=== PATIENT | female | born 1940 ===

== ENCOUNTER 2024-04-25 17:32 | Inpatient (IN) | payer OTHER, SELFPAY ==
[2024-04-25] VITALS (8 sets, daily range): BP systolic 110–149; BP diastolic 51–85; PULSE 101–128; RESP 16–20; TEMP 38.2–40.3; O2SAT 92–96; BMI 31.9
--- NOTE | 2024-04-25 | ECG_ITS ---
Test Reason : TACHYCARDIA Blood Pressure : / mmHG Vent. Rate : 118 BPM Atrial Rate : 122 BPM P-R Int : 000 ms QRS Dur : 110 ms QT Int : 338 ms P-R-T Axes : 000 -51 087 degrees QTc Int : 473 ms Undetermined rhythm Left anterior fascicular block Left ventricular hypertrophy with repolarization abnormality ( R in aVL , Naveed product ) Cannot rule out Septal infarct , age undetermined Abnormal ECG No previous ECGs available Referred By: Thuan Matthews Electronically Signed By:TADOE SALDAÑA
--- NOTE | ~2024-04-25 | US_ITS ---
EXAMINATION: US RETROPERITONEAL LIMITED (RENAL ONLY) CLINICAL INFORMATION: Acute kidney injury. COMPARISON: KUB of 04/26/2024, CT abdomen and pelvis of 04/25/2024 TECHNIQUE: Ultrasound images of the kidneys. Limited visualization due to bowel gas. FINDINGS: RIGHT KIDNEY: 11.8 x 5.8 x 4.0 cm (SAG x AP x TRV). No hydronephrosis. No renal calculi. Renal cortical thickness is normal. Limited visualization. 1.6 cm mid pole cyst with benign features. There is no indication for followup imaging. 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 LEFT KIDNEY: 11.9 x 4.6 x 4.0 cm (SAG x AP x TRV). No hydronephrosis. No renal calculi. Renal cortical thickness is normal. Limited visualization. 0.8 cm mid to upper pole cyst with benign features. There is no indication for followup imaging. 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 No hydronephrosis. No renal calculi. Limited visualization. This study was presented today, May 05, 2024, for interpretation. Stat results provided at this time as requested by referring provider. Electronically signed by: Stefanie Johnson MD 05/05/2024 11:43 AM EST
--- NOTE | ~2024-04-25 | XR_ITS ---
EXAMINATION: XR CHEST CLINICAL INFORMATION: rapid a-fib, SOB COMPARISON: None available. TECHNIQUE: AP portable view of the chest was obtained. FINDINGS: Study is apical lordotic. Lungs demonstrate/pulmonary edema pattern with perihilar haziness, haziness of the interstitium, and engorgement of the vascular markings. No definite effusions on this portable radiograph. A superimposed pneumonia in the right lower lung distribution cannot be excluded although is felt less likely given history. No pneumothorax. There is prominence of the cardiac silhouette. Coronary stent noted. Aorta is calcified. Karolina obscured by perihilar hazy opacities. No discrete osseous or soft tissue abnormalities. XR/XR chest 1V IMPRESSION: Flash pulmonary edema pattern. See above. Electronically signed by: Wilfrid Montanez MD 04/28/2024 10:41 AM [facility]
--- NOTE | ~2024-04-25 | CT_ITS ---
EXAMINATION: CT HEAD WITHOUT CONTRAST CLINICAL INFORMATION: Persistent fever. COMPARISON: None available. TECHNIQUE: Contiguous axial imaging was performed from the skull base to vertex without intravenous administration of contrast. This CT examination was performed using dose optimization techniques as appropriate, variously including the following: *Automated exposure control. *Adjustment of mA and/or kV according to patient size (this includes techniques or standardized protocols for targeted exams where dose is matched to indication/reason for exam; i.e. extremities or head). *Use of iterative reconstruction technique. DLP: 709 mGy-cm FINDINGS: Small region of chronic encephalomalacia within the anterior left frontal lobe with associated volume loss. No additional loss of saldivar-white matter differentiation. No evidence of acute intracranial hemorrhage. 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 Confluent hypoattenuation in the periventricular and deep white matter. Proportional prominence of the ventricles and sulcal spaces without evidence of obstructive hydrocephalus. No abnormal mass effect or midline shift. No extra-axial fluid collections. Calcific atherosclerotic disease of the intracranial internal carotid and vertebral arteries. No hyperdense vessel sign. No acute soft tissue or osseous abnormalities. Mild mucosal thickening of the paranasal sinuses. The mastoid air cells and middle ear cavities are clear. Mild degenerative arthropathy of the temporomandibular joints. CT/CT head/brain wo IV con IMPRESSION: 1. No evidence of acute intracranial hemorrhage or edematous territorial infarction. 2. Small region of chronic encephalomalacia within the anterior left frontal lobe. 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 Electronically signed by: Eugene Valenzuela DO 04/27/2024 06:06 PM EST
--- NOTE | ~2024-04-25 | XR_ITS ---
EXAMINATION: XR ABDOMEN KUB CLINICAL INDICATION: f/u rectal foreign body COMPARISON: CT from 04/25/2024 TECHNIQUE: AP view of the abdomen. FINDINGS: The bowel gas pattern is normal with no evidence of ileus or obstruction. Previously seen rectal catheter is no longer visualized. Residual IV contrast seen in the urinary bladder No unusual soft tissue calcifications are noted. The bones are unremarkable. XR/XR KUB IMPRESSION: Previously seen rectal catheter is no longer visualized. No radiopaque foreign body identified Electronically signed by: Johnathan Alston MD 04/26/2024 07:55 PM EST
--- NOTE | ~2024-04-25 | XR_ITS ---
EXAMINATION: XR CHEST CLINICAL INFORMATION: Fever. COMPARISON: None available. TECHNIQUE: Frontal view of the chest was obtained. FINDINGS: Chronic appearing interstitial prominence without focal airspace consolidation. No pleural effusion or pneumothorax. Unremarkable cardiomediastinal silhouette. XR/XR chest 1V IMPRESSION: Chronic appearing interstitial prominence without focal airspace consolidation. Electronically signed by: Kaden Real MD 04/25/2024 06:42 PM [facility] [place]
--- NOTE | ~2024-04-25 | CT_ITS ---
EXAMINATION: CT ABDOMEN PELVIS WITH IV CONTRAST CLINICAL INFORMATION: Upper abdominal pain with fever COMPARISON: No prior CT available for comparison. TECHNIQUE: Multidetector volumetric imaging was performed from the superior aspect of the liver through the pubic symphysis 85 mL of Omnipaque 350 injected Sagittal and coronal reformatted images were obtained on the technologist's workstation. This CT examination was performed using dose optimization techniques as appropriate, variously including the following: *Automated exposure control *Adjustment of mA and/or kV according to patient size (this includes techniques or standardized protocols for targeted exams where dose is matched to indication/reason for exam; i.e. extremities or head) *Use of iterative reconstruction technique DLP: 569 mGy-cm FINDINGS: LOWER THORAX: Included lung bases are clear. HEPATOBILIARY: No focal hepatic lesions. No biliary ductal dilatation. GALLBLADDER: Gallbladder unremarkable. SPLEEN: Spleen top normal in size 12.4 x 8.2 cm PANCREAS: No focal mass or ductal dilatation. STOMACH AND GASTROINTESTINAL TRACT: Stomach is grossly unremarkable. There is no bowel distention or thickening. Appendix normal in diameter 6 mm. No periappendiceal fat stranding or other signs to suggest appendicitis. ADRENALS: No adrenal nodules. KIDNEYS/URETERS: No hydronephrosis, stones or solid mass lesions. Simple cyst right kidney Bosniak class I measures 1.8 cm, these are commonly benign, no follow-up imaging is indicated. URINARY BLADDER: Not well evaluated lack of contrast. PELVIC VISCERA: There is diverticulosis of the area sigmoid colon, minimal fat stranding around the sigmoid colon in the pelvis, cannot rule out mild diverticulitis. There is radiodense catheter in the rectum uncertain purpose. There is a round radiodense object present near the anterior anal junction seen at the margin of the study. Roughly 1.5 x 1.4 cm refer image 60 series 8 PERITONEUM: No free air or fluid. LYMPH NODES: A large lymph node in the left side of the pelvis adjacent to the iliac vessels measures 1.3 x 1.1 cm, few other enlarged retroperitoneal para-aortic lymph nodes including the one on image 46 series of 3 measures 1 cm short axis. VASCULAR:Abdominal aorta normal in size, no aneurysm found. Heavy aortic vascular calcifications. BONES, ABDOMINAL WALL AND SOFT TISSUES: Age-appropriate changes of the spine and skeletal system, no destructive osteolytic or osteosclerotic bone lesion found CT/CT abdomen pelvis w IV con IMPRESSION: 1. There is diverticulosis of the sigmoid colon, there is minimal fat stranding around the sigmoid colon in the pelvis, suggesting mild DIVERTICULITIS. 2. There is a radiodense catheter in the rectum uncertain purpose. 3. There is a round radiodense object present near the anterior anal junction seen at the margin of the study 1.5 x 1.4 cm. 4. There are enlarged retroperitoneal lymph nodes in the left side of the pelvis adjacent to the iliac vessels, largest measures up to 1.3 cm short axis. Etiology indeterminate, could be reactive. Please correlate with patient's clinical history. Electronically signed by: Elena Mensah MD 04/25/2024 08:03 PM [facility]
--- NOTE | ~2024-04-25 | NM_ITS ---
EXAMINATION: Nuclear medicine perfusion lung exam. CLINICAL INFORMATION: Shortness of breath. COMPARISON: Chest x-ray April 28, 2024 TECHNIQUE: 4.0 mCi technetium 99m MAA given intravenously. Multiple images obtained of the chest. Imaging was performed with the patient's arms at his side. FINDINGS: Homogeneous perfusion of the left and right lung. No perfusion defect. No evidence of pulmonary embolism. NM/NM pul perfusion IMPRESSION: No evidence of pulmonary embolism. Normal perfusion lung scan. Electronically signed by: Ry Silva MD 04/29/2024 05:00 PM [facility]
--- NOTE | 2024-04-25 18:00 | ED.GENADULT ---
HPI - General Adult General Chief complaint: General Medical Stated complaint: ?seizure, dizzy, vomiting Time Seen by Provider: 04/25/24 18:00 Source: patient Mode of arrival: ambulatory Limitations: no limitations History of Present Illness ED Provider: jesusita FAITH narrative: Patient's history of diabetes asthma brought by EMS for lethargy weakness and shivering prior to arrival patient was also slightly confused patient usually lives alone her son came to visit her and noticed this earlier yesterday patient was feeling better symptoms started yesterday evening got worse prior to arrival today no nausea no vomiting no upper respiratory symptoms RN noticed foul-smelling urine had multiple episodes of nausea vomiting no diarrhea Related Data Allergies Allergy/AdvReac Type Severity Reaction Status Date / Time No Known Allergies Allergy Verified 04/25/24 17:39 Review of Systems Review of Systems: Yes all other systems are reviewed and are negative [facility] Past Medical History Medical History (Updated 04/25/24 @ 21:04 by Thuan Matthews MD) Mild intermittent asthma Type 2 diabetes mellitus without complications Social History Social History Household Members: Other Household Members Other:: senior living Housing: Other Housing Other:: senior living Do you presently have visiting nurse or other home services: No Patient Tobacco Use Status: Never used Tobacco Physical Exam ED Vital Signs: Vital Signs - 24 hr 04/25/24 17:36 04/25/24 17:55 04/25/24 17:56 Temperature 102.8 F H 104.5 F H Pulse Rate 128 H Respiratory Rate 18 Blood Pressure 149/85 H Pulse Oximetry 96 Oxygen Delivery Method Room Air Room Air Oxygen Flow Rate 04/25/24 18:21 04/25/24 18:50 04/25/24 19:43 Temperature 104.2 F H 103.5 F H 102.0 F H Pulse Rate 118 H 116 H 113 H Respiratory Rate 16 20 17 Blood Pressure 133/61 118/79 110/60 Pulse Oximetry 92 94 94 Oxygen Delivery Method Room Air Room Air Room Air Oxygen Flow Rate 95 04/25/24 20:50 Temperature 100.8 F H Pulse Rate 101 H Respiratory Rate 18 Blood Pressure 111/54 L Pulse Oximetry 94 Oxygen Delivery Method Room Air Oxygen Flow Rate BMI result Body Mass Index 31.9 Appearance: Alert. Oriented X3. No acute distress. Eyes: PERRLA, No Nystagmus ENT: Pharynx normal. Oral Mucosa dry Neck: Normal inspection. Neck supple. CVS: Normal heart rate and rhythm. Pulses normal. Respiratory: No respiratory distress. Equal air entry bilateral, no wheezing/rales/rhonchi Abdomen: Soft and nontender. Bowel sounds are present, no mass palpable, no CVA tenderness Skin: Skin warm and dry. Normal skin color. Normal skin turgor. Extremities: No lower extremity edema. No calf tenderness Neuro: Oriented X 3. No motor deficit. Medications Administered Generic Name Dose Route Start Last Admin Trade Name Freq PRN Reason Stop Dose Admin Acetaminophen 650 mg 04/25/24 20:59 04/26/24 00:44 Acetaminophen 325 Mg Tablet PO 650 mg Q6H PRN Administration Pain, Mild (Pain Scale 1-3), fever or headache Enoxaparin Sodium 40 mg 04/25/24 22:00 04/25/24 21:47 Enoxaparin Sodium 40 Mg/0.4 Ml Syringe SUBCUT 40 mg Q24H NADINE Administration Lactated Ringer's 1,000 mls @ 100 mls/hr 04/25/24 21:00 04/25/24 21:48 Lr IVCONT 100 mls/hr .Q10H NADINE Administration Metronidazole 500 mg in 100 mls @ 100 mls/hr 04/25/24 22:00 04/25/24 22:48 Flagyl IV Infused Q8H NADINE Infusion Ondansetron HCl 4 mg 04/25/24 20:59 04/26/24 00:27 Ondansetron Hcl 4 Mg/2 Ml Vial IVPUSH 4 mg Q8H PRN Administration Nausea and Vomiting Sodium Chloride 3 ml 04/26/24 00:00 04/26/24 00:27 0.9 % Sodium Chloride Flush 3 Ml Syringe IVFLUSH 3 ml QSHIFT NADINE Administration Discontinued Medications Generic Name Dose Route Start Last Admin Trade Name Freq PRN Reason Stop Dose Admin Acetaminophen 650 mg 04/25/24 18:07 04/25/24 18:24 Acetaminophen 325 Mg Tablet PO 04/25/24 18:08 650 mg ONCE ONE Administration Ceftriaxone Sodium 1 gm 04/25/24 18:03 04/25/24 18:18 Ceftriaxone Sodium 1 Gm Vial IVPUSH 04/25/24 18:04 1 gm ONCE ONE Administration Sodium Chloride 1,000 mls @ 999 mls/hr 04/25/24 18:03 04/25/24 19:15 Ns IV 04/25/24 19:03 Infused .Q1H1M ONE Infusion Magnesium Sulfate 2 gm in 50 mls @ 150 mls/hr 04/25/24 19:00 04/25/24 19:27 Magnesium Sulfate/H2o IV 04/25/24 19:19 Infused ONCE ONE Infusion Iohexol 85 ml 04/25/24 19:27 04/25/24 19:27 Iohexol 350 Mg/Ml 100 Ml Infus..Btl IV 04/25/24 19:28 85 ml ONCE ONE Administration Medical Decision Making Medical Decision Making MDM Narrative: Patient has acute febrile illness with normal WBC count CT scan of the abdomen showed diverticulitis uncomplicated likely the cause for the fever patient's symptoms and presentation will admit patient for IV antibiotics pending blood culture lactic acid level was normal Patient's son's Ren phone number [phone] Differential Diagnosis Differential Diagnoses: The differential diagnosis associated with the presentation includes Diverticulitis/UTI/bacteremia/viral syndrome Admission/Observation Consideration of admission/observation: Escalation of care including admission/observation considered Consult Healthcare Provider Management of the patient was discussed with: Hospitalist Lab Data [facility] Lab Attestation statement: I reviewed the patient's lab results. 04/25/24 18:14 04/25/24 18:14 Labs: Lab Results 04/25/24 Range/Units 18:14 WBC 8.5 (4.8-10.8) X10*3/uL RBC 4.83 (4.20-5.50) X10*6/uL Hgb 13.9 (12.0-16.0) g/dl Hct 41.2 (37.0-47.0) % MCV 85.3 (80.0-98.0) fL MCH 28.8 (27.0-33.0) pg MCHC 33.7 (31.0-35.0) g/dl RDW 12.7 (11.0-16.0) % Plt Count 181 (160-400) X10*3/uL MPV 9.3 L (9.4-12.3) fL Immature Gran % (Auto) 0.6 H (0.0-0.4) % Neut % (Auto) 85.3 H (45-73) % Lymph % (Auto) 8.3 L (20-40) % [place] % (Auto) 5.4 (2-11) % Eos % (Auto) 0.0 (0-4) % Baso % (Auto) 0.4 (0-2) % Lymph # (Auto) 0.7 L (1.2-4.9) X10*3/uL [place] # (Auto) 0.5 (0.1-1.2) X10*3/uL Eos # (Auto) 0.0 (0.0-0.4) X10*3/uL Baso # (Auto) 0.0 (0.0-0.2) X10*3/uL Abs Immat Gran (auto) 0.05 H (0.00-0.03) X10*3/uL Absolute Neuts (auto) 7.3 (2.0-8.3) x10*3/uL Absolute Nucleated RBC 0.000 (0.0-0.012) X10*3/uL Nucleated RBC % (auto) 0.0 (0.0-0.2) /100WBC Sodium 132 L (135-145) mmol/L Potassium 3.6 (3.3-5.1) mmol/L Chloride 96 (96-108) mmol/L Carbon Dioxide 26 (22-29) mmol/L Anion Gap 14 (12-20) BUN 10 (9-16) mg/dL Creatinine 0.95 (0.5-1.4) mg/dL Estim Creat Clear Calc 45.2 Estimated GFR 56 Random Glucose 186 H (60-115) mg/dL Lactic Acid 1.7 (0.5-2.0) mmol/L Calcium 9.2 (8.4-10.2) mg/dL Magnesium 1.3 L* (1.6-2.6) mg/dL Total Bilirubin 0.6 (0.0-1.0) mg/dL AST 21 (5-31) U/L ALT 11 (0-31) U/L Alkaline Phosphatase 51 (39-117) U/L Total Protein 7.1 (6.5-8.0) g/dL Albumin 3.7 (3.5-5.0) g/dL Lipase 27 (8-78) U/L Urine Color Dark Yellow Urine Appearance Clear Urine pH 6.0 (5.0-9.0) Ur Specific [place] 1.025 (1.005-1.025) Urine Protein 300 (3+) H (Neg-Trace) mg/dL Urine Glucose (UA) Negative (Negative) mg/dL Urine Ketones 15 (Negative) mg/dL Urine Blood Large (3+) H (Negative) Urine Nitrite Negative (Negative) Ur Leukocyte Esterase Negative (Negative) Urine RBC 11-20 H (0-2) /HPF Urine WBC 0-5 (0-5) /HPF Ur Squamous Epith Cells 3-5 (0-2) /HPF Urine Bacteria None Seen (None Seen) Hyaline Casts 6-10 (0-2) /LPF Granular Casts Present Influenza Type A (PCR) NEGATIVE (Negative) Influenza Type B (PCR) NEGATIVE (Negative) RSV RNA Qual (PCR) NEGATIVE (Negative) SARS-CoV-2 RNA (RT-PCR) NEGATIVE (Negative) Independent Interpretation I performed an independent interpretation of an: CT Scan Radiology Impression Discussion of test interpretation with radiology: I have reviewed the radiologist's reading. Radiologist Impression: [place] [id number] CT Scan Report Signed Patient: Merle Funk MR#: [id number] : 1940 Acct:[id number] Age/Sex: 83 / F ADM Date: 04/25/24 Loc: .ED Attending Dr: Ordering Physician: Thuan Matthews MD Date of Service: 04/25/24 Procedure(s): CT abdomen pelvis w IV con Accession Number(s): [id number] cc: Clemente Castaneda MD; Thuan Matthews MD~ EXAMINATION: CT ABDOMEN PELVIS WITH IV CONTRAST CLINICAL INFORMATION: Upper abdominal pain with fever COMPARISON: No prior CT available for comparison. TECHNIQUE: Multidetector volumetric imaging was performed from the superior aspect of the liver through the pubic symphysis 85 mL of Omnipaque 350 injected Sagittal and coronal reformatted images were obtained on the technologist's workstation. This CT examination was performed using dose optimization techniques as appropriate, variously including the following: *Automated exposure control *Adjustment of mA and/or kV according to patient size (this includes techniques or standardized protocols for targeted exams where dose is matched to indication/reason for exam; i.e. extremities or head) *Use of iterative reconstruction technique DLP: 569 mGy-cm FINDINGS: LOWER THORAX: Included lung bases are clear. HEPATOBILIARY: No focal hepatic lesions. No biliary ductal dilatation. GALLBLADDER: Gallbladder unremarkable. SPLEEN: Spleen top normal in size 12.4 x 8.2 cm PANCREAS: No focal mass or ductal dilatation. STOMACH AND GASTROINTESTINAL TRACT: Stomach is grossly unremarkable. There is no bowel distention or thickening. Appendix normal in diameter 6 mm. No periappendiceal fat stranding or other signs to suggest appendicitis. ADRENALS: No adrenal nodules. KIDNEYS/URETERS: No hydronephrosis, stones or solid mass lesions. Simple cyst right kidney Bosniak class I measures 1.8 cm, these are commonly benign, no follow-up imaging is indicated. URINARY BLADDER: Not well evaluated lack of contrast. PELVIC VISCERA: There is diverticulosis of the area sigmoid colon, minimal fat stranding around the sigmoid colon in the pelvis, cannot rule out mild diverticulitis. There is radiodense catheter in the rectum uncertain purpose. There is a round radiodense object present near the anterior anal junction seen at the margin of the study. Roughly 1.5 x 1.4 cm refer image 60 series 8 PERITONEUM: No free air or fluid. LYMPH NODES: A large lymph node in the left side of the pelvis adjacent to the iliac vessels measures 1.3 x 1.1 cm, few other enlarged retroperitoneal para-aortic lymph nodes including the one on image 46 series of 3 measures 1 cm short axis. VASCULAR:Abdominal aorta normal in size, no aneurysm found. Heavy aortic vascular calcifications. BONES, ABDOMINAL WALL AND SOFT TISSUES: Age-appropriate changes of the spine and skeletal system, no destructive osteolytic or osteosclerotic bone lesion found CT/CT abdomen pelvis w IV con IMPRESSION: 1. There is diverticulosis of the sigmoid colon, there is minimal fat stranding around the sigmoid colon in the pelvis, suggesting mild DIVERTICULITIS. 2. There is a radiodense catheter in the rectum uncertain purpose. 3. There is a round radiodense object present near the anterior anal junction seen at the margin of the study 1.5 x 1.4 cm. 4. There are enlarged retroperitoneal lymph nodes in the left side of the pelvis adjacent to the iliac vessels, largest measures up to 1.3 cm short axis. Etiology indeterminate, could be reactive. Please correlate with patient's clinical history. Electronically signed by: Elena Mensah MD 04/25/2024 08:03 PM [facility] Discharge Plan Discharge Clinical Impression: Sigmoid diverticulitis Patient Disposition: Admitted As Inpatient Interventions: Admission Worksheet (ED) Last Done: 04/26/24 00:40 Discharge Date/Time: 04/26/24 00:41
[2024-04-25] MEDS: 0.9 % Sodium Chloride 1,000 ML 999 ML IV (18:14)
[2024-04-25] MEDS: cefTRIAXone sodium 1 GM VIAL IVPUSH (18:18)
--- NOTE | 2024-04-25 18:20 | PC.NURSE ---
roxann from [facility] d/t seizure like activity. pt's son reports DAVID was displaying w/ tremors. alert/awake throughout. no hx of seizures. no trauma. foul smelling urine upon ED arrival. multiple episodes of n/v. denies any abd pain/diarrhea/fever/chills. upon ED arrival - pt answering questions/following commands appropriately but seemingly disoriented. pt presents w/ extremely foul smelling urine as well as being incontinent w/ large amount of urine. clothes wet. pt changed into hospital attire. vitals obtained. pt noted to have 102.8 temperature via oral route. rectal temp then obtained displaying 104.2. rectal probe placed. pt tachycardic - HR between 115-125 bpm. pt denies chest pain/palpitations. otherwise vss and up to date. unable obtain SPO2 d/t lack or circulation/cold extremities throughout. SPO2 obtained via forehead probe w/ good read. urine obtained/sent to lab. ekg performed by tech. 18gIV placed in the right AC as well as a 20gIV in the left AC - labs obtained/sent to lab. IVF/abx/tylenol for fever administered per provider order. effectiveness pending. xray completed at this time. purewick in place. pt on RA w/o difficulty. no sob/wob noted. respirations even/unlabored. provider notified/aware of all findings. plan of care ongoing. call issa placed within reach.
[2024-04-25 18:22] LABS: MANUAL DIFF FLAG NO
[2024-04-25] MEDS: Acetaminophen 325 MG TABLET 650 MG PO (18:24)
[2024-04-25 18:25] LABS: Appearance Urine Clear; Color Urine Dark Yellow; Glucose Urine UA Negative (Negative); Leukocyte Esterase Urine Negative (Negative); Nitrite Urine Negative (Negative); Specific Gravity - Urine 1.025 (1.005-1.025); UMIC TRIGGER UACC YES; Urine Blood Large (3+) (Negative); Urine Ketones 15 mg/dL (Negative); Urine Protein 300 (3+) mg/dL (Neg-Trace)
[2024-04-25 18:28] LABS: Basophils Percent Auto 0.4 % (0-2); Hematocrit 41.2 % (37.0-47.0); Hemoglobin 13.9 g/dl (12.0-16.0); Imm Gran Abs Auto 0.05 X10*3/uL (0.00-0.03); Imm Gran Pct Auto 0.6 % (0.0-0.4); Lymphocytes Absolute Auto 0.7 X10*3/uL (1.2-4.9); Lymphocytes Percent Auto 8.3 % (20-40); Mean Corpuscular HGB Conc 33.7 g/dl (31.0-35.0); Mean Corpuscular Hemoglobin 28.8 pg (27.0-33.0); Mean Corpuscular Volume 85.3 fL (80.0-98.0); Mean Platelet Volume 9.3 fL (9.4-12.3); Monocytes Absolute Auto 0.5 X10*3/uL (0.1-1.2); Monocytes Percent Auto 5.4 % (2-11); Neutrophils Absolute Auto 7.3 x10*3/uL (2.0-8.3); Neutrophils Percent Auto 85.3 % (45-73); Platelet Count 181 X10*3/uL (160-400); Red Blood Count 4.83 X10*6/uL (4.20-5.50); Red Cell Distribution Width 12.7 % (11.0-16.0); White Blood Count 8.5 X10*3/uL (4.8-10.8)
[2024-04-25 18:32] LABS: Bacteria Urine None Seen (None Seen); Granular Casts Urine Present; WBC Urine 0-5 /HPF (0-5)
[2024-04-25 18:35] LABS: Lactic Acid 1.7 mmol/L (0.5-2.0)
[2024-04-25 18:40] LABS: Alanine Aminotransferase 11 U/L (0-31); Albumin Level 3.7 g/dL (3.5-5.0); Alkaline Phosphatase 51 U/L (39-117); Anion Gap 14 (12-20); Aspartate Amino Transferase 21 U/L (5-31); Bilirubin Total 0.6 mg/dL (0.0-1.0); Blood Urea Nitrogen 10 mg/dL (9-16); Calcium 9.2 mg/dL (8.4-10.2); Carbon Dioxide 26 mmol/L (22-29); Chloride 96 mmol/L (96-108); Creatinine Clr Calc Pharmacy 45.2; Estimated Glomerular Filt Rate 56; Glucose Random 186 mg/dL (60-115); Potassium 3.6 mmol/L (3.3-5.1); Sodium 132 mmol/L (135-145); Total Protein 7.1 g/dL (6.5-8.0)
--- NOTE | 2024-04-25 18:55 | PC.NURSE ---
critical lab value received at this time - magnesium of 1.3 - dr. mc notified/aware.
[2024-04-25 18:56] LABS: Lipase 27 U/L (8-78); Magnesium 1.3 mg/dL (1.6-2.6)
[2024-04-25 18:58] LABS: Influenza A PCR NEGATIVE (Negative); Influenza B PCR NEGATIVE (Negative); Resp Syncy Virus RNA Qual PCR NEGATIVE (Negative); SARS COV2 PCR INHOUSE NEGATIVE (Negative)
[2024-04-25] MEDS: Magnesium Sulfate/H2O 2 GM/50 ML PIGGYBACK IV (19:07)
--- NOTE | 2024-04-25 19:13 | PC.NURSE ---
Pt medicated per [facility] Plan of care ongoing.
[2024-04-25] MEDS: iohexoL 350 MG/ML 100 ML INFUS..BTL 85 ML IV (19:27)
--- NOTE | 2024-04-25 20:41 | P.HPHOSP_ITS ---
History of Present Illness Date of Service: 04/25/24 <Bobbi Yañez PA-C Last Filed: 04/25/24 21:04> Attending physician on admission: Eduarda Riley <JESSICA Saenz Last Filed: 04/25/24 21:04> Chief Complaint: seizure like activity, nausea, vomiting, weakness <JESSICA Saenz Last Filed: 04/25/24 21:04> Pt is an 83-year-old female with a past medical history significant for type 2 diabetes (PO meds), and mild intermittent asthma who presented to the ED with left lower extremity seizure-like activity, dizziness, nausea and vomiting. She reports vomiting for the past 3 days with intermittent diarrhea. She has not been able to tolerate any food that has been hydrating. She also reports fell smelling urine. She denies any chest pain, shortness of breath, fever, chills, headache, change in vision or cough. She does report weakness and runny nose for the past few days. <JESSICA Saenz Last Filed: 04/25/24 21:04> Review of Systems 2 Constitutional: Constitutional: Denies body ache(s), Denies chills, Reports fever(s) and Denies headache(s) <JESSICA Saenz Last Filed: 04/25/24 21:04> Eyes: Eyes: Denies change in vision <JESSICA Saenz Last Filed: 04/25/24 21:04> ENT: Denies headache(s), Denies nasal congestion, Reports nasal discharge and Denies sore throat <JESSICA Saenz Last Filed: 04/25/24 21:04> Cardiovascular: Cardiovascular: Denies chest pain, Denies rapid heart rate, Denies leg edema and Denies dyspnea <JESSICA Saenz Last Filed: 04/25/24 21:04> Respiratory: Respiratory: Denies chest congestion, Denies cough, Denies dyspnea and Denies wheezing <JESSICA Saenz Last Filed: 04/25/24 21:04> Gastrointestinal: Gastrointestinal: Denies coffee ground emesis, Denies constipation, Reports diarrhea, Reports nausea, Reports vomiting and Denies hematemesis <DOMINIQUE Saenz Last Filed: 04/25/24 21:04> Genitourinary: Genitourinary: Denies dysuria and Denies urinary urgency < DOMINIQUE Saenz Last Filed: 04/25/24 21:04> Musculoskeletal: Musculoskeletal: Reports muscle weakness and Denies tingling <BobbiKVNG CaliAriel Last Filed: 04/25/24 21:04> Integumentary/Breasts: Skin/Breast: Denies rash <BobbiKVNG VelasquezAriel Filed: 04/25/24 21:04> Neurologic: Denies confusion, Denies headache(s), Reports seizure-like activity, Denies tingling and Denies paresthesias <BobbiKVNG [place] Last Filed: 04/25/24 21:04> Psychiatric: Psychiatric: Denies confusion <KVNG SaenzAriel Filed: 04/25/24 21:04> Allergic/Immunologic: Allergic/Immunologic: Denies wheezing <KVNG SaenzAriel Filed: 04/25/24 21:04> [facility] Medical History: Medical History (Updated 04/25/24 @ 21:04 by Thuan Matthews MD) Mild intermittent asthma Type 2 diabetes mellitus without complications <DOMINIQUE SaenzOly Last Filed: 04/25/24 21:04> Functional capacity: independent ambulation <KVNG SaenzAriel Last Filed: 04/25/24 21:04> Social History: Social History Smoked in Last 30 Days: No Use of substances other than those prescribed or required for medical reasons: No Advance Directives: No Advance Directives Information Provided: No Do you have a plan to hurt others: No Plan <DOMINIQUE SaenzOly Last Filed: 04/25/24 21:04> Meds Allergies/Adverse reactions: Allergies Allergy/AdvReac Type Severity Reaction Status Date / Time No Known Allergies Allergy Verified 04/25/24 17:39 <Bobbi Yañez PA-C - Last Filed: 04/25/24 21:04> Physical Exam 2 Vital Signs and Narrative: Vital Signs: Last Vital Signs Temp 102.0 F H 04/25/24 19:43 Pulse 113 H 04/25/24 19:43 Resp 17 04/25/24 19:43 BP 110/60 04/25/24 19:43 Pulse Ox 94 04/25/24 19:43 O2 Del Method Room Air 04/25/24 19:43 O2 Flow Rate 95 04/25/24 19:43 BMI result Body Mass Index 31.9 <Bobbi Yañez PA-C - Last Filed: 04/25/24 21:04> General: AOx3, no acute distress Resp: CTA bilaterally CVS: RRR, +murmur GI: +BS, tender LLQ with deep paplation, no guarding Skin: Warm, dry Neuro: Cranial nerves II-XII grossly intact bilaterally. Motor grossly intact bilaterally. motor and sensation intact 5/5 bilateral upper and lower extermities Extremities: No edema Psych: Appropriate affect <Bobbi Yañez PA-C - Last Filed: 04/25/24 21:04> Const: General: No confusion <Bobbi Yañez PA-C - Last Filed: 04/25/24 21:04> Orientation/consciousness: No confusion <Bobbi Yañez PA-C - Last Filed: 04/25/24 21:04> Neuro: General: No confusion <Bobbi Yañez PA-C - Last Filed: 04/25/24 21:04> Results Labs CBC and Chem 7: 04/25/24 18:14 04/25/24 18:14 <Bobbi Yañez PA-C - Last Filed: 04/25/24 21:04> Labs: Laboratory Results - last 24 hr 04/25/24 18:14 MCV 85.3 MCH 28.8 MCHC 33.7 RDW 12.7 Plt Count 181 MPV 9.3 L Immature Gran % (Auto) 0.6 H Neut % (Auto) 85.3 H Lymph % (Auto) 8.3 L [place] % (Auto) 5.4 Eos % (Auto) 0.0 Baso % (Auto) 0.4 Lymph # (Auto) 0.7 L [place] # (Auto) 0.5 Eos # (Auto) 0.0 Baso # (Auto) 0.0 Abs Immat Gran (auto) 0.05 H Absolute Neuts (auto) 7.3 Absolute Nucleated RBC 0.000 Nucleated RBC % (auto) 0.0 Anion Gap 14 Estim Creat Clear Calc 45.2 Estimated GFR 56 Random Glucose 186 H Lactic Acid 1.7 Calcium 9.2 Magnesium 1.3 L* Total Bilirubin 0.6 AST 21 ALT 11 Alkaline Phosphatase 51 Total Protein 7.1 Albumin 3.7 Lipase 27 Urine Color Dark Yellow Urine Appearance Clear Urine pH 6.0 Ur Specific [place] 1.025 Urine Protein 300 (3+) H Urine Glucose (UA) Negative Urine Ketones 15 Urine Blood Large (3+) H Urine Nitrite Negative Ur Leukocyte Esterase Negative Urine RBC 11-20 H Urine WBC 0-5 Ur Squamous Epith Cells 3-5 Urine Bacteria None Seen Hyaline Casts 6-10 Granular Casts Present Influenza Type A (PCR) NEGATIVE Influenza Type B (PCR) NEGATIVE RSV RNA Qual (PCR) NEGATIVE SARS-CoV-2 RNA (RT-PCR) NEGATIVE <Bobbi Yañez PA-C - Last Filed: 04/25/24 21:04> Imaging Radiologist's Impressions: Impressions Chest X-Ray 04/25/24 18:05 IMPRESSION: Chronic appearing interstitial prominence without focal airspace consolidation. Electronically signed by: Kaden Real MD 04/25/2024 06:42 PM [facility] Abdomen/Pelvis CT 04/25/24 19:36 IMPRESSION: 1. There is diverticulosis of the sigmoid colon, there is minimal fat stranding around the sigmoid colon in the pelvis, suggesting mild DIVERTICULITIS. 2. There is a radiodense catheter in the rectum uncertain purpose. 3. There is a round radiodense object present near the anterior anal junction seen at the margin of the study 1.5 x 1.4 cm. 4. There are enlarged retroperitoneal lymph nodes in the left side of the pelvis adjacent to the iliac vessels, largest measures up to 1.3 cm short axis. Etiology indeterminate, could be reactive. Please correlate with patient's clinical history. Electronically signed by: Elena Mensah MD 04/25/2024 08:03 PM [facility] <Bobbi Yañez KVNGArielOly - Last Filed: 04/25/24 21:04> Assessment and Plan (1) Sepsis: Status: Acute <Bobbi Yañez DOMINIQUEOly - Last Filed: 04/25/24 21:04> (2) Sigmoid diverticulitis: Status: Acute <Bobbi YañezJESSICA - Last Filed: 04/25/24 21:04> (3) Seizure-like activity: Status: Acute <Bobbi Yañez DOMINIQUEOly Last Filed: 04/25/24 21:04> (4) Obesity (BMI 30.0-34.9): Status: Acute <Bobbi YañezJESSICA Last Filed: 04/25/24 21:04> Pt is an 83-year-old female with a past medical history significant for type 2 diabetes (PO meds), and mild intermittent asthma who presented to the ED with left lower extremity seizure-like activity, dizziness, nausea and vomiting. Sepsis secondary to mild sigmoid diverticulitis - no leukocytosis, lactic acid normal, blood cultures x2 pending - UA negative - A/P CT with mild sigmoid diverticulitis, enlarged retroperitoneal lymph nodes in the left side of the pelvis adjacent to the iliac vessels, could be reactive - consider stool studies if diarrhea returns - NPO for now as pt is not tolerating - LR 100 ml/hr - started on ceftriaxone in ED, will add Flagyl - monitor CBC and BMP Seizure-like activity, ?seizure - no current seizure-like activity, singular episode - if another episode occurs consider EEG and neuro consult T2DM - SSI - diabetic diet when tolerated mild intermittent asthma - no acute exacerbation - abuterol PRN full code VTE prophy: heparin Patient with sepsis secondary to mild sigmoid diverticulitis and seizure-like activity, requiring admission for IV antibiotics, fluids and monitoring for at least 2 midnights stay. <Bobbi OtilioJESSICA agosto Last Filed: 04/25/24 21:04> Pt is an 83-year-old female with a past medical history significant for type 2 diabetes (PO meds), and mild intermittent asthma who presented to the ED with left lower extremity seizure-like activity, dizziness, nausea and vomiting. Sepsis secondary to mild sigmoid diverticulitis - no leukocytosis, lactic acid normal, blood cultures x2 pending - UA negative - A/P CT with mild sigmoid diverticulitis, enlarged retroperitoneal lymph nodes in the left side of the pelvis adjacent to the iliac vessels, could be reactive - consider stool studies if diarrhea returns - NPO for now as pt is not tolerating - LR 100 ml/hr - started on ceftriaxone in ED, will add Flagyl - monitor CBC and BMP Seizure-like activity, ?seizure - no current seizure-like activity, singular episode - if another episode occurs consider EEG and neuro consult T2DM with hyperglycemia - SSI - diabetic diet when tolerated Hypomagnesemia -repleted mild intermittent asthma - no acute exacerbation - albuterol PRN full code VTE prophy: lovenox Patient with sepsis secondary to mild sigmoid diverticulitis and seizure-like activity, requiring admission for IV antibiotics, fluids and monitoring for at least 2 midnights stay. <Eduarda Riley MD - Last Filed: 04/25/24 21:33> Quality Stroke Does the patient have a stroke diagnosis?: No <Bobbi Yañez PA-C - Last Filed: 04/25/24 21:04> VTE Prior VTE?: No <Bobbi Yañez PA-C - Last Filed: 04/25/24 21:04> VTE Risk Level:: Medical - moderate - high <Bobbi Yañez PA-C - Last Filed: 04/25/24 21:04> VTE Device Contraindication: Treatment Not Indicated <JESSICA Saenz Last Filed: 04/25/24 21:04> VTE Drug Contraindication: N/A - Med Ordered <Bobbi Yañez PA-C - Last Filed: 04/25/24 21:04>
--- NOTE | 2024-04-25 21:46 | PC.NURSE ---
Patient medicated per MAR.
[2024-04-25] MEDS: metroNIDAZOLE/NS 500 MG/100 ML PIGGYBACK 100 MG IV (21:47)
[2024-04-25] MEDS: Enoxaparin Sodium 40 MG/0.4 ML SYRINGE SUBCUT (21:47)
[2024-04-25] MEDS: Lactated Ringers 1,000 ML 100 ML IVCONT (21:48)
[2024-04-25 22:39] LABS: Glucose, Whole Blood 176 mg/dL (60-115)
[2024-04-26] VITALS (13 sets, daily range): BP systolic 108–153; BP diastolic 57–79; PULSE 85–124; RESP 16–20; TEMP 37–40.4; O2SAT 92–96; BMI 32.5
[2024-04-26] MEDS: 0.9 % Sodium Chloride Flush 3 ML SYRINGE IVFLUSH (00:27)
[2024-04-26] MEDS: ondansetron HCL 4 MG/2 ML VIAL IVPUSH ×2 (00:27→16:52)
[2024-04-26] MEDS: Acetaminophen 325 MG TABLET 650 MG PO ×3 (00:44→15:55)
[2024-04-26 01:28] LABS: Glucose, Whole Blood 188 mg/dL (60-115)
--- NOTE | 2024-04-26 03:56 | PC.NURSE ---
0040; Patient with rectal temp of 102.7, hr 121. Medicated with prn tylenol per mar and applied ice packs. Dr. Riley made aware of elevated temp and heart rate. 0144; Temp 101.2 0320; Temp 99.6
[2024-04-26] MEDS: metroNIDAZOLE/NS 500 MG/100 ML PIGGYBACK 100 MG IV (05:35)
[2024-04-26 05:54] LABS: Glucose, Whole Blood 139 mg/dL (60-115)
[2024-04-26] MEDS: Ketorolac Tromethamine 15 MG/ML VIAL IVPUSH (09:06)
[2024-04-26 09:49] LABS: MANUAL DIFF FLAG NO
[2024-04-26 09:58] LABS: Basophils Percent Auto 0.3 % (0-2); Hematocrit 34.8 % (37.0-47.0); Hemoglobin 11.8 g/dl (12.0-16.0); Imm Gran Abs Auto 0.05 X10*3/uL (0.00-0.03); Imm Gran Pct Auto 0.8 % (0.0-0.4); Lymphocytes Absolute Auto 0.4 X10*3/uL (1.2-4.9); Lymphocytes Percent Auto 5.6 % (20-40); Mean Corpuscular HGB Conc 33.9 g/dl (31.0-35.0); Mean Corpuscular Hemoglobin 28.9 pg (27.0-33.0); Mean Corpuscular Volume 85.1 fL (80.0-98.0); Mean Platelet Volume 9.8 fL (9.4-12.3); Monocytes Absolute Auto 0.2 X10*3/uL (0.1-1.2); Monocytes Percent Auto 3.5 % (2-11); Neutrophils Absolute Auto 5.9 x10*3/uL (2.0-8.3); Neutrophils Percent Auto 89.8 % (45-73); Platelet Count 150 X10*3/uL (160-400); Red Blood Count 4.09 X10*6/uL (4.20-5.50); Red Cell Distribution Width 12.8 % (11.0-16.0); White Blood Count 6.6 X10*3/uL (4.8-10.8)
--- NOTE | 2024-04-26 10:13 | MHC.CM.PN ---
COLLECTION SYSTEMS TECHNICIAN AND CM MET WITH PT AT BEDSIDE. PT STATES SHE LIVES ALONE IN AN APARTMENT, NOT A [facility] PT'S PCP IS ALVARO VALENZUELA PT DOES NOT RECIEVE SERVICES BUT IS INTERESTED IN [facility] PT'S PRIMARY CONTACT IS LIANNA MURDOCK, SON, BLANK HCP FORM WILL BE DELIVERED. PT'S INSURANCE IS [facility] MEDIC[facility] IMM DELIVERED PT'S SON WILL TRANSPORT HOME. DCP HOME WITH [facility] VIA PRIVATE TRANSPORT
--- NOTE | 2024-04-26 10:26 | PHA.MEDREC ---
Addendum entered by Clayton Galaviz 04/26/24 10:36: reviewed Original Note: Pharmacy Consult ? Medication Reconciliation Pharmacy has completed the medication reconciliation. Went to speak with patient and at first patient was not sure what she was taking and stated her son should be able to help confirm them. I tried to call patients son around [phone] and his phone is off. I called [facility] in [place] where the patient last filled and they confirmed she has not gotten anything since the Gabapentin 300mg tab was filled 01/08 for 30 days, they stated she had a bunch of medications that were ready to roll picker on 02/08 but that was returned to stock since she never picked that up. I went back and spoke with the patient and she confirmed she hasn't filled any of her medications since November-December and states shes been in the process of transferring [facility] to get her medications filled closer but she never got around to doing it and confirmed that she has an overabundance of Metformin 850mg tabs and confirmed she takes them twice a day and she took them last yesterday, she states she has not taken any other medications in about 1-2 months.
[2024-04-26 10:28] LABS: Anion Gap 11 (12-20); Blood Urea Nitrogen 11 mg/dL (9-16); Calcium 8.2 mg/dL (8.4-10.2); Carbon Dioxide 24 mmol/L (22-29); Chloride 100 mmol/L (96-108); Creatinine Clr Calc Pharmacy 52.9; Estimated Glomerular Filt Rate > 60; Glucose Random 184 mg/dL (60-115); Magnesium 1.7 mg/dL (1.6-2.6); Potassium 3.1 mmol/L (3.3-5.1); Sodium 132 mmol/L (135-145)
[2024-04-26] MEDS: Piperacillin Sodium/Tazobactam 3.375 GM in 0.9 % Sodium Chloride 50 ML IV ×3 (10:55→21:22)
--- NOTE | 2024-04-26 11:02 | P.CONGS_ITS ---
History of Present Illness Consult details Consult date: 04/26/24 <Vicky Fofana PA-C - Last Filed: 04/26/24 12:10> Narrative: Ms. Funk is a 83-year-old female with PMH significant for type 2 diabetes and mild intermittent asthma who presented to the ED with multiple complaints including question of seizure-like activity, dizziness, forgetfulness. She is a poor historian and HPI was obtained from patient, son and EMR. She said she lived with her son however per EMR she lives mostly alone. She was visited by her son on the day of presentation and was brought to the ED for dizziness. She reports vomiting for a few days with occasional diarrhea and poor PO intake. She denies dysuria but reports fell smelling urine. She was febrile in the ED. Work up in the ED included CBC, BMP, LFTs. She had no leukocytosis. CT scan abd/pelvis showed sigmoid diverticulosis of the sigmoid colon with mild surrounding inflammatory changes, enlarged retroperitoneal lymph nodes and also question of a radiodense catheter in the rectum of with a round radiodense object at the anal junction. General surgery was therefore consulted. She reports mild abd pain in the left side. She denies rectal pain, rectal bleeding. She denies inserting anything into her rectum, ingesting anything. She has a distant hx of a hysterectomy. She reports she has had BMs since admission. <JESSICA Hess Last Filed: 04/26/24 12:10> Review of Systems 2 Review of Systems: Yes all other systems are reviewed and are negative < JESSICA Hess Last Filed: 04/26/24 12:10> [facility] Past Medical History Medical History: Medical History (Updated 04/25/24 @ 21:04 by Thuan Matthews MD) Mild intermittent asthma Type 2 diabetes mellitus without complications <JESSICA Hess Last Filed: 04/26/24 12:10> Social History Social History: Social History Household Members: Other Household Members Other:: fdc Housing: Other Housing Other:: fdc Do you presently have visiting nurse or other home services: No Patient Tobacco Use Status: Never used Tobacco service: No <JESSICA Hess Last Filed: 04/26/24 12:10> Meds Allergies/Adverse reactions: Allergies Allergy/AdvReac Type Severity Reaction Status Date / Time No Known Allergies Allergy Verified 04/25/24 17:39 <Vicky Fofana PA-C - Last Filed: 04/26/24 12:10> Active Medications: Current Medications Acetaminophen (Acetaminophen 325 Mg Tablet) 650 mg PO Q6H PRN PRN Reason: Pain, Mild (Pain Scale 1-3), fever or headache Last Admin: 04/26/24 07:51 Dose: 650 mg Calcium Carbonate (Calcium Carbonate 750 Mg Tab.Chew) 750 mg PO Q4H PRN PRN Reason: Heartburn Enoxaparin Sodium (Enoxaparin Sodium 40 Mg/0.4 Ml Syringe) 40 mg SUBCUT Q24H NADINE Last Admin: 04/25/24 21:47 Dose: 40 mg Glucose (Glucose Gel 15 Gm Gel..Gram.) 15 gm PO Q15M PRN; Protocol PRN Reason: per Hypoglycemia Standing Ord. Lactated Ringer's (Lr) 1,000 mls @ 100 mls/hr IVCONT .Q10H [facility] Last Infusion: 04/26/24 09:58 Dose: Infused Dextrose (D10) 250 mls @ 750 mls/hr IV Q15M PRN; Protocol PRN Reason: per Hypoglycemia Standing Ord. Piperacillin Sod/Tazobactam (Sod 3.375 gm/ Sodium Chloride) 50 mls @ 100 mls/hr IV Q6H [facility] Last Admin: 04/26/24 10:55 Dose: 100 mls/hr Vancomycin HCl (Vancomycin/Ns) 2,000 mg in 500 mls @ 250 mls/hr IV ONCE ONE Stop: 04/26/24 12:29 Insulin Human Lispro (Insulin Lispro 100 Unit/Ml 3 Ml Vial) 0 unit SUBCUT Q6H NADINE; Protocol Last Admin: 04/26/24 05:51 Dose: Not Given Magnesium Hydroxide (Milk Of Magnesia 30 Ml Oral.Susp) 30 ml PO DAILY PRN PRN Reason: Constipation Melatonin (Melatonin 3 Mg Tablet) 6 mg PO BEDTIME PRN PRN Reason: Insomnia Morphine Sulfate (Morphine Sulfate 4 Mg/Ml Cartridge) 2 mg IVPUSH Q4H PRN; Protocol PRN Reason: Pain, Severe (Pain Scale 7-10) Ondansetron HCl (Ondansetron Hcl 4 Mg/2 Ml Vial) 4 mg IVPUSH Q8H PRN PRN Reason: Nausea and Vomiting Last Admin: 04/26/24 00:27 Dose: 4 mg Oxycodone HCl (Oxycodone Hcl Immed Release 5 Mg Tablet) 5 mg PO Q6H PRN PRN Reason: Pain, Moderate(Pain Scale 4-6) Pharmacy Consult (Consult Rx Vancomycin Dosing) 1 each MISCELLANE DAILY PRN PRN Reason: Consult order Sodium Chloride (0.9 % Sodium Chloride Flush 3 Ml Syringe) 3 ml IVFLUSH QSHIFT [facility] Last Admin: 04/26/24 07:34 Dose: Not Given <JESSICA Hess Last Filed: 04/26/24 12:10> Home medications: Home Medications ?Medication ?Instructions ?Recorded ?Confirmed ?Last Taken ?Type metformin 850 mg tablet 850 mg PO BID 04/26/24 04/26/24 04/25/24 History <JESSICA Hess Last Filed: 04/26/24 12:10> Physical Exam 2 Vital Signs: Vital Signs: Last Vital Signs Temp 103.1 F H 04/26/24 09:38 Pulse 120 H 04/26/24 07:45 Resp 20 04/26/24 07:45 BP 153/69 H 04/26/24 07:45 Pulse Ox 92 04/26/24 07:45 O2 Del Method Room Air 04/26/24 07:45 O2 Flow Rate 95 04/25/24 19:43 BMI result Body Mass Index 32.5 <JESSICA Hess Last Filed: 04/26/24 12:10> Const: General: comfortable, no acute distress and alert <JESSICA Hess Last Filed: 04/26/24 12:10> Resp: Effort & Inspection: normal respiratory effort <JESSICA Hess Last Filed: 04/26/24 12:10> GI: Other: Rectal examination performed. Normal external skin without evidence of erythema or tenderness. Anal canal is normal with normal sphincter tone. No palpable foreign body is appreciated. Normal stool noted within the rectal vault. No blood identified and no tenderness with examination. <Chuck Alston MD - Last Filed: 04/26/24 13:24> Inspection: No distended and Yes scar <Vicky Fofana PA-C - Last Filed: 04/26/24 12:10> Palpation (GI): Soft to palpation, Tenderness to palpation present (GI) (mild lower abd tenderness, mostly left sided) and no guarding <Vicky Fofana PA-C - Last Filed: 04/26/24 12:10> Rectal Exam - Female: visual inspection normal, normal sphincter tone, No mass, No tenderness and other (no foreign body, no blood per rectum) <Vicky Fofana PA-C - Last Filed: 04/26/24 12:10> Abdomen image: 1. hysterectomy scar <Vicky Fofana PA-C - Last Filed: 04/26/24 12:10> Skin: General skin exam: no rashes or lesions noted <Vicky Fofana PA-C - Last Filed: 04/26/24 12:10> Neuro: General: moves all extremities <Vicky Fofana PA-C - Last Filed: 04/26/24 12:10> Results Labs Result diagrams: 04/26/24 09:06 04/26/24 09:06 <Vicky Fofana PA-C - Last Filed: 04/26/24 12:10> Labs: Abnormal lab results 04/25/24 04/25/24 04/26/24 Range/Units 18:14 21:16 01:24 RBC (4.20-5.50) X10*6/uL Hgb (12.0-16.0) g/dl Hct (37.0-47.0) % Plt Count (160-400) X10*3/uL MPV 9.3 L (9.4-12.3) fL Immature Gran % (Auto) 0.6 H (0.0-0.4) % Neut % (Auto) 85.3 H (45-73) % Lymph % (Auto) 8.3 L (20-40) % Lymph # (Auto) 0.7 L (1.2-4.9) X10*3/uL Abs Immat Gran (auto) 0.05 H (0.00-0.03) X10*3/uL Sodium 132 L (135-145) mmol/L Potassium (3.3-5.1) mmol/L Anion Gap (12-20) POC Glucose 176 H 188 H (60-115) mg/dL Random Glucose 186 H (60-115) mg/dL Calcium (8.4-10.2) mg/dL Magnesium 1.3 L* (1.6-2.6) mg/dL Urine Protein 300 (3+) H (Neg-Trace) mg/dL Urine Blood Large (3+) H (Negative) Urine RBC 11-20 H (0-2) /HPF 04/26/24 04/26/24 Range/Units 05:50 09:06 RBC 4.09 L (4.20-5.50) X10*6/uL Hgb 11.8 L (12.0-16.0) g/dl Hct 34.8 L (37.0-47.0) % Plt Count 150 L (160-400) X10*3/uL MPV (9.4-12.3) fL Immature Gran % (Auto) 0.8 H (0.0-0.4) % Neut % (Auto) 89.8 H (45-73) % Lymph % (Auto) 5.6 L (20-40) % Lymph # (Auto) 0.4 L (1.2-4.9) X10*3/uL Abs Immat Gran (auto) 0.05 H (0.00-0.03) X10*3/uL Sodium 132 L (135-145) mmol/L Potassium 3.1 L (3.3-5.1) mmol/L Anion Gap 11 L (12-20) POC Glucose 139 H (60-115) mg/dL Random Glucose 184 H (60-115) mg/dL Calcium 8.2 L D (8.4-10.2) mg/dL Magnesium (1.6-2.6) mg/dL Urine Protein (Neg-Trace) mg/dL Urine Blood (Negative) Urine RBC (0-2) /HPF Short CBC 04/25/24 04/26/24 Range/Units 18:14 09:06 WBC 8.5 6.6 (4.8-10.8) X10*3/uL Hgb 13.9 11.8 L (12.0-16.0) g/dl Hct 41.2 34.8 L (37.0-47.0) % Plt Count 181 150 L (160-400) X10*3/uL BMP 04/25/24 04/26/24 18:14 09:06 Sodium 132 L 132 L Potassium 3.6 3.1 L Chloride 96 100 Carbon Dioxide 26 24 BUN 10 11 Creatinine 0.95 0.82 Calcium 9.2 8.2 L D Liver Function 04/25/24 Range/Units 18:14 Total Bilirubin 0.6 (0.0-1.0) mg/dL AST 21 (5-31) U/L ALT 11 (0-31) U/L Alkaline Phosphatase 51 (39-117) U/L Albumin 3.7 (3.5-5.0) g/dL Urine 04/25/24 Range/Units 18:14 Urine Color Dark Yellow Urine Appearance Clear Urine pH 6.0 (5.0-9.0) Ur Specific [place] 1.025 (1.005-1.025) Urine Protein 300 (3+) H (Neg-Trace) mg/dL Urine Glucose (UA) Negative (Negative) mg/dL All other labs normal. <Vicky Fofana PA-C - Last Filed: 04/26/24 12:10> Imaging Abdomen CT scan report/results: report reviewed and image reviewed <Vicky Fofana PA-C - Last Filed: 04/26/24 12:10> Assessment and Plan (1) Sigmoid diverticulitis: Status: Acute <Vicky Fofana PA-C - Last Filed: 04/26/24 12:10> (2) Sepsis: Status: Acute <JESSICA Hess Last Filed: 04/26/24 12:10> Ms. Funk is a 83-year-old female with PMH significant for type 2 diabetes and mild intermittent asthma who presented to the ED with multiple complaints admitted to the hospitalist service for diverticulitis, sepsis. She was incidentally found to have a foreign body on CT scan suggestive of wire or catheter of some sort. She denies inserting anything per rectum. Her rectal exam is negative for any foreign bodies or concerning signs. Ordered f/u KUB which also does not demonstrate FB today suggesting passage of FB or removal. No further intervention needed. Her abdominal exam is very benign as well without significant inflammatory changes seen on CT to warrant such a fever. Recommend further workup for alternative source of infection. <Vicky Fofana PA-C - Last Filed: 04/26/24 12:10> Ms. Funk is a 83-year-old female with PMH significant for type 2 diabetes and mild intermittent asthma who presented to the ED with multiple complaints admitted to the hospitalist service for diverticulitis, sepsis. She was incidentally found to have a foreign body on CT scan suggestive of wire or catheter of some sort. She denies inserting anything per rectum. Her rectal exam is negative for any foreign bodies or concerning signs. Ordered f/u KUB which also does not demonstrate FB today suggesting passage of FB or removal. No further intervention needed. Her abdominal exam is very benign as well without significant inflammatory changes seen on CT to warrant such a fever. Recommend further workup for alternative source of infection. Agree with the above assessment and plan. Follow-up KUB reveals no residual foreign body. Please re-consult for any new concerns. <Chuck Alston MD - Last Filed: 04/26/24 13:24> Procedures Date of Service Date of Service: 04/26/24 <Vicky Fofana PA-C - Last Filed: 04/26/24 12:10> 04/26/24 <Chuck Alston MD - Last Filed: 04/26/24 13:24>
[2024-04-26] MEDS: vancomycin/NS 2,000 MG/500 ML PLAST..BAG 250 MG IV (11:41)
[2024-04-26] MEDS: Lactated Ringers 1,000 ML 100 ML IVCONT ×2 (11:45→21:55)
--- NOTE | 2024-04-26 11:46 | P.PNIM_ITS ---
Subjective Subjective Date of Service: 04/26/24 Interval History: seen and examined this morning follow up for fever, diverticulitis persistent fever up to 104 despite fever reports feeling ok, no abdominal pain, nausea or vomiting some cough, no sob Review of Systems Review of Systems: Yes all other systems are reviewed and are negative Constitutional Constitutional: Denies chills and Reports fever(s) Cardiovascular Cardiovascular: Denies chest pain, Denies palpitations and Denies dyspnea Respiratory Respiratory: Reports cough and Denies dyspnea Gastrointestinal Gastrointestinal: Denies abdominal pain, Reports diarrhea, Denies nausea and Denies vomiting Endocrine Endocrine: Denies palpitations Physical Exam 2 Vital Signs: Vital Signs: Last Vital Signs Temp 100.9 F H 04/26/24 11:31 Pulse 101 H 04/26/24 11:31 Resp 18 04/26/24 11:31 BP 108/57 L 04/26/24 11:31 Pulse Ox 95 04/26/24 11:31 O2 Del Method Room Air 04/26/24 11:31 O2 Flow Rate 95 04/25/24 19:43 BMI result Body Mass Index 32.5 Const: General: cooperative, alert and awake Nutritional Appearance: o verweight Orientation/consciousness: patient oriented x3 Resp: Effort & Inspection: normal respiratory effort, able to speak in complete sentences, no respiratory distress and no use of accessory muscles A uscultation: clear to auscultation bilaterally Cardio: Rate: tachycardic GI: Other: mild tenderness LLQ Inspection: No distended Palpation (GI): Soft to palpation Neuro: General: patient oriented x3, moves all extremities and CN's II-XI intact bilaterally Extrem: General: Yes no pedal edema Objective Data Active Medications Acetaminophen (Acetaminophen 325 Mg Tablet) 650 mg PO Q6H PRN PRN Reason: Pain, Mild (Pain Scale 1-3), fever or headache Last Admin: 04/26/24 07:51 Dose: 650 mg Documented By: J CARLOS Calcium Carbonate (Calcium Carbonate 750 Mg Tab.Chew) 750 mg PO Q4H PRN PRN Reason: Heartburn Enoxaparin Sodium (Enoxaparin Sodium 40 Mg/0.4 Ml Syringe) 40 mg SUBCUT Q24H [facility] Last Admin: 04/25/24 21:47 Dose: 40 mg Documented By: LUCILA Glucose (Glucose Gel 15 Gm Gel..Gram.) 15 gm PO Q15M PRN; Protocol PRN Reason: per Hypoglycemia Standing Ord. Lactated Ringer's (Lr) 1,000 mls @ 100 mls/hr IVCONT .Q10H [facility] Last Infusion: 04/26/24 09:58 Dose: Infused Documented By: J CARLOS Dextrose (D10) 250 mls @ 750 mls/hr IV Q15M PRN; Protocol PRN Reason: per Hypoglycemia Standing Ord. Piperacillin Sod/Tazobactam (Sod 3.375 gm/ Sodium Chloride) 50 mls @ 100 mls/hr IV Q6H [facility] Last Infusion: 04/26/24 11:40 Dose: Infused Documented By: J CARLOS Vancomycin HCl (Vancomycin/Ns) 2,000 mg in 500 mls @ 250 mls/hr IV ONCE ONE Stop: 04/26/24 12:29 Insulin Human Lispro (Insulin Lispro 100 Unit/Ml 3 Ml Vial) 0 unit SUBCUT Q6H [facility]; Protocol Last Admin: 04/26/24 05:51 Dose: Not Given Documented By: CARINA Non-Admin Reason: No Insulin Coverage Magnesium Hydroxide (Milk Of Magnesia 30 Ml Oral.Susp) 30 ml PO DAILY PRN PRN Reason: Constipation Melatonin (Melatonin 3 Mg Tablet) 6 mg PO BEDTIME PRN PRN Reason: Insomnia Morphine Sulfate (Morphine Sulfate 4 Mg/Ml Cartridge) 2 mg IVPUSH Q4H PRN; Protocol PRN Reason: Pain, Severe (Pain Scale 7-10) Ondansetron HCl (Ondansetron Hcl 4 Mg/2 Ml Vial) 4 mg IVPUSH Q8H PRN PRN Reason: Nausea and Vomiting Last Admin: 04/26/24 00:27 Dose: 4 mg Documented By: CARINA Oxycodone HCl (Oxycodone Hcl Immed Release 5 Mg Tablet) 5 mg PO Q6H PRN PRN Reason: Pain, Moderate(Pain Scale 4-6) Pharmacy Consult (Consult Rx Vancomycin Dosing) 1 each MISCELLANE DAILY PRN PRN Reason: Consult order Sodium Chloride (0.9 % Sodium Chloride Flush 3 Ml Syringe) 3 ml IVFLUSH QSHIFT [facility] Last Admin: 04/26/24 07:34 Dose: Not Given Documented By: J CARLOS Non-Admin Reason: IV Running Labs 04/26/24 09:06 04/26/24 09:06 Labs: Laboratory Results - last 24 hr 04/25/24 04/25/24 04/26/24 18:14 21:16 01:24 MCV 85.3 MCH 28.8 MCHC 33.7 RDW 12.7 Plt Count 181 MPV 9.3 L Immature Gran % (Auto) 0.6 H Neut % (Auto) 85.3 H Lymph % (Auto) 8.3 L [place] % (Auto) 5.4 Eos % (Auto) 0.0 Baso % (Auto) 0.4 Lymph # (Auto) 0.7 L [place] # (Auto) 0.5 Eos # (Auto) 0.0 Baso # (Auto) 0.0 Abs Immat Gran (auto) 0.05 H Absolute Neuts (auto) 7.3 Absolute Nucleated RBC 0.000 Nucleated RBC % (auto) 0.0 Anion Gap 14 Estim Creat Clear Calc 45.2 Estimated GFR 56 POC Glucose 176 H 188 H Random Glucose 186 H Lactic Acid 1.7 Calcium 9.2 Magnesium 1.3 L* Total Bilirubin 0.6 AST 21 ALT 11 Alkaline Phosphatase 51 Total Protein 7.1 Albumin 3.7 Lipase 27 Urine Color Dark Yellow Urine Appearance Clear Urine pH 6.0 Ur Specific [place] 1.025 Urine Protein 300 (3+) H Urine Glucose (UA) Negative Urine Ketones 15 Urine Blood Large (3+) H Urine Nitrite Negative Ur Leukocyte Esterase Negative Urine RBC 11-20 H Urine WBC 0-5 Ur Squamous Epith Cells 3-5 Urine Bacteria None Seen Hyaline Casts 6-10 Granular Casts Present Influenza Type A (PCR) NEGATIVE Influenza Type B (PCR) NEGATIVE RSV RNA Qual (PCR) NEGATIVE SARS-CoV-2 RNA (RT-PCR) NEGATIVE 04/26/24 04/26/24 05:50 09:06 MCV 85.1 MCH 28.9 MCHC 33.9 RDW 12.8 Plt Count 150 L MPV 9.8 Immature Gran % (Auto) 0.8 H Neut % (Auto) 89.8 H Lymph % (Auto) 5.6 L [place] % (Auto) 3.5 Eos % (Auto) 0.0 Baso % (Auto) 0.3 Lymph # (Auto) 0.4 L [place] # (Auto) 0.2 Eos # (Auto) 0.0 Baso # (Auto) 0.0 Abs Immat Gran (auto) 0.05 H Absolute Neuts (auto) 5.9 Absolute Nucleated RBC 0.000 Nucleated RBC % (auto) 0.0 Anion Gap 11 L Estim Creat Clear Calc 52.9 Estimated GFR > 60 POC Glucose 139 H Random Glucose 184 H Lactic Acid Calcium 8.2 L D Magnesium 1.7 Total Bilirubin AST ALT Alkaline Phosphatase Total Protein Albumin Lipase Urine Color Urine Appearance Urine pH Ur Specific [place] Urine Protein Urine Glucose (UA) Urine Ketones Urine Blood Urine Nitrite Ur Leukocyte Esterase Urine RBC Urine WBC Ur Squamous Epith Cells Urine Bacteria Hyaline Casts Granular Casts Influenza Type A (PCR) Influenza Type B (PCR) RSV RNA Qual (PCR) SARS-CoV-2 RNA (RT-PCR) Assessment and Plan (1) Sigmoid diverticulitis: Status: Acute Plan Pt is an 83-year-old female with a past medical history significant for type 2 diabetes (PO meds), and mild intermittent asthma who presented to the ED with left lower extremity seizure-like activity, dizziness, nausea and vomiting. Sepsis no leukocytosis, lactic acid normal. met criteria with fever, tachycardia UA, CXR neagive A/P CT with mild sigmoid diverticulitis - unclear if this is etiology for high fever stool studies pending if diarrhea returns will broaden antibiotics to zosyn, vanco for now check RPP blood cultures pending consider ID consult if no improvement in fever sigmoid diverticultis initially started on ceftriaxone, flagyl - given persistent high fever will broaden for now as above advance diet to clears, advance as tolerated continue IVF ?foreign object in rectum on CT AP CT with: radiodense catheter in the rectum uncertain purpose: There is a round radiodense object present near the anterior anal junction seen at the margin of the study 1.5 x 1.4 cm. pt denies any h/o surgery etc seen by genreral surgery, nothing felt on rectal exam kub pending acute hypokalemia likely due to GI losses replace and follow enlarged retroperitoneal lymph nodes ? reactive outpatient follow up Seizure-like activity unclear if this was rigors? if another episode occurs consider EEG and neuro consult T2DM with hyperglycemia hold metformin SSI, POCs Hypomagnesemia improved with replacement mild intermittent asthma - no acute exacerbation - albuterol PRN full code VTE prophy: lovenox Patient with sepsis secondary to mild sigmoid diverticulitis and seizure-like activity, requiring admission for IV antibiotics, fluids and monitoring for at least 2 midnights stay. Quality Stroke Does the patient have a stroke diagnosis?: No VTE Prior VTE?: No VTE Risk Level:: Medical - moderate - high VTE Device Contraindication: Treatment Not Indicated VTE Drug Contraindication: N/A - Med Ordered
--- NOTE | 2024-04-26 11:57 | PHA.PROG ---
Admission Date/Time: April 25, 2024 20:59 Indication: other (sepsis?) Weight in k.6 kg Serum Creatinine - Last 168 Hours 04/25/24 04/26/24 18:14 09:06 Creatinine 0.95 0.82 Estimated CrCl and GFR - Last 168 Hours 04/25/24 04/26/24 18:14 09:06 Estim Creat Clear Calc 45.2 52.9 Estimated GFR 56 > 60 Vancomycin Loading Dose: 2,000mg Current Vancomycin Dosing Regimen: 1,500mg q 24h Vancomycin Monitoring using AUC goal of 400 - 600 range with trough as surrogate marker: 520, predicted trough 15 Date and Time for next Vancomycin Level to be drawn: 04/29 @ 1000 Pharmacist Comments on Vancomycin Plan: Vancomycin dosing will take advantage of [employer] as a clinical decision support tool that uses Bayesian modeling to calculate individual patient's pharmacokinetic parameters and forecast the patient's drug concentration time course with the target goal AUC 24 range of 400 - 600 mg/L/hr.
[2024-04-26 12:13] LABS: Glucose, Whole Blood 174 mg/dL (60-115)
[2024-04-26] MEDS: Potassium Chloride Packet 20 MEQ PACKET 40 MEQ PO ×2 (12:16→21:09)
[2024-04-26 13:13] LABS: Adenovirus PCR Not Detected (Not Detect.); Bordetella parapertussis PCR Not Detected (Not Detect.); Bordetella pertussis PCR Not Detected (Not Detect.); Chlamydia pneumoniae PCR Not Detected (Not Detect.); Coronavirus 229E PCR Not Detected (Not Detect.); Coronavirus HKU1 PCR Not Detected (Not Detect.); Coronavirus NL63 PCR Not Detected (Not Detect.); Coronavirus OC43 PCR Not Detected (Not Detect.); Human metapneumovirus PCR Not Detected (Not Detect.); Influenza A PCR Not Detected (Not Detect.); Influenza B PCR Not Detected (Not Detect.); Mycoplasma pneumoniae PCR Not Detected (Not Detect.); Parainfluenza 1 PCR Not Detected (Not Detect.); Parainfluenza 2 PCR Not Detected (Not Detect.); Parainfluenza 3 PCR Not Detected (Not Detect.); Parainfluenza 4 PCR Not Detected (Not Detect.); RSV PCR Not Detected (Not Detect.); Rhino/Enterovirus PCR Not Detected (Not Detect.)
[2024-04-26 13:26] LABS: SARS-CoV-2 PCR Not Detected (Not Detect.)
[2024-04-26 16:36] LABS: Glucose, Whole Blood 176 mg/dL (60-115)
[2024-04-26] MEDS: Ibuprofen 600 MG TABLET PO (18:18)
[2024-04-26 20:16] LABS: Glucose, Whole Blood 187 mg/dL (60-115)
[2024-04-26] MEDS: Enoxaparin Sodium 40 MG/0.4 ML SYRINGE SUBCUT (21:10)
[2024-04-27] VITALS (13 sets, daily range): BP systolic 114–158; BP diastolic 56–77; PULSE 78–122; RESP 18–20; TEMP 37.6–39.3; O2SAT 88–95
[2024-04-27 02:36] LABS: CDiff Gene PCR NEGATIVE (Negative)
[2024-04-27] MEDS: ondansetron HCL 4 MG/2 ML VIAL IVPUSH (03:20)
[2024-04-27] MEDS: Piperacillin Sodium/Tazobactam 3.375 GM in 0.9 % Sodium Chloride 50 ML IV ×4 (04:58→21:26)
[2024-04-27 06:55] LABS: MANUAL DIFF FLAG NO
[2024-04-27 07:03] LABS: Basophils Percent Auto 0.7 % (0-2); Eosinophils Absolute Auto 0.2 X10*3/uL (0.0-0.4); Eosinophils Percent Auto 2.9 % (0-4); Hematocrit 35.7 % (37.0-47.0); Hemoglobin 12.1 g/dl (12.0-16.0); Imm Gran Abs Auto 0.05 X10*3/uL (0.00-0.03); Imm Gran Pct Auto 0.9 % (0.0-0.4); Lymphocytes Absolute Auto 0.3 X10*3/uL (1.2-4.9); Lymphocytes Percent Auto 5.4 % (20-40); Mean Corpuscular HGB Conc 33.9 g/dl (31.0-35.0); Mean Corpuscular Volume 85.6 fL (80.0-98.0); Mean Platelet Volume 10.2 fL (9.4-12.3); Monocytes Absolute Auto 0.2 X10*3/uL (0.1-1.2); Monocytes Percent Auto 4.2 % (2-11); Neutrophils Percent Auto 85.9 % (45-73); Platelet Count 151 X10*3/uL (160-400); Red Blood Count 4.17 X10*6/uL (4.20-5.50); White Blood Count 5.8 X10*3/uL (4.8-10.8)
[2024-04-27 07:17] LABS: Anion Gap 13 (12-20); Blood Urea Nitrogen 20 mg/dL (9-16); Calcium 8.2 mg/dL (8.4-10.2); Carbon Dioxide 21 mmol/L (22-29); Chloride 103 mmol/L (96-108); Creatinine Clr Calc Pharmacy 35.3; Estimated Glomerular Filt Rate 42; Glucose Random 128 mg/dL (60-115); Magnesium 1.7 mg/dL (1.6-2.6); Potassium 3.8 mmol/L (3.3-5.1); Sodium 133 mmol/L (135-145)
[2024-04-27 07:26] LABS: Glucose, Whole Blood 137 mg/dL (60-115)
[2024-04-27] MEDS: Acetaminophen 325 MG TABLET 650 MG PO ×2 (08:09→15:31)
[2024-04-27] MEDS: Lactated Ringers 1,000 ML 100 ML IVCONT (10:23)
[2024-04-27 11:33] LABS: Glucose, Whole Blood 160 mg/dL (60-115)
[2024-04-27] MEDS: vancomycin HCL 1,500 MG in 0.9 % Sodium Chloride 500 ML 333.33 MG IV (11:41)
[2024-04-27] MEDS: Doxycycline Hyclate 100 MG in 0.9 % Sodium Chloride 250 ML 166.67 MG IV (13:37)
[2024-04-27] MEDS: Simethicone 80 MG TAB.CHEW PO (13:44)
--- NOTE | 2024-04-27 14:24 | HO.PM.IMPN ---
Subjective Subjective Date of Service: 04/27/24 Interval History: seen and examined this morning follow up for fever having diarrhea no abdominal pain, no vomiting Review of Systems Review of Systems: Yes all other systems are reviewed and are negative Constitutional Constitutional: Denies chills and Reports fever(s) Cardiovascular Cardiovascular: Denies chest pain, Denies palpitations and Denies dyspnea Respiratory Respiratory: Denies cough and Denies dyspnea Gastrointestinal Gastrointestinal: Denies abdominal pain, Reports diarrhea and Denies nausea Endocrine Endocrine: Denies palpitations Physical Exam Vital Signs: Vital Signs: Last Vital Signs Temp 99.8 F 04/27/24 11:34 Pulse 102 H 04/27/24 11:34 Resp 18 04/27/24 11:34 BP 114/56 L 04/27/24 11:34 Pulse Ox 94 04/27/24 11:34 O2 Del Method Room Air 04/27/24 11:34 O2 Flow Rate 95 04/25/24 19:43 BMI result Body Mass Index 32.5 Const: General: cooperative, alert and awake Nutritional Appearance: overweight Orientation/consciousness: patient oriented x3 Resp: Effort & Inspection: normal respiratory effort, able to speak in complete sentences, no respiratory distress and no use of accessory muscles Auscultation: clear to auscultation bilaterally Cardio: Rate: tachycardic GI: Other: mild tenderness LLQ Inspection: No distended Palpation (GI): Soft to palpation and nontender Neuro: General: patient oriented x3, moves all extremities and CN's II-XI intact bilaterally Extrem: General: Yes no pedal edema Objective Data Active Medications Acetaminophen (Acetaminophen 325 Mg Tablet) 650 mg PO Q6H PRN PRN Reason: Pain, Mild (Pain Scale 1-3), fever or headache Last Admin: 04/27/24 08:09 Dose: 650 mg Documented By: J CARLOS Calcium Carbonate (Calcium Carbonate 750 Mg Tab.Chew) 750 mg PO Q4H PRN PRN Reason: Heartburn Enoxaparin Sodium (Enoxaparin Sodium 40 Mg/0.4 Ml Syringe) 40 mg SUBCUT Q24H [facility] Last Admin: 04/26/24 21:10 Dose: 40 mg Documented By: MARCELA Glucose (Glucose Gel 15 Gm Gel..Gram.) 15 gm PO Q15M PRN; Protocol PRN Reason: per Hypoglycemia Standing Ord. Lactated Ringer's (Lr) 1,000 mls @ 100 mls/hr IVCONT .Q10H [facility] Last Admin: 04/27/24 10:23 Dose: 100 mls/hr Documented By: J CARLOS Dextrose (D10) 250 mls @ 750 mls/hr IV Q15M PRN; Protocol PRN Reason: per Hypoglycemia Standing Ord. Piperacillin Sod/Tazobactam (Sod 3.375 gm/ Sodium Chloride) 50 mls @ 100 mls/hr IV Q6H [facility] Last Infusion: 04/27/24 10:28 Dose: Infused Documented By: J CARLOS Doxycycline Hyclate 100 mg/ (Sodium Chloride) 250 mls @ 166.67 mls/hr IV Q12H [facility] Last Admin: 04/27/24 13:37 Dose: 166.67 mls/hr Documented By: J CARLOS Ibuprofen (Ibuprofen 600 Mg Tablet) 600 mg PO Q8H PRN PRN Reason: Fever >101 Insulin Human Lispro (Insulin Lispro 100 Unit/Ml 3 Ml Vial) 0 unit SUBCUT QIDACHS [facility]; Protocol Last Admin: 04/27/24 11:36 Dose: Not Given Documented By: J CARLOS Non-Admin Reason: not eating well Magnesium Hydroxide (Milk Of Magnesia 30 Ml Oral.Susp) 30 ml PO DAILY PRN PRN Reason: Constipation Melatonin (Melatonin 3 Mg Tablet) 6 mg PO BEDTIME PRN PRN Reason: Insomnia Morphine Sulfate (Morphine Sulfate 4 Mg/Ml Cartridge) 2 mg IVPUSH Q4H PRN; Protocol PRN Reason: Pain, Severe (Pain Scale 7-10) Ondansetron HCl (Ondansetron Hcl 4 Mg/2 Ml Vial) 4 mg IVPUSH Q8H PRN PRN Reason: Nausea and Vomiting Last Admin: 04/27/24 03:20 Dose: 4 mg Documented By: MARCELA Oxycodone HCl (Oxycodone Hcl Immed Release 5 Mg Tablet) 5 mg PO Q6H PRN PRN Reason: Pain, Moderate(Pain Scale 4-6) Simethicone (Simethicone 80 Mg Tab.Chew) 80 mg PO QIDWMHS PRN PRN Reason: Gas Last Admin: 04/27/24 13:44 Dose: 80 mg Documented By: J CARLOS Sodium Chloride (0.9 % Sodium Chloride Flush 3 Ml Syringe) 3 ml IVFLUSH QSHIFT [facility] Last Admin: 04/27/24 07:29 Dose: Not Given Documented By: J CARLOS Non-Admin Reason: IV Running Labs 04/27/24 06:15 04/27/24 06:15 Labs: Laboratory Results - last 24 hr 04/26/24 04/26/24 04/27/24 16:29 20:04 01:31 MCV MCH MCHC RDW Plt Count MPV Immature Gran % (Auto) Neut % (Auto) Lymph % (Auto) [place] % (Auto) Eos % (Auto) Baso % (Auto) Lymph # (Auto) [place] # (Auto) Eos # (Auto) Baso # (Auto) Abs Immat Gran (auto) Absolute Neuts (auto) Absolute Nucleated RBC Nucleated RBC % (auto) Anion Gap Estim Creat Clear Calc Estimated GFR POC Glucose 176 H 187 H Random Glucose Calcium Magnesium C. difficile Tox B Gene NEGATIVE 04/27/24 04/27/24 04/27/24 06:15 07:19 11:28 MCV 85.6 MCH 29.0 MCHC 33.9 RDW 13.0 Plt Count 151 L MPV 10.2 Immature Gran % (Auto) 0.9 H Neut % (Auto) 85.9 H Lymph % (Auto) 5.4 L [place] % (Auto) 4.2 Eos % (Auto) 2.9 Baso % (Auto) 0.7 Lymph # (Auto) 0.3 L [place] # (Auto) 0.2 Eos # (Auto) 0.2 Baso # (Auto) 0.0 Abs Immat Gran (auto) 0.05 H Absolute Neuts (auto) 5.0 Absolute Nucleated RBC 0.000 Nucleated RBC % (auto) 0.0 Anion Gap 13 Estim Creat Clear Calc 35.3 Estimated GFR 42 POC Glucose 137 H 160 H Random Glucose 128 H Calcium 8.2 L Magnesium 1.7 C. difficile Tox B Gene Microbiology Microbiology Results: Microbiology 04/25/24 18:14 Blood Culture - Preliminary Blood - Venous No growth after 24 hours. 04/25/24 18:14 Blood Culture - Preliminary Blood - Venous No growth after 24 hours. Assessment and Plan (1) Sigmoid diverticulitis: Status: Acute (2) Sepsis: Status: Acute Plan Pt is an 83-year-old female with a past medical history significant for type 2 diabetes (PO meds), and mild intermittent asthma who presented to the ED with left lower extremity seizure-like activity, dizziness, nausea and vomiting. Sepsis admitted for sigmoid diverticulitis but given mild changes on CT and minimal abdominal pain unclear if this is etiology for high fever no leukocytosis, lactic acid normal. met criteria with fever, tachycardia UA, CXR, cdif, RPP negative gi panel pending blood cultures negative to date continue zosyn, stop vanco per ID rec start doxy to cover possible tick borne brain CT pending although no encephalopathy or neuro deficits sigmoid diverticultis initially started on ceftriaxone, flagyl - given persistent high fever will broaden as above advance to full liquids ?foreign object in rectum on CT AP CT with: radiodense catheter in the rectum uncertain purpose: There is a round radiodense object present near the anterior anal junction seen at the margin of the study 1.5 x 1.4 cm. pt denies any h/o surgery etc seen by genreral surgery, nothing felt on rectal exam kub does not show any foreign body acute hypokalemia likely due to GI losses resolved with replacement enlarged retroperitoneal lymph nodes ? reactive outpatient follow up Seizure-like activity unclear if this was rigors? although documentation indicates only one extremity involved. no further episodes if another episode occurs consider EEG and neuro consult T2DM with hyperglycemia hold metformin SSI, POCs Hypomagnesemia improved with replacement mild intermittent asthma - no acute exacerbation albuterol PRN full code VTE prophy: lovenox Patient with sepsis secondary to mild sigmoid diverticulitis, persistent fever requiring admission for IV antibiotics, fluids close monitoring and specialist evaluation Quality Stroke Does the patient have a stroke diagnosis?: No VTE Prior VTE?: No VTE Risk Level:: Medical - moderate - high VTE Device Contraindication: Treatment Not Indicated VTE Drug Contraindication: N/A - Med Ordered
[2024-04-27 14:40] LABS: Adenovirus F 40/41 Not Detected (Not Detect.); Astrovirus Not Detected (Not Detect.); Campylobacter Not Detected (Not Detect.); Cryptosporidium Not Detected (Not Detect.); Cyclospora cayetanensis Not Detected (Not Detect.); E. coli EAEC Not Detected (Not Detect.); E. coli EPEC Not Detected (Not Detect.); E. coli ETEC Not Detected (Not Detect.); E. coli STEC Not Detected (Not Detect.); Entamoeba histolytica Not Detected (Not Detect.); Giardia lamblia Not Detected (Not Detect.); Norovirus GI/GII Not Detected (Not Detect.); Plesiomonas shigelloides Not Detected (Not Detect.); Rotavirus A Not Detected (Not Detect.); Salmonella Not Detected (Not Detect.); Sapovirus Not Detected (Not Detect.); Shigella sp./EIEC Not Detected (Not Detect.); Vibrio Not Detected (Not Detect.); Vibrio Cholerae Not Detected (Not Detect.); Yersinia enterocolitica Not Detected (Not Detect.)
[2024-04-27] MEDS: Albuterol Sulfate 90 MCG 8 GM INHALER 1 PUFF INHALE (15:34)
[2024-04-27] MEDS: 0.9 % Sodium Chloride Flush 3 ML SYRINGE IVFLUSH (15:54)
[2024-04-27 16:15] LABS: Glucose, Whole Blood 146 mg/dL (60-115)
--- NOTE | 2024-04-27 16:15 | PC.NURSE ---
Patient returned from CT scan Complaining of shortness of breath and anxiety. O2 sat was 88% and respirations elevated. MD notified and ordered a prn albuteral with fair effect.
--- NOTE | 2024-04-27 19:35 | PC.NURSE ---
temperature taken rectally at 102.7, Dr. Hoff made aware, new orders placed, Tylenol given per JUL. Sinus tachy with a of HR: 120, BP: 134/59, O2: 95 NC at 2
[2024-04-27] MEDS: Acetaminophen 325 MG TABLET 975 MG PO (20:04)
[2024-04-27 20:44] LABS: Glucose, Whole Blood 163 mg/dL (60-115)
[2024-04-27] MEDS: Enoxaparin Sodium 40 MG/0.4 ML SYRINGE SUBCUT (21:22)
[2024-04-27] MEDS: Insulin Lispro 100 UNIT/ML 3 ML VIAL SUBCUT (21:24)
--- NOTE | 2024-04-27 23:47 | PC.NURSE ---
temperature 100.7 rectally, HR: 120, RR: 20, BP: 158/65, O2: 93 NC 2L.
[2024-04-28] VITALS (12 sets, daily range): BP systolic 131–178; BP diastolic 67–105; PULSE 85–160; RESP 17–22; TEMP 36–39; O2SAT 88–99
--- NOTE | 2024-04-28 | ECG_ITS ---
Test Reason : Tachycardia Blood Pressure : / mmHG Vent. Rate : 131 BPM Atrial Rate : 000 BPM P-R Int : 000 ms QRS Dur : 106 ms QT Int : 314 ms P-R-T Axes : 000 -44 093 degrees QTc Int : 463 ms Atrial fibrillation with rapid ventricular response with premature ventricular or aberrantly conducted complexes Left axis deviation Incomplete left bundle branch block Abnormal ECG When compared with ECG of 25-APR-2024 18:05, No significant changes seen Referred By: Elmo Calle Electronically Signed By:TADEO SALDAÑA
[2024-04-28] MEDS: Doxycycline Hyclate 100 MG in 0.9 % Sodium Chloride 250 ML 166.67 MG IV ×2 (01:44→13:11)
[2024-04-28] MEDS: Piperacillin Sodium/Tazobactam 3.375 GM in 0.9 % Sodium Chloride 50 ML IV ×3 (03:15→19:44)
[2024-04-28] MEDS: Acetaminophen 325 MG TABLET 975 MG PO (03:25)
[2024-04-28] MEDS: Ketorolac Tromethamine 15 MG/ML VIAL IVPUSH (04:04)
[2024-04-28] MEDS: 0.9 % Sodium Chloride 500 ML IV (04:05)
[2024-04-28] MEDS: Metoprolol Tartrate 5 MG/5 ML VIAL IVPUSH ×2 (04:50→16:45)
[2024-04-28] MEDS: 0.9 % Sodium Chloride 1,000 ML 999 ML IV (04:50)
[2024-04-28 05:01] LABS: MANUAL DIFF FLAG NO
[2024-04-28 05:04] LABS: Basophils Percent Auto 0.3 % (0-2); Hematocrit 34.3 % (37.0-47.0); Hemoglobin 11.8 g/dl (12.0-16.0); Imm Gran Abs Auto 0.09 X10*3/uL (0.00-0.03); Imm Gran Pct Auto 1.4 % (0.0-0.4); Lymphocytes Absolute Auto 0.6 X10*3/uL (1.2-4.9); Lymphocytes Percent Auto 8.7 % (20-40); Mean Corpuscular HGB Conc 34.4 g/dl (31.0-35.0); Mean Corpuscular Hemoglobin 28.5 pg (27.0-33.0); Mean Corpuscular Volume 82.9 fL (80.0-98.0); Mean Platelet Volume 10.7 fL (9.4-12.3); Monocytes Absolute Auto 0.3 X10*3/uL (0.1-1.2); Monocytes Percent Auto 4.7 % (2-11); Neutrophils Absolute Auto 5.7 x10*3/uL (2.0-8.3); Neutrophils Percent Auto 84.9 % (45-73); Platelet Count 135 X10*3/uL (160-400); Red Blood Count 4.14 X10*6/uL (4.20-5.50); Red Cell Distribution Width 13.1 % (11.0-16.0); White Blood Count 6.7 X10*3/uL (4.8-10.8)
--- NOTE | 2024-04-28 05:05 | P.EN_ITS ---
Event Note Date of Service: 04/28/24 Event Note: 3:46 AM - HR 150s. Temp 102, BP 172/72. Tylenol and Toradol IV given. No chest pain, c/o SOB O2 sats 88 % on 4L/min. ECG stat showed rapid AFib, patient stated no history of breath. Evaluated and examined patient. Alert and oriented X3. Very pleasant. She is t achypneic but no significant respiratory distress. Denies chest pain, dizziness or palpitations. Cardiopulmonary sign remarkable for tachycardia, no wheezing, rhonchi or crackles. Complaining of left lower quadrant pain and ongoing diarrhea (not watery or bloody). Stools are greenish. Patient denies history of atrial fibrillation or any cardiac disease. She mentioned that she takes atenolol? for blood pressure. She actually uses other medications but are not showing on her medications reconciliation except for metformin. Metoprolol 5 mg IV x1 given were successfully decreased patient's heart rate to the low 100 teens. We will start treatment with metoprolol 50 mg PO bid and provide a total of 2 L bolus of NS. Suspecting AFib has been triggered due to acute illness (fever) and dehydration due to diarrhea. Patient is requesting Imodium for diarrhea. GI panel and C diff are negative. Imodium has been ordered. Stat blood workup including lactic acid, CBC, CMP, tick-borne disease, troponin D-dimer and BNP ordered. We will also obtain a stat CXR and echo ordered (to assess for endocarditis). Chart reviewed: Patient receiving Zosyn and doxycycline. Recent head CT scan - neg. KUB - no foreing body. Abd pelvic CT scan - ?mild diverticulitis. Time Spent With Patient Time: Total time managing care of this patient today ____ minutes.
[2024-04-28 05:13] LABS: Glucose, Whole Blood 154 mg/dL (60-115)
[2024-04-28 05:21] LABS: Lactic Acid 1.2 mmol/L (0.5-2.0)
[2024-04-28 05:23] LABS: B Type Natriuretic Peptide 217 pg/mL (<100); Troponin-I High Sensitivity 15.3 ng/L (<3.5-17.0)
[2024-04-28 05:27] LABS: Alanine Aminotransferase 15 U/L (0-31); Albumin Level 2.6 g/dL (3.5-5.0); Alkaline Phosphatase 48 U/L (39-117); Anion Gap 11 (12-20); Bilirubin Direct 0.3 mg/dL (0.0-0.5); Bilirubin Total 0.4 mg/dL (0.0-1.0); Blood Urea Nitrogen 23 mg/dL (9-16); Calcium 7.7 mg/dL (8.4-10.2); Carbon Dioxide 18 mmol/L (22-29); Chloride 107 mmol/L (96-108); Creatinine Clr Calc Pharmacy 30.5; Estimated Glomerular Filt Rate 36; Glucose Random 166 mg/dL (60-115); Potassium 3.3 mmol/L (3.3-5.1); Sodium 133 mmol/L (135-145); Total Protein 5.2 g/dL (6.5-8.0)
[2024-04-28 05:28] LABS: D Dimer High Sensitivity 5548 NG/ML
[2024-04-28] MEDS: Metoprolol Tartrate 50 MG TABLET PO ×2 (05:33→20:07)
--- NOTE | 2024-04-28 05:34 | PC.NURSE ---
Late Entry: after ambulation to bathroom, pt desatted to 88% and had increasingly hard time catching breath, O2 increased to 4L NC, 96%, rectal temp at 102, Ice packs applied. BP: 170/72, with HR bouncing between 140-170. Pt denies chest pain, just SOB d/t exertion. Charge/Crew Director at bedside. STAT labs ordered and drawn. Dr. Hoff at bedside, telemetry placed, pt in RVR with A-fib, EKG ordered, Meds given per JUL. Pt transfered up to med tele, report given to Torie
[2024-04-28 05:40] LABS: Aspartate Amino Transferase 37 U/L (5-31)
--- NOTE | 2024-04-28 07:00 | CA_ITS ---
Transthoracic Echocardiogram Patient (Last, First, Middle): Merle Funk, Gender: Female Date of : 1940 Age: 83 Procedure Date: 04/28/2024 Procedure Type: Transthoracic Echocardiogram Location: [facility] [place] Height: 157.48 cm Weight: 80.29 kg BSA: 1.81 m2 Heart Rate: bpm BP: 132 / 69 mmHg Blocklayer: Referring MD: Elmo Calle MD Symptoms: Ongoing fever, tachycardia, assess for endocarditi Study Quality: Fair/Contrast ECG Rhythm: Sinus Conclusions: - The left ventricular systolic function is low normal. The visually estimated ejection fraction is between 50-55%. - There is moderate calcification of the aortic valve. There is mild aortic valve stenosis. - No obvious vegetations identified based on available image quality. Findings Procedure Information Contrast agent, definity, is being given per protocol without apparent complications. Left Ventricle Normal left ventricular cavity size. There is mildly increased left ventricular wall thickness. The left ventricular systolic function is low normal. The visually estimated ejection fraction is between 50-55%. There is no evidence of regional wall motion abnormalities. Diastolic function is indeterminate on the basis of available data. Right Ventricle Normal right ventricular cavity size. There is mildly decreased right ventricular systolic function. Atria The left atrium is moderately dilated. The right atrium is normal in size. Aortic Valve There is moderate calcification of the aortic valve. There is mild aortic valve stenosis. There is no aortic valve regurgitation. Mitral Valve There is mild mitral annular calcification. There is mild mitral valve regurgitation. There is no mitral valve stenosis. Pulmonic Valve The pulmonic valve is likely normal. Tricuspid Valve There is mild tricuspid valve regurgitation. There is no evidence of pulmonary hypertension. Great Vessels The asc aorta is normal in size. Moderate plaque is seen in the sino tubular ridge. Venous The inferior vena cava is normal in size and collapses greater than 50% with inspiration. Pericardium/Pleural There is no evidence of pericardial effusion. Prior Study Comparison No prior study available for comparison. Measurements 2D Linear Measurements IVSd: 1.28 0.6-0.9/0.6-1.0 cm LVIDd: 3.87 3.9-5.3/4.2-5.9 cm LVIDd Index: 2.14 2.4-3.2/2.2-3.1 cm/m2 LVIDs: 2.64 2.0-3.6 cm LVPWd: 1.23 0.7-1.1 cm Ao Root: 3.00 2.1-3.5 cm LA Diam: 4.10 2.7-3.8/3.0-4.0 cm LAIDs Index: 2.27 1.5-2.3 cm/m2 LV Mass: 209.80 67-162/88-224 g LV Mass Index: 115.91 43-95/49-115 g/m2 LVOT Diam: 2.10 3.0+(-)1.3 cm 2D Systolic Function EF 4C: 57.50 >55% EF 2C: 46.30 >55% EF BiP: 50.40 >55% Mitral Valve MV Pk E: 1.04 MV Decel Time: 125.00 E'Lateral: 10.70 E'Medial: 6.85 E/E' Med: 15.20 E/E' Lat: 9.70 PHT: 37.00 MVA PHT: 5.95 Decel [place]: 8.32 Aortic Valve AoV Pk [place]: 1.97 AoV Mn [place]: 1.35 AoV VTI: 0.40 AoV Pk Grad: 16.00 Aov Mn Grad: 9.00 [place] Cont.VTI: 1.29 LVOT LVOT Pk [place]: 0.67 LVOT Mn [place]: 0.44 LVOT VTI: 0.15 LVOT Pk Grad: 2.00 LVOT Mn Grad: 1.00 LVOT Diam: 2.10 LVOT Area: 3.46 Diastolic Function MV Pk E: 1.04 E'Medial: 6.85 E/E' Med: 15.20 E' Laterial: 10.70 E/E' Lat: 9.70 Right Ventricle TAPSE (mm): 21.20 TVS' [place]: 9.68 Tricuspid Valve TR Pk [place]: 2.70 TR Pk Grad: 29.00 RA Press: 3.00 RVSP: 32.00 Great Vessels Aorta Ao Root-2D: 3.00 2.0-3.7 cm Ao Asc: 3.60 2.1-3.4 cm Pulmonary Valve PV Pk [place]: 0.83 Peak PV Grad: 3.00 Updated in Other Vendor System with Status of Final Сергей Blakely MD electronically signed on 04/28/2024 11:02:03 AM with status of Final
[2024-04-28 07:06] LABS: Glucose, Whole Blood 133 mg/dL (60-115)
--- NOTE | 2024-04-28 10:39 | MHC.CM.PN ---
Per ROUNDS discussion, Patient is not yet medically cleared for dc (IV Doxycycline & IV Zosyn); home is the goal and CM will continue to follow.
[2024-04-28 11:03] LABS: Glucose, Whole Blood 179 mg/dL (60-115)
[2024-04-28] MEDS: Insulin Lispro 100 UNIT/ML 3 ML VIAL SUBCUT ×2 (13:11→20:38)
--- NOTE | 2024-04-28 15:36 | P.PNIM_ITS ---
Subjective Subjective Date of Service: 04/28/24 Interval History: Events of overnight noted. Episode of atrial fibrillation with RVR; treated with IV beta-blockers now AFib rate control and 80s. Does complain of mild shortness of breath Review of Systems Denies chest pain Admits shortness of breath at rest Denies nausea vomiting diarrhea Denies fever chills Physical Exam 2 Vital Signs: Vital Signs: Last Vital Signs Temp 98.9 F 04/28/24 11:19 Pulse 85 04/28/24 11:19 Resp 20 04/28/24 11:19 BP 133/78 04/28/24 11:19 Pulse Ox 95 04/28/24 11:19 O2 Del Method Nasal Cannula 04/28/24 11:19 O2 Flow Rate 2 04/28/24 11:19 BMI result Body Mass Index 32.5 Const: Other: No acute issues at present. Monitor AFib rate control Resp: Other: Diminished throughout with scattered expiratory wheezes at bases Cardio: Other: Irregularly irregular. No S4; positive S1-S2; no S3 murmurs rubs or gallops GI: Other: Soft nontender nondistended normoactive bowel sounds Extrem: Other: No edema bilaterally Objective Data Active Medications Acetaminophen (Acetaminophen 325 Mg Tablet) 975 mg PO Q6H PRN PRN Reason: Pain, Mild (Pain Scale 1-3), fever or headache Last Admin: 04/28/24 03:25 Dose: 975 mg Documented By: RILEY Albuterol Sulfate (Albuterol Sulfate 90 Mcg 8 Gm Inhaler) 1 puff INHALE RQ6H PRN PRN Reason: Shortness of Breath/Wheezing Last Admin: 04/27/24 15:34 Dose: 1 puff Documented By: BALJINDER Calcium Carbonate (Calcium Carbonate 750 Mg Tab.Chew) 750 mg PO Q4H PRN PRN Reason: Heartburn Enoxaparin Sodium (Enoxaparin Sodium 40 Mg/0.4 Ml Syringe) 40 mg SUBCUT Q24H NADINE Last Admin: 04/27/24 21:22 Dose: 40 mg Documented By: RILEY Glucose (Glucose Gel 15 Gm Gel..Gram.) 15 gm PO Q15M PRN; Protocol PRN Reason: per Hypoglycemia Standing Ord. Guaifenesin/Dextromethorphan (Guaifenesin Dm 200/20/10 Ml 10 Ml Syrup) 10 ml PO Q4H PRN PRN Reason: Cough Dextrose (D10) 250 mls @ 750 mls/hr IV Q15M PRN; Protocol PRN Reason: per Hypoglycemia Standing Ord. Piperacillin Sod/Tazobactam (Sod 3.375 gm/ Sodium Chloride) 50 mls @ 100 mls/hr IV Q6H [facility] Last Infusion: 04/28/24 12:11 Dose: Infused Documented By: YASMIN Doxycycline Hyclate 100 mg/ (Sodium Chloride) 250 mls @ 166.67 mls/hr IV Q12H [facility] Last Infusion: 04/28/24 14:56 Dose: Infused Documented By: YASMIN Insulin Human Lispro (Insulin Lispro 100 Unit/Ml 3 Ml Vial) 0 unit SUBCUT QIDACHS [facility]; Protocol Last Admin: 04/28/24 13:11 Dose: 2 unit Documented By: MICHAELLE Loperamide HCl (Loperamide Hcl 2 Mg Capsule) 2 mg PO Q4H PRN PRN Reason: Diarrhea Magnesium Hydroxide (Milk Of Magnesia 30 Ml Oral.Susp) 30 ml PO DAILY PRN PRN Reason: Constipation Melatonin (Melatonin 3 Mg Tablet) 6 mg PO BEDTIME PRN PRN Reason: Insomnia Metoprolol Tartrate (Metoprolol Tartrate 50 Mg Tablet) 50 mg PO BID [facility]; Protocol Last Admin: 04/28/24 05:33 Dose: 50 mg Documented By: ELVIA Morphine Sulfate (Morphine Sulfate 4 Mg/Ml Cartridge) 2 mg IVPUSH Q4H PRN; Protocol PRN Reason: Pain, Severe (Pain Scale 7-10) Ondansetron HCl (Ondansetron Hcl 4 Mg/2 Ml Vial) 4 mg IVPUSH Q8H PRN PRN Reason: Nausea and Vomiting Last Admin: 04/27/24 03:20 Dose: 4 mg Documented By: MARCELA Oxycodone HCl (Oxycodone Hcl Immed Release 5 Mg Tablet) 5 mg PO Q6H PRN PRN Reason: Pain, Moderate(Pain Scale 4-6) Simethicone (Simethicone 80 Mg Tab.Chew) 80 mg PO QIDWMHS PRN PRN Reason: Gas Last Admin: 04/27/24 13:44 Dose: 80 mg Documented By: J CARLOS Sodium Chloride (0.9 % Sodium Chloride Flush 3 Ml Syringe) 3 ml IVFLUSH QSHIFT [facility] Last Admin: 04/28/24 08:52 Dose: Not Given Documented By: MICHAELLE Non-Admin Reason: IV Running Labs 04/28/24 04:52 04/28/24 04:52 Labs: Laboratory Results - last 24 hr 04/27/24 04/27/24 04/28/24 16:05 20:25 04:52 MCV 82.9 MCH 28.5 MCHC 34.4 RDW 13.1 Plt Count 135 L MPV 10.7 Immature Gran % (Auto) 1.4 H Neut % (Auto) 84.9 H Lymph % (Auto) 8.7 L [place] % (Auto) 4.7 Eos % (Auto) 0.0 Baso % (Auto) 0.3 Lymph # (Auto) 0.6 L [place] # (Auto) 0.3 Eos # (Auto) 0.0 Baso # (Auto) 0.0 Abs Immat Gran (auto) 0.09 H Absolute Neuts (auto) 5.7 Absolute Nucleated RBC 0.000 Nucleated RBC % (auto) 0.0 D-Dimer High Sensitivty 5548 Anion Gap 11 L Estim Creat Clear Calc 30.5 Estimated GFR 36 POC Glucose 146 H 163 H Random Glucose 166 H Lactic Acid 1.2 Calcium 7.7 L D Total Bilirubin 0.4 Direct Bilirubin 0.3 AST 37 H ALT 15 Alkaline Phosphatase 48 Troponin I High Sens 15.3 B-Natriuretic Peptide 217 H Total Protein 5.2 L Albumin 2.6 L 04/28/24 04/28/24 04/28/24 05:08 06:59 10:57 MCV MCH MCHC RDW Plt Count MPV Immature Gran % (Auto) Neut % (Auto) Lymph % (Auto) [place] % (Auto) Eos % (Auto) Baso % (Auto) Lymph # (Auto) [place] # (Auto) Eos # (Auto) Baso # (Auto) Abs Immat Gran (auto) Absolute Neuts (auto) Absolute Nucleated RBC Nucleated RBC % (auto) D-Dimer High Sensitivty Anion Gap Estim Creat Clear Calc Estimated GFR POC Glucose 154 H 133 H 179 H Random Glucose Lactic Acid Calcium Total Bilirubin Direct Bilirubin AST ALT Alkaline Phosphatase Troponin I High Sens B-Natriuretic Peptide Total Protein Albumin Microbiology Microbiology Results: Microbiology 04/25/24 18:14 Blood Culture - Preliminary Blood - Venous No growth after 48 hours. 04/25/24 18:14 Blood Culture - Preliminary Blood - Venous No growth after 48 hours. Assessment and Plan (1) Sepsis: Status: Acute (2) Sigmoid diverticulitis: Status: Acute Plan Pt is an 83-year-old female with a past medical history significant for type 2 diabetes (PO meds), and mild intermittent asthma who presented to the ED with left lower extremity seizure-like activity, dizziness, nausea and vomiting. 1.Sepsis secondary to sigmoid diverticulitis -Zosyn (3) doxycycline (2) -full liquids today; advance as tolerated 2.Acute hypokalemia -repleted -follow renals divalent -replete as indicated 3.Seizure-like activity -no further activity 4.DM II with hyperglycemia -acceptable control on current therapies -lispro correctional scale -adjust as indicated. Add back metformin when clinically appropriate 5.Mild intermittent asthma -DuoNebs q.4 hours while awake Full code Lovenox Requires ongoing hospitalization for treatment of sigmoid diverticulitis with IV antibiotics. Still only tolerating full liquids today. Quality Stroke Does the patient have a stroke diagnosis?: No VTE Prior VTE?: No VTE Risk Level:: Medical - moderate - high VTE Device Contraindication: Treatment Not Indicated VTE Drug Contraindication: N/A - Med Ordered
[2024-04-28] MEDS: Albuterol/Iprat 2.5/0.5MG 3 ML AMPUL.NEB INHALE (16:13)
[2024-04-28 17:09] LABS: Glucose, Whole Blood 94 mg/dL (60-115)
[2024-04-28 19:29] LABS: Glucose, Whole Blood 161 mg/dL (60-115)
[2024-04-28] MEDS: 0.9 % Sodium Chloride Flush 3 ML SYRINGE IVFLUSH ×2 (19:44→20:13)
[2024-04-28 20:32] LABS: Glucose, Whole Blood 159 mg/dL (60-115)
[2024-04-29] VITALS (7 sets, daily range): BP systolic 135–184; BP diastolic 70–78; PULSE 83–111; RESP 17–20; TEMP 36–36.9; O2SAT 88–98
--- NOTE | 2024-04-29 00:05 | W.PM.IDCN ---
History of Present Illness Data of Consult Service Date: 04/27/24 Requesting physician: Marge Hernandez Primary Care Provider: Clemente Castaenda MD [facility] Reason for consult: fever or unknown origin She presents with persistent fever over last week. She denies tick exposure. She has temperature of 104.7. CT scan shows mild diverticulitis. She has diarrhea today. Review of Systems Review of Systems: Yes all other systems are reviewed and are negative Gastrointestinal: Gastrointestinal: Reports diarrhea PMFSH Past Medical History Medical History (Updated 04/29/24 @ 00:10 by Rafaela Sandoval MD) Fever of unknown origin Mild intermittent asthma Type 2 diabetes mellitus without complications Social History Social History Household Members: Other Household Members Other:: care home Housing: Other Housing Other:: care home Do you presently have visiting nurse or other home services: No Comment: 1:1 sitter Patient Tobacco Use Status: Never used Tobacco service: No Meds Allergies Allergy/AdvReac Type Severity Reaction Status Date / Time No Known Allergies Allergy Verified 04/25/24 17:39 Active Medications: Current Medications Acetaminophen (Acetaminophen 325 Mg Tablet) 975 mg PO Q6H PRN PRN Reason: Pain, Mild (Pain Scale 1-3), fever or headache Last Admin: 04/28/24 03:25 Dose: 975 mg Albuterol Sulfate (Albuterol Sulfate 90 Mcg 8 Gm Inhaler) 1 puff INHALE RQ6H PRN PRN Reason: Shortness of Breath/Wheezing Last Admin: 04/27/24 15:34 Dose: 1 puff Albuterol/Ipratropium (Albuterol/Iprat 2.5/0.5mg 3 Ml Ampul.Neb) 3 ml INHALE RQ4H WHILE AWAKE [facility] Last Admin: 04/28/24 20:15 Dose: Not Given Calcium Carbonate (Calcium Carbonate 750 Mg Tab.Chew) 750 mg PO Q4H PRN PRN Reason: Heartburn Enoxaparin Sodium (Enoxaparin Sodium 40 Mg/0.4 Ml Syringe) 40 mg SUBCUT Q24H NADINE Last Admin: 04/28/24 20:39 Dose: Not Given Glucose (Glucose Gel 15 Gm Gel..Gram.) 15 gm PO Q15M PRN; Protocol PRN Reason: per Hypoglycemia Standing Ord. Guaifenesin/Dextromethorphan (Guaifenesin Dm 200/20/10 Ml 10 Ml Syrup) 10 ml PO Q4H PRN PRN Reason: Cough Dextrose (D10) 250 mls @ 750 mls/hr IV Q15M PRN; Protocol PRN Reason: per Hypoglycemia Standing Ord. Doxycycline Hyclate 100 mg/ (Sodium Chloride) 250 mls @ 166.67 mls/hr IV Q12H [facility] Last Infusion: 04/28/24 14:56 Dose: Infused Piperacillin Sod/Tazobactam (Sod 3.375 gm/ Sodium Chloride) 50 mls @ 100 mls/hr IV Q6H [facility] Insulin Human Lispro (Insulin Lispro 100 Unit/Ml 3 Ml Vial) 0 unit SUBCUT QIDACHS [facility]; Protocol Last Admin: 04/28/24 20:38 Dose: 2 unit Loperamide HCl (Loperamide Hcl 2 Mg Capsule) 2 mg PO Q4H PRN PRN Reason: Diarrhea Magnesium Hydroxide (Milk Of Magnesia 30 Ml Oral.Susp) 30 ml PO DAILY PRN PRN Reason: Constipation Melatonin (Melatonin 3 Mg Tablet) 6 mg PO BEDTIME PRN PRN Reason: Insomnia Metoprolol Tartrate (Metoprolol Tartrate 50 Mg Tablet) 50 mg PO BID [facility]; Protocol Last Admin: 04/28/24 20:07 Dose: 50 mg Morphine Sulfate (Morphine Sulfate 4 Mg/Ml Cartridge) 2 mg IVPUSH Q4H PRN; Protocol PRN Reason: Pain, Severe (Pain Scale 7-10) Ondansetron HCl (Ondansetron Hcl 4 Mg/2 Ml Vial) 4 mg IVPUSH Q8H PRN PRN Reason: Nausea and Vomiting Last Admin: 04/27/24 03:20 Dose: 4 mg Oxycodone HCl (Oxycodone Hcl Immed Release 5 Mg Tablet) 5 mg PO Q6H PRN PRN Reason: Pain, Moderate(Pain Scale 4-6) Simethicone (Simethicone 80 Mg Tab.Chew) 80 mg PO QIDWMHS PRN PRN Reason: Gas Last Admin: 04/27/24 13:44 Dose: 80 mg Sodium Chloride (0.9 % Sodium Chloride Flush 3 Ml Syringe) [facility] Last Admin: 04/28/24 20:13 Dose: 3 ml Home Medications ?Medication ?Instructions ?Recorded ?Confirmed ?Last Taken ?Type metformin 850 mg tablet 850 mg PO BID 04/26/24 04/26/24 04/25/24 History Physical Exam Vital Signs: Vital Signs: Last Vital Signs Temp 96.8 F 04/28/24 23:40 Pulse 117 H 04/28/24 23:40 Resp 17 04/28/24 23:40 BP 155/90 H 04/28/24 23:40 Pulse Ox 94 04/28/24 23:40 O2 Del Method Nasal Cannula 04/28/24 23:40 O2 Flow Rate 2 04/28/24 23:40 BMI result Body Mass Index 32.5 Const: General: cooperative HEENT: Head: Yes normal to inspection Face and sinus: Yes normal facial exam Mouth: Normal oral and palatal mucosa present Teeth and gingiva: dentition normal Eyes: General: appearance normal, both eyes and all related structures Pupils: Equal, round and reactive pupils present Resp: Effort & Inspection: normal respiratory effort Cardio: Rate: regular rate Rhythm: regular rhythm GI: Palpation (GI): Soft to palpation and nontender : General: Yes no CVA tenderness Back/Spine/Pelvis: Back: no CVA tenderness Skin: General skin exam: no rashes or lesions noted Neuro: General: moves all extremities Cranial nerves: Yes Equal, round and reactive pupils present Extrem: General: Yes normal to inspection Psych: Appearance: grossly normal Results Labs 04/28/24 04:52 04/28/24 04:52 Labs: Short CBC 04/28/24 Range/Units 04:52 WBC 6.7 (4.8-10.8) X10*3/uL Hgb 11.8 L (12.0-16.0) g/dl Hct 34.3 L (37.0-47.0) % Plt Count 135 L (160-400) X10*3/uL BMP 04/28/24 04:52 Sodium 133 L Potassium 3.3 Chloride 107 Carbon Dioxide 18 L BUN 23 H Creatinine 1.42 H Calcium 7.7 L D Liver Function 04/28/24 Range/Units 04:52 Total Bilirubin 0.4 (0.0-1.0) mg/dL Direct Bilirubin 0.3 (0.0-0.5) mg/dL AST 37 H (5-31) U/L ALT 15 (0-31) U/L Alkaline Phosphatase 48 (39-117) U/L Albumin 2.6 L (3.5-5.0) g/dL Microbiology Microbiology Results: Microbiology 04/25/24 18:14 Blood - Venous Blood Culture - Preliminary No growth after 48 hours. 04/25/24 18:14 Blood - Venous Blood Culture - Preliminary No growth after 48 hours. Assessment and Plan (1) Fever of unknown origin: Status: Acute Plan She has possible Cdiff as cause. She has possible diverticulitis as cause. There is no other sources seen at this time Would check Cdiff if diarrhea continues. Check CT head due to concern over seizures/?abnormality. Await GI panel. Antibiotics depends on results.
--- NOTE | 2024-04-29 00:14 | PM.EVENT ---
Event Note Date of Service: 04/29/24 Event Note: continue Doxycycline and Zosyn three days probable Time Spent With Patient Time: Total time managing care of this patient today ____ minutes.
--- NOTE | 2024-04-29 00:15 | PM.EVENT ---
Event Note Date of Service: 04/29/24 Event Note: possible seizures or lacunar infarcts cause of high grade temperature Neurology eval may be helpful but would check LP if giving IV Acyclovir Time Spent With Patient Time: Total time managing care of this patient today ____ minutes.
[2024-04-29] MEDS: Piperacillin Sodium/Tazobactam 3.375 GM in 0.9 % Sodium Chloride 50 ML IV (01:20)
[2024-04-29] MEDS: Doxycycline Hyclate 100 MG in 0.9 % Sodium Chloride 250 ML 166.67 MG IV ×2 (03:52→15:28)
--- NOTE | 2024-04-29 04:31 | PC.NURSE ---
Pt anxious, confused, forgetful, impulsive. At the beginning of this RN's shift, pt removed her IV, after 3 attempts and USGIV was placed and antibiotics resumed. Pt was anxious, continuously wanting to sit at the edge of the bed. Pt was instructed many times to not get out of bed without help d/t medical equipment. Pt always stated she understood and would call. Once staff member(s) would leave the room, pt would almost immediately get OOB. This RN asked for a bedside safety manager 1:1 after pt continued to get OOB without calling. She can be incontinent but can walk to the bathroom w/walker and stby assist. She is afraid of needles and becomes clammy and anxious when IVs are being placed. 1:1 sitter bedside, camera in room, bed alarm on, call issa within reach.
[2024-04-29 05:51] LABS: MANUAL DIFF FLAG NO
[2024-04-29 05:59] LABS: Basophils Absolute Auto 0.1 X10*3/uL (0.0-0.2); Basophils Percent Auto 0.4 % (0-2); Hematocrit 36.9 % (37.0-47.0); Hemoglobin 12.5 g/dl (12.0-16.0); Imm Gran Abs Auto 0.06 X10*3/uL (0.00-0.03); Imm Gran Pct Auto 0.5 % (0.0-0.4); Lymphocytes Absolute Auto 1.5 X10*3/uL (1.2-4.9); Lymphocytes Percent Auto 12.3 % (20-40); Mean Corpuscular HGB Conc 33.9 g/dl (31.0-35.0); Mean Corpuscular Hemoglobin 28.5 pg (27.0-33.0); Mean Corpuscular Volume 84.2 fL (80.0-98.0); Mean Platelet Volume 10.8 fL (9.4-12.3); Monocytes Absolute Auto 0.7 X10*3/uL (0.1-1.2); Monocytes Percent Auto 5.8 % (2-11); Neutrophils Absolute Auto 9.7 x10*3/uL (2.0-8.3); Platelet Count 184 X10*3/uL (160-400); Red Blood Count 4.38 X10*6/uL (4.20-5.50); Red Cell Distribution Width 13.3 % (11.0-16.0)
[2024-04-29 06:19] LABS: Alanine Aminotransferase 16 U/L (0-31); Albumin Level 2.8 g/dL (3.5-5.0); Alkaline Phosphatase 55 U/L (39-117); Anion Gap 15 (12-20); Aspartate Amino Transferase 35 U/L (5-31); Bilirubin Total 0.4 mg/dL (0.0-1.0); Blood Urea Nitrogen 35 mg/dL (9-16); Carbon Dioxide 19 mmol/L (22-29); Chloride 105 mmol/L (96-108); Creatinine Clr Calc Pharmacy 18.3; Estimated Glomerular Filt Rate 20; Glucose Fasting 159 mg/dL (60-99); Potassium 3.9 mmol/L (3.3-5.1); Sodium 135 mmol/L (135-145); Total Protein 5.8 g/dL (6.5-8.0)
[2024-04-29 07:20] LABS: Glucose, Whole Blood 131 mg/dL (60-115)
[2024-04-29] MEDS: Albuterol/Iprat 2.5/0.5MG 3 ML AMPUL.NEB INHALE (07:58)
[2024-04-29] MEDS: Metoprolol Tartrate 50 MG TABLET PO ×2 (08:29→08:35)
[2024-04-29] MEDS: Piperacillin Sodium/Tazobactam 2.25 GM in 0.9 % Sodium Chloride 50 ML IV ×3 (08:29→19:45)
[2024-04-29] MEDS: Enoxaparin Sodium 80 MG/0.8 ML SYRINGE SUBCUT (08:29)
[2024-04-29] MEDS: 0.9 % Sodium Chloride Flush 3 ML SYRINGE IVFLUSH ×2 (08:30→19:46)
[2024-04-29 08:45] LABS: Hematocrit 39.4 % (37.0-47.0); Hemoglobin 13.1 g/dl (12.0-16.0); Mean Corpuscular HGB Conc 33.2 g/dl (31.0-35.0); Mean Corpuscular Hemoglobin 28.2 pg (27.0-33.0); Mean Corpuscular Volume 84.7 fL (80.0-98.0); Mean Platelet Volume 10.5 fL (9.4-12.3); Platelet Count 187 X10*3/uL (160-400); Red Blood Count 4.65 X10*6/uL (4.20-5.50); Red Cell Distribution Width 13.5 % (11.0-16.0); White Blood Count 15.6 X10*3/uL (4.8-10.8)
[2024-04-29 08:50] LABS: INTERNATIONAL NORM RATIO 1.4 (0.9-1.1); Prothrombin Time 16.5 SEC (10.9-12.4)
[2024-04-29 08:53] LABS: Partial Thromboplastin Time 32.1 SEC (26.0-36.8)
[2024-04-29 12:13] LABS: Glucose, Whole Blood 160 mg/dL (60-115)
--- NOTE | 2024-04-29 14:11 | HO.PM.IMPN ---
Subjective Subjective Date of Service: 04/29/24 Interval History: Worsening shortness of breath overnight. No other acute issues Review of Systems Denies chest pain Admits shortness of breath at rest Denies nausea vomiting diarrhea Denies fever chills Physical Exam Vital Signs: Vital Signs: Last Vital Signs Temp 97.3 F 04/29/24 12:00 Pulse 87 04/29/24 12:00 Resp 19 04/29/24 12:00 BP 137/75 04/29/24 12:00 Pulse Ox 98 04/29/24 12:00 O2 Del Method Nasal Cannula 04/29/24 12:00 O2 Flow Rate 2 04/29/24 12:00 BMI result Body Mass Index 32.5 Const: Other: No acute issues at present. Monitor AFib rate control Resp: Other: Diminished throughout with scattered expiratory wheezes at bases Cardio: Other: Irregularly irregular. No S4; positive S1-S2; no S3 murmurs rubs or gallops GI: Other: Soft nontender nondistended normoactive bowel sounds Extrem: Other: No edema bilaterally Objective Data Active Medications Acetaminophen (Acetaminophen 325 Mg Tablet) 975 mg PO Q6H PRN PRN Reason: Pain, Mild (Pain Scale 1-3), fever or headache Last Admin: 04/28/24 03:25 Dose: 975 mg Documented By: RILEY Calcium Carbonate (Calcium Carbonate 750 Mg Tab.Chew) 750 mg PO Q4H PRN PRN Reason: Heartburn Glucose (Glucose Gel 15 Gm Gel..Gram.) 15 gm PO Q15M PRN; Protocol PRN Reason: per Hypoglycemia Standing Ord. Guaifenesin/Dextromethorphan (Guaifenesin Dm 200/20/10 Ml 10 Ml Syrup) 10 ml PO Q4H PRN PRN Reason: Cough Dextrose (D10) 250 mls @ 750 mls/hr IV Q15M PRN; Protocol PRN Reason: per Hypoglycemia Standing Ord. Doxycycline Hyclate 100 mg/ (Sodium Chloride) 250 mls @ 166.67 mls/hr IV Q12H [facility] Last Infusion: 04/29/24 05:25 Dose: Infused Documented By: ANGELES Piperacillin Sod/Tazobactam (Sod 2.25 gm/ Sodium Chloride) 50 mls @ 100 mls/hr IV Q6H [facility] Last Infusion: 04/29/24 10:41 Dose: Infused Documented By: YASMIN Insulin Human Lispro (Insulin Lispro 100 Unit/Ml 3 Ml Vial) 0 unit SUBCUT QIDACHS [facility]; Protocol Last Admin: 04/29/24 08:35 Dose: Not Given Documented By: YASMIN Non-Admin Reason: No Insulin Coverage Levalbuterol HCl (Levalbuterol Hcl 1.25 Mg/3 Ml Vial.Neb) 1.25 mg INHALE Q4H PRN PRN Reason: Wheezing Loperamide HCl (Loperamide Hcl 2 Mg Capsule) 2 mg PO Q4H PRN PRN Reason: Diarrhea Magnesium Hydroxide (Milk Of Magnesia 30 Ml Oral.Susp) 30 ml PO DAILY PRN PRN Reason: Constipation Melatonin (Melatonin 3 Mg Tablet) 6 mg PO BEDTIME PRN PRN Reason: Insomnia Metoprolol Tartrate (Metoprolol Tartrate 50 Mg Tablet) 50 mg PO BID [facility]; Protocol Last Admin: 04/29/24 08:35 Dose: 50 mg Documented By: YASMIN Morphine Sulfate (Morphine Sulfate 4 Mg/Ml Cartridge) 2 mg IVPUSH Q4H PRN; Protocol PRN Reason: Pain, Severe (Pain Scale 7-10) Ondansetron HCl (Ondansetron Hcl 4 Mg/2 Ml Vial) 4 mg IVPUSH Q8H PRN PRN Reason: Nausea and Vomiting Last Admin: 04/27/24 03:20 Dose: 4 mg Documented By: MARCELA Oxycodone HCl (Oxycodone Hcl Immed Release 5 Mg Tablet) 5 mg PO Q6H PRN PRN Reason: Pain, Moderate(Pain Scale 4-6) Simethicone (Simethicone 80 Mg Tab.Chew) 80 mg PO QIDWMHS PRN PRN Reason: Gas Last Admin: 04/27/24 13:44 Dose: 80 mg Documented By: LUCIAME Sodium Chloride (0.9 % Sodium Chloride Flush 3 Ml Syringe) 3 ml IVFLUSH [facility] Last Admin: 04/29/24 08:30 Dose: 3 ml Documented By: YASMIN Labs 04/29/24 08:14 04/29/24 05:37 Labs: Laboratory Results - last 24 hr 04/28/24 04/28/24 04/28/24 10:27 16:59 19:26 MCV MCH MCHC RDW Plt Count MPV Immature Gran % (Auto) Neut % (Auto) Lymph % (Auto) [place] % (Auto) Eos % (Auto) Baso % (Auto) Lymph # (Auto) [place] # (Auto) Eos # (Auto) Baso # (Auto) Abs Immat Gran (auto) Absolute Neuts (auto) Absolute Nucleated RBC Nucleated RBC % (auto) PT INR APTT Anion Gap Cancelled Estim Creat Clear Calc Cancelled Estimated GFR Cancelled POC Glucose 94 161 H Random Glucose Cancelled Fasting Glucose Calcium Cancelled Total Bilirubin AST ALT Alkaline Phosphatase Total Protein Albumin 04/28/24 04/29/24 04/29/24 20:27 05:37 07:16 MCV 84.2 MCH 28.5 MCHC 33.9 RDW 13.3 Plt Count 184 D MPV 10.8 Immature Gran % (Auto) 0.5 H Neut % (Auto) 81.0 H Lymph % (Auto) 12.3 L [place] % (Auto) 5.8 Eos % (Auto) 0.0 Baso % (Auto) 0.4 Lymph # (Auto) 1.5 [place] # (Auto) 0.7 Eos # (Auto) 0.0 Baso # (Auto) 0.1 Abs Immat Gran (auto) 0.06 H Absolute Neuts (auto) 9.7 H Absolute Nucleated RBC 0.000 Nucleated RBC % (auto) 0.0 PT INR APTT Anion Gap 15 Estim Creat Clear Calc 18.3 Estimated GFR 20 POC Glucose 159 H 131 H Random Glucose Fasting Glucose 159 H Calcium 8.0 L Total Bilirubin 0.4 AST 35 H ALT 16 Alkaline Phosphatase 55 Total Protein 5.8 L Albumin 2.8 L 04/29/24 04/29/24 08:14 12:05 MCV 84.7 MCH 28.2 MCHC 33.2 RDW 13.5 Plt Count 187 MPV 10.5 Immature Gran % (Auto) Neut % (Auto) Lymph % (Auto) [place] % (Auto) Eos % (Auto) Baso % (Auto) Lymph # (Auto) [place] # (Auto) Eos # (Auto) Baso # (Auto) Abs Immat Gran (auto) Absolute Neuts (auto) Absolute Nucleated RBC 0.000 Nucleated RBC % (auto) 0.0 PT 16.5 H INR 1.4 H APTT 32.1 Anion Gap Estim Creat Clear Calc Estimated GFR POC Glucose 160 H Random Glucose Fasting Glucose Calcium Total Bilirubin AST ALT Alkaline Phosphatase Total Protein Albumin Assessment and Plan (1) Sigmoid diverticulitis: Status: Acute (2) Right lower lobe pulmonary infiltrate: Status: Acute Plan Pt is an 83-year-old female with a past medical history significant for type 2 diabetes (PO meds), and mild intermittent asthma who presented to the ED with left lower extremity seizure-like activity, dizziness, nausea and vomiting. 1.Sepsis secondary to sigmoid diverticulitis -Zosyn (4) doxycycline (3) -full liquids today; advance as tolerated 2. Questionable right lower lobe infiltrate -continue Zosyn/doxycycline as above -check V/Q scan to rule out PE given CKD 3.Acute hypokalemia -repleted -follow renals divalent -replete as indicated 4.DM II with hyperglycemia -acceptable control on current therapies -lispro correctional scale -adjust as indicated. Add back metformin when clinically appropriate 5.Mild intermittent asthma -given worsening will add Solu-Medrol 60 q.6 hours -DuoNebs q.4 hours while awake Full code Lovenox Requires ongoing hospitalization for treatment of sigmoid diverticulitis with IV antibiotics. Still only tolerating full liquids today. Quality Stroke Does the patient have a stroke diagnosis?: No VTE Prior VTE?: No VTE Risk Level:: Medical - moderate - high VTE Device Contraindication: Treatment Not Indicated VTE Drug Contraindication: N/A - Med Ordered
[2024-04-29] MEDS: methylPREDNISolone Sod Succ 125 MG/2 ML VIAL 60 MG IVPUSH ×2 (15:18→19:45)
[2024-04-29 16:12] LABS: Glucose, Whole Blood 197 mg/dL (60-115)
[2024-04-29] MEDS: Insulin Lispro 100 UNIT/ML 3 ML VIAL SUBCUT ×2 (16:26→22:44)
[2024-04-29 17:24] LABS: A. Phagocytphilium DNA,RT-PCR NOT DETECTED (NOT DETECTED); Babesia Microti DNA, RT-PCR NOT DETECTED (NOT DETECTED); Borrelia Miyamotoi,DNA RT-PCR NOT DETECTED (NOT DETECTED); E.Chaffeensis DNA RT-PCR NOT DETECTED (NOT DETECTED); Lyme(Borrelia ssp)DNA RT-PCR NOT DETECTED (NOT DETECTED)
[2024-04-29 21:49] LABS: Glucose, Whole Blood 262 mg/dL (60-115)
[2024-04-30] VITALS (7 sets, daily range): BP systolic 139–184; BP diastolic 64–89; PULSE 76–100; RESP 12–20; TEMP 36.3–36.9; O2SAT 97–99
[2024-04-30] MEDS: Doxycycline Hyclate 100 MG in 0.9 % Sodium Chloride 250 ML 166.67 MG IV ×2 (02:07→16:04)
[2024-04-30] MEDS: methylPREDNISolone Sod Succ 125 MG/2 ML VIAL 60 MG IVPUSH ×4 (02:07→20:56)
[2024-04-30] MEDS: Piperacillin Sodium/Tazobactam 2.25 GM in 0.9 % Sodium Chloride 50 ML IV ×4 (04:09→20:57)
[2024-04-30 07:39] LABS: Glucose, Whole Blood 208 mg/dL (60-115)
[2024-04-30 07:54] LABS: MANUAL DIFF FLAG NO
[2024-04-30] MEDS: Insulin Lispro 100 UNIT/ML 3 ML VIAL SUBCUT ×4 (08:00→20:56)
[2024-04-30 08:02] LABS: Basophils Percent Auto 0.2 % (0-2); Hematocrit 35.9 % (37.0-47.0); Hemoglobin 12.3 g/dl (12.0-16.0); Imm Gran Abs Auto 0.17 X10*3/uL (0.00-0.03); Imm Gran Pct Auto 1.1 % (0.0-0.4); Lymphocytes Absolute Auto 1.7 X10*3/uL (1.2-4.9); Lymphocytes Percent Auto 11.3 % (20-40); Mean Corpuscular HGB Conc 34.3 g/dl (31.0-35.0); Mean Corpuscular Hemoglobin 28.8 pg (27.0-33.0); Mean Corpuscular Volume 84.1 fL (80.0-98.0); Mean Platelet Volume 10.7 fL (9.4-12.3); Monocytes Absolute Auto 0.3 X10*3/uL (0.1-1.2); Monocytes Percent Auto 2.2 % (2-11); Neutrophils Percent Auto 85.2 % (45-73); Platelet Count 224 X10*3/uL (160-400); Red Blood Count 4.27 X10*6/uL (4.20-5.50); Red Cell Distribution Width 13.8 % (11.0-16.0); White Blood Count 15.2 X10*3/uL (4.8-10.8)
[2024-04-30 08:41] LABS: Alanine Aminotransferase 19 U/L (0-31); Alkaline Phosphatase 66 U/L (39-117); Anion Gap 17 (12-20); Aspartate Amino Transferase 39 U/L (5-31); Bilirubin Total 0.4 mg/dL (0.0-1.0); Blood Urea Nitrogen 37 mg/dL (9-16); Calcium 8.7 mg/dL (8.4-10.2); Carbon Dioxide 13 mmol/L (22-29); Chloride 107 mmol/L (96-108); Creatinine Clr Calc Pharmacy 17.6; Estimated Glomerular Filt Rate 19; Glucose Fasting 229 mg/dL (60-99); Potassium 3.8 mmol/L (3.3-5.1); Sodium 135 mmol/L (135-145); Total Protein 6.3 g/dL (6.5-8.0)
[2024-04-30] MEDS: 0.9 % Sodium Chloride Flush 3 ML SYRINGE IVFLUSH ×2 (09:37→16:05)
[2024-04-30] MEDS: Metoprolol Tartrate 50 MG TABLET PO ×2 (09:37→20:57)
[2024-04-30 11:44] LABS: Glucose, Whole Blood 300 mg/dL (60-115)
--- NOTE | 2024-04-30 13:20 | P.PNIM_ITS ---
Subjective Subjective Date of Service: 04/30/24 Interval History: Respiratory status improving with steroids. Creatinine remains elevated. Now requiring sitter Review of Systems Denies chest pain Admits shortness of breath at rest Denies nausea vomiting diarrhea Denies fever chills Physical Exam 2 Vital Signs: Vital Signs: Last Vital Signs Temp 97.8 F 04/30/24 11:22 Pulse 87 04/30/24 11:22 Resp 18 04/30/24 11:22 BP 158/82 H 04/30/24 11:22 Pulse Ox 98 04/30/24 11:22 O2 Del Method Nasal Cannula 04/30/24 11:22 O2 Flow Rate 2 04/30/24 11:22 BMI result Body Mass Index 32.5 Const: Other: More alert and appropriate this a.m. Resp: Other: Diminished throughout with scattered expiratory wheezes at bases Cardio: Other: Irregularly irregular. No S4; positive S1-S2; no S3 murmurs rubs or gallops GI: Other: Soft nontender nondistended normoactive bowel sounds Extrem: Other: No edema bilaterally Objective Data Active Medications Acetaminophen (Acetaminophen 325 Mg Tablet) 975 mg PO Q6H PRN PRN Reason: Pain, Mild (Pain Scale 1-3), fever or headache Last Admin: 04/28/24 03:25 Dose: 975 mg Documented By: RILEY Calcium Carbonate (Calcium Carbonate 750 Mg Tab.Chew) 750 mg PO Q4H PRN PRN Reason: Heartburn Glucose (Glucose Gel 15 Gm Gel..Gram.) 15 gm PO Q15M PRN; Protocol PRN Reason: per Hypoglycemia Standing Ord. Guaifenesin/Dextromethorphan (Guaifenesin Dm 200/20/10 Ml 10 Ml Syrup) 10 ml PO Q4H PRN PRN Reason: Cough Dextrose (D10) 250 mls @ 750 mls/hr IV Q15M PRN; Protocol PRN Reason: per Hypoglycemia Standing Ord. Doxycycline Hyclate 100 mg/ (Sodium Chloride) 250 mls @ 166.67 mls/hr IV Q12H [facility] Last Infusion: 04/30/24 03:40 Dose: Infused Documented By: BULL Piperacillin Sod/Tazobactam (Sod 2.25 gm/ Sodium Chloride) 50 mls @ 100 mls/hr IV Q6H [facility] Last Infusion: 04/30/24 10:19 Dose: Infused Documented By: CRHISTI Insulin Human Lispro (Insulin Lispro 100 Unit/Ml 3 Ml Vial) 0 unit SUBCUT QIDACHS [facility]; Protocol Last Admin: 04/30/24 11:51 Dose: 8 unit Documented By: CHRISTI Levalbuterol HCl (Levalbuterol Hcl 1.25 Mg/3 Ml Vial.Neb) 1.25 mg INHALE Q4H PRN PRN Reason: Wheezing Loperamide HCl (Loperamide Hcl 2 Mg Capsule) 2 mg PO Q4H PRN PRN Reason: Diarrhea Magnesium Hydroxide (Milk Of Magnesia 30 Ml Oral.Susp) 30 ml PO DAILY PRN PRN Reason: Constipation Melatonin (Melatonin 3 Mg Tablet) 6 mg PO BEDTIME PRN PRN Reason: Insomnia Methylprednisolone Sodium Succinate (Methylprednisolone Sod Succ 125 Mg/2 Ml Vial) 60 mg IVPUSH Q6H [facility] Last Admin: 04/30/24 09:36 Dose: 60 mg Documented By: CHRISTI Metoprolol Tartrate (Metoprolol Tartrate 50 Mg Tablet) 50 mg PO BID [facility]; Protocol Last Admin: 04/30/24 09:37 Dose: 50 mg Documented By: CHRISTI Morphine Sulfate (Morphine Sulfate 4 Mg/Ml Cartridge) 2 mg IVPUSH Q4H PRN; Protocol PRN Reason: Pain, Severe (Pain Scale 7-10) Ondansetron HCl (Ondansetron Hcl 4 Mg/2 Ml Vial) 4 mg IVPUSH Q8H PRN PRN Reason: Nausea and Vomiting Last Admin: 04/27/24 03:20 Dose: 4 mg Documented By: MARCELA Oxycodone HCl (Oxycodone Hcl Immed Release 5 Mg Tablet) 5 mg PO Q6H PRN PRN Reason: Pain, Moderate(Pain Scale 4-6) Simethicone (Simethicone 80 Mg Tab.Chew) 80 mg PO QIDWMHS PRN PRN Reason: Gas Last Admin: 04/27/24 13:44 Dose: 80 mg Documented By: LUCIAME Sodium Chloride (0.9 % Sodium Chloride Flush 3 Ml Syringe) 3 ml IVFLUSH [facility] Last Admin: 04/30/24 09:37 Dose: 3 ml Documented By: CHRISIT Labs 04/30/24 07:30 04/30/24 07:30 Labs: Laboratory Results - last 24 hr 04/28/24 04/29/24 04/29/24 04:52 16:04 21:03 MCV MCH MCHC RDW Plt Count MPV Immature Gran % (Auto) Neut % (Auto) Lymph % (Auto) Marshall % (Auto) Eos % (Auto) Baso % (Auto) Lymph # (Auto) [place] # (Auto) Eos # (Auto) Baso # (Auto) Abs Immat Gran (auto) Absolute Neuts (auto) Absolute Nucleated RBC Nucleated RBC % (auto) Anion Gap Estim Creat Clear Calc Estimated GFR POC Glucose 197 H 262 H Fasting Glucose Calcium Total Bilirubin AST ALT Alkaline Phosphatase Total Protein Albumin A.phagocytophil DNA PCR NOT DETECTED Babesia microti DNA PCR NOT DETECTED Borrelia sp DNA (PCR) NOT DETECTED Borrelia miyamotoi (PCR) NOT DETECTED E.chaffeensis DNA (PCR) NOT DETECTED Tick-borne Disease PCR SEE NOTE 04/30/24 04/30/24 04/30/24 07:30 07:31 11:24 MCV 84.1 MCH 28.8 MCHC 34.3 RDW 13.8 Plt Count 224 MPV 10.7 Immature Gran % (Auto) 1.1 H Neut % (Auto) 85.2 H Lymph % (Auto) 11.3 L [place] % (Auto) 2.2 Eos % (Auto) 0.0 Baso % (Auto) 0.2 Lymph # (Auto) 1.7 Marshall # (Auto) 0.3 Eos # (Auto) 0.0 Baso # (Auto) 0.0 Abs Immat Gran (auto) 0.17 H Absolute Neuts (auto) 13.0 H Absolute Nucleated RBC 0.000 Nucleated RBC % (auto) 0.0 Anion Gap 17 Estim Creat Clear Calc 17.6 Estimated GFR 19 POC Glucose 208 H 300 H Fasting Glucose 229 H Calcium 8.7 D Total Bilirubin 0.4 AST 39 H ALT 19 Alkaline Phosphatase 66 Total Protein 6.3 L Albumin 3.0 L A.phagocytophil DNA PCR Babesia microti DNA PCR Borrelia sp DNA (PCR) Borrelia miyamotoi (PCR) E.chaffeensis DNA (PCR) Tick-borne Disease PCR Assessment and Plan (1) Sigmoid diverticulitis: Status: Acute (2) Right lower lobe pulmonary infiltrate: Status: Acute Plan Pt is an 83-year-old female with a past medical history significant for type 2 diabetes (PO meds), and mild intermittent asthma who presented to the ED with left lower extremity seizure-like activity, dizziness, nausea and vomiting. 1.Sepsis secondary to sigmoid diverticulitis -Zosyn (5) doxycycline (4) -diabetic diet 2.LITA -no improvement. -volume challenge -follow renals divalent in a.m. 3. Questionable right lower lobe infiltrate -continue Zosyn/doxycycline as above -V/Q scan negative 4.DM II with hyperglycemia -acceptable control on current therapies -lispro correctional scale -adjust as indicated. Add back metformin when clinically appropriate 5.Mild intermittent asthma -given worsening will add Solu-Medrol 60 q.6 hours -DuoNebs q.4 hours while awake Full code Lovenox Requires ongoing hospitalization for treatment of sigmoid diverticulitis with IV antibiotics. Still only tolerating full liquids today. Quality Stroke Does the patient have a stroke diagnosis?: No VTE Prior VTE?: No VTE Risk Level:: Medical - moderate - high VTE Device Contraindication: Treatment Not Indicated VTE Drug Contraindication: N/A - Med Ordered
[2024-04-30 15:49] LABS: Glucose, Whole Blood 218 mg/dL (60-115)
[2024-04-30] MEDS: Lactated Ringers 1,000 ML 100 ML IVCONT (16:06)
[2024-04-30 20:40] LABS: Glucose, Whole Blood 212 mg/dL (60-115)
[2024-04-30] MEDS: Melatonin 3 MG TABLET 6 MG PO (21:05)
[2024-05-01] VITALS (7 sets, daily range): BP systolic 138–170; BP diastolic 58–73; PULSE 57–86; RESP 14–20; TEMP 36.1–36.8; O2SAT 94–100
[2024-05-01] MEDS: Doxycycline Hyclate 100 MG in 0.9 % Sodium Chloride 250 ML 166.67 MG IV ×2 (02:32→13:09)
[2024-05-01] MEDS: Piperacillin Sodium/Tazobactam 2.25 GM in 0.9 % Sodium Chloride 50 ML IV ×4 (02:33→20:43)
[2024-05-01] MEDS: methylPREDNISolone Sod Succ 125 MG/2 ML VIAL 60 MG IVPUSH ×4 (02:33→20:45)
[2024-05-01] MEDS: Lactated Ringers 1,000 ML 100 ML IVCONT (02:34)
[2024-05-01 07:09] LABS: Basophils Absolute Auto 0.1 X10*3/uL (0.0-0.2); Basophils Percent Auto 0.2 % (0-2); Hematocrit 35.3 % (37.0-47.0); Hemoglobin 11.9 g/dl (12.0-16.0); Imm Gran Abs Auto 0.38 X10*3/uL (0.00-0.03); Imm Gran Pct Auto 1.9 % (0.0-0.4); Lymphocytes Absolute Auto 2.4 X10*3/uL (1.2-4.9); Lymphocytes Percent Auto 11.7 % (20-40); MANUAL DIFF FLAG SCAN; Mean Corpuscular HGB Conc 33.7 g/dl (31.0-35.0); Mean Corpuscular Hemoglobin 28.8 pg (27.0-33.0); Mean Corpuscular Volume 85.5 fL (80.0-98.0); Mean Platelet Volume 10.5 fL (9.4-12.3); Monocytes Percent Auto 4.9 % (2-11); Neutrophils Absolute Auto 16.7 x10*3/uL (2.0-8.3); Neutrophils Percent Auto 81.3 % (45-73); PLT CLUMP 1; Red Blood Count 4.13 X10*6/uL (4.20-5.50); SCAN SMEAR FLAG 1
[2024-05-01 07:11] LABS: Alanine Aminotransferase 29 U/L (0-31); Alkaline Phosphatase 79 U/L (39-117); Anion Gap 17 (12-20); Aspartate Amino Transferase 38 U/L (5-31); Bilirubin Total 0.4 mg/dL (0.0-1.0); Blood Urea Nitrogen 51 mg/dL (9-16); Carbon Dioxide 16 mmol/L (22-29); Chloride 109 mmol/L (96-108); Creatinine Clr Calc Pharmacy 17.9; Estimated Glomerular Filt Rate 19; Glucose Fasting 218 mg/dL (60-99); Potassium 3.5 mmol/L (3.3-5.1); Sodium 138 mmol/L (135-145); Total Protein 5.8 g/dL (6.5-8.0)
[2024-05-01 07:16] LABS: White Blood Count 20.8 X10*3/uL (4.8-10.8)
[2024-05-01 07:39] LABS: Platelet Count 293 X10*3/uL (160-400); SLIDE REVIEW VERIFIED
--- NOTE | 2024-05-01 07:48 | PM.CNNEP ---
History of Present Illness Reason for Consult Consult date: 05/01/24 Chief Complaint Chief complaint: ?seizure, dizzy, vomiting History of Present Illness Narrative: 83-year-old female with a past medical history significant for type 2 diabetes), and mild intermittent asthma who presented to the ED with left lower extremity seizure-like activity, dizziness, nausea and vomiting. She reported vomiting for 3 days with intermittent diarrhea. She has not been able to tolerate any food prior to admit found to have diverticulitis - now on abx , still has ongoing diarrhea per nurse, sundowning h/o fell smelling urine. no h/o chest pain, shortness of breath, no fever, chills, PMFSH Past Medical History Medical History (Updated 05/01/24 @ 07:53 by Nawaf Arroyo MD) Fever of unknown origin Mild intermittent asthma Type 2 diabetes mellitus without complications Social History Social History Household Members: Other Household Members Other:: intermediate Housing: Other Housing Other:: intermediate Do you presently have visiting nurse or other home services: No Comment: sitter Patient Tobacco Use Status: Never used Tobacco service: No Meds Allergies Allergy/AdvReac Type Severity Reaction Status Date / Time No Known Allergies Allergy Verified 04/25/24 17:39 Active Medications: Current Medications Acetaminophen (Acetaminophen 325 Mg Tablet) 975 mg PO Q6H PRN PRN Reason: Pain, Mild (Pain Scale 1-3), fever or headache Last Admin: 04/28/24 03:25 Dose: 975 mg Calcium Carbonate (Calcium Carbonate 750 Mg Tab.Chew) 750 mg PO Q4H PRN PRN Reason: Heartburn Glucose (Glucose Gel 15 Gm Gel..Gram.) 15 gm PO Q15M PRN; Protocol PRN Reason: per Hypoglycemia Standing Ord. Guaifenesin/Dextromethorphan (Guaifenesin Dm 200/20/10 Ml 10 Ml Syrup) 10 ml PO Q4H PRN PRN Reason: Cough Dextrose (D10) 250 mls @ 750 mls/hr IV Q15M PRN; Protocol PRN Reason: per Hypoglycemia Standing Ord. Doxycycline Hyclate 100 mg/ (Sodium Chloride) 250 mls @ 166.67 mls/hr IV Q12H [facility] Last Infusion: 05/01/24 04:01 Dose: Infused Piperacillin Sod/Tazobactam (Sod 2.25 gm/ Sodium Chloride) 50 mls @ 100 mls/hr IV Q6H [facility] Last Infusion: 05/01/24 03:05 Dose: Infused Lactated Ringer's (Lr) 1,000 mls @ 100 mls/hr IVCONT .Q10H [facility] Last Admin: 05/01/24 02:34 Dose: 100 mls/hr Insulin Human Lispro (Insulin Lispro 100 Unit/Ml 3 Ml Vial) 0 unit SUBCUT QIDACHS [facility]; Protocol Last Admin: 04/30/24 20:56 Dose: 4 unit Levalbuterol HCl (Levalbuterol Hcl 1.25 Mg/3 Ml Vial.Neb) 1.25 mg INHALE Q4H PRN PRN Reason: Wheezing Loperamide HCl (Loperamide Hcl 2 Mg Capsule) 2 mg PO Q4H PRN PRN Reason: Diarrhea Magnesium Hydroxide (Milk Of Magnesia 30 Ml Oral.Susp) 30 ml PO DAILY PRN PRN Reason: Constipation Melatonin (Melatonin 3 Mg Tablet) 6 mg PO BEDTIME PRN PRN Reason: Insomnia Last Admin: 04/30/24 21:05 Dose: 6 mg Methylprednisolone Sodium Succinate (Methylprednisolone Sod Succ 125 Mg/2 Ml Vial) 60 mg IVPUSH Q6H [facility] Last Admin: 05/01/24 02:33 Dose: 60 mg Metoprolol Tartrate (Metoprolol Tartrate 50 Mg Tablet) 50 mg PO BID [facility]; Protocol Last Admin: 04/30/24 20:57 Dose: 50 mg Ondansetron HCl (Ondansetron Hcl 4 Mg/2 Ml Vial) 4 mg IVPUSH Q8H PRN PRN Reason: Nausea and Vomiting Last Admin: 04/27/24 03:20 Dose: 4 mg Simethicone (Simethicone 80 Mg Tab.Chew) 80 mg PO QIDWMHS PRN PRN Reason: Gas Last Admin: 04/27/24 13:44 Dose: 80 mg Sodium Chloride (0.9 % Sodium Chloride Flush 3 Ml Syringe) 3 ml IVFLUSH QSHIFT [facility] Last Admin: 04/30/24 23:16 Dose: Not Given Home Medications ?Medication ?Instructions ?Recorded ?Confirmed ?Last Taken ?Type metformin 850 mg tablet 850 mg PO BID 04/26/24 04/26/24 04/25/24 History Physical Exam Vital Signs: Last Vital Signs Temp 96.9 F 05/01/24 03:11 Pulse 86 05/01/24 03:11 Resp 14 05/01/24 03:11 BP 150/70 H 05/01/24 03:11 Pulse Ox 96 05/01/24 03:11 O2 Del Method Nasal Cannula 05/01/24 03:11 O2 Flow Rate 2 05/01/24 03:11 BMI result Body Mass Index 32.5 cvs: s1s2, jvp + RS; cta Abd; doft Results Lab Results 05/01/24 06:05 05/01/24 06:05 Lab results: Chemistry 04/28/24 04/29/24 04/30/24 10:27 05:37 07:30 Sodium Cancelled 135 135 Potassium Cancelled 3.9 3.8 Carbon Dioxide Cancelled 19 L 13 L BUN Cancelled 35 H 37 H Creatinine Cancelled 2.37 H 2.46 H Calcium Cancelled 8.0 L 8.7 D 05/01/24 06:05 Sodium 138 Potassium 3.5 Carbon Dioxide 16 L BUN 51 H Creatinine 2.42 H Calcium 9.0 Hematology 04/29/24 04/29/24 04/30/24 05:37 08:14 07:30 WBC 12.0 H 15.6 H 15.2 H Hgb 12.5 13.1 12.3 Plt Count 184 D 187 224 05/01/24 06:05 WBC 20.8 H Hgb 11.9 L Plt Count 293 D Assessment and Plan (1) LITA (acute kidney injury): Status: Acute Plan LITA metabolic acidosis LITA likely related to infection isotonic bicarb gtt @ 75ml / hr for 1liter and stop she is close to euvolemic ivf prn for ongoing loose stools and poor po intake, - doesnot need continuous fluids cont abx expect slow resolution of lita avoid nephrotoxins Procedures Date of Service Date of Service: 05/01/24
[2024-05-01 08:07] LABS: Glucose, Whole Blood 209 mg/dL (60-115)
[2024-05-01] MEDS: Insulin Lispro 100 UNIT/ML 3 ML VIAL SUBCUT ×4 (08:46→20:43)
[2024-05-01] MEDS: 0.9 % Sodium Chloride Flush 3 ML SYRINGE IVFLUSH ×2 (08:47→16:05)
[2024-05-01] MEDS: Metoprolol Tartrate 50 MG TABLET PO ×2 (08:47→20:43)
[2024-05-01] MEDS: Sodium Bicarbonate 8.4% 150 MEQ in Dextrose 5 % 850 ML 75 MEQ IV (09:04)
[2024-05-01 11:03] LABS: Glucose, Whole Blood 260 mg/dL (60-115)
--- NOTE | 2024-05-01 14:42 | HO.PM.IMPN ---
Subjective Subjective Date of Service: 05/01/24 Interval History: No acute issues overnight. No response to volume challenge Review of Systems Denies chest pain Admits shortness of breath at rest Denies nausea vomiting diarrhea Denies fever chills Physical Exam Vital Signs: Vital Signs: Last Vital Signs Temp 98.0 F 05/01/24 10:45 Pulse 79 05/01/24 10:45 Resp 18 05/01/24 10:45 BP 140/65 H 05/01/24 10:45 Pulse Ox 98 05/01/24 10:45 O2 Del Method Nasal Cannula 05/01/24 10:45 O2 Flow Rate 2 05/01/24 10:45 BMI result Body Mass Index 32.5 Const: Other: More alert and appropriate this a.m. Resp: Other: Diminished throughout with scattered expiratory wheezes at bases Cardio: Other: Irregularly irregular. No S4; positive S1-S2; no S3 murmurs rubs or gallops GI: Other: Soft nontender nondistended normoactive bowel sounds Extrem: Other: No edema bilaterally Objective Data Active Medications Acetaminophen (Acetaminophen 325 Mg Tablet) 975 mg PO Q6H PRN PRN Reason: Pain, Mild (Pain Scale 1-3), fever or headache Last Admin: 04/28/24 03:25 Dose: 975 mg Documented By: RILEY Calcium Carbonate (Calcium Carbonate 750 Mg Tab.Chew) 750 mg PO Q4H PRN PRN Reason: Heartburn Glucose (Glucose Gel 15 Gm Gel..Gram.) 15 gm PO Q15M PRN; Protocol PRN Reason: per Hypoglycemia Standing Ord. Guaifenesin/Dextromethorphan (Guaifenesin Dm 200/20/10 Ml 10 Ml Syrup) 10 ml PO Q4H PRN PRN Reason: Cough Dextrose (D10) 250 mls @ 750 mls/hr IV Q15M PRN; Protocol PRN Reason: per Hypoglycemia Standing Ord. Doxycycline Hyclate 100 mg/ (Sodium Chloride) 250 mls @ 166.67 mls/hr IV Q12H [facility] Last Admin: 05/01/24 13:09 Dose: 166.67 mls/hr Documented By: MICHAELLE Piperacillin Sod/Tazobactam (Sod 2.25 gm/ Sodium Chloride) 50 mls @ 100 mls/hr IV Q6H [facility] Last Infusion: 05/01/24 09:22 Dose: Infused Documented By: MICHAELLE Sodium Bicarbonate 150 meq/ (Dextrose) 1,000 mls @ 75 mls/hr IV .[id number] [facility] Last Admin: 05/01/24 09:04 Dose: 75 mls/hr Documented By: MICHAELLE Insulin Human Lispro (Insulin Lispro 100 Unit/Ml 3 Ml Vial) 0 unit SUBCUT QIDACHS [facility]; Protocol Last Admin: 05/01/24 13:09 Dose: 6 unit Documented By: MICHAELLE Levalbuterol HCl (Levalbuterol Hcl 1.25 Mg/3 Ml Vial.Neb) 1.25 mg INHALE Q4H PRN PRN Reason: Wheezing Loperamide HCl (Loperamide Hcl 2 Mg Capsule) 2 mg PO Q4H PRN PRN Reason: Diarrhea Magnesium Hydroxide (Milk Of Magnesia 30 Ml Oral.Susp) 30 ml PO DAILY PRN PRN Reason: Constipation Melatonin (Melatonin 3 Mg Tablet) 6 mg PO BEDTIME PRN PRN Reason: Insomnia Last Admin: 04/30/24 21:05 Dose: 6 mg Documented By: FAUSTINO Methylprednisolone Sodium Succinate (Methylprednisolone Sod Succ 125 Mg/2 Ml Vial) 60 mg IVPUSH Q6H [facility] Last Admin: 05/01/24 13:08 Dose: 60 mg Documented By: MICHAELLE Metoprolol Tartrate (Metoprolol Tartrate 50 Mg Tablet) 50 mg PO BID [facility]; Protocol Last Admin: 05/01/24 08:47 Dose: 50 mg Documented By: MICHAELLE Ondansetron HCl (Ondansetron Hcl 4 Mg/2 Ml Vial) 4 mg IVPUSH Q8H PRN PRN Reason: Nausea and Vomiting Last Admin: 04/27/24 03:20 Dose: 4 mg Documented By: MARCELA Simethicone (Simethicone 80 Mg Tab.Chew) 80 mg PO QIDWMHS PRN PRN Reason: Gas Last Admin: 04/27/24 13:44 Dose: 80 mg Documented By: LUCKATHYME Sodium Chloride (0.9 % Sodium Chloride Flush 3 Ml Syringe) [facility] Last Admin: 05/01/24 08:47 Dose: 3 ml Documented By: MICHAELLE Labs 05/01/24 06:05 05/01/24 06:05 Labs: Laboratory Results - last 24 hr 04/30/24 04/30/24 05/01/24 15:43 20:35 06:05 MCV 85.5 MCH 28.8 MCHC 33.7 RDW 14.0 Plt Count 293 D MPV 10.5 Immature Gran % (Auto) 1.9 H Neut % (Auto) 81.3 H Lymph % (Auto) 11.7 L [place] % (Auto) 4.9 Eos % (Auto) 0.0 Baso % (Auto) 0.2 Lymph # (Auto) 2.4 [place] # (Auto) 1.0 Eos # (Auto) 0.0 Baso # (Auto) 0.1 Abs Immat Gran (auto) 0.38 H Absolute Neuts (auto) 16.7 H Absolute Nucleated RBC 0.000 Nucleated RBC % (auto) 0.0 Smear Tech's Comments VERIFIED Anion Gap 17 Estim Creat Clear Calc 17.9 Estimated GFR 19 POC Glucose 218 H 212 H Fasting Glucose 218 H Calcium 9.0 Total Bilirubin 0.4 AST 38 H ALT 29 Alkaline Phosphatase 79 Total Protein 5.8 L Albumin 3.0 L 05/01/24 05/01/24 07:56 10:47 MCV MCH MCHC RDW Plt Count MPV Immature Gran % (Auto) Neut % (Auto) Lymph % (Auto) [place] % (Auto) Eos % (Auto) Baso % (Auto) Lymph # (Auto) [place] # (Auto) Eos # (Auto) Baso # (Auto) Abs Immat Gran (auto) Absolute Neuts (auto) Absolute Nucleated RBC Nucleated RBC % (auto) Smear Tech's Comments Anion Gap Estim Creat Clear Calc Estimated GFR POC Glucose 209 H 260 H Fasting Glucose Calcium Total Bilirubin AST ALT Alkaline Phosphatase Total Protein Albumin Microbiology Microbiology Results: Microbiology 04/25/24 18:14 Blood Culture - Final Blood - Venous No growth after 5 days. 04/25/24 18:14 Blood Culture - Final Blood - Venous No growth after 5 days. Assessment and Plan (1) Right lower lobe pulmonary infiltrate: Status: Acute (2) Sigmoid diverticulitis: Status: Acute (3) LITA (acute kidney injury): Status: Acute Plan Pt is an 83-year-old female with a past medical history significant for type 2 diabetes (PO meds), and mild intermittent asthma who presented to the ED with left lower extremity seizure-like activity, dizziness, nausea and vomiting. 1.Sepsis secondary to sigmoid diverticulitis -Zosyn (6) doxycycline (5) -diabetic diet -switch to p.o. Augmentin in a.m. 2.LITA -appreciate renal input -bicarb drip as ordered -follow renals/divalents 3.Right lower lobe infiltrate -continue Zosyn/doxycycline as above -V/Q scan negative 4.DM II with hyperglycemia -acceptable control on current therapies -lispro correctional scale -adjust as indicated. Add back metformin when clinically appropriate 5.Mild intermittent asthma -Solu-Medrol 60 q.6 hours -DuoNebs q.4 hours while awake Full code Lovenox Requires ongoing hospitalization for treatment of sigmoid diverticulitis with IV antibiotics. Still only tolerating full liquids today. Quality Stroke Does the patient have a stroke diagnosis?: No VTE Prior VTE?: No VTE Risk Level:: Medical - moderate - high VTE Device Contraindication: Treatment Not Indicated VTE Drug Contraindication: N/A - Med Ordered
[2024-05-01 16:21] LABS: Glucose, Whole Blood 315 mg/dL (60-115)
[2024-05-01 20:36] LABS: Glucose, Whole Blood 251 mg/dL (60-115)
[2024-05-02] VITALS (7 sets, daily range): BP systolic 118–184; BP diastolic 64–94; PULSE 68–86; RESP 18–19; TEMP 36.2–37.1; O2SAT 94–100
[2024-05-02] MEDS: Doxycycline Hyclate 100 MG in 0.9 % Sodium Chloride 250 ML 166.67 MG IV ×2 (02:26→12:44)
[2024-05-02] MEDS: Piperacillin Sodium/Tazobactam 2.25 GM in 0.9 % Sodium Chloride 50 ML IV ×2 (02:26→08:18)
[2024-05-02] MEDS: methylPREDNISolone Sod Succ 125 MG/2 ML VIAL 60 MG IVPUSH ×4 (02:26→21:17)
[2024-05-02] MEDS: Metoprolol Tartrate 50 MG TABLET PO ×2 (08:18→21:20)
[2024-05-02 08:19] LABS: Alanine Aminotransferase 24 U/L (0-31); Albumin Level 2.8 g/dL (3.5-5.0); Alkaline Phosphatase 66 U/L (39-117); Anion Gap 15 (12-20); Aspartate Amino Transferase 30 U/L (5-31); Bilirubin Total 0.4 mg/dL (0.0-1.0); Blood Urea Nitrogen 57 mg/dL (9-16); Calcium 8.8 mg/dL (8.4-10.2); Carbon Dioxide 16 mmol/L (22-29); Chloride 108 mmol/L (96-108); Creatinine Clr Calc Pharmacy 17.9; Estimated Glomerular Filt Rate 19; Glucose Fasting 264 mg/dL (60-99); Potassium 4.1 mmol/L (3.3-5.1); Sodium 135 mmol/L (135-145); Total Protein 5.7 g/dL (6.5-8.0)
[2024-05-02] MEDS: Insulin Lispro 100 UNIT/ML 3 ML VIAL SUBCUT ×4 (08:19→21:16)
[2024-05-02 08:31] LABS: Glucose, Whole Blood 281 mg/dL (60-115)
[2024-05-02 12:44] LABS: Glucose, Whole Blood 342 mg/dL (60-115)
--- NOTE | 2024-05-02 13:04 | P.CDIM_ITS ---
PROVIDER RESPONSE TEXT: To clarify, the appropriate diagnosis supported by the clinical indicators: LITA QUERY TEXT: PHYSICIAN'S DOCUMENTATION REQUEST Date of Query: 04/30/2024 09:07 AM EST Patient Name: Merle Funk Admit Date: 04/26/2024 Dear Misha Killian DO, A review of the medical record indicates additional documentation may be needed. Please review below and update the documentation accordingly. Clinical Indicators: The following diagnoses or signs and symptoms were noted in the patient record: On 04/25/24: BUN 10/Creatinine .95 On 04/29/24: BUN 37/Creatinine 2.37 Based on the above, could you clarify the appropriate diagnosis, if significant, that supports the ab ove abnormalities and additional evaluation, monitoring, and/or treatment rendered: LITA LITA with tubular necrosis CKD, please specify if stage 1,2,3,or 4 Labs indicate a diagnosis of (please specify) Other (explain) Clinically unable to determine (explain) Thank you, Ileana Christianson RN Use of terms such as suspected, likely, concern for, or probable (associated with a specific diagnosi s that is being evaluated, monitored, or treated as if it exists) are acceptable and can be coded in the inpatient se tting, when documented at the time of discharge. Please use your independent medical judgment in providing your response. THIS QUERY IS PART OF THE PERMANENT MEDICAL RECORD
--- NOTE | 2024-05-02 13:21 | P.PNIM_ITS ---
Subjective Subjective Date of Service: 05/02/24 Interval History: Continues to improve clinically. No acute events overnight Review of Systems Denies chest pain Admits shortness of breath at rest Denies nausea vomiting diarrhea Denies fever chills Physical Exam 2 Vital Signs: Vital Signs: Last Vital Signs Temp 97.2 F 05/02/24 08:00 Pulse 86 05/02/24 08:18 Resp 18 05/02/24 08:00 BP 173/84 H 05/02/24 08:18 Pulse Ox 97 05/02/24 08:00 O2 Del Method Nasal Cannula 05/02/24 08:00 O2 Flow Rate 2 05/02/24 08:00 BMI result Body Mass Index 32.5 Const: Other: More alert and appropriate this a.m. Resp: Other: Diminished throughout with scattered expiratory wheezes at bases Cardio: Other: Irregularly irregular. No S4; positive S1-S2; no S3 murmurs rubs or gallops GI: Other: Soft nontender nondistended normoactive bowel sounds Extrem: Other: No edema bilaterally Objective Data Active Medications Acetaminophen (Acetaminophen 325 Mg Tablet) 975 mg PO Q6H PRN PRN Reason: Pain, Mild (Pain Scale 1-3), fever or headache Last Admin: 04/28/24 03:25 Dose: 975 mg Documented By: RILEY Calcium Carbonate (Calcium Carbonate 750 Mg Tab.Chew) 750 mg PO Q4H PRN PRN Reason: Heartburn Glucose (Glucose Gel 15 Gm Gel..Gram.) 15 gm PO Q15M PRN; Protocol PRN Reason: per Hypoglycemia Standing Ord. Guaifenesin/Dextromethorphan (Guaifenesin Dm 200/20/10 Ml 10 Ml Syrup) 10 ml PO Q4H PRN PRN Reason: Cough Dextrose (D10) 250 mls @ 750 mls/hr IV Q15M PRN; Protocol PRN Reason: per Hypoglycemia Standing Ord. Doxycycline Hyclate 100 mg/ (Sodium Chloride) 250 mls @ 166.67 mls/hr IV Q12H [facility] Last Admin: 05/02/24 12:44 Dose: 166.67 mls/hr Documented By: MICHAELLE Piperacillin Sod/Tazobactam (Sod 2.25 gm/ Sodium Chloride) 50 mls @ 100 mls/hr IV Q6H [facility] Last Infusion: 05/02/24 09:04 Dose: Infused Documented By: MICHAELLE Sodium Bicarbonate 150 meq/ (Dextrose) 1,000 mls @ 75 mls/hr IV .[id number] [facility] Last Admin: 05/02/24 01:14 Dose: Not Given Documented By: FAUSTINO Non-Admin Reason: prior bag still running due to pause Insulin Human Lispro (Insulin Lispro 100 Unit/Ml 3 Ml Vial) 0 unit SUBCUT QIDACHS [facility]; Protocol Last Admin: 05/02/24 12:43 Dose: 8 unit Documented By: MICHAELLE Levalbuterol HCl (Levalbuterol Hcl 1.25 Mg/3 Ml Vial.Neb) 1.25 mg INHALE Q4H PRN PRN Reason: Wheezing Loperamide HCl (Loperamide Hcl 2 Mg Capsule) 2 mg PO Q4H PRN PRN Reason: Diarrhea Magnesium Hydroxide (Milk Of Magnesia 30 Ml Oral.Susp) 30 ml PO DAILY PRN PRN Reason: Constipation Melatonin (Melatonin 3 Mg Tablet) 6 mg PO BEDTIME PRN PRN Reason: Insomnia Last Admin: 04/30/24 21:05 Dose: 6 mg Documented By: FAUSTINO Methylprednisolone Sodium Succinate (Methylprednisolone Sod Succ 125 Mg/2 Ml Vial) 60 mg IVPUSH Q6H [facility] Last Admin: 05/02/24 12:43 Dose: 60 mg Documented By: MICHAELLE Metoprolol Tartrate (Metoprolol Tartrate 50 Mg Tablet) 50 mg PO BID [facility]; Protocol Last Admin: 05/02/24 08:18 Dose: 50 mg Documented By: MICHAELLE Ondansetron HCl (Ondansetron Hcl 4 Mg/2 Ml Vial) 4 mg IVPUSH Q8H PRN PRN Reason: Nausea and Vomiting Last Admin: 04/27/24 03:20 Dose: 4 mg Documented By: MARCELA Simethicone (Simethicone 80 Mg Tab.Chew) 80 mg PO QIDWMHS PRN PRN Reason: Gas Last Admin: 04/27/24 13:44 Dose: 80 mg Documented By: LUCIAME Sodium Chloride (0.9 % Sodium Chloride Flush 3 Ml Syringe) 3 ml IVFLUSH QSHIFT [facility] Last Admin: 12/01/24 08:19 Dose: Not Given Documented By: MICHAELLE Non-Admin Reason: IV Running Labs 05/01/24 06:05 05/02/24 07:06 Labs: Laboratory Results - last 24 hr 05/01/24 05/01/24 05/02/24 16:13 20:32 07:06 Anion Gap 15 Estim Creat Clear Calc 17.9 Estimated GFR 19 POC Glucose 315 H 251 H Fasting Glucose 264 H Calcium 8.8 Total Bilirubin 0.4 AST 30 ALT 24 Alkaline Phosphatase 66 Total Protein 5.7 L Albumin 2.8 L 05/02/24 05/02/24 08:15 12:19 Anion Gap Estim Creat Clear Calc Estimated GFR POC Glucose 281 H 342 H Fasting Glucose Calcium Total Bilirubin AST ALT Alkaline Phosphatase Total Protein Albumin Assessment and Plan (1) Sigmoid diverticulitis: Status: Acute Plan Pt is an 83-year-old female with a past medical history significant for type 2 diabetes (PO meds), and mild intermittent asthma who presented to the ED with left lower extremity seizure-like activity, dizziness, nausea and vomiting. 1.Sepsis secondary to sigmoid diverticulitis -doxycycline (6)... Switch to Augmentin to complete a 10 day course -diabetic diet 2.LITA -appreciate renal input -bicarb drip as ordered -follow renals/divalents 3.Right lower lobe infiltrate -continue Zosyn/doxycycline as above -V/Q scan negative 4.DM II with hyperglycemia -acceptable control on current therapies -lispro correctional scale -adjust as indicated. Add back metformin when clinically appropriate 5.Mild intermittent asthma -Solu-Medrol 60 q.6 hours -DuoNebs q.4 hours while awake Full code Lovenox Requires ongoing hospitalization for treatment of sigmoid diverticulitis with IV antibiotics. Still only tolerating full liquids today. Quality Stroke Does the patient have a stroke diagnosis?: No VTE Prior VTE?: No VTE Risk Level:: Medical - moderate - high VTE Device Contraindication: Treatment Not Indicated VTE Drug Contraindication: N/A - Med Ordered
[2024-05-02] MEDS: Sodium Bicarbonate 8.4% 150 MEQ in Dextrose 5 % 850 ML 75 MEQ IV (14:08)
[2024-05-02] MEDS: Amoxicillin/Potassium Clav 500 MG TABLET PO (14:29)
[2024-05-02 15:57] LABS: Glucose, Whole Blood 301 mg/dL (60-115)
--- NOTE | 2024-05-02 16:15 | P.PNNP_ITS ---
Subjective Subjective Date of Service: 05/03/24 Interval history: Continues to improve clinically. No acute events overnight Physical Exam 2 Vital Signs: Vital Signs: Last Vital Signs Temp 98.2 F 05/02/24 16:00 Pulse 69 05/02/24 16:00 Resp 19 05/02/24 16:00 BP 118/64 05/02/24 16:00 Pulse Ox 100 05/02/24 16:00 O2 Del Method Room Air 05/02/24 16:00 O2 Flow Rate 2 05/02/24 08:00 BMI result Body Mass Index 32.5 cvs: s1s2 Rs; cta Abd: soft Objective Data Labs 05/01/24 06:05 05/02/24 07:06 Labs: Laboratory Results - last 24 hr 05/01/24 05/01/24 05/02/24 16:13 20:32 07:06 Sodium 135 Potassium 4.1 Chloride 108 Carbon Dioxide 16 L Anion Gap 15 BUN 57 H Creatinine 2.41 H Estim Creat Clear Calc 17.9 Estimated GFR 19 POC Glucose 315 H 251 H Fasting Glucose 264 H Calcium 8.8 Total Bilirubin 0.4 AST 30 ALT 24 Alkaline Phosphatase 66 Total Protein 5.7 L Albumin 2.8 L 05/02/24 05/02/24 05/02/24 08:15 12:19 15:50 Sodium Potassium Chloride Carbon Dioxide Anion Gap BUN Creatinine Estim Creat Clear Calc Estimated GFR POC Glucose 281 H 342 H 301 H Fasting Glucose Calcium Total Bilirubin AST ALT Alkaline Phosphatase Total Protein Albumin Microbiology Microbiology Results: Microbiology 04/25/24 18:14 Blood - Venous Blood Culture - Final No growth after 5 days. 04/25/24 18:14 Blood - Venous Blood Culture - Final No growth after 5 days. Procedures Date of Service Date of Service: 05/03/24 Assessment & Plan Assessment and plan (1) LITA (acute kidney injury): Status: Acute Plan LITA metabolic acidosis LITA likely related to infection she is close to euvolemic ivf prn for ongoing loose stools and poor po intake, - doesnot need continuous fluids cont abx expect slow resolution of lita once discharged will fu in office in 2-3 weeks with rpt bmp to ensure resolution of lita avoid nephrotoxins Time Spent With Patient Time: Total time managing care of this patient today ____ minutes. Progress Note: Quality Stroke Does the patient have a stroke diagnosis?: No
[2024-05-02] MEDS: 0.9 % Sodium Chloride Flush 3 ML SYRINGE IVFLUSH (16:58)
[2024-05-02 21:10] LABS: Glucose, Whole Blood 261 mg/dL (60-115)
[2024-05-03] VITALS: BP 160/78; PULSE 75; RESP 20; TEMP 36.9
[2024-05-03] MEDS: methylPREDNISolone Sod Succ 125 MG/2 ML VIAL 60 MG IVPUSH ×2 (02:09→08:07)
[2024-05-03] MEDS: Amoxicillin/Potassium Clav 500 MG TABLET PO ×2 (02:09→12:16)
[2024-05-03] MEDS: Sodium Bicarbonate 8.4% 150 MEQ in Dextrose 5 % 850 ML 75 MEQ IV (03:22)
[2024-05-03 04:00] VITALS: BP 164/80; PULSE 71; RESP 20; TEMP 36.4; O2SAT 96
[2024-05-03 06:51] LABS: Alanine Aminotransferase 26 U/L (0-31); Albumin Level 2.6 g/dL (3.5-5.0); Alkaline Phosphatase 51 U/L (39-117); Anion Gap 11 (12-20); Aspartate Amino Transferase 22 U/L (5-31); Bilirubin Total 0.4 mg/dL (0.0-1.0); Blood Urea Nitrogen 61 mg/dL (9-16); Calcium 8.1 mg/dL (8.4-10.2); Carbon Dioxide 25 mmol/L (22-29); Chloride 104 mmol/L (96-108); Creatinine Clr Calc Pharmacy 19.8; Estimated Glomerular Filt Rate 22; Glucose Fasting 294 mg/dL (60-99); Potassium 3.4 mmol/L (3.3-5.1); Sodium 137 mmol/L (135-145); Total Protein 4.9 g/dL (6.5-8.0)
[2024-05-03 07:43] LABS: Glucose, Whole Blood 284 mg/dL (60-115)
[2024-05-03 07:45] VITALS: BP 145/65; PULSE 74; RESP 20; TEMP 36.7; O2SAT 95
[2024-05-03] MEDS: Metoprolol Tartrate 50 MG TABLET PO (08:05)
[2024-05-03] MEDS: Insulin Lispro 100 UNIT/ML 3 ML VIAL SUBCUT ×4 (08:06→20:24)
[2024-05-03] MEDS: 0.9 % Sodium Chloride Flush 3 ML SYRINGE IVFLUSH ×2 (11:56→17:07)
[2024-05-03 12:00] VITALS: BP 146/67; PULSE 79; RESP 22; TEMP 36.6
[2024-05-03 12:00] LABS: Glucose, Whole Blood 294 mg/dL (60-115)
--- NOTE | 2024-05-03 14:47 | HO.PM.IMPN ---
Subjective Subjective Date of Service: 05/03/24 Interval History: being followed for sepsis secondary to sigmoid diverticulitis and right lower lobe infiltrate. feeling better denies cough, shortness of breath has improved, not on home oxygen, lives alone, son helps, denies nausea vomiting, no diarrhea, no fevers, no chills, no acute events overnight. Review of Systems all other symptoms reviewed and are negative. Physical Exam Vital Signs: Vital Signs: Last Vital Signs Temp 97.8 F 05/03/24 12:00 Pulse 79 05/03/24 12:00 Resp 22 H 05/03/24 12:00 BP 146/67 H 05/03/24 12:00 Pulse Ox 95 05/03/24 07:45 O2 Del Method Room Air 05/03/24 07:45 O2 Flow Rate 2 05/03/24 04:00 BMI result Body Mass Index 32.5 Const: Other: General resting comfortably in no acute distress. Neck no JVD. CVS irregular rate rhythm, Respiratory lungs clear to auscultation, no respiratory distress, no wheeze, no rhonchi. Gastrointestinal abdomen soft, non tender, bowel sounds audible, no guarding , no rigidity. Extremities no edema. Neuro non focal Skin no rash appropriate affect Objective Data Active Medications Acetaminophen (Acetaminophen 325 Mg Tablet) 975 mg PO Q6H PRN PRN Reason: Pain, Mild (Pain Scale 1-3), fever or headache Last Admin: 04/28/24 03:25 Dose: 975 mg Documented By: RILEY Amoxicillin/Clavulanate Potassium (Amoxicillin/Potassium Clav 500 Mg Tablet) 500 mg PO Q12H [facility] Last Admin: 05/03/24 12:16 Dose: 500 mg Documented By: JANET Calcium Carbonate (Calcium Carbonate 750 Mg Tab.Chew) 750 mg PO Q4H PRN PRN Reason: Heartburn Glucose (Glucose Gel 15 Gm Gel..Gram.) 15 gm PO Q15M PRN; Protocol PRN Reason: per Hypoglycemia Standing Ord. Guaifenesin/Dextromethorphan (Guaifenesin Dm 200/20/10 Ml 10 Ml Syrup) 10 ml PO Q4H PRN PRN Reason: Cough Dextrose (D10) 250 mls @ 750 mls/hr IV Q15M PRN; Protocol PRN Reason: per Hypoglycemia Standing Ord. Insulin Human Lispro (Insulin Lispro 100 Unit/Ml 3 Ml Vial) 0 unit SUBCUT QIDACHS [facility]; Protocol Last Admin: 05/03/24 12:16 Dose: 6 unit Documented By: JANET Levalbuterol HCl (Levalbuterol Hcl 1.25 Mg/3 Ml Vial.Neb) 1.25 mg INHALE Q4H PRN PRN Reason: Wheezing Loperamide HCl (Loperamide Hcl 2 Mg Capsule) 2 mg PO Q4H PRN PRN Reason: Diarrhea Magnesium Hydroxide (Milk Of Magnesia 30 Ml Oral.Susp) 30 ml PO DAILY PRN PRN Reason: Constipation Melatonin (Melatonin 3 Mg Tablet) 6 mg PO BEDTIME PRN PRN Reason: Insomnia Last Admin: 04/30/24 21:05 Dose: 6 mg Documented By: FAUSTINO Metoprolol Tartrate (Metoprolol Tartrate 50 Mg Tablet) 50 mg PO BID [facility]; Protocol Last Admin: 05/03/24 08:05 Dose: 50 mg Documented By: JANET Ondansetron HCl (Ondansetron Hcl 4 Mg/2 Ml Vial) 4 mg IVPUSH Q8H PRN PRN Reason: Nausea and Vomiting Last Admin: 04/27/24 03:20 Dose: 4 mg Documented By: MARCELA Simethicone (Simethicone 80 Mg Tab.Chew) 80 mg PO QIDWMHS PRN PRN Reason: Gas Last Admin: 04/27/24 13:44 Dose: 80 mg Documented By: J CARLOS Sodium Chloride (0.9 % Sodium Chloride Flush 3 [facility]l Syringe) [facility] Last Admin: 05/03/24 11:56 Dose: 3 ml Documented By: JANET Labs 05/01/24 06:05 05/03/24 06:14 Labs: Laboratory Results - last 24 hr 05/02/24 05/02/24 05/03/24 15:50 21:05 06:14 Anion Gap 11 L Estim Creat Clear Calc 19.8 Estimated GFR 22 POC Glucose 301 H 261 H Fasting Glucose 294 H Calcium 8.1 L D Total Bilirubin 0.4 AST 22 ALT 26 Alkaline Phosphatase 51 Total Protein 4.9 L Albumin 2.6 L 05/03/24 05/03/24 07:38 11:55 Anion Gap Estim Creat Clear Calc Estimated GFR POC Glucose 284 H 294 H Fasting Glucose Calcium Total Bilirubin AST ALT Alkaline Phosphatase Total Protein Albumin Assessment and Plan (1) LITA (acute kidney injury): Status: Acute (2) Right lower lobe pulmonary infiltrate: Status: Acute Plan 83-year-old female with a past medical history significant for type 2 diabetes (PO meds), and mild intermittent asthma who presented to the ED with left lower extremity seizure-like activity, dizziness, nausea and vomiting. 1.Sepsis secondary to sigmoid diverticulitis - no recurrent nausea vomiting or diarrhea, no fevers, status post IV doxy x6 days now on Augmentin to complete a 10 day course - continue diabetic diet 2.LITA with acute metabolic acidosis - bicarb improved will DC IV bicarb drip, creatinine trending down appreciate renal input, likely prerenal /due to infection, outpatient Nephro follow-up 3.Right lower lobe infiltrate -s/p iv Zosyn/doxycycline now on Augmentin -V/Q scan negative, wean oxygen not on home O2 4.DM II with hyperglycemia - elevated blood sugars likely due to steroids, continue lispro correctional scale -adjust as indicated. Add back metformin when creatinine stabilize. 5.Mild intermittent asthma with acute exacerbation - resolved, will DC IV Solu-Medrol 60 q.6 hours - xopenex q.4 hours prn 6. hypertension not on hypertensive at home will place on Norvasc 5 mg daily follow BP 7. grade 2 obesity will recommend low-calorie diet. Full code Lovenox Requires ongoing hospitalization for treatment of sigmoid diverticulitis with IV antibiotics. wean O2. Quality Stroke Does the patient have a stroke diagnosis?: No VTE Prior VTE?: No VTE Risk Level:: Medical - moderate - high VTE Device Contraindication: Treatment Not Indicated VTE Drug Contraindication: N/A - Med Ordered
[2024-05-03 15:33] VITALS: BP 150/74; PULSE 65; RESP 16; TEMP 36.6; O2SAT 100
--- NOTE | 2024-05-03 15:34 | MHC.CM.PN ---
EMR reviewed and per MD rounds, pt is not medically cleared for discharge due to management of sigmoid diverticulitis.
[2024-05-03 15:45] LABS: Glucose, Whole Blood 310 mg/dL (60-115)
[2024-05-03 19:03] LABS: CDiff Gene PCR NEGATIVE (Negative)
[2024-05-03 20:00] VITALS: BP 164/70; PULSE 74; RESP 20; TEMP 36.8; O2SAT 95
--- NOTE | 2024-05-03 20:19 | P.PNNP_ITS ---
Subjective Subjective Date of Service: 05/03/24 Interval history: Seen ad examned, evnts noted feeling better Physical Exam 2 Vital Signs: Vital Signs: Last Vital Signs Temp 97.8 F 05/03/24 15:33 Pulse 65 05/03/24 15:33 Resp 16 05/03/24 15:33 BP 150/74 H 05/03/24 15:33 Pulse Ox 100 05/03/24 15:33 O2 Del Method Nasal Cannula 05/03/24 15:33 O2 Flow Rate 2 05/03/24 15:33 BMI result Body Mass Index 32.5 Const: Other: General resting comfortably in no acute distress. Neck no JVD. CVS irregular rate rhythm, Respiratory lungs clear to auscultation, no respiratory distress, no wheeze, no rhonchi. Gastrointestinal abdomen soft, non tender, bowel sounds audible, no guarding , no rigidity. Extremities no edema. Neuro non focal Skin no rash appropriate affect General: cooperative, comfortable, no acute distress, alert and awake; No confusion Nutritional Appearance: overweight Orientation/consciousness: p atient oriented x3 and No confusion HEENT: Head: Yes normal to inspection Face and sinus: Yes normal facial exam Mouth: Normal oral and palatal mucosa present Teeth and gingiva: d entition normal Eyes: General: appearance normal, both eyes and all related structures P upils: Equal, round and reactive pupils present Resp: Other: Diminished throughout with scattered expiratory wheezes at bases Effort & Inspection: normal respiratory effort, able to speak in complete sentences, no respiratory distress and no use of accessory muscles A uscultation: clear to auscultation bilaterally Cardio: Other: Irregularly irregular. No S4; positive S1-S2; no S3 murmurs rubs or gallops Rate: regular rate and tachycardic Rhythm: regular rhythm GI: Other: Soft nontender nondistended normoactive bowel sounds Inspection: No distended and Yes scar Palpation (GI): Soft to palpation, nontender and no guarding Rectal Exam - Female: visual inspection normal, normal sphincter tone, No mass, No tenderness and other (no foreign body, no blood per rectum) : General: Yes no CVA tenderness Back/Spine/Pelvis: Back: no CVA tenderness Skin: General skin exam: no rashes or lesions noted Neuro: General: patient oriented x3, moves all extremities, CN's II-XI intact bilaterally and No confusion Cranial nerves: Yes Equal, round and reactive pupils present Extrem: Other: No edema bilaterally General: Yes normal to inspection and Yes no pedal edema Psych: Appearance: grossly normal Objective Data Labs 05/01/24 06:05 05/03/24 06:14 Labs: Laboratory Results - last 24 hr 05/02/24 05/03/24 05/03/24 21:05 06:14 07:38 Sodium 137 Potassium 3.4 Chloride 104 Carbon Dioxide 25 Anion Gap 11 L BUN 61 H Creatinine 2.19 H Estim Creat Clear Calc 19.8 Estimated GFR 22 POC Glucose 261 H 284 H Fasting Glucose 294 H Calcium 8.1 L D Total Bilirubin 0.4 AST 22 ALT 26 Alkaline Phosphatase 51 Total Protein 4.9 L Albumin 2.6 L C. difficile Tox B Gene 05/03/24 05/03/24 05/03/24 11:55 15:34 17:45 Sodium Potassium Chloride Carbon Dioxide Anion Gap BUN Creatinine Estim Creat Clear Calc Estimated GFR POC Glucose 294 H 310 H Fasting Glucose Calcium Total Bilirubin AST ALT Alkaline Phosphatase Total Protein Albumin C. difficile Tox B Gene NEGATIVE Microbiology Microbiology Results: Microbiology 04/25/24 18:14 Blood - Venous Blood Culture - Final No growth after 5 days. 04/25/24 18:14 Blood - Venous Blood Culture - Final No growth after 5 days. Procedures Date of Service Date of Service: 05/03/24 Assessment & Plan Assessment and plan (1) LITA (acute kidney injury): Status: Acute Plan 1. Non-Oliguric LITA: w/u thus far c/w multifact ATN but need to r/o other causes given abnl UA -infecvtious assoc GN -Obs: r/o by CT but still best to get a renal U/S -AIN: less likely cut still in the DDx Note UA signif Uprot and hematuia--warrant additional sero/urens tudies as ordered below REC: sero/urine studeis; avoid NSAIDs; renal u/s; avoid NTOxins Time Spent With Patient Time: Total time managing care of this patient today ____ minutes. Progress Note: Quality Stroke Does the patient have a stroke diagnosis?: No
[2024-05-03] MEDS: Melatonin 3 MG TABLET 6 MG PO (20:24)
[2024-05-03 20:25] LABS: Glucose, Whole Blood 306 mg/dL (60-115)
[2024-05-04] VITALS (7 sets, daily range): BP systolic 125–160; BP diastolic 56–78; PULSE 71–93; RESP 16–20; TEMP 36.4–37.2; O2SAT 95–99
[2024-05-04] MEDS: Amoxicillin/Potassium Clav 500 MG TABLET PO ×2 (01:29→14:35)
[2024-05-04] MEDS: 0.9 % Sodium Chloride Flush 3 ML SYRINGE IVFLUSH ×4 (01:30→22:20)
[2024-05-04 02:14] LABS: Total Protein Urine Random 19 mg/dL (<12)
[2024-05-04 07:01] LABS: Hematocrit 24.2 % (37.0-47.0); Hemoglobin 8.2 g/dl (12.0-16.0); Mean Corpuscular HGB Conc 33.9 g/dl (31.0-35.0); Mean Corpuscular Hemoglobin 28.7 pg (27.0-33.0); Mean Corpuscular Volume 84.6 fL (80.0-98.0); Mean Platelet Volume 9.9 fL (9.4-12.3); Platelet Count 418 X10*3/uL (160-400); Red Blood Count 2.86 X10*6/uL (4.20-5.50); Red Cell Distribution Width 13.2 % (11.0-16.0); White Blood Count 21.2 X10*3/uL (4.8-10.8)
[2024-05-04 07:22] LABS: Alanine Aminotransferase 24 U/L (0-31); Albumin Level 2.5 g/dL (3.5-5.0); Alkaline Phosphatase 45 U/L (39-117); Anion Gap 10 (12-20); Aspartate Amino Transferase 21 U/L (5-31); Bilirubin Total 0.4 mg/dL (0.0-1.0); Blood Urea Nitrogen 64 mg/dL (9-16); Calcium 8.1 mg/dL (8.4-10.2); Carbon Dioxide 26 mmol/L (22-29); Chloride 106 mmol/L (96-108); Estimated Glomerular Filt Rate 26; Glucose Fasting 169 mg/dL (60-99); Sodium 139 mmol/L (135-145); Total Protein 4.6 g/dL (6.5-8.0)
[2024-05-04 07:30] LABS: Glucose, Whole Blood 153 mg/dL (60-115)
[2024-05-04] MEDS: Insulin Lispro 100 UNIT/ML 3 ML VIAL SUBCUT ×4 (07:59→22:18)
[2024-05-04] MEDS: amLODIPine Besylate 5 MG TABLET PO (08:02)
[2024-05-04 09:28] LABS: Complement C3 87 mg/dL
[2024-05-04 11:15] LABS: Glucose, Whole Blood 200 mg/dL (60-115)
--- NOTE | 2024-05-04 13:41 | HO.PM.IMPN ---
Subjective Subjective Date of Service: 05/04/24 Interval History: Being followed for sigmoid diverticulitis and right lower lobe infiltrate Feeling better this morning, tolerating diet ,no nausea, no vomiting had multiple loose large bowel movements , black colored since yesterday. Review of Systems All other system reviewed and are negative Physical Exam Vital Signs: Vital Signs: Last Vital Signs Temp 97.6 F 05/04/24 11:57 Pulse 87 05/04/24 11:57 Resp 20 05/04/24 11:57 BP 125/62 05/04/24 11:57 Pulse Ox 97 05/04/24 11:57 O2 Del Method Room Air 05/04/24 11:57 O2 Flow Rate 2 05/03/24 15:33 BMI result Body Mass Index 32.5 Const: Other: General resting comfortably in no acute distress. Neck no JVD. CVS irregular rate rhythm, Respiratory lungs clear to auscultation, no respiratory distress, no wheeze, no rhonchi. Gastrointestinal abdomen soft, non tender, bowel sounds audible, no guarding , no rigidity. Extremities no edema. Neuro non focal Skin no rash appropriate affect Objective Data Active Medications Acetaminophen (Acetaminophen 325 Mg Tablet) 975 mg PO Q6H PRN PRN Reason: Pain, Mild (Pain Scale 1-3), fever or headache Last Admin: 04/28/24 03:25 Dose: 975 mg Documented By: RILEY Amlodipine Besylate (Amlodipine Besylate 5 Mg Tablet) 5 mg PO DAILY [facility]; Protocol Last Admin: 05/04/24 08:02 Dose: 5 mg Documented By: JANET Amoxicillin/Clavulanate Potassium (Amoxicillin/Potassium Clav 500 Mg Tablet) 500 mg PO Q12H [facility] Last Admin: 05/04/24 01:29 Dose: 500 mg Documented By: BECKA-LINODRDaisy Calcium Carbonate (Calcium Carbonate 750 Mg Tab.Chew) 750 mg PO Q4H PRN PRN Reason: Heartburn Glucose (Glucose Gel 15 Gm Gel..Gram.) 15 gm PO Q15M PRN; Protocol PRN Reason: per Hypoglycemia Standing Ord. Guaifenesin/Dextromethorphan (Guaifenesin Dm 200/20/10 Ml 10 Ml Syrup) 10 ml PO Q4H PRN PRN Reason: Cough Dextrose (D10) 250 mls @ 750 mls/hr IV Q15M PRN; Protocol PRN Reason: per Hypoglycemia Standing Ord. Insulin Human Lispro (Insulin Lispro 100 Unit/Ml 3 Ml Vial) [facility]; Protocol Last Admin: 05/04/24 12:08 Dose: 2 unit Documented By: JANET Levalbuterol HCl (Levalbuterol Hcl 1.25 Mg/3 Ml Vial.Neb) 1.25 mg INHALE Q4H PRN PRN Reason: Wheezing Loperamide HCl (Loperamide Hcl 2 Mg Capsule) 2 mg PO Q4H PRN PRN Reason: Diarrhea Magnesium Hydroxide (Milk Of Magnesia 30 Ml Oral.Susp) 30 ml PO DAILY PRN PRN Reason: Constipation Melatonin (Melatonin 3 Mg Tablet) 6 mg PO BEDTIME PRN PRN Reason: Insomnia Last Admin: 05/03/24 20:24 Dose: 6 mg Documented By: DAVE Ondansetron HCl (Ondansetron Hcl 4 Mg/2 Ml Vial) 4 mg IVPUSH Q8H PRN PRN Reason: Nausea and Vomiting Last Admin: 04/27/24 03:20 Dose: 4 mg Documented By: MARCELA Simethicone (Simethicone 80 Mg Tab.Chew) 80 mg PO QIDWMHS PRN PRN Reason: Gas Last Admin: 04/27/24 13:44 Dose: 80 mg Documented By: LUCHIRAL Sodium Chloride (0.9 % Sodium Chloride Flush 3 Ml Syringe) 3 ml [facility] Last Admin: 05/04/24 08:03 Dose: 3 ml Documented By: JANET Labs 05/04/24 06:32 05/04/24 06:32 Labs: Laboratory Results - last 24 hr 05/03/24 05/03/24 05/03/24 06:13 15:34 17:45 MCV MCH MCHC RDW Plt Count MPV Absolute Nucleated RBC Nucleated RBC % (auto) Anion Gap Estim Creat Clear Calc Estimated GFR POC Glucose 310 H Fasting Glucose Calcium Total Bilirubin AST ALT Alkaline Phosphatase Total Protein Albumin U Random Total Protein Urine Creatinine Complement C3 87 Complement C4 24 C. difficile Tox B Gene NEGATIVE 05/03/24 05/04/24 05/04/24 20:20 01:51 06:32 MCV 84.6 MCH 28.7 MCHC 33.9 RDW 13.2 Plt Count 418 H D MPV 9.9 Absolute Nucleated RBC 0.000 Nucleated RBC % (auto) 0.0 Anion Gap 10 L Estim Creat Clear Calc 23.0 Estimated GFR 26 POC Glucose 306 H Fasting Glucose 169 H Calcium 8.1 L Total Bilirubin 0.4 AST 21 ALT 24 Alkaline Phosphatase 45 Total Protein 4.6 L Albumin 2.5 L U Random Total Protein 19 H Urine Creatinine 51.30 Complement C3 Complement C4 C. difficile Tox B Gene 05/04/24 05/04/24 07:25 11:11 MCV MCH MCHC RDW Plt Count MPV Absolute Nucleated RBC Nucleated RBC % (auto) Anion Gap Estim Creat Clear Calc Estimated GFR POC Glucose 153 H 200 H Fasting Glucose Calcium Total Bilirubin AST ALT Alkaline Phosphatase Total Protein Albumin U Random Total Protein Urine Creatinine Complement C3 Complement C4 C. difficile Tox B Gene Assessment and Plan (1) LITA (acute kidney injury): Status: Acute (2) Right lower lobe pulmonary infiltrate: Status: Acute (3) Obesity (BMI 30.0-34.9): Status: Acute Plan 83-year-old female with a past medical history significant for type 2 diabetes (PO meds), and mild intermittent asthma who presented to the ED with left lower extremity seizure-like activity, dizziness, nausea and vomiting. 1.Sepsis secondary to sigmoid diverticulitis - no recurrent nausea vomiting , no fevers, status post IV doxy x6 days now on Augmentin will DC after today's dose - continue diabetic diet 2.LITA with acute metabolic acidosis - bicarb improved s/p IV bicarb drip, creatinine trending down appreciate renal input, likely prerenal /due to infection Being followed by Nephrology, they recommend renal ultrasound to rule out obstruction, serosanguineous urine study sent 3.Right lower lobe infiltrate -s/p iv Zosyn/doxycycline finished course of antibiotic -V/Q scan negative, wean oxygen not on home O2 4.DM II with hyperglycemia - elevated blood sugars likely due to steroids, continue lispro correctional scale -adjust as indicated. Add back metformin when creatinine stabilize. 5.Mild intermittent asthma with acute exacerbation - resolved, s/p IV Solu-Medrol 60 q.6 hours - continue xopenex q.4 hours prn 6. hypertension not on hypertensive at home will place on Norvasc 5 mg daily follow BP 7. grade 2 obesity will recommend low-calorie diet. 8. Acute on chronic normocytic anemia, noted to have multiple black stool likely exacerbated by antibiotics, hematocrit dropped from 35.3-24.2 will check stool guaiac, iron studies, avoid NSAIDs and blood thinners, follow CBC, IV Protonix ? ugi bleed was due to NSAIDs/blood thinners, C diff negative . 9. Acute hypokalemia will replete and follow labs likely due to GI loss Full code Compression boots Requires ongoing hospitalization for treatment of sigmoid diverticulitis drop in hematocrit . Quality Stroke Does the patient have a stroke diagnosis?: No VTE Prior VTE?: No VTE Risk Level:: Medical - moderate - high VTE Device Contraindication: Treatment Not Indicated VTE Drug Contraindication: N/A - Med Ordered
[2024-05-04] MEDS: Pantoprazole Sodium 40 MG/10 ML VIAL IVPUSH (14:35)
[2024-05-04 16:41] LABS: Glucose, Whole Blood 221 mg/dL (60-115)
[2024-05-04] MEDS: Potassium Chloride ER 20 MEQ TAB.ER.PRT 40 MEQ PO (17:05)
[2024-05-04 21:46] LABS: Glucose, Whole Blood 260 mg/dL (60-115)
--- NOTE | 2024-05-04 21:47 | P.PNNP_ITS ---
Subjective Subjective Date of Service: 05/04/24 Interval history: seen and examined, events noted Physical Exam 2 Vital Signs: Vital Signs: Last Vital Signs Temp 98.7 F 05/04/24 19:15 Pulse 93 05/04/24 19:15 Resp 16 05/04/24 19:15 BP 147/70 H 05/04/24 19:15 Pulse Ox 96 05/04/24 19:15 O2 Del Method Room Air 05/04/24 16:00 O2 Flow Rate 2 05/03/24 15:33 BMI result Body Mass Index 32.5 Const: Other: General resting comfortably in no acute distress. Neck no JVD. CVS irregular rate rhythm, Respiratory lungs clear to auscultation, no respiratory distress, no wheeze, no rhonchi. Gastrointestinal abdomen soft, non tender, bowel sounds audible, no guarding , no rigidity. Extremities no edema. Neuro non focal Skin no rash appropriate affect General: cooperative, comfortable, no acute distress, alert and awake; No confusion Nutritional Appearance: overweight Orientation/consciousness: p atient oriented x3 and No confusion HEENT: Head: Yes normal to inspection Face and sinus: Yes normal facial exam Mouth: Normal oral and palatal mucosa present Teeth and gingiva: d entition normal Eyes: General: appearance normal, both eyes and all related structures P upils: Equal, round and reactive pupils present Resp: Other: Diminished throughout with scattered expiratory wheezes at bases Effort & Inspection: normal respiratory effort, able to speak in complete sentences, no respiratory distress and no use of accessory muscles A uscultation: clear to auscultation bilaterally Cardio: Other: Irregularly irregular. No S4; positive S1-S2; no S3 murmurs rubs or gallops Rate: regular rate and tachycardic Rhythm: regular rhythm GI: Other: Soft nontender nondistended normoactive bowel sounds Inspection: No distended and Yes scar Palpation (GI): Soft to palpation, nontender and no guarding Rectal Exam - Female: visual inspection normal, normal sphincter tone, No mass, No tenderness and other (no foreign body, no blood per rectum) : General: Yes no CVA tenderness Back/Spine/Pelvis: Back: no CVA tenderness Skin: General skin exam: no rashes or lesions noted Neuro: General: patient oriented x3, moves all extremities, CN's II-XI intact bilaterally and No confusion Cranial nerves: Yes Equal, round and reactive pupils present Extrem: Other: No edema bilaterally General: Yes normal to inspection and Yes no pedal edema Psych: Appearance: grossly normal Objective Data Labs 05/04/24 06:32 05/04/24 06:32 Labs: Laboratory Results - last 24 hr 05/03/24 05/04/24 05/04/24 06:13 01:51 06:32 WBC 21.2 H RBC 2.86 L D Hgb 8.2 L D Hct 24.2 L D MCV 84.6 MCH 28.7 MCHC 33.9 RDW 13.2 Plt Count 418 H D MPV 9.9 Absolute Nucleated RBC 0.000 Nucleated RBC % (auto) 0.0 Sodium 139 Potassium 3.0 L Chloride 106 Carbon Dioxide 26 Anion Gap 10 L BUN 64 H Creatinine 1.88 H Estim Creat Clear Calc 23.0 Estimated GFR 26 POC Glucose Fasting Glucose 169 H Calcium 8.1 L Total Bilirubin 0.4 AST 21 ALT 24 Alkaline Phosphatase 45 Total Protein 4.6 L Albumin 2.5 L U Random Total Protein 19 H Urine Creatinine 51.30 Complement C3 87 Complement C4 24 05/04/24 05/04/24 05/04/24 07:25 11:11 16:26 WBC RBC Hgb Hct MCV MCH MCHC RDW Plt Count MPV Absolute Nucleated RBC Nucleated RBC % (auto) Sodium Potassium Chloride Carbon Dioxide Anion Gap BUN Creatinine Estim Creat Clear Calc Estimated GFR POC Glucose 153 H 200 H 221 H Fasting Glucose Calcium Total Bilirubin AST ALT Alkaline Phosphatase Total Protein Albumin U Random Total Protein Urine Creatinine Complement C3 Complement C4 05/04/24 21:38 WBC RBC Hgb Hct MCV MCH MCHC RDW Plt Count MPV Absolute Nucleated RBC Nucleated RBC % (auto) Sodium Potassium Chloride Carbon Dioxide Anion Gap BUN Creatinine Estim Creat Clear Calc Estimated GFR POC Glucose 260 H Fasting Glucose Calcium Total Bilirubin AST ALT Alkaline Phosphatase Total Protein Albumin U Random Total Protein Urine Creatinine Complement C3 Complement C4 Microbiology Microbiology Results: Microbiology 04/25/24 18:14 Blood - Venous Blood Culture - Final No growth after 5 days. 04/25/24 18:14 Blood - Venous Blood Culture - Final No growth after 5 days. Procedures Date of Service Date of Service: 05/04/24 Assessment & Plan Assessment and plan (1) LITA (acute kidney injury): Status: Acute Plan 1. Non-Oliguric LITA: w/u thus far c/w multifact ATN but need to r/o other causes given abnl UA -infecvtious assoc GN -Obs: r/o by CT but still best to get a renal U/S -AIN: less likely cut still in the DDx Note UA signif Uprot and hematuia--warrant additional sero/urens tudies as ordered below 2. HypoK: rep;darren 3. Hb: singif drop; w/u inprogress REC: sero/urine studeis as ordered; avoid NSAIDs; renal u/s; avoid NTOxins Ok to Time Spent With Patient Time: Total time managing care of this patient today ____ minutes. Progress Note: Quality Stroke Does the patient have a stroke diagnosis?: No
[2024-05-05] VITALS: BP 164/72; PULSE 66; RESP 19; TEMP 36.7; O2SAT 99
[2024-05-05 03:01] LABS: OBS1 POSITIVE (NEGATIVE)
[2024-05-05 03:02] LABS: OBS Int Ctl Valid YES
[2024-05-05 03:26] VITALS: BP 152/63; PULSE 77; RESP 19; TEMP 36.2; O2SAT 97
[2024-05-05] MEDS: Pantoprazole Sodium 40 MG/10 ML VIAL IVPUSH (05:34)
[2024-05-05 06:46] LABS: Hematocrit 24.6 % (37.0-47.0); Hemoglobin 8.4 g/dl (12.0-16.0); Mean Corpuscular HGB Conc 34.1 g/dl (31.0-35.0); Mean Corpuscular Hemoglobin 28.6 pg (27.0-33.0); Mean Corpuscular Volume 83.7 fL (80.0-98.0); Mean Platelet Volume 9.7 fL (9.4-12.3); Platelet Count 405 X10*3/uL (160-400); Red Blood Count 2.94 X10*6/uL (4.20-5.50); Red Cell Distribution Width 13.5 % (11.0-16.0); White Blood Count 19.2 X10*3/uL (4.8-10.8)
[2024-05-05 07:00] LABS: Anion Gap 12 (12-20); Blood Urea Nitrogen 56 mg/dL (9-16); Calcium 8.6 mg/dL (8.4-10.2); Carbon Dioxide 25 mmol/L (22-29); Chloride 106 mmol/L (96-108); Creatinine Clr Calc Pharmacy 25.1; Estimated Glomerular Filt Rate 28; Glucose Random 173 mg/dL (60-115); Iron 35 mcg/dL (30-160); Percent Iron Saturation 20 % (15-50); Potassium 3.2 mmol/L (3.3-5.1); Sodium 140 mmol/L (135-145); Total Iron Binding Capacity 174 mcg/dL (228-428); Unsaturated Iron Binding 139 ug/dL
[2024-05-05 07:57] VITALS: BP 144/69; PULSE 103; RESP 18; TEMP 36.6; O2SAT 98
[2024-05-05 08:09] LABS: Glucose, Whole Blood 157 mg/dL (60-115)
--- NOTE | 2024-05-05 09:37 | PM.DS ---
DS: Providers Provider Date of Service: 05/05/24 Date of admission: 04/25/24 20:59 Date of discharge: 05/05/24 Primary care physician: Clemente Castaneda MD Consults: 04/26/24 09:03 Consult to General Surgery Routine Consulting Provider: [facility] Reason for consultation: fever; ?foreign object rectum Has provider been notified: No 04/27/24 10:13 Consult to Infectious Diseases Routine Consulting Provider: [facility] [place] Reason for consultation: persistent fever Has provider been notified: No 05/01/24 07:41 Consult to Nephrology Routine Consulting Provider: [facility] Reason for consultation: LITA Has provider been notified: No DS: Diagnosis Discharge Diagnosis (1) LITA (acute kidney injury): Status: Acute DS: Summary Hospital Course Hospital Course: Date of Service: 04/25/24 Attending physician on admission: Eduarda Riley Chief Complaint: seizure like activity, nausea, vomiting, weakness <Bobbi Yañez PA-C - Last Filed: 04/25/24 21:04> Pt is an 83-year-old female with a past medical history significant for type 2 diabetes (PO meds), and mild intermittent asthma who presented to the ED with left lower extremity seizure-like activity, dizziness, nausea and vomiting. She reports vomiting for the past 3 days with intermittent diarrhea. She has not been able to tolerate any food that has been hydrating. She also reports fell smelling urine. She denies any chest pain, shortness of breath, fever, chills, headache, change in vision or cough. She does report weakness and runny nose for the past few days. Hospital course: 83-year-old female with a past medical history significant for type 2 diabetes on metformin and mild intermittent asthma who presented to the ED with left lower extremity seizure-like activity, dizziness, nausea and vomiting, And diagnosed to have 1.Sepsis secondary to mild sigmoid diverticulitis and possible right lower lobe pneumonia, patient underwent extensive testing since etiology of high fever was unclear with minimal abdominal pain, patient had no leukocytosis lactic acid was normal, UA unremarkable respiratory viral panel was negative blood culture showed no growth patient seen by infectious disease she agreed with treatment with IV Zosyn and doxycycline to cover for possible tick-borne illnesses CT brain was unremarkable, CT abdomen and pelvis raised concern for question foreign object in rectum however KUB showed no foreign body, patient denied history of abdominal surgery, seen by General surgery nothing was felt on rectal examination, fib patient finished course of antibiotics her nausea vomiting resolved currently tolerating regular diet during course of hospitalization patient developed dark black stools H&H dropped repeat hct remained stable, diarrhea likely related to antibiotics, C diff negative, stool guaiac positive, anemia multifactorial likely due to gastritis with use of steroids /nsaids, infection and due to LITA, H&H remained stable therefore will hold inpatient GI consult, iron studies not consistent with iron deficiency, patient placed on Prilosec recommend repeat CBC in 1 week, if H&H trends down recommend GI follow-up outpatient. 2.LITA with acute metabolic acidosis noted during course of hospitalization likely multifactorial with infection seen by nephrology treated with IV bicarb drip, bicarb improved renal function gradually improving recommend outpatient follow-up with Nephrology 3.DM II with hyperglycemia noted to have hyperglycemia likely due to steroids, now blood sugars improving recommend to discontinue metformin due to LITA and placed on low-dose glipizide 2.5 mg daily. 4.Mild intermittent asthma with acute exacerbation treated with IV steroids and updraft, all symptoms resolved 5. hypertension not on hypertensive at home placed on Norvasc 5 mg daily follow BP. 6. Acute hypokalemia likely due to GI loss repleted, recommend BMP in 1 week . Time Attestation Discharge Coordination Time (in mins): 40 Quality: Safe Use of Opioids Does Pt have an Active Cancer Diagnosis on the Problem List?: No Quality: Stroke Does the patient have a stroke diagnosis?: No Physical Exam Vital Signs: Vital Signs: Last Vital Signs Temp 97.8 F 05/05/24 07:57 Pulse 103 H 05/05/24 07:57 Resp 18 05/05/24 07:57 BP 144/69 H 05/05/24 07:57 Pulse Ox 98 05/05/24 07:57 O2 Del Method Room Air 05/05/24 07:57 O2 Flow Rate 2 05/03/24 15:33 BMI result Body Mass Index 32.5 Const: Other: General resting comfortably in no acute distress. Neck no JVD. CVS irregular rate rhythm, Respiratory lungs clear to auscultation, no respiratory distress, no wheeze, no rhonchi. Gastrointestinal abdomen soft, non tender, bowel sounds audible, no guarding , no rigidity. Extremities no edema. Neuro non focal Skin no rash appropriate affect DS: Data Data Completed and Pending Labs on day of discharge: Laboratory Results - last 24 hr 05/04/24 05/04/24 05/04/24 11:11 16:26 21:38 WBC RBC Hgb Hct MCV MCH MCHC RDW Plt Count MPV Absolute Nucleated RBC Nucleated RBC % (auto) Sodium Potassium Chloride Carbon Dioxide Anion Gap BUN Creatinine Estim Creat Clear Calc Estimated GFR POC Glucose 200 H 221 H 260 H Random Glucose Calcium Iron TIBC % Saturation Unsat Iron Binding Stool Occult Blood 05/05/24 05/05/24 05/05/24 01:30 06:11 07:49 WBC 19.2 H RBC 2.94 L Hgb 8.4 L Hct 24.6 L MCV 83.7 MCH 28.6 MCHC 34.1 RDW 13.5 Plt Count 405 H MPV 9.7 Absolute Nucleated RBC 0.000 Nucleated RBC % (auto) 0.0 Sodium 140 Potassium 3.2 L Chloride 106 Carbon Dioxide 25 Anion Gap 12 BUN 56 H Creatinine 1.73 H Estim Creat Clear Calc 25.1 Estimated GFR 28 POC Glucose 157 H Random Glucose 173 H Calcium 8.6 D Iron 35 TIBC 174 L % Saturation 20 Unsat Iron Binding 139 Stool Occult Blood POSITIVE Discharge Plan Discharge Anticipated Discharge Date/Time: 05/05/24 09:24 Patient Disposition: Home Health Service Discharge Diagnosis: LITA acute diverticulitis anemia Referrals: [facility] [Outside] - 1 Week Clemente Castaneda MD [Primary Care Provider] - 1 Week Discharge Medications: New omeprazole 20 mg capsule,delayed release(DR/EC) 20 mg PO DAILY Qty: 30 0RF glipizide [Glucotrol XL] 2.5 mg tablet extended release 24hr 2.5 mg PO DAILY Qty: 30 0RF Discontinued metformin 850 mg tablet 850 mg PO BID Discharge Orders: Discharge Order (Routine); Ordered 05/05/24 Ordered By: Miki Humphreys Diet: Diabetic diet Activity on Discharge: As tolerated Stand Alone Forms: Patient Portal Discharge page Print Language: British Other Ambulatory Orders: Basic Metabolic Panel (Routine) Timeframe: 1 Week Facility: [facility] - Location: Laboratory Ordered By: Miki Humphreys Complete Blood Count no Diff (Routine) Timeframe: 1 Week Facility: [facility] - Location: Laboratory Ordered By: Miki Humphreys Care Plan Goals: Continue diabetic diet hold metformin due to renal injury Take Prilosec 20 mg daily for stomach inflammation Health Concerns: DM Plan of Treatment: Outpatient follow-up with primary care physician Outpatient follow-up with Dr. Glen Arteaga /Casey Arroyo call for appointment in 1 week Assessment: As above
[2024-05-05] MEDS: Insulin Lispro 100 UNIT/ML 3 ML VIAL SUBCUT ×2 (09:47→12:22)
[2024-05-05] MEDS: 0.9 % Sodium Chloride Flush 3 ML SYRINGE IVFLUSH (09:48)
[2024-05-05] MEDS: amLODIPine Besylate 5 MG TABLET PO (09:48)
[2024-05-05] MEDS: Potassium Chloride ER 20 MEQ TAB.ER.PRT 40 MEQ PO (09:48)
--- NOTE | 2024-05-05 09:49 | MHC.CM.PN ---
Patient has been medically cleared for dc to home today with [facility]. A referral was made to [facility], who has been made aware of today's dc. CM met with Patient at bedside and addressed IMM with her; original was given to Patient and a copy has been placed on the chart. Patient's Son will transport to home.
--- NOTE | 2024-05-05 09:50 | W.MHC.F2F ---
Service Date Service Date: 05/05/24 Encounter Date of encounter: 05/05/24 Reasons for Services Signs and symptoms assessed: abd pain/diarrhea/diabetes Reason for custodial: diabetic teaching, medication management and GI/ assessment Homebound: Leaving the home is medically contraindicated at this time without the asist of a device and/or another person due th the listed conditions above and below. Reason homebound: weakness related to hospital stay Certification: Based on the above findings, I certify that this patient is confined to the home and needs intermittent custodial care, physical therapy and/or speech therapy, or continues to need occupational therapy. The patient is under my care, and I have initiated the establishment of the plan of care. The patient will be followed by a physician who will periodically review the plan of care. Time Spent With Patient Time: Total time managing care of this patient today ____ minutes.
[2024-05-05 10:52] LABS: Potassium 3.2 mmol/L (3.3-5.1)
[2024-05-05] MEDS: glipiZIDE XL 2.5 MG TAB.ER.24 PO (11:04)
[2024-05-05 11:10] VITALS: BP 166/83; PULSE 92; RESP 18; TEMP 36.7; O2SAT 98
[2024-05-05 12:19] LABS: Glucose, Whole Blood 257 mg/dL (60-115)
--- NOTE | 2024-05-05 15:11 | MHC.CM.PN ---
Per [facility], PCP's office dc'd Patient from their practice d/t non-compliancy; Patient will not qualify for [facility]. has been made aware.
[2024-05-05 22:33] LABS: Myeloperoxidase Antibody <1.0 AI; Proteinase 3 PR3 Antibodies <1.0 AI
[2024-05-06 09:39] LABS: Anti Nuclear Antibody Screen NEGATIVE (NEGATIVE)
[2024-05-06 15:00] LABS: Kappa Light Chain, Free Serum 27.4 mg/L (3.3-19.4); Lambda Light Chain, Free Serum 27.5 mg/L (5.7-26.3)
== END 2024-05-05 13:31 | disposition home health service (06) | DRG 391 ==
LOC: HO.ED 19:18 → HO.EDOVER 21:08 → HO.S3 21:34 → HO.IMC 04-28 04:51
PROVIDERS: Hospitalist; Internal Medicine; Internal Medicine Nephrology; Physician Assistant Medical; Student in an Organized Health Care Education/Training Program; Admitting Provider Physician Assistant; Emergency Provider Internal Medicine; PCP Internal Medicine; Visit Provider Hospitalist
DX: K57.32 Diverticulitis of large intestine without perforation or abscess without bleeding (principal); J18.9 Pneumonia, unspecified organism; N17.0 Acute kidney failure with tubular necrosis; I48.19 Other persistent atrial fibrillation; E87.21 Acute metabolic acidosis; K52.1 Toxic gastroenteritis and colitis; T36.95XA Adverse effect of unspecified systemic antibiotic, initial encounter; J45.20 Mild intermittent asthma, uncomplicated; I10 Essential (primary) hypertension; Z20.822 Contact with and (suspected) exposure to COVID-19; E66.89 Other obesity not elsewhere classified; Z68.32 Body mass index [BMI] 32.0-32.9, adult; D64.9 Anemia, unspecified; Z71.3 Dietary counseling and surveillance; E87.6 Hypokalemia; E83.42 Hypomagnesemia; E11.65 Type 2 diabetes mellitus with hyperglycemia; Z79.84 Long term (current) use of oral hypoglycemic drugs; Z79.899 Other long term (current) drug therapy
CPT/HCPCS: 0241U; 36415; 70450; 71045; 74018; 74177; 76775; 78580; 80048; 80053; 80076; 81001; 82272; 82570; 82947; 83521; 83540; 83605; 83690; 83735; 83880; 84132; 84156; 84484; 85025; 85027; 85379; 85610; 85730; 86021; 86038; 86160; 87040; 87468; 87469; 87478; 87484; 87493; 87507; 87633; 87798; 93005; 93306; 94640; 94664; 99285; A9540; J0696; J1650; J1836; J1885; J2405; J2470; J2543; J2919; J3370; J3371; J3475; J7120; Q9957; Q9967

== ENCOUNTER → 2024-04-25 18:05 | Outpatient (BNV) | payer MEDICARE, SELFPAY | PROVIDERS: Admitting Provider Physician Assistant; Emergency Provider Internal Medicine; PCP Internal Medicine; Visit Provider Internal Medicine | DX: R00.0 Tachycardia, unspecified (principal); I44.4 Left anterior fascicular block; R94.31 Abnormal electrocardiogram [ECG] [EKG] | CPT/HCPCS: 93010 ==

== ENCOUNTER 2024-04-25 20:59 | Outpatient (BNV) | payer OTHER, SELFPAY | END 2024-04-28 06:10 | PROVIDERS: Admitting Provider Physician Assistant; Emergency Provider Internal Medicine; PCP Internal Medicine; Visit Provider Radiology Diagnostic Radiology | DX: R06.02 Shortness of breath (principal) | CPT/HCPCS: 71045 ==

== ENCOUNTER 2024-04-25 20:59 | Outpatient (BNV) | payer OTHER, SELFPAY | END 2024-04-28 07:00 | PROVIDERS: Admitting Provider Physician Assistant; Emergency Provider Internal Medicine; PCP Internal Medicine; Visit Provider Internal Medicine | DX: I35.0 Nonrheumatic aortic (valve) stenosis (principal); I34.0 Nonrheumatic mitral (valve) insufficiency; I36.1 Nonrheumatic tricuspid (valve) insufficiency | CPT/HCPCS: 93010; 93306 ==

== ENCOUNTER → 2024-04-25 20:59 | Outpatient (BNV) | payer MEDICARE, SELFPAY | PROVIDERS: Admitting Provider Physician Assistant; Emergency Provider Internal Medicine; PCP Internal Medicine; Visit Provider Physician Assistant | DX: N17.9 Acute kidney failure, unspecified (principal); A41.9 Sepsis, unspecified organism; E11.65 Type 2 diabetes mellitus with hyperglycemia | CPT/HCPCS: 99223; 99232; 99239; 99499; G0180 ==

== ENCOUNTER → 2024-04-25 20:59 | Outpatient (BNV) | payer OTHER, SELFPAY | PROVIDERS: Admitting Provider Physician Assistant; Emergency Provider Internal Medicine; PCP Internal Medicine; Visit Provider Surgery | DX: K57.32 Diverticulitis of large intestine without perforation or abscess without bleeding (principal); A41.9 Sepsis, unspecified organism | CPT/HCPCS: 99222 ==

== ENCOUNTER → 2024-04-25 20:59 | Outpatient (BNV) | payer OTHER, SELFPAY | PROVIDERS: Admitting Provider Physician Assistant; Emergency Provider Internal Medicine; PCP Internal Medicine; Visit Provider Internal Medicine | DX: R50.9 Fever, unspecified (principal) | CPT/HCPCS: 99222; 99499 ==

== ENCOUNTER 2024-05-10 17:38 | Inpatient (IN) | payer OTHER, SELFPAY ==
--- NOTE | ~2024-05-10 | XR_ITS ---
EXAMINATION: XR CHEST CLINICAL INFORMATION: SOB COMPARISON: 04/28/2024 TECHNIQUE: Semiupright portable 6:20 PM view of the chest was obtained. FINDINGS: Improving but persistent interstitial pulmonary edema. Small layering pleural effusions at both bases. Heart size remains prominent. No new findings otherwise. XR/XR chest 1V IMPRESSION: Improving but persistent interstitial pulmonary edema. Electronically signed by: Oneil Will MD 05/10/2024 08:22 PM [facility]
[2024-05-10 17:40] VITALS: BP 121/76; PULSE 100; RESP 24; TEMP 36.4; O2SAT 95; BMI 30.2
--- NOTE | 2024-05-10 17:43 | ECG_ITS ---
Test Reason : SOB Blood Pressure : / mmHG Vent. Rate : 101 BPM Atrial Rate : 000 BPM P-R Int : 000 ms QRS Dur : 102 ms QT Int : 388 ms P-R-T Axes : 000 -35 032 degrees QTc Int : 503 ms Atrial fibrillation with rapid ventricular response Left axis deviation Low voltage QRS Incomplete right bundle branch block Cannot rule out Anteroseptal infarct , age undetermined Abnormal ECG When compared with ECG of 28-APR-2024 04:28, Incomplete right bundle branch block has replaced Incomplete left bundle branch block Referred By: Catarino Steen Electronically Signed By:LUISITO BARRON MD
--- NOTE | 2024-05-10 17:44 | ED.GENADULT ---
HPI - General Adult General Chief complaint: Dyspnea Stated complaint: sob Time Seen by Provider: 05/10/24 19:32 Source: patient History of Present Illness ED Provider: Dr. Flaco Omer HPI narrative: 83-year-old female with a history of diabetes mellitus, asthma, recently admitted from 04/25/2024 until 05/05/2024 for sepsis secondary to sigmoid diverticulitis and possible right lower lobe pneumonia, acute kidney injury and completed a course of IV antibiotics while she was in the hospital, who presents emergency department for evaluation of shortness of breath x2 days. The patient states she was feeling significantly better when she left the hospital but over the last 2 days she was become short of breath in his had dyspnea on exertion. She states that these symptoms have gotten progressively worse. She also has noted swelling in her lower extremities. The patient states that she was having abdominal discomfort in his lost her appetite. She denied fever but did have chills at home which she describes as feeling cold all the time. She was an occasional cough. She denied chest pain. She had nausea but no vomiting. She did not notice any change in the color of her stool, she states she does have hemorrhoids and occasionally she was blood in her stool. Related Data Home Medications ?Medication ?Instructions ?Recorded ?Confirmed ascorbic acid (vitamin C) 500 mg 500 mg PO DAILY 05/10/24 05/10/24 tablet (Vitamin C) calcium carbonate 500 mg PO DAILY 05/10/24 05/10/24 jeazxhxd-flyh-zafv 8 mg-folic 400 1 tab PO DAILY 05/10/24 05/10/24 mcg-K 50 mcg-lutein 300 mcg tablet (Centrum Silver Women) Previous Rx's ?Medication ?Instructions ?Recorded glipizide 2.5 mg tablet, extended 2.5 mg PO DAILY #30 tabs 05/05/24 release 24 hr (Glucotrol XL) Allergies Allergy/AdvReac Type Severity Reaction Status Date / Time No Known Allergies Allergy Verified 05/10/24 17:43 Review of Systems Review of Systems: Yes all other systems are reviewed and are negative [facility] Past Medical History Medical History (Updated 05/10/24 @ 21:21 by Bobbi Yañez PA-C) Anemia Sigmoid diverticulitis Congestive heart failure Atrial fibrillation Fever of unknown origin Mild intermittent asthma Type 2 diabetes mellitus without complications Social History Social History Household Members: Other Household Members Other:: nursing home Housing: Other Housing Other:: nursing home Do you presently have visiting nurse or other home services: No Comment: 1:1 sitter Patient Tobacco Use Status: Never used Tobacco Smoked in Last 30 Days: No Use of substances other than those prescribed or required for medical reasons: No Advance Directives: No Advance Directives Information Provided: Yes Do you have a plan to hurt others: No Plan Nutrition Risks: No Nutritional Risk service: No Physical Exam ED Vital Signs: Vital Signs - 24 hr 05/10/24 17:40 05/10/24 20:07 Temperature 97.6 F 98.6 F Pulse Rate 100 95 Respiratory Rate 24 H 19 Blood Pressure 121/76 149/69 H Pulse Oximetry 95 98 Oxygen Delivery Method Room Air Room Air BMI result Body Mass Index 30.2 Vital signs revealed an elevated heart rate of 100 and elevated respiratory rate of 24 Exam: General: Awake, alert in no distress Head: Normocephalic, atraumatic EENT: PERRL, Lids normal, sclera normal, conjunctiva normal, nose normal , ears normal, throat without erythema or exudates Neck: Supple, no adenopathy Lung: breath sounds symmetric, no wheezing,, no rhonchi, rales at the base Chest: symmetric movement, nontender Heart: regular rate and rhythm, normal S1, S2 no murmurs or rubs Abdomen: soft, non-tender, nondistended, normal bowel sounds Rectal: Brown stool which was Hemoccult negative Back: no vertebral tenderness, no CVAT Extremities: no deformities, moves all extremities symmetrically, trace to 1+ pitting edema symmetric Neuro: Awake, alert, oriented, normal speech, cranial nerves intact, moves all extremities symmetrically Psych: Pleasant, cooperative Course Course Course Narrative: RME: 83-year-old female presents to ED for shortness of breath. Patient was recently discharged for LITA and diverticulitis. Positive for bilateral swelling pitting edema. O2 sat 96%. Lungs are clear. EKG x-ray labs ordered. Medications Administered Generic Name Dose Route Start Last Admin Trade Name Freq PRN Reason Stop Dose Admin Piperacillin Sod/Tazobactam 50 mls @ 100 mls/hr 05/10/24 21:15 05/11/24 05:00 Sod 3.375 gm/ Sodium Chloride IV Infused Q6H NADINE Infusion Insulin Human Lispro 0 unit 05/11/24 07:30 05/11/24 07:32 Insulin Lispro 100 Unit/Ml 3 Ml Vial SUBCUT 2 unit QIDACHS NADINE Administration Protocol Pantoprazole Sodium 40 mg 05/10/24 21:15 05/11/24 07:31 Pantoprazole Sodium 40 Mg/10 Ml Vial IVPUSH 40 mg BID@0630,1630 NADINE Administration Sodium Chloride 3 ml 05/11/24 00:00 05/11/24 07:32 0.9 % Sodium Chloride Flush 3 Ml Syringe IVFLUSH 3 ml QSHIFT NADINE Administration Discontinued Medications Generic Name Dose Route Start Last Admin Trade Name Freq PRN Reason Stop Dose Admin Furosemide 40 mg 05/10/24 19:57 05/10/24 21:18 Furosemide 40 Mg/4 Ml Vial IVPUSH 05/10/24 19:58 40 mg STAT STA Administration Protocol Vancomycin HCl 1,500 mg/ 500 mls @ 333.333 mls/hr 05/10/24 21:14 05/11/24 00:46 Sodium Chloride IV 05/10/24 22:43 Infused ONCE ONE Infusion Magnesium Sulfate/Dextrose 1 gm in 100 mls @ 100 mls/hr 05/10/24 21:29 05/10/24 22:53 Magnesium Sulfate/D5w IV 05/10/24 22:28 Infused ONCE ONE Infusion Potassium Chloride 40 meq 05/10/24 20:23 05/10/24 21:18 Potassium Chloride Packet 20 Meq Packet PO 05/10/24 20:24 40 meq ONCE STA Administration Potassium Chloride 40 meq 05/11/24 04:32 05/11/24 05:10 Potassium Chloride Packet 20 Meq Packet PO 05/11/24 04:33 40 meq ONCE ONE Administration Medical Decision Making Medical Decision Making MDM Narrative: 83-year-old female with a history of diabetes mellitus, asthma, recently admitted from 04/25/2024 until 05/05/2024 for sepsis secondary to sigmoid diverticulitis and possible right lower lobe pneumonia, acute kidney injury , completed a course of IV antibiotics while she was in the hospital, who presents emergency department for evaluation of shortness of breath, dyspnea on exertion getting progressively worse x2 days. She was also noticed swelling of her lower extremities which is new. She states she was had abdominal discomfort with loss of appetite. She denied fever but did have chills. She was an occasional cough. She denied chest pain. Vital signs revealed an elevated respiratory rate and elevated heart rate. Lung exam revealed rales at the bases and extremity exam revealed trace to 1+ pitting edema. Abdomen was nontender, rectal exam revealed brown stool which was Hemoccult negative. Differential diagnosis: ?Includes but is not limited to congestive heart failure, pneumonia, myocardial infarction, myocardial ischemia, fluid overload, anemia, electrolyte abnormalities Patient was initially treated with the following: Furosemide 40 mg IV Course: 20:07 The patient's laboratory evaluation revealed low H&H of 7.8 and 23.7 but this is declined progressively since her initial H&H from her recent admission on 04/25/2020 09/19/2012 when the H&H was 0.9 and 41.2. Patient also has a high BNP of 557. Troponin was elevated 62.5. Patient's Hemoccult stool exam was negative. Chest x-ray, my interpretation showed bilateral interstitial infiltrates with bilateral small pleural effusions consistent with pulmonary edema. Twelve EKG revealed atrial fibrillation, this was present on her previous admission. First troponin was elevated at 62.5, repeat troponin is pending. At this time I suspect the patient's CHF, anemia and peripheral edema is due to fluid overload secondary being treated for sepsis with large volumes of fluid. Patient was given furosemide 40 mg IV. Patient will need to be admitted for diuresis. I did discuss admission with the covering hospitalist, Dr. Hoff. 21:30 The patient has magnesium was low at 1.3. Potassium was also low at 3.1. Patient was ordered to get magnesium 1 g IV. She will also be given potassium 40 mEq orally. The patient's repeat troponin was lower than the initial troponin at 59.0 this is reassuring and suggests the patient did not have myocardial injury/infarction. Admission/Observation Consideration of admission/observation: Escalation of care including admission/observation considered (Yes) Lab Data MDM Lab Attestation statement: I reviewed the patient's lab results. My interpretation patient's laboratory evaluation is as follows: Normocytic anemia with an H&H of 7.8 and 23.7. This has gone down progressively since her admission date on 04/25/2024 and was 13.9 and 41.2. BNP was elevated 557 05/11/24 04:48 05/11/24 04:48 Labs: Lab Results 05/10/24 05/10/24 Range/Units 18:00 20:03 WBC 11.9 H (4.8-10.8) X10*3/uL RBC 2.64 L (4.20-5.50) X10*6/uL Hgb 7.8 L (12.0-16.0) g/dl Hct 23.7 L (37.0-47.0) % MCV 89.8 D (80.0-98.0) fL MCH 29.5 (27.0-33.0) pg MCHC 32.9 (31.0-35.0) g/dl RDW 15.0 (11.0-16.0) % Plt Count 381 (160-400) X10*3/uL MPV 9.7 (9.4-12.3) fL Immature Gran % (Auto) 0.6 H (0.0-0.4) % Neut % (Auto) 72.2 (45-73) % Lymph % (Auto) 16.9 L (20-40) % [place] % (Auto) 9.9 (2-11) % Eos % (Auto) 0.3 (0-4) % Baso % (Auto) 0.1 (0-2) % Lymph # (Auto) 2.0 (1.2-4.9) X10*3/uL [place] # (Auto) 1.2 (0.1-1.2) X10*3/uL Eos # (Auto) 0.0 (0.0-0.4) X10*3/uL Baso # (Auto) 0.0 (0.0-0.2) X10*3/uL Abs Immat Gran (auto) 0.07 H (0.00-0.03) X10*3/uL Absolute Neuts (auto) 8.6 H (2.0-8.3) x10*3/uL Absolute Nucleated RBC 0.000 (0.0-0.012) X10*3/uL Nucleated RBC % (auto) 0.0 (0.0-0.2) /100WBC PT 13.1 H D (10.9-12.4) SEC INR 1.1 (0.9-1.1) APTT 27.5 (26.0-36.8) SEC Sodium 143 (135-145) mmol/L Potassium 3.1 L (3.3-5.1) mmol/L Chloride 106 (96-108) mmol/L Carbon Dioxide 24 (22-29) mmol/L Anion Gap 16 (12-20) BUN 16 (9-16) mg/dL Creatinine 1.86 H (0.5-1.4) mg/dL Estim Creat Clear Calc 22.4 Estimated GFR 26 Random Glucose 184 H (60-115) mg/dL Calcium 8.7 (8.4-10.2) mg/dL Magnesium 1.3 L* (1.6-2.6) mg/dL Total Bilirubin 0.3 (0.0-1.0) mg/dL AST 37 H (5-31) U/L ALT 31 (0-31) U/L Alkaline Phosphatase 56 (39-117) U/L Troponin I High Sens 62.5 H* D 59.0 H* (<3.5-17.0) ng/L B-Natriuretic Peptide 557 H (<100) pg/mL Total Protein 6.0 L (6.5-8.0) g/dL Albumin 3.2 L (3.5-5.0) g/dL Procalcitonin 0.06 ng/mL Blood Type O Positive Antibody Screen NEGATIVE Independent Interpretation I performed an independent interpretation of an: EKG Interpretation: My independent interpretation patient's 12 EKG done at 17:52 hours is as follows: Atrial fibrillation with a ventricular rate of 101, QRS duration elevated 102 milliseconds, QTC elevated 500 and 3 milliseconds, no ST segment elevation, no ST segment depression, Q-waves in V1 and V2. Compared to EKG done 04/28/2024 at 04:28 hours, patient was in atrial fibrillation with a rate of 131, Q-waves in V1 and V2 were present on the previous EKG. No significant change on today's EKG Discharge Plan Discharge Clinical Impression: Anemia, Edema, peripheral Congestive heart failure Qualifiers: Heart failure chronicity: acute Atrial fibrillation Qualifiers: Atrial fibrillation type: unspecified Qualified Code(s): I48.91 - Unspecified atrial fibrillation Patient Disposition: Admitted As Inpatient Interventions: Admission Worksheet (ED) Last Done: 05/11/24 03:39
[2024-05-10 18:13] LABS: MANUAL DIFF FLAG NO
[2024-05-10 18:22] LABS: INTERNATIONAL NORM RATIO 1.1 (0.9-1.1); Prothrombin Time 13.1 SEC (10.9-12.4)
[2024-05-10 18:25] LABS: Partial Thromboplastin Time 27.5 SEC (26.0-36.8)
[2024-05-10 18:32] LABS: Albumin Level 3.2 g/dL (3.5-5.0); Anion Gap 16 (12-20); Aspartate Amino Transferase 37 U/L (5-31); Bilirubin Total 0.3 mg/dL (0.0-1.0); Blood Urea Nitrogen 16 mg/dL (9-16); Calcium 8.7 mg/dL (8.4-10.2); Carbon Dioxide 24 mmol/L (22-29); Chloride 106 mmol/L (96-108); Creatinine Clr Calc Pharmacy 22.4; Estimated Glomerular Filt Rate 26; Glucose Random 184 mg/dL (60-115); Potassium 3.1 mmol/L (3.3-5.1); Sodium 143 mmol/L (135-145)
[2024-05-10 18:35] LABS: B Type Natriuretic Peptide 557 pg/mL (<100)
[2024-05-10 18:43] LABS: Alanine Aminotransferase 31 U/L (0-31); Alkaline Phosphatase 56 U/L (39-117); Troponin-I High Sensitivity 62.5 ng/L (<3.5-17.0)
[2024-05-10 18:44] LABS: Basophils Percent Auto 0.1 % (0-2); Eosinophils Percent Auto 0.3 % (0-4); Hematocrit 23.7 % (37.0-47.0); Hemoglobin 7.8 g/dl (12.0-16.0); Imm Gran Abs Auto 0.07 X10*3/uL (0.00-0.03); Imm Gran Pct Auto 0.6 % (0.0-0.4); Lymphocytes Percent Auto 16.9 % (20-40); Mean Corpuscular HGB Conc 32.9 g/dl (31.0-35.0); Mean Corpuscular Hemoglobin 29.5 pg (27.0-33.0); Mean Corpuscular Volume 89.8 fL (80.0-98.0); Mean Platelet Volume 9.7 fL (9.4-12.3); Monocytes Absolute Auto 1.2 X10*3/uL (0.1-1.2); Monocytes Percent Auto 9.9 % (2-11); Neutrophils Absolute Auto 8.6 x10*3/uL (2.0-8.3); Neutrophils Percent Auto 72.2 % (45-73); Platelet Count 381 X10*3/uL (160-400); Red Blood Count 2.64 X10*6/uL (4.20-5.50); White Blood Count 11.9 X10*3/uL (4.8-10.8)
[2024-05-10 20:07] VITALS: BP 149/69; PULSE 95; RESP 19; TEMP 37; O2SAT 98
--- NOTE | 2024-05-10 21:12 | P.HPHOSP_ITS ---
History of Present Illness Date of Service: 05/10/24 Attending physician on admission: Elmo Calle Chief Complaint: SOB Patient is an 83-year-old female with a past medical history significant for persistent AFib, CHF, type 2 diabetes (no meds, previously p.o.), and mild intermittent asthma who presented to the ED today with shortness of breath for the past 2 days. She reports lower extremity edema and some chest tightness. She was recently admitted from 04/25/2024 through 05/05/2024 for sepsis with fever of unknown origin, mild diverticulitis, possible right lower lobe pneumonia, LITA and anemia. H and H remained stable during her admission, iron studies were not consistent with iron-deficiency anemia, she was placed on Prilosec and recommended to follow up with GI outpatient. She is now reporting again melena. She has not yet and reports that care medication. She denies any urinary symptoms including dysuria, frequency, or incontinence. She has mild intermittent diarrhea again with melena. She is also having some wheezing and shortness of breath at rest and with exertion but denies any cough or sputum production. She also denies fever, chills, nausea or vomiting. The patient is a poor historian. Review of Systems 2 Constitutional: Constitutional: Denies chills, Denies fatigue, Denies fever(s) and Denies headache(s) Eyes: Eyes: Denies change in vision ENT: Denies headache(s), Denies nasal congestion, Denies nasal discharge and Denies sore throat Cardiovascular: Cardiovascular: Denies chest pain, Denies rapid heart rate, Denies lightheadedness, Reports dyspnea and Reports dyspnea on exertion Respiratory: Respiratory: Denies chest congestion, Denies cough, Reports dyspnea, Reports dyspnea on exertion and Reports wheezing Gastrointestinal: Gastrointestinal: Reports melena, Denies constipation, Reports diarrhea, Denies nausea and Denies vomiting Genitourinary: Genitourinary: Denies dysuria, Denies urinary incontinence and Denies urinary urgency Musculoskeletal: Musculoskeletal: Denies muscle cramps Integumentary/Breasts: Skin/Breast: Denies rash Neurologic: Denies confusion and Denies headache(s) Psychiatric: Psychiatric: Denies confusion Endocrine: Endocrine: Denies fatigue Hematologic/Lymphatic: Hematologic/Lymphatic: Denies easy bleeding Allergic/Immunologic: Allergic/Immunologic: Reports wheezing [facility] Medical History (Updated 05/10/24 @ 21:21 by Bobbi Yañez PA-C) Anemia Sigmoid diverticulitis Congestive heart failure Atrial fibrillation Fever of unknown origin Mild intermittent asthma Type 2 diabetes mellitus without complications Functional capacity: independent ambulation Social History Household Members: Other Household Members Other:: longterm Housing: Other Housing Other:: longterm Do you presently have visiting nurse or other home services: No Comment: 1:1 sitter Patient Tobacco Use Status: Never used Tobacco Smoked in Last 30 Days: No Use of substances other than those prescribed or required for medical reasons: No Advance Directives: No Advance Directives Information Provided: Yes Do you have a plan to hurt others: No Plan Nutrition Risks: No Nutritional Risk service: No Narrative: no smoking, rare etoh, no drug use. Meds Allergies Allergy/AdvReac Type Severity Reaction Status Date / Time No Known Allergies Allergy Verified 05/10/24 17:43 Active Medications: Current Medications Acetaminophen (Acetaminophen 325 Mg Tablet) 975 mg PO Q6H PRN PRN Reason: Pain, Mild (Pain Scale 1-3), fever or headache Albuterol Sulfate (Albuterol Sulfate 90 Mcg 8 Gm Inhaler) 2 puff INHALE RQ4H PRN PRN Reason: Wheezing Calcium Carbonate (Calcium Carbonate 750 Mg Tab.Chew) 750 mg PO Q4H PRN PRN Reason: Heartburn Glucose (Glucose Gel 15 Gm Gel..Gram.) 15 gm PO Q15M PRN; Protocol PRN Reason: per Hypoglycemia Standing Ord. Dextrose (D10) 250 mls @ 750 mls/hr IV Q15M PRN; Protocol PRN Reason: per Hypoglycemia Standing Ord. Piperacillin Sod/Tazobactam (Sod 3.375 gm/ Sodium Chloride) 50 mls @ 100 mls/hr IV Q6H NADINE Insulin Human Lispro (Insulin Lispro 100 Unit/Ml 3 Ml Vial) 0 unit SUBCUT QIDACHS NADINE; Protocol Magnesium Hydroxide (Milk Of Magnesia 30 Ml Oral.Susp) 30 ml PO DAILY PRN PRN Reason: Constipation Melatonin (Melatonin 3 Mg Tablet) 6 mg PO BEDTIME PRN PRN Reason: Insomnia Morphine Sulfate (Morphine Sulfate 4 Mg/Ml Cartridge) 2 mg IVPUSH Q4H PRN; Protocol PRN Reason: Pain, Severe (Pain Scale 7-10) Ondansetron HCl (Ondansetron Hcl 4 Mg/2 Ml Vial) 4 mg IVPUSH Q8H PRN PRN Reason: Nausea and Vomiting Oxycodone HCl (Oxycodone Hcl Immed Release 5 Mg Tablet) 5 mg PO Q6H PRN PRN Reason: Pain, Moderate(Pain Scale 4-6) Pantoprazole Sodium (Pantoprazole Sodium 40 Mg/10 Ml Vial) 40 mg IVPUSH BID@0630,1630 [facility] Pharmacy Consult (Consult Rx Vancomycin Dosing) 1 each MISCELLANE DAILY PRN PRN Reason: Consult order Sodium Chloride (0.9 % Sodium Chloride Flush 3 Ml Syringe) 3 ml IVFLUSH QSHIFT [facility] Home Medications ?Medication ?Instructions ?Recorded ?Confirmed ?Last Taken ?Type ascorbic acid (vitamin C) 500 mg 500 mg PO DAILY 05/10/24 05/10/24 05/09/24 History tablet (Vitamin C) calcium carbonate 500 mg PO DAILY 05/10/24 05/10/24 05/10/24 History xihvqijd-exqm-moui 8 mg-folic 400 1 tab PO DAILY 05/10/24 05/10/24 05/09/24 History mcg-K 50 mcg-lutein 300 mcg tablet (Centrum Silver Women) Physical Exam 2 Vital Signs and Narrative: Vital Signs: Last Vital Signs Temp 98.6 F 05/10/24 20:07 Pulse 95 05/10/24 20:07 Resp 19 05/10/24 20:07 BP 149/69 H 05/10/24 20:07 Pulse Ox 98 05/10/24 20:07 O2 Del Method Room Air 05/10/24 20:07 BMI result Body Mass Index 30.2 General: AOx3, no acute distress Resp: CTA bilaterally, no wheezing or crackles CVS: borderline tachycardia, irregularly irregular, +murmur GI: +BS, NT, no distention Skin: Warm, dry Neuro: Cranial nerves II-XII grossly intact bilaterally. Motor grossly intact bilaterally Extremities: 1+ pitting edema Psych: Appropriate affect Const: General: No confusion Orientation/consciousness: No confusion Neuro: General: No confusion Results Labs 05/10/24 18:00 05/10/24 18:00 Labs: Laboratory Results - last 24 hr 05/10/24 05/10/24 18:00 20:03 MCV 89.8 D MCH 29.5 MCHC 32.9 RDW 15.0 Plt Count 381 MPV 9.7 Immature Gran % (Auto) 0.6 H Neut % (Auto) 72.2 Lymph % (Auto) 16.9 L [place] % (Auto) 9.9 Eos % (Auto) 0.3 Baso % (Auto) 0.1 Lymph # (Auto) 2.0 [place] # (Auto) 1.2 Eos # (Auto) 0.0 Baso # (Auto) 0.0 Abs Immat Gran (auto) 0.07 H Absolute Neuts (auto) 8.6 H Absolute Nucleated RBC 0.000 Nucleated RBC % (auto) 0.0 PT 13.1 H D INR 1.1 APTT 27.5 Anion Gap 16 Estim Creat Clear Calc 22.4 Estimated GFR 26 Random Glucose 184 H Calcium 8.7 Total Bilirubin 0.3 AST 37 H ALT 31 Alkaline Phosphatase 56 Troponin I High Sens 62.5 H* D 59.0 H* B-Natriuretic Peptide 557 H Total Protein 6.0 L Albumin 3.2 L Blood Type O Positive Antibody Screen NEGATIVE Imaging Radiologist's Impressions: Impressions Chest X-Ray 05/10/24 17:43 IMPRESSION: Improving but persistent interstitial pulmonary edema. Electronically signed by: Oneil Will MD 05/10/2024 08:22 PM [facility] Assessment and Plan (1) Acute congestive heart failure: Status: Acute (2) Hospital acquired PNA: Status: Acute (3) LITA (acute kidney injury): Status: Acute (4) Atrial fibrillation: Qualifiers: Atrial fibrillation type: unspecified Qualified Code(s): I48.91 - Unspecified atrial fibrillation Status: Acute (5) Anemia: Status: Acute (6) Obesity (BMI 30.0-34.9): Status: Acute Plan Patient is an 83-year-old female with a past medical history significant for persistent AFib, CHF, type 2 diabetes (no meds, previously p.o.), and mild intermittent asthma who presented to the ED today with shortness of breath for the past 2 days. Patient was recent complicated admission for sepsis related to fever of unknown origin, presumed diverticulitis versus pneumonia, LITA, type 2 diabetes with hyperglycemia, mild intermittent asthma with acute exacerbation, hypertension and acute hypokalemia. Acute congestive heart failure exacerbation and possible hospital acquired pneumonia - 1+ pitting edema on exam, BNP elevated at 557 - chest x-ray with improving but persistent interstitial pulmonary edema - mildly elevated WBC at 11.9, ordered lactic acid and blood cultures x2, no sepsis, tachycardia secondary to untreated a fib and tachypnea due to pulmonary edema - troponin elevated but decreased on repeat, likely due to a fib, no ST elevations on EKG - given Lasix 40 mg in ED, will hold off on further diuretics for now given LITA - start vanco and zosyn for possible hospital acquired pneumonia with leukocytosis and recent hospital stay - monitor Is and Os - monior CBC, BMP, BNP hypokalemia/hypomagnesemia - given K 40meq and mag 1g in ED - recheck @0100 anemia/melena/microscopic hematuria - H+H down from recent admission, now 7.8/23.7, was 8.4/24.6 on discharge 05/05 - reported melena, positive occult blood during recent admission, GI consult placed - microscopic hematuria on UA, 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, urology consult placed - monitor CBC LITA - cr elevated at 1.86 - given Lasix 40 mg in ED for CHF exacerbation, hold further diuretics at this time - encourage PO fluids - monitor BMP a fib - rate controlled - unable to add anticoagulant due to melena - monitor with tele T2DM - diabetic diet/cardiac diet - sliding scale insulin mild intermittent asthma without acute exacerbation - no wheezing on exam - albuterol PRN obesity - weight loss encouraged - BMI 30.2 full code VTE prophy: pneumoboots, anticoagulant contraindicated with anemia and melena Patient with acute congestive heart failure exacerbation and possible hospital acquired pneumonia after recent admission for sepsis secondary to fever of unknown origin, likely diverticulitis versus pneumonia, requiring admission for at least 2 midnights stay for IV diuresis, IV antibiotics and monitoring. Quality Stroke Does the patient have a stroke diagnosis?: No VTE Prior VTE?: No VTE Risk Level:: Medical - moderate - high VTE Device Contraindication: N/A - Device Ordered VTE Drug Contraindication: Treatment Not Indicated
[2024-05-10 21:18] VITALS: BP 157/73
[2024-05-10] MEDS: Furosemide 40 MG/4 ML VIAL IVPUSH (21:18)
[2024-05-10] MEDS: Potassium Chloride Packet 20 MEQ PACKET 40 MEQ PO (21:18)
[2024-05-10 21:28] LABS: Magnesium 1.3 mg/dL (1.6-2.6)
[2024-05-10 21:30] LABS: OBS Int Ctl Valid YES; OBS1 NEGATIVE (NEGATIVE)
--- NOTE | 2024-05-10 21:44 | PHA.MEDREC ---
Addendum entered by Clemente Allan RPh 05/10/24 21:59: [facility] rec reviewed Original Note: Pharmacy Consult ? Medication Reconciliation Pharmacy has completed the medication reconciliation. Spoke with patient and she confirmed her medications. She confirmed she started the Glipizide Er 2.5mg tab and confirmed it is once daily. She also confirm she is taking a Calcium 500 mg tab once daily, Centrum Silver Women tablet 1 daily and Vitamin C 500mg tab once daily. She confirmed she took the medications this morning.
[2024-05-10] MEDS: Pantoprazole Sodium 40 MG/10 ML VIAL IVPUSH (21:45)
[2024-05-10] MEDS: Magnesium Sulfate/D5W 1 GM/100 ML PIGGYBACK IV (21:46)
[2024-05-10 21:58] LABS: Lactic Acid 1.2 mmol/L (0.5-2.0)
[2024-05-10] MEDS: Piperacillin Sodium/Tazobactam 3.375 GM in 0.9 % Sodium Chloride 50 ML IV (22:09)
[2024-05-10 22:59] LABS: Procalcitonin 0.06 ng/mL
[2024-05-10] MEDS: vancomycin HCL 1,500 MG in 0.9 % Sodium Chloride 500 ML 333.33 MG IV (23:14)
[2024-05-10 23:35] VITALS: BP 150/51; PULSE 98; RESP 16; TEMP 36.8; O2SAT 96
--- NOTE | 2024-05-10 23:38 | PC.NURSE ---
Patient is alert and oriented x4, she denies any pain at present. Patient medicated per MAR. Purewick placed for comfort/frequent urination d/t administration of Lasix IV. Skin is intact. Patient ambulates with a cane short distances, uses a walker for longer distances. Patient required supervision with ambulation at ED d/t weakness. Currently patient offers no complaints, call issa in patient's reach. Plan of care ongoing.
[2024-05-11] VITALS (9 sets, daily range): BP systolic 100–180; BP diastolic 52–87; PULSE 69–99; RESP 12–30; TEMP 36.6–37.2; O2SAT 90–100
[2024-05-11 01:44] LABS: Anion Gap 16 (12-20); Blood Urea Nitrogen 15 mg/dL (9-16); Calcium 8.4 mg/dL (8.4-10.2); Carbon Dioxide 24 mmol/L (22-29); Chloride 106 mmol/L (96-108); Creatinine Clr Calc Pharmacy 22.8; Estimated Glomerular Filt Rate 26; Glucose Random 215 mg/dL (60-115); Potassium 3.1 mmol/L (3.3-5.1); Sodium 143 mmol/L (135-145)
[2024-05-11] MEDS: Piperacillin Sodium/Tazobactam 3.375 GM in 0.9 % Sodium Chloride 50 ML IV ×4 (04:30→21:46)
[2024-05-11 04:48] LABS: Magnesium 1.5 mg/dL (1.6-2.6)
[2024-05-11] MEDS: Potassium Chloride Packet 20 MEQ PACKET 40 MEQ PO (05:10)
[2024-05-11 05:22] LABS: Basophils Percent Auto 0.2 % (0-2); Eosinophils Absolute Auto 0.1 X10*3/uL (0.0-0.4); Eosinophils Percent Auto 0.5 % (0-4); Hematocrit 23.3 % (37.0-47.0); Hemoglobin 7.5 g/dl (12.0-16.0); Imm Gran Abs Auto 0.07 X10*3/uL (0.00-0.03); Imm Gran Pct Auto 0.5 % (0.0-0.4); Lymphocytes Absolute Auto 1.8 X10*3/uL (1.2-4.9); Lymphocytes Percent Auto 11.9 % (20-40); Mean Corpuscular HGB Conc 32.2 g/dl (31.0-35.0); Mean Corpuscular Hemoglobin 28.5 pg (27.0-33.0); Mean Corpuscular Volume 88.6 fL (80.0-98.0); Mean Platelet Volume 10.3 fL (9.4-12.3); Monocytes Absolute Auto 1.5 X10*3/uL (0.1-1.2); Monocytes Percent Auto 9.9 % (2-11); Neutrophils Absolute Auto 11.6 x10*3/uL (2.0-8.3); PLT CLUMP 1; Red Blood Count 2.63 X10*6/uL (4.20-5.50); Red Cell Distribution Width 15.1 % (11.0-16.0); SCAN SMEAR FLAG 1
[2024-05-11 05:24] LABS: MANUAL DIFF FLAG NO
[2024-05-11 05:35] LABS: Anion Gap 15 (12-20); Blood Urea Nitrogen 14 mg/dL (9-16); Calcium 8.4 mg/dL (8.4-10.2); Carbon Dioxide 26 mmol/L (22-29); Chloride 104 mmol/L (96-108); Creatinine Clr Calc Pharmacy 22.8; Estimated Glomerular Filt Rate 26; Glucose Random 176 mg/dL (60-115); Magnesium 1.5 mg/dL (1.6-2.6); Sodium 142 mmol/L (135-145)
[2024-05-11 05:40] LABS: Platelet Count 359 X10*3/uL (160-400)
[2024-05-11 05:41] LABS: B Type Natriuretic Peptide 576 pg/mL (<100)
--- NOTE | 2024-05-11 06:05 | PHA.PROG ---
Admission Date/Time: May 10, 2024 20:54 Indication:Respiratory Weight in k.843 kg Adjusted body weight in Kg: [place] body weight in Kg: Obesity Dosing Indication % IBW: Serum Creatinine - Last 168 Hours 05/10/24 05/11/24 05/11/24 18:00 01:28 04:48 Creatinine 1.86 H 1.83 H 1.83 H Estimated CrCl and GFR - Last 168 Hours 05/10/24 05/11/24 05/11/24 18:00 01:28 04:48 Estim Creat Clear Calc 22.4 22.8 22.8 Estimated GFR 26 26 26 Vancomycin Loading Dose: 1500mg Current Vancomycin Dosing Regimen: 750mg q24h Vancomycin Monitoring using AUC goal of 400 - 600 range with trough as surrogate marker: 514 mg/L Date and Time for next Vancomycin Level to be drawn: 05/12/2024 @2100 Pharmacist Comments on Vancomycin Plan: Starting a q24h regimen. Kidney function similar to last night. Trough projected to be ~17.6mg/L. Vancomycin dosing will take advantage of [employer] as a clinical decision support tool that uses Bayesian modeling to calculate individual patient's pharmacokinetic parameters and forecast the patient's drug concentration time course with the target goal AUC 24 range of 400 - 600 mg/L/hr.
[2024-05-11 07:19] LABS: Glucose, Whole Blood 173 mg/dL (60-115)
[2024-05-11] MEDS: Pantoprazole Sodium 40 MG/10 ML VIAL IVPUSH ×2 (07:31→17:47)
[2024-05-11] MEDS: 0.9 % Sodium Chloride Flush 3 ML SYRINGE IVFLUSH ×2 (07:32→21:47)
[2024-05-11] MEDS: Insulin Lispro 100 UNIT/ML 3 ML VIAL SUBCUT ×2 (07:32→21:44)
--- NOTE | 2024-05-11 07:40 | PC.NURSE ---
Pt sitting at side of bed eating. Unlabored resp. Pitting edema up to knees. Non pitting edema in BUEs. Is oriented to person and place only. No physical complaints at this time. reoriented to plan of care. Awaits bed assignment. #22 flushes w/o diff or pain but no blood return.
--- NOTE | 2024-05-11 08:35 | MHC.EDTECH ---
Pt helped with morning routine, changed gown, wanted to discontinue TOYIN [place] notified.
[2024-05-11] MEDS: Multivitamin TABLET 1 TAB PO (09:16)
[2024-05-11] MEDS: Ascorbic Acid 500 MG TABLET PO (09:16)
[2024-05-11] MEDS: Calcium Oyster Shell Elemental 500 MG TABLET PO (09:16)
--- NOTE | 2024-05-11 09:21 | PC.NURSE ---
Pt is very thankful for Hospital bed. Is aware that further testing and consults have been ordered.
--- NOTE | 2024-05-11 10:50 | PC.NURSE ---
Pt back from [place]. was able to ambulate independently and return to bed but reported mild SOB. a fib o monitor.
--- NOTE | 2024-05-11 11:10 | MHC.EDTECH ---
NEW PCP: DR MEDRANO, CHART UPDATED BY THIS GLIDING PILOT INSTRUCTOR, CALL RECEIVED FROM [facility], THIS CALL SENT TO CASE MANAGEMENT WELL BY THIS GLIDING PILOT INSTRUCTOR
--- NOTE | 2024-05-11 11:12 | P.CONCA_ITS ---
History of Present Illness History of Present Illness Date of Service: 05/11/24 Requesting physician: Carla Yang Consult reason: atrial fibrillation and congestive heart failure Chief complaint: CHF Exacerbation ? Hospital Acquired Pneumonia Narrative: I was consulted to see Merle in cardiology consultation today for respiratory failure with congestive heart failure and atrial fibrillation. She is 83-year-old female who was recently discharged from the hospital after admission with sepsis, acute kidney injury, chronic atrial fibrillation history, diabetes, obesity, hyperkalemia which improved. Patient subsequently went home and said over the last week has been having increasing leg edema denies any significant increasing shortness of breath but appears short of breath talking to her. Came in yesterday with persistent increasing shortness of breath and reported melena. Patient recently on admission was noted to have anemia and suspected GI bleed. Was supposed to see GI physician as an outpatient has not been able to do that. She was recently moved to [facility] from where in his not been able to get her routine primary care established and has had some break in her chronic care. Patient has history of atrial fibrillation for few years, does not recall ever having been told that she should pursue rhythm control. Has been on Eliquis for couple years. Has history of hypertension, diabetes question history of congestive heart failure. No history of myocardial infarction or CAD or stenting. She is not very good historian. She said her leg edema has improved since she has been here but still not back to normal. She appears clinically short of breath although denies significant shortness of breath although she says she has to lay in his semi reclining position to be able to breathe at nighttime. Her BNP is noted to be elevated in the mid 500 range. Troponin is borderline elevated. Noted to be significantly anemic with creatinine of 1.8. She did receive 1 dose of Lasix 40 mg yesterday and Lasix was withheld today because of elevated creatinine. Review of Systems 2 Constitutional: Constitutional: Reports fatigue and Reports weakness Eyes: Eyes: Reports no additional eye complaints Cardiovascular: Cardiovascular: Denies chest pain, Reports leg edema, Denies lightheadedness, Denies Loss of Consciousness, Denies palpitations, Reports dyspnea and Reports orthopnea Respiratory: Respiratory: Reports dyspnea Gastrointestinal: Gastrointestinal: Reports abdominal pain Genitourinary: Genitourinary: Reports no additional female genitourinary complaints Musculoskeletal: Musculoskeletal: Reports no additional musculoskeletal complaints Integumentary/Breasts: Skin/Breast: Reports system reviewed and no additional complaints, except as docu Neurologic: Reports system reviewed and no additional complaints, except as documented and Reports weakness Psychiatric: Psychiatric: Reports no additional psychiatric complaints Endocrine: Endocrine: Reports fatigue and Denies palpitations PMFSH Past Medical History Medical History Anemia Sigmoid diverticulitis Congestive heart failure Atrial fibrillation Fever of unknown origin Mild intermittent asthma Type 2 diabetes mellitus without complications Social History Social History Household Members: None Household Members Other:: residential Housing: Apartment Housing Other:: residential Do you presently have visiting nurse or other home services: Yes Comment: 1:1 sitter Patient Tobacco Use Status: Never used Tobacco Smoked in Last 30 Days: No Use of substances other than those prescribed or required for medical reasons: No Have you been hit, kicked, punched, or otherwise hurt by someone within the past year? If so, by whom?: No Do you feel safe in your current relationship?: Yes Is there a partner from a previous relationship who is making you feel unsafe now?: No Are you made to feel afraid or neglected: No [facility] Healthcare Practices: temple Advance Directives: No Advance Directives Information Provided: Yes Do you have a plan to hurt others: No Plan Recently lost weight without trying: Unsure Nutrition Risks: No Nutritional Risk Patient : No : No service: No Meds Allergies Allergy/AdvReac Type Severity Reaction Status Date / Time No Known Allergies Allergy Verified 05/10/24 17:43 Active Medications: Current Medications Acetaminophen (Acetaminophen 325 Mg Tablet) 975 mg PO Q6H PRN PRN Reason: Pain, Mild (Pain Scale 1-3), fever or headache Albuterol Sulfate (Albuterol Sulfate 90 Mcg 8 Gm Inhaler) 2 puff INHALE RQ4H PRN PRN Reason: Wheezing Ascorbic Acid (Ascorbic Acid 500 Mg Tablet) 500 mg PO DAILY [facility] Last Admin: 05/11/24 09:16 Dose: 500 mg Calcium Carbonate (Calcium Carbonate 750 Mg Tab.Chew) 750 mg PO Q4H PRN PRN Reason: Heartburn Calcium Carbonate (Calcium Oyster Shell Elemental 500 Mg Tablet) 500 mg PO DAILY [facility] Last Admin: 05/11/24 09:16 Dose: 500 mg Furosemide (Furosemide 40 Mg/4 Ml Vial) 40 mg IVPUSH Q12H [facility]; Protocol Glucose (Glucose Gel 15 Gm Gel..Gram.) 15 gm PO Q15M PRN; Protocol PRN Reason: per Hypoglycemia Standing Ord. Dextrose (D10) 250 mls @ 750 mls/hr IV Q15M PRN; Protocol PRN Reason: per Hypoglycemia Standing Ord. Piperacillin Sod/Tazobactam (Sod 3.375 gm/ Sodium Chloride) 50 mls @ 100 mls/hr IV Q6H [facility] Last Admin: 05/11/24 09:16 Dose: 100 mls/hr Vancomycin HCl 750 mg/ Sodium (Chloride) 265 mls @ 265 mls/hr IV Q24H [facility] Insulin Human Lispro (Insulin Lispro 100 Unit/Ml 3 Ml Vial) 0 unit SUBCUT QIDACHS [facility]; Protocol Last Admin: 05/11/24 07:32 Dose: 2 unit Magnesium Hydroxide (Milk Of Magnesia 30 Ml Oral.Susp) 30 ml PO DAILY PRN PRN Reason: Constipation Melatonin (Melatonin 3 Mg Tablet) 6 mg PO BEDTIME PRN PRN Reason: Insomnia Metoprolol Tartrate (Metoprolol Tartrate 12.5 Mg Halftab) 12.5 mg PO QID [facility]; Protocol Morphine Sulfate (Morphine Sulfate 4 Mg/Ml Cartridge) 2 mg IVPUSH Q4H PRN; Protocol PRN Reason: Pain, Severe (Pain Scale 7-10) Multivitamins/Vitamin C (Multivitamin Tablet) 1 tab PO DAILY [facility] Last Admin: 05/11/24 09:16 Dose: 1 tab Ondansetron HCl (Ondansetron Hcl 4 Mg/2 Ml Vial) 4 mg IVPUSH Q8H PRN PRN Reason: Nausea and Vomiting Oxycodone HCl (Oxycodone Hcl Immed Release 5 Mg Tablet) 5 mg PO Q6H PRN PRN Reason: Pain, Moderate(Pain Scale 4-6) Pantoprazole Sodium (Pantoprazole Sodium 40 Mg/10 Ml Vial) 40 mg IVPUSH BID@0630,1630 [facility] Last Admin: 05/11/24 07:31 Dose: 40 mg Pharmacy Consult (Consult Rx Vancomycin Dosing) 1 each MISCELLANE DAILY PRN PRN Reason: Consult order Sodium Chloride (0.9 % Sodium Chloride Flush 3 Ml Syringe) 3 ml IVFLUSH QSHIFT [facility] Last Admin: 05/11/24 07:32 Dose: 3 ml Home Medications ?Medication ?Instructions ?Recorded ?Confirmed ?Last Taken ?Type ascorbic acid (vitamin C) 500 mg 500 mg PO DAILY 05/10/24 05/10/24 05/09/24 History tablet (Vitamin C) calcium carbonate 500 mg PO DAILY 05/10/24 05/10/24 05/10/24 History [id number] 8 mg-folic 400 1 tab PO DAILY 05/10/24 05/10/24 05/09/24 History mcg-K 50 mcg-lutein 300 mcg tablet (Centrum Silver Women) Physical Exam 2 Vital Signs: Vital Signs: Last Vital Signs Temp 98.3 F 05/11/24 08:02 Pulse 96 05/11/24 08:02 Resp 14 05/11/24 08:02 BP 122/52 L 05/11/24 08:02 Pulse Ox 100 05/11/24 08:02 O2 Del Method Room Air 05/11/24 08:02 BMI result Body Mass Index 30.2 Const: General: cooperative and in distress mild and respiratory N utritional Appearance: obese Orientation/consciousness: patient oriented x3 Limitations: no limitations HEENT: Head: Yes normocephalic and Yes atraumatic Neck: Neck: Yes trachea midline, Yes supple and Yes JVD Resp: Effort & Inspection: normal respiratory effort Auscultation: clear to auscultation bilaterally Cardio: Jugular venous distension: JVD Rate: tachycardic Rhythm: a bnormal rhythm irregularly irregular Heart sounds: S1 normal heart sound present, S2 normal heart sound present, no click, no gallops, no murmurs and no rubs GI: Inspection: Yes obesity Auscultation: normal bowel sounds Skin: General skin exam: no rashes or lesions noted Neuro: General: patient oriented x3 and no focal motor deficits Extrem: General: No clubbing, No cyanosis and Yes edema Psych: Appearance: grossly normal Objective Labs and Meds 05/11/24 04:48 05/11/24 04:48 Lab results: Laboratory Results - last 24 hr 05/10/24 05/10/24 05/10/24 18:00 20:03 21:15 WBC 11.9 H RBC 2.64 L Hgb 7.8 L Hct 23.7 L MCV 89.8 D MCH 29.5 MCHC 32.9 RDW 15.0 Plt Count 381 MPV 9.7 Immature Gran % (Auto) 0.6 H Neut % (Auto) 72.2 Lymph % (Auto) 16.9 L [place] % (Auto) 9.9 Eos % (Auto) 0.3 Baso % (Auto) 0.1 Lymph # (Auto) 2.0 [place] # (Auto) 1.2 Eos # (Auto) 0.0 Baso # (Auto) 0.0 Abs Immat Gran (auto) 0.07 H Absolute Neuts (auto) 8.6 H Absolute Nucleated RBC 0.000 Nucleated RBC % (auto) 0.0 PT 13.1 H D INR 1.1 APTT 27.5 Sodium 143 Potassium 3.1 L Chloride 106 Carbon Dioxide 24 Anion Gap 16 BUN 16 Creatinine 1.86 H Estim Creat Clear Calc 22.4 Estimated GFR 26 POC Glucose Random Glucose 184 H Lactic Acid Calcium 8.7 Magnesium 1.3 L* Total Bilirubin 0.3 AST 37 H ALT 31 Alkaline Phosphatase 56 Troponin I High Sens 62.5 H* D 59.0 H* B-Natriuretic Peptide 557 H Total Protein 6.0 L Albumin 3.2 L Procalcitonin 0.06 Stool Occult Blood NEGATIVE Blood Type O Positive Antibody Screen NEGATIVE Crossmatch See Detail 05/10/24 05/11/24 05/11/24 21:37 01:28 04:48 WBC 15.0 H RBC 2.63 L Hgb 7.5 L Hct 23.3 L MCV 88.6 MCH 28.5 MCHC 32.2 RDW 15.1 Plt Count 359 MPV 10.3 Immature Gran % (Auto) 0.5 H Neut % (Auto) 77.0 H Lymph % (Auto) 11.9 L [place] % (Auto) 9.9 Eos % (Auto) 0.5 Baso % (Auto) 0.2 Lymph # (Auto) 1.8 [place] # (Auto) 1.5 H Eos # (Auto) 0.1 Baso # (Auto) 0.0 Abs Immat Gran (auto) 0.07 H Absolute Neuts (auto) 11.6 H Absolute Nucleated RBC 0.000 Nucleated RBC % (auto) 0.0 PT INR APTT Sodium 143 142 Potassium 3.1 L 3.0 L Chloride 106 104 Carbon Dioxide 24 26 Anion Gap 16 15 BUN 15 14 Creatinine 1.83 H 1.83 H Estim Creat Clear Calc 22.8 22.8 Estimated GFR 26 26 POC Glucose Random Glucose 215 H 176 H Lactic Acid 1.2 Calcium 8.4 8.4 Magnesium 1.5 L 1.5 L Total Bilirubin AST ALT Alkaline Phosphatase Troponin I High Sens B-Natriuretic Peptide 576 H Total Protein Albumin Procalcitonin Stool Occult Blood Blood Type Antibody Screen Crossmatch 05/11/24 07:16 WBC RBC Hgb Hct MCV MCH MCHC RDW Plt Count MPV Immature Gran % (Auto) Neut % (Auto) Lymph % (Auto) [place] % (Auto) Eos % (Auto) Baso % (Auto) Lymph # (Auto) [place] # (Auto) Eos # (Auto) Baso # (Auto) Abs Immat Gran (auto) Absolute Neuts (auto) Absolute Nucleated RBC Nucleated RBC % (auto) PT INR APTT Sodium Potassium Chloride Carbon Dioxide Anion Gap BUN Creatinine Estim Creat Clear Calc Estimated GFR POC Glucose 173 H Random Glucose Lactic Acid Calcium Magnesium Total Bilirubin AST ALT Alkaline Phosphatase Troponin I High Sens B-Natriuretic Peptide Total Protein Albumin Procalcitonin Stool Occult Blood Blood Type Antibody Screen Crossmatch Imaging Radiologist's impression: Impressions Chest X-Ray 05/10/24 17:43 IMPRESSION: Improving but persistent interstitial pulmonary edema. Electronically signed by: Oneil Will MD 05/10/2024 08:22 PM [facility] [place] and Plan (1) Acute congestive heart failure: Status: Acute Acute congestive heart failure in this elderly woman clinically still appears to be fluid overloaded with elevated creatinine most likely due to renal venous congestion causing cardiorenal syndrome. At this point time I think she requires till persistent IV diuresis. Strict intake and output chart needs to be pursued. Add Jardiance 10 mg to her regimen. Better rate control and add metoprolol 12.5 mg q.6 hours to her regimen. She also significantly anemic which could potentially explain worsening heart failure syndrome and would transfuse to hematocrit over 30. Follow-up with IV diuresis after each packed RBC transfusion. Troponin elevation related to acute congestive heart failure and anemia. Ischemic cardiac disease will need to be ruled out once patient was more stabilized. Heart failure syndrome most likely due to untreated longstanding atrial fibrillation. She has significant left atrial enlargement and longstanding atrial fibrillation likelihood of maintaining rhythm would be low, see below. Continue supportive care. (2) Atrial fibrillation: Qualifiers: Atrial fibrillation type: unspecified Qualified Code(s): I48.91 - Unspecified atrial fibrillation Status: Acute Atrial fibrillation, chronic persistent longstanding has never had rhythm management as per her. Has never seen a apprentice painter hand. She has at least moderate left atrial enlargement by echocardiogram done recently. Unlikely to be able to pursue rhythm control approach at this point time and this will not be possible for now given that she can not take oral anticoagulation given her anemia. Inpatient GI consult needs to be pursued for further workup as this will impact her future treatment from cardiovascular perspective in regards to her anticoagulation. Consider workup from GI perspective. If GI clears her would need oral anticoagulation therapy establish as soon as possible. For now rate control with metoprolol 12.5 mg q.6 hours. Closely follow with full disclosure cardiac monitoring. Will follow with you Procedures Date of Service Date of Service: 05/11/24
--- NOTE | 2024-05-11 11:41 | PC.NURSE ---
Palak held per MD Yang d/t increased creatinine
--- NOTE | 2024-05-11 11:55 | MHC.CM.ED ---
Received telephone call from Pay[facility] Remote Ruby On Rails Developer. She can be reached via telephone at [phone]. [place] [facility] [place] could not be arranged because patient did not have established care with a PCP. New patient appointment arranged with Dr Kelley on 05/31 at 1015am. Payton also arranged transportation for this appointment. Payton was not able to notify patient because she does not have a phone. Continue to monitor for d/c needs.
--- NOTE | 2024-05-11 12:24 | MHC.CM.PN ---
CM met with Patient at bedside, in the ED, and addressed IMM with her (original was given to Patient and a copy has been placed on the chart). 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 Patient has her initial appointment with her new PCP(Dr. Mauricio) on 05/31/24 at 10:15 AM.Patient's Son will transport to home and she declined filling out a HCP.
[2024-05-11 12:27] LABS: Glucose, Whole Blood 123 mg/dL (60-115)
--- NOTE | 2024-05-11 12:32 | PC.NURSE ---
Pt evaluated by MD Mora at bedside- pt to have PRBC's, current 22g access in L-AC insufficient for infusion- MD Aleman to bedside to attempt US guided IV access.
--- NOTE | 2024-05-11 12:42 | PM.EVENT ---
Event Note Date of Service: 05/11/24 Event Note: GI consult dictated EGD planned for 05/12 for further evaluation of recent episode of black stools and drop in HCT. Continue ppi, agree with transfusion. Time Spent With Patient Time: Total time managing care of this patient today ____ minutes.
--- NOTE | 2024-05-11 12:44 | MHC.SHP ---
Pre-Procedural Eval Section A - 24 Hr Update-Section A only Date of Service: 05/11/24 The patient is an INPATIENT: Yes Changes since office visit: No Cold of Flu in the past 2 weeks, No New Medical Problems, No Changes in Medication and No Patient answered all questions The patient has been examined within 24 hours of the surgical procedure. The History & Physical has been completed within 30 days and I have reviewed it.: Yes Section B - Complete if H&P > 30 days Chief Complaint: CHF Exacerbation ? Hospital Acquired Pneumonia Allergies: Allergies Allergy/AdvReac Type Severity Reaction Status Date / Time No Known Allergies Allergy Verified 05/10/24 17:43 Plan I have reviewed the history and physical and performed a pertinent physical examination on my patient. No changes have occurred unless specified. Time Spent With Patient Time: Total time managing care of this patient today ____ minutes.
--- NOTE | 2024-05-11 13:08 | CONS_ITS ---
DATE OF SERVICE: 05/11/2024 REFERRING PHYSICIAN: KVNG Saenz REASON FOR CONSULTATION: Anemia with history of black stools. HISTORY OF PRESENT ILLNESS: The patient is a pleasant 83-year-old woman, who was admitted to the hospital after presenting to the emergency department yesterday with complaints of shortness of breath for 2 days prior to admission with lower extremity edema and chest tightness. She was recently hospitalized in May, and during that hospitalization had a drop in her hematocrit from 35 to 24 with reportedly black stools. Her hematocrit on admission yesterday was 23.7, and she was noted to have Hemoccult negative stools on digital rectal examination. She is scheduled to receive blood transfusion. She has been started on a proton pump inhibitor. She denies a prior history of peptic ulcer disease. She does get occasional reflux, for which she takes p.r.n. antacids. She has no dysphagia, hematemesis, or melena by report, although she is a vague historian. PAST MEDICAL HISTORY: 1. Atrial fibrillation. 2. Congestive heart failure. 3. Diabetes mellitus type 2. 4. Asthma. 5. Recent episode of sigmoid diverticulitis. 6. Congestive heart failure. CURRENT MEDICATIONS: Her current medication list is reviewed in the chart. ALLERGIES: THERE ARE NONE REPORTED. FAMILY HISTORY: This is reviewed with the patient and is noncontributory. SOCIAL HISTORY: She denies tobacco and alcohol abuse. REVIEW OF SYSTEMS: SKIN: No pruritus. HEENT: Negative. CARDIOPULMONARY: No current shortness of breath or chest pain. GASTROINTESTINAL: As above. GENITOURINARY: Negative. NEUROPSYCHIATRIC: Negative. PHYSICAL EXAMINATION: GENERAL: Shows a pleasant female, sitting comfortably in bed. VITAL SIGNS: Reviewed in the electronic medical record and are stable. SKIN: Anicteric. HEENT: Shows no scleral icterus. NECK: Without lymphadenopathy or thyromegaly. LUNGS: Clear. HEART: Shows a regular rate and rhythm. S1, S2. No murmur. ABDOMEN: Soft without focal masses or tenderness. Bowel sounds are present. No organomegaly is noted. EXTREMITIES: Show edema. LABORATORY DATA: Remarkable for a white blood cell count of 11.9 on admission, hemoglobin 7.8, hematocrit 23.7. INR was 1.1. IMPRESSION: Significant anemia with decrease in hematocrit during her last hospitalization. She is being considered for anticoagulation and I would recommend she undergo upper endoscopy prior to starting anticoagulation because of her recent history of black stool. I agree with treating her with a proton pump inhibitor and following her clinically. Thanks for asking me to see her. I will follow her in the hospital with you. MD MANISHA Nickerson/DINA / [id number]
[2024-05-11] MEDS: Metoprolol Tartrate 12.5 MG HALFTAB PO ×3 (13:26→21:45)
--- NOTE | 2024-05-11 13:39 | HO.PM.IMPN ---
Subjective Subjective Date of Service: 05/11/24 Interval History: anemia, chf ,pneumonia Review of Systems sob somewhat improving denies chest pain or abd pain denies significant hematuria ,has says noticed blood few days back with stool( no new bleeding as per patient) Physical Exam Vital Signs: Vital Signs: Last Vital Signs Temp 97.9 F 05/11/24 12:14 Pulse 99 05/11/24 12:14 Resp 30 H 05/11/24 12:14 BP 100/58 L 05/11/24 12:14 Pulse Ox 97 05/11/24 12:14 O2 Del Method Room Air 05/11/24 12:14 BMI result Body Mass Index 30.2 Appearance: Alert.? Oriented X3.? cvs: rrr, [id number] . res: air entry diminshed at bases ,few cracles at bases abd: no rebound or guarding ,nt, bs present. ext pulses present , no cyanosis. neuro: axo3 , nonfocal. Objective Data Active Medications Acetaminophen (Acetaminophen 325 Mg Tablet) 975 mg PO Q6H PRN PRN Reason: Pain, Mild (Pain Scale 1-3), fever or headache Albuterol Sulfate (Albuterol Sulfate 90 Mcg 8 Gm Inhaler) 2 puff INHALE RQ4H PRN PRN Reason: Wheezing Ascorbic Acid (Ascorbic Acid 500 Mg Tablet) 500 mg PO DAILY [facility] Last Admin: 05/11/24 09:16 Dose: 500 mg Documented By: DON Calcium Carbonate (Calcium Carbonate 750 Mg Tab.Chew) 750 mg PO Q4H PRN PRN Reason: Heartburn Calcium Carbonate (Calcium Oyster Shell Elemental 500 Mg Tablet) 500 mg PO DAILY [facility] Last Admin: 05/11/24 09:16 Dose: 500 mg Documented By: DON Furosemide (Furosemide 40 Mg/4 Ml Vial) 40 mg IVPUSH Q12H NADINE; Protocol Last Admin: 05/11/24 11:38 Dose: Not Given Documented By: LEONIE Non-Admin Reason: Physician Held Med Glucose (Glucose Gel 15 Gm Gel..Gram.) 15 gm PO Q15M PRN; Protocol PRN Reason: per Hypoglycemia Standing Ord. Dextrose (D10) 250 mls @ 750 mls/hr IV Q15M PRN; Protocol PRN Reason: per Hypoglycemia Standing Ord. Piperacillin Sod/Tazobactam (Sod 3.375 gm/ Sodium Chloride) 50 mls @ 100 mls/hr IV Q6H [facility] Last Infusion: 05/11/24 11:00 Dose: Infused Documented By: LEONIE Vancomycin HCl 750 mg/ Sodium (Chloride) 265 mls @ 265 mls/hr IV Q24H [facility] Insulin Human Lispro (Insulin Lispro 100 Unit/Ml 3 Ml Vial) 0 unit SUBCUT QIDACHS [facility]; Protocol Last Admin: 05/11/24 12:37 Dose: Not Given Documented By: LEONIE Non-Admin Reason: No Insulin Coverage Comments: POC 123 Magnesium Hydroxide (Milk Of Magnesia 30 Ml Oral.Susp) 30 ml PO DAILY PRN PRN Reason: Constipation Melatonin (Melatonin 3 Mg Tablet) 6 mg PO BEDTIME PRN PRN Reason: Insomnia Metoprolol Tartrate (Metoprolol Tartrate 12.5 Mg Halftab) 12.5 mg PO QID [facility]; Protocol Last Admin: 05/11/24 13:26 Dose: 12.5 mg Documented By: LEONIE Comments: b/p 143/69 Morphine Sulfate (Morphine Sulfate 4 Mg/Ml Cartridge) 2 mg IVPUSH Q4H PRN; Protocol PRN Reason: Pain, Severe (Pain Scale 7-10) Multivitamins/Vitamin C (Multivitamin Tablet) 1 tab PO DAILY [facility] Last Admin: 05/11/24 09:16 Dose: 1 tab Documented By: DON Ondansetron HCl (Ondansetron Hcl 4 Mg/2 Ml Vial) 4 mg IVPUSH Q8H PRN PRN Reason: Nausea and Vomiting Oxycodone HCl (Oxycodone Hcl Immed Release 5 Mg Tablet) 5 mg PO Q6H PRN PRN Reason: Pain, Moderate(Pain Scale 4-6) Pantoprazole Sodium (Pantoprazole Sodium 40 Mg/10 Ml Vial) 40 mg IVPUSH BID@0630,1630 [facility] Last Admin: 05/11/24 07:31 Dose: 40 mg Documented By: DON Pharmacy Consult (Consult Rx Vancomycin Dosing) 1 each MISCELLANE DAILY PRN PRN Reason: Consult order Sodium Chloride (0.9 % Sodium Chloride Flush 3 Ml Syringe) 3 ml IVFLUSH QSHIFT [facility] Last Admin: 05/11/24 07:32 Dose: 3 ml Documented By: DON Labs 05/11/24 04:48 05/11/24 04:48 Labs: Laboratory Results - last 24 hr 05/10/24 05/10/24 05/10/24 18:00 20:03 21:15 MCV 89.8 D MCH 29.5 MCHC 32.9 RDW 15.0 Plt Count 381 MPV 9.7 Immature Gran % (Auto) 0.6 H Neut % (Auto) 72.2 Lymph % (Auto) 16.9 L [place] % (Auto) 9.9 Eos % (Auto) 0.3 Baso % (Auto) 0.1 Lymph # (Auto) 2.0 [place] # (Auto) 1.2 Eos # (Auto) 0.0 Baso # (Auto) 0.0 Abs Immat Gran (auto) 0.07 H Absolute Neuts (auto) 8.6 H Absolute Nucleated RBC 0.000 Nucleated RBC % (auto) 0.0 PT 13.1 H D INR 1.1 APTT 27.5 Anion Gap 16 Estim Creat Clear Calc 22.4 Estimated GFR 26 POC Glucose Random Glucose 184 H Lactic Acid Calcium 8.7 Magnesium 1.3 L* Total Bilirubin 0.3 AST 37 H ALT 31 Alkaline Phosphatase 56 Troponin I High Sens 62.5 H* D 59.0 H* B-Natriuretic Peptide 557 H Total Protein 6.0 L Albumin 3.2 L Procalcitonin 0.06 Stool Occult Blood NEGATIVE Blood Type O Positive Antibody Screen NEGATIVE Crossmatch See Detail 05/10/24 05/11/24 05/11/24 21:37 01:28 04:48 MCV 88.6 MCH 28.5 MCHC 32.2 RDW 15.1 Plt Count 359 MPV 10.3 Immature Gran % (Auto) 0.5 H Neut % (Auto) 77.0 H Lymph % (Auto) 11.9 L [place] % (Auto) 9.9 Eos % (Auto) 0.5 Baso % (Auto) 0.2 Lymph # (Auto) 1.8 [place] # (Auto) 1.5 H Eos # (Auto) 0.1 Baso # (Auto) 0.0 Abs Immat Gran (auto) 0.07 H Absolute Neuts (auto) 11.6 H Absolute Nucleated RBC 0.000 Nucleated RBC % (auto) 0.0 PT INR APTT Anion Gap 16 15 Estim Creat Clear Calc 22.8 22.8 Estimated GFR 26 26 POC Glucose Random Glucose 215 H 176 H Lactic Acid 1.2 Calcium 8.4 8.4 Magnesium 1.5 L 1.5 L Total Bilirubin AST ALT Alkaline Phosphatase Troponin I High Sens B-Natriuretic Peptide 576 H Total Protein Albumin Procalcitonin Stool Occult Blood Blood Type Antibody Screen Crossmatch 05/11/24 05/11/24 07:16 12:20 MCV MCH MCHC RDW Plt Count MPV Immature Gran % (Auto) Neut % (Auto) Lymph % (Auto) [place] % (Auto) Eos % (Auto) Baso % (Auto) Lymph # (Auto) [place] # (Auto) Eos # (Auto) Baso # (Auto) Abs Immat Gran (auto) Absolute Neuts (auto) Absolute Nucleated RBC Nucleated RBC % (auto) PT INR APTT Anion Gap Estim Creat Clear Calc Estimated GFR POC Glucose 173 H 123 H Random Glucose Lactic Acid Calcium Magnesium Total Bilirubin AST ALT Alkaline Phosphatase Troponin I High Sens B-Natriuretic Peptide Total Protein Albumin Procalcitonin Stool Occult Blood Blood Type Antibody Screen Crossmatch Assessment and Plan (1) Acute congestive heart failure: Status: Acute Assessment and Plan: 83-year-old female with a past medical history significant for persistent AFib, CHF, type 2 diabetes (no meds, previously p.o.), and mild intermittent asthma who presented to the ED today with shortness of breath for the past 2 days. Patient was recent complicated admission for sepsis related to fever of unknown origin, presumed diverticulitis versus pneumonia, LITA, type 2 diabetes with hyperglycemia, mild intermittent asthma with acute exacerbation, hypertension and acute hypokalemia. Acute congestive heart failure exacerbation(unclear etiology ,echo pending) and possible hospital acquired pneumonia sob seems similar 1+ pitting edema on exam, BNP elevated at 557, chest x-ray with possible pulm edema elevated WBC at 11.9, ordered lactic acid normal and blood cultures x2 pending no sepsis at present. tachycardia secondary to untreated a fib and tachypnea due to pulmonary edema mild elevated trop sec in setting of chf. procalcitonin levels0.06 plan: moniter i/o and daily weights on vanco and zosyn for possible hospital acquired pneumonia with leukocytosis and recent hospital stay monior CBC, BMP, BNP hypokalemia/hypomagnesemia given iv and po replacements continue to moniter electrolytes closely. anemia of acute blood loss -melena/microscopic hematuria - H+H down from recent admission, now 7.8/23.7, was 8.4/24.6 on discharge 05/05 - reported melena, positive occult blood during recent admission Gi -continue ppi,moniter h/h,1 prbc added,egd in am LITA: insetting of chf moniter renal function and electrolytes closely a fib - rate controlled - unable to add anticoagulant due to melena - monitor with tele T2DM - diabetic diet/cardiac diet - sliding scale insulin mild intermittent asthma without acute exacerbation - no wheezing on exam - albuterol PRN obesity - weight loss encouraged - BMI 30.2 VTE prophy: pneumoboots, anticoagulant contraindicated with anemia and melena acute congestive heart failure exacerbation and possible hospital acquired pneumonia,chf ,anemia :need iv diuretics ,moniter renal function and electrolytes as well as 1/o monitering, lita,ppi , h/h , need egd. Quality Stroke Does the patient have a stroke diagnosis?: No VTE Prior VTE?: No VTE Risk Level:: Medical - moderate - high VTE Device Contraindication: N/A - Device Ordered VTE Drug Contraindication: Treatment Not Indicated
--- NOTE | 2024-05-11 13:51 | PC.NURSE ---
Administration of blood delayed- due to needs for US guided line. 20g IV placed in r inner bicep. at this time, there is not consent for blood for pt. MD Yang notified via [employer]. to obtain consent
[2024-05-11] MEDS: Magnesium Sulfate/D5W 1 GM/100 ML PIGGYBACK IV (14:24)
[2024-05-11] MEDS: Albumin Human 25 % 100 ML IV ×2 (14:24→15:30)
--- NOTE | 2024-05-11 14:54 | PC.NURSE ---
Hospitalist notified of need for blood consent at 1351, at this time, consent has not been obtained. Charge aware
--- NOTE | 2024-05-11 15:09 | PC.NURSE ---
MD del cid at bedside, blood consent obtained.
[2024-05-11] MEDS: Acetaminophen 325 MG TABLET 650 MG PO (15:31)
[2024-05-11] MEDS: diphenhydrAMINE HCL 25 MG CAPSULE PO (15:31)
[2024-05-11 16:00] LABS: Potassium 3.9 mmol/L (3.3-5.1)
[2024-05-11 18:19] LABS: Glucose, Whole Blood 158 mg/dL (60-115)
[2024-05-11 20:47] LABS: Glucose, Whole Blood 164 mg/dL (60-115)
[2024-05-11] MEDS: Melatonin 3 MG TABLET 6 MG PO (21:54)
[2024-05-11] MEDS: Furosemide 40 MG/4 ML VIAL IVPUSH (22:51)
[2024-05-11] MEDS: vancomycin HCL 750 MG in 0.9 % Sodium Chloride 250 ML 265 MG IV (22:51)
[2024-05-12] VITALS (10 sets, daily range): BP systolic 122–178; BP diastolic 60–84; PULSE 75–90; RESP 12–22; TEMP 36.4–37.2; O2SAT 94–98; BMI 36.5
--- NOTE | 2024-05-12 00:27 | PM.CNNEP ---
History of Present Illness Reason for Consult Consult date: 05/12/24 Reason for consult: LITA/CKD HypoK Chief Complaint Chief complaint: CHF Exacerbation ? Hospital Acquired Pneumonia History of Present Illness Narrative: RTANE consulted for LITA/CKD and HypoK 1. LITA: SCr stuck at ques new BSL, UA abnl but sero from last adm neg 2. CKD 3: SCr npw 1.5-2.0 appears to be BSL 3.. Anemia: w/u in progress; need to r/o Fe def and may be candidate for epo 4. SOB: dCHF and ques HAP 5. Abnl UA: signif Uprot on last adm --will repeat and w/u PMFSH Past Medical History Medical History Anemia Sigmoid diverticulitis Congestive heart failure Atrial fibrillation Fever of unknown origin Mild intermittent asthma Type 2 diabetes mellitus without complications Social History Social History Household Members: None Household Members Other:: halfway Housing: Apartment Housing Other:: halfway Do you presently have visiting nurse or other home services: Yes Comment: 1:1 sitter Patient Tobacco Use Status: Never used Tobacco service: No Meds Allergies Allergy/AdvReac Type Severity Reaction Status Date / Time No Known Allergies Allergy Verified 05/10/24 17:43 Active Medications: Current Medications Acetaminophen (Acetaminophen 325 Mg Tablet) 975 mg PO Q6H PRN PRN Reason: Pain, Mild (Pain Scale 1-3), fever or headache Albuterol Sulfate (Albuterol Sulfate 90 Mcg 8 Gm Inhaler) 2 puff INHALE RQ4H PRN PRN Reason: Wheezing Ascorbic Acid (Ascorbic Acid 500 Mg Tablet) 500 mg PO DAILY [facility] Last Admin: 05/11/24 09:16 Dose: 500 mg Calcium Carbonate (Calcium Carbonate 750 Mg Tab.Chew) 750 mg PO Q4H PRN PRN Reason: Heartburn Calcium Carbonate (Calcium Oyster Shell Elemental 500 Mg Tablet) 500 mg PO DAILY [facility] Last Admin: 05/11/24 09:16 Dose: 500 mg Empagliflozin (Empagliflozin 10 Mg Tablet) 10 mg PO DAILY [facility] Furosemide (Furosemide 40 Mg/4 Ml Vial) 40 mg IVPUSH Q12H [facility]; Protocol Last Admin: 05/11/24 22:51 Dose: 40 mg Glucose (Glucose Gel 15 Gm Gel..Gram.) 15 gm PO Q15M PRN; Protocol PRN Reason: per Hypoglycemia Standing Ord. Dextrose (D10) 250 mls @ 750 mls/hr IV Q15M PRN; Protocol PRN Reason: per Hypoglycemia Standing Ord. Piperacillin Sod/Tazobactam (Sod 3.375 gm/ Sodium Chloride) 50 mls @ 100 mls/hr IV Q6H [facility] Last Infusion: 05/11/24 22:22 Dose: Infused Vancomycin HCl 750 mg/ Sodium (Chloride) 265 mls @ 265 mls/hr IV Q24H [facility] Last Infusion: 05/12/24 00:19 Dose: Infused Insulin Human Lispro (Insulin Lispro 100 Unit/Ml 3 Ml Vial) 0 unit SUBCUT QIDACHS [facility]; Protocol Last Admin: 05/11/24 21:44 Dose: 2 unit Magnesium Hydroxide (Milk Of Magnesia 30 Ml Oral.Susp) 30 ml PO DAILY PRN PRN Reason: Constipation Melatonin (Melatonin 3 Mg Tablet) 6 mg PO BEDTIME PRN PRN Reason: Insomnia Last Admin: 05/11/24 21:54 Dose: 6 mg Metoprolol Tartrate (Metoprolol Tartrate 12.5 Mg Halftab) 12.5 mg PO QID [facility]; Protocol Last Admin: 05/11/24 21:45 Dose: 12.5 mg Morphine Sulfate (Morphine Sulfate 4 Mg/Ml Cartridge) 2 mg IVPUSH Q4H PRN; Protocol PRN Reason: Pain, Severe (Pain Scale 7-10) Multivitamins/Vitamin C (Multivitamin Tablet) 1 tab PO DAILY [facility] Last Admin: 05/11/24 09:16 Dose: 1 tab Ondansetron HCl (Ondansetron Hcl 4 Mg/2 Ml Vial) 4 mg IVPUSH Q8H PRN PRN Reason: Nausea and Vomiting Oxycodone HCl (Oxycodone Hcl Immed Release 5 Mg Tablet) 5 mg PO Q6H PRN PRN Reason: Pain, Moderate(Pain Scale 4-6) Pantoprazole Sodium (Pantoprazole Sodium 40 Mg/10 Ml Vial) 40 mg IVPUSH BID@0630,1630 [facility] Last Admin: 05/11/24 17:47 Dose: 40 mg Pharmacy Consult (Consult Rx Vancomycin Dosing) 1 each MISCELLANE DAILY PRN PRN Reason: Consult order Sodium Chloride (0.9 % Sodium Chloride Flush 3 Ml Syringe) 3 ml IVFLUSH QSHIFT [facility] Last Admin: 05/11/24 21:47 Dose: 3 ml Home Medications ?Medication ?Instructions ?Recorded ?Confirmed ?Last Taken ?Type ascorbic acid (vitamin C) 500 mg 500 mg PO DAILY 05/10/24 05/10/24 05/09/24 History tablet (Vitamin C) calcium carbonate 500 mg PO DAILY 05/10/24 05/10/24 05/10/24 History [id number] 8 mg-folic 400 1 tab PO DAILY 05/10/24 05/10/24 05/09/24 History mcg-K 50 mcg-lutein 300 mcg tablet (Centrum Silver Women) Physical Exam Vital Signs: Last Vital Signs Temp 97.9 F 05/11/24 23:54 Pulse 71 05/11/24 23:54 Resp 22 H 05/11/24 23:54 BP 149/68 H 05/11/24 23:54 Pulse Ox 90 L 05/11/24 23:54 O2 Del Method Room Air 05/11/24 23:54 BMI result Body Mass Index 30.2 Results Lab Results 05/11/24 04:48 05/11/24 15:40 Lab results: Chemistry 05/10/24 05/11/24 05/11/24 18:00 01:28 04:48 Sodium 143 143 142 Potassium 3.1 L 3.1 L 3.0 L Carbon Dioxide 24 26 BUN 16 15 14 Creatinine 1.86 H 1.83 H 1.83 H Calcium 8.7 8.4 8.4 05/11/24 15:40 Sodium Potassium 3.9 D Carbon Dioxide BUN Creatinine Calcium Hematology 05/10/24 05/11/24 18:00 04:48 WBC 11.9 H 15.0 H Hgb 7.8 L 7.5 L Plt Count 381 359 Procedures Date of Service Date of Service: 05/12/24
[2024-05-12] MEDS: LORazepam 0.5 MG TABLET 0.25 MG PO (01:58)
[2024-05-12] MEDS: Piperacillin Sodium/Tazobactam 3.375 GM in 0.9 % Sodium Chloride 50 ML IV ×4 (01:59→20:07)
[2024-05-12 04:23] LABS: Appearance Urine Clear; Color Urine Yellow; Glucose Urine UA Negative (Negative); Leukocyte Esterase Urine Small (1+) (Negative); Nitrite Urine Negative (Negative); PH 6.5 (5.0-9.0); UMIC TRIGGER UA YES; Urine Blood Negative (Negative); Urine Ketones Negative (Negative); Urine Protein Trace mg/dL (Neg-Trace)
[2024-05-12 04:31] LABS: Bacteria Urine None Seen (None Seen); Hyaline Casts Urine 0-2 /LPF (0-2); RBC Urine 0-2 /HPF (0-2); Squamous Epithelial Cell Urine 0-2 /HPF (0-2)
[2024-05-12 04:39] LABS: Creatinine Urine 29.94 mg/dL; Microalbum/Creatinine Ratio Ur 694.7 ug/mg cr (<30); Total Protein Urine Random 125 mg/dL (<12)
[2024-05-12] MEDS: Pantoprazole Sodium 40 MG/10 ML VIAL IVPUSH ×2 (05:34→16:52)
[2024-05-12 06:11] LABS: MANUAL DIFF FLAG NO
[2024-05-12 06:16] LABS: Basophils Absolute Auto 0.1 X10*3/uL (0.0-0.2); Basophils Percent Auto 0.5 % (0-2); Eosinophils Absolute Auto 0.2 X10*3/uL (0.0-0.4); Eosinophils Percent Auto 1.3 % (0-4); Hemoglobin 8.7 g/dl (12.0-16.0); Imm Gran Abs Auto 0.06 X10*3/uL (0.00-0.03); Imm Gran Pct Auto 0.5 % (0.0-0.4); Lymphocytes Absolute Auto 1.5 X10*3/uL (1.2-4.9); Lymphocytes Percent Auto 11.7 % (20-40); Mean Corpuscular HGB Conc 32.2 g/dl (31.0-35.0); Mean Platelet Volume 9.6 fL (9.4-12.3); Monocytes Absolute Auto 1.2 X10*3/uL (0.1-1.2); Monocytes Percent Auto 9.2 % (2-11); Neutrophils Absolute Auto 9.7 x10*3/uL (2.0-8.3); Neutrophils Percent Auto 76.8 % (45-73); Platelet Count 339 X10*3/uL (160-400); Red Cell Distribution Width 15.7 % (11.0-16.0); White Blood Count 12.7 X10*3/uL (4.8-10.8)
[2024-05-12 06:34] LABS: Anion Gap 17 (12-20); Blood Urea Nitrogen 15 mg/dL (9-16); Calcium 8.4 mg/dL (8.4-10.2); Carbon Dioxide 24 mmol/L (22-29); Chloride 105 mmol/L (96-108); Creatinine Clr Calc Pharmacy 23.4; Estimated Glomerular Filt Rate 24; Glucose Random 146 mg/dL (60-115); Iron 22 mcg/dL (30-160); Magnesium 1.7 mg/dL (1.6-2.6); Percent Iron Saturation 11 % (15-50); Sodium 142 mmol/L (135-145); Total Iron Binding Capacity 197 mcg/dL (228-428); Unsaturated Iron Binding 175 ug/dL
[2024-05-12 07:50] LABS: Glucose, Whole Blood 134 mg/dL (60-115)
[2024-05-12 08:36] LABS: HBS Num1 37.49 mIU/mL (0-7.99); HBc Num1 0.12 S/CO (0.00-0.79); HBsAGNum1 0.37 S/CO (0.00-0.99); Hepatitis B Core Antibody Nonreactive (Nonreactive); Hepatitis B Surface Antigen Negative (Negative); ~HepC Num1 0.17 S/CO (0.00-0.79); ~Hepatitis B Surface Antibody REACTIVE (Nonreactive); ~Hepatitis C Antibody Nonreactive (Nonreactive)
[2024-05-12] MEDS: Multivitamin TABLET 1 TAB PO (08:53)
[2024-05-12] MEDS: Empagliflozin 10 MG TABLET PO (08:53)
[2024-05-12] MEDS: Ascorbic Acid 500 MG TABLET PO (08:53)
[2024-05-12] MEDS: Metoprolol Tartrate 12.5 MG HALFTAB PO ×4 (08:53→20:08)
[2024-05-12] MEDS: Calcium Oyster Shell Elemental 500 MG TABLET PO (08:53)
[2024-05-12] MEDS: 0.9 % Sodium Chloride Flush 3 ML SYRINGE IVFLUSH ×3 (08:54→20:08)
--- NOTE | 2024-05-12 09:00 | ECG_ITS ---
Test Reason : conversion to Sinus Rhythm Blood Pressure : / mmHG Vent. Rate : 083 BPM Atrial Rate : 083 BPM P-R Int : 218 ms QRS Dur : 104 ms QT Int : 422 ms P-R-T Axes : 072 -40 -18 degrees QTc Int : 495 ms Sinus rhythm with 1st degree A-V block Left axis deviation Minimal voltage criteria for LVH, may be normal variant ( [place] product ) Anteroseptal infarct (cited on or before 10-MAY-2024) Abnormal ECG When compared with ECG of 10-MAY-2024 17:52, Sinus rhythm has replaced Atrial fibrillation Inverted T waves have replaced nonspecific T wave abnormality in Inferior leads Referred By: Lavelle Garcia Electronically Signed By:LAVELLE GARCIA MD
--- NOTE | 2024-05-12 09:22 | PM.PNCARD ---
Subjective Subjective Date of Service: 05/12/24 Principal diagnosis: CHF, paroxysmal atrial fibrillation, anemia. Interval history: Patient says she has been diuresing well although the intake and output chart sudden not accurate. Her creatinine is slightly increased. She says her shortness of breath is improved. Still remains anemic with no overt signs of bleeding. Has been seen by GI. Blood pressure is elevated. Started on Jardiance yesterday. Review of Systems Constitutional: Reports fatigue Eyes: Reports no additional eye complaints Cardiovascular: Reports leg edema, Denies lightheadedness, Denies Loss of Consciousness, Denies palpitations and Reports dyspnea on exertion Respiratory: Reports dyspnea on exertion Gastrointestinal: Reports no additional gastrointestinal complaints Musculoskeletal: Reports no additional musculoskeletal complaints Reports system reviewed and no additional complaints, except as documented Psychiatric: Reports no additional psychiatric complaints Endocrine: Reports fatigue and Denies palpitations Physical Exam Vital Signs: Last Vital Signs Temp 98.9 F 05/12/24 07:24 Pulse 83 05/12/24 07:24 Resp 18 05/12/24 07:24 BP 166/77 H 05/12/24 07:24 Pulse Ox 97 05/12/24 07:24 O2 Del Method Nasal Cannula 05/12/24 07:24 O2 Flow Rate 2 05/12/24 07:24 BMI result Body Mass Index 36.5 Neck Neck: Yes trachea midline, Yes supple and Yes JVD Resp Effort & Inspection: normal respiratory effort Auscultation: clear to auscultation bilaterally Cardio Jugular venous distension: no JVD Rate: regular rate Rhythm: regular rhythm Heart sounds: S1 normal heart sound present, S2 normal heart sound present, no click, no gallops and no murmurs Extrem General: No clubbing, No cyanosis and Yes edema Objective Labs and Meds 05/12/24 05:50 05/12/24 05:50 Lab results: Laboratory Results - last 24 hr 05/10/24 05/11/24 05/11/24 20:03 12:20 15:40 WBC RBC Hgb Hct MCV MCH MCHC RDW Plt Count MPV Immature Gran % (Auto) Neut % (Auto) Lymph % (Auto) [place] % (Auto) Eos % (Auto) Baso % (Auto) Lymph # (Auto) [place] # (Auto) Eos # (Auto) Baso # (Auto) Abs Immat Gran (auto) Absolute Neuts (auto) Absolute Nucleated RBC Nucleated RBC % (auto) Sodium Potassium 3.9 D Chloride Carbon Dioxide Anion Gap BUN Creatinine Estim Creat Clear Calc Estimated GFR POC Glucose 123 H Random Glucose Calcium Magnesium Iron TIBC % Saturation Unsat Iron Binding Urine Color Urine Appearance Urine pH Ur Specific [place] Urine Protein Urine Glucose (UA) Urine Ketones Urine Blood Urine Nitrite Ur Leukocyte Esterase Urine RBC Urine WBC Ur Squamous Epith Cells Urine Bacteria Hyaline Casts U Random Total Protein Urine Creatinine Urine Microalbumin Microalb/Creat Ratio Hep Bs Antigen Hep Bs Antibody Hep B Core Total Ab Hepatitis C Ab (EIA) Blood Type O Positive Antibody Screen NEGATIVE Crossmatch See Detail 05/11/24 05/11/24 05/12/24 18:10 20:43 00:55 WBC RBC Hgb Hct MCV MCH MCHC RDW Plt Count MPV Immature Gran % (Auto) Neut % (Auto) Lymph % (Auto) [place] % (Auto) Eos % (Auto) Baso % (Auto) Lymph # (Auto) [place] # (Auto) Eos # (Auto) Baso # (Auto) Abs Immat Gran (auto) Absolute Neuts (auto) Absolute Nucleated RBC Nucleated RBC % (auto) Sodium Potassium Chloride Carbon Dioxide Anion Gap BUN Creatinine Estim Creat Clear Calc Estimated GFR POC Glucose 158 H 164 H Random Glucose Calcium Magnesium Iron TIBC % Saturation Unsat Iron Binding Urine Color Urine Appearance Urine pH Ur Specific [place] Urine Protein Urine Glucose (UA) Urine Ketones Urine Blood Urine Nitrite Ur Leukocyte Esterase Urine RBC Urine WBC Ur Squamous Epith Cells Urine Bacteria Hyaline Casts U Random Total Protein Urine Creatinine Urine Microalbumin Microalb/Creat Ratio Hep Bs Antigen Negative Hep Bs Antibody REACTIVE Hep B Core Total Ab Nonreactive Hepatitis C Ab (EIA) Nonreactive Blood Type Antibody Screen Crossmatch 05/12/24 05/12/24 05/12/24 04:05 05:50 07:46 WBC 12.7 H RBC 3.00 L Hgb 8.7 L Hct 27.0 L MCV 90.0 MCH 29.0 MCHC 32.2 RDW 15.7 Plt Count 339 MPV 9.6 Immature Gran % (Auto) 0.5 H Neut % (Auto) 76.8 H Lymph % (Auto) 11.7 L [place] % (Auto) 9.2 Eos % (Auto) 1.3 Baso % (Auto) 0.5 Lymph # (Auto) 1.5 [place] # (Auto) 1.2 Eos # (Auto) 0.2 Baso # (Auto) 0.1 Abs Immat Gran (auto) 0.06 H Absolute Neuts (auto) 9.7 H Absolute Nucleated RBC 0.000 Nucleated RBC % (auto) 0.0 Sodium 142 Potassium 4.0 Chloride 105 Carbon Dioxide 24 Anion Gap 17 BUN 15 Creatinine 1.97 H Estim Creat Clear Calc 23.4 Estimated GFR 24 POC Glucose 134 H Random Glucose 146 H Calcium 8.4 Magnesium 1.7 Iron 22 L TIBC 197 L % Saturation 11 L Unsat Iron Binding 175 Urine Color Yellow Urine Appearance Clear Urine pH 6.5 Ur Specific [place] 1.010 Urine Protein Trace Urine Glucose (UA) Negative Urine Ketones Negative Urine Blood Negative Urine Nitrite Negative Ur Leukocyte Esterase Small (1+) H Urine RBC 0-2 Urine WBC 6-10 H Ur Squamous Epith Cells 0-2 Urine Bacteria None Seen Hyaline Casts 0-2 U Random Total Protein 125 H Urine Creatinine 29.94 Urine Microalbumin 208.0 Microalb/Creat Ratio 694.7 H Hep Bs Antigen Hep Bs Antibody Hep B Core Total Ab Hepatitis C Ab (EIA) Blood Type Antibody Screen Crossmatch Progress Note: A&P Assessment and plan (1) Acute congestive heart failure: Status: Acute Assessment and Plan: Acute congestive heart failure in this elderly woman with still clinically appears to be fluid overloaded although creatinine is rising with diuresis. Creatinine rising could be due to Jardiance therapy. We discussed about continue IV diuresis as she still appears to be fluid overloaded and continue Jardiance therapy. Continue monitor renal function closely along with BNP tomorrow. A better intake and output chart needs to be pursued. Better blood pressure control, would add hydralazine 25 mg b.i.d. to her regimen. Consider renal duplex to evaluate for renal artery stenosis. Currently maintaining rhythm, see below. (2) Atrial fibrillation: Status: Acute Assessment and Plan: Paroxysmal atrial fibrillation, currently sinus rhythm. Was on oral anticoagulation although patient does not recall that at home. Currently significantly anemic. Will retrieve old data regarding her atrial fibrillation diagnosis. Needs further workup before starting oral anticoagulation with GI perspective to see if it is safe if she needs oral anticoagulation to be started on it. I would transfuse 1 more unit of packed RBC to help with the heart failure syndrome. Switch metoprolol to 25 mg b.i.d.. If she has recurrent atrial fibrillation may benefit from antiarrhythmic drug therapy. Will follow up with you Time Spent With Patient Time: Total time managing care of this patient today ____ minutes. Progress Note: Quality Stroke Does the patient have a stroke diagnosis?: No Procedures Date of Service Date of Service: 05/12/24
[2024-05-12 11:34] LABS: Glucose, Whole Blood 121 mg/dL (60-115)
[2024-05-12 11:58] LABS: MRSA Nasal PCR NEGATIVE (Negative); SA Nasal PCR NEGATIVE (Negative)
--- NOTE | 2024-05-12 12:13 | MHC.SHP ---
Pre-Procedural Eval Section A - 24 Hr Update-Section A only Date of Service: 05/12/24 The patient is an INPATIENT: Yes Changes since office visit: No Cold of Flu in the past 2 weeks, No New Medical Problems, No Changes in Medication and No Patient answered all questions The patient has been examined within 24 hours of the surgical procedure. The History & Physical has been completed within 30 days and I have reviewed it.: Yes Section B - Complete if H&P > 30 days Chief Complaint: CHF Exacerbation ? Hospital Acquired Pneumonia Allergies: Allergies Allergy/AdvReac Type Severity Reaction Status Date / Time No Known Allergies Allergy Verified 05/10/24 17:43 Plan I have reviewed the history and physical and performed a pertinent physical examination on my patient. No changes have occurred unless specified. Time Spent With Patient Time: Total time managing care of this patient today ____ minutes.
[2024-05-12] MEDS: Furosemide 40 MG/4 ML VIAL IVPUSH ×2 (12:44→23:29)
--- NOTE | 2024-05-12 13:15 | P.PNIM_ITS ---
Subjective Subjective Date of Service: 05/12/24 Interval History: chf ,pneumonia Review of Systems sob seems improving she says she is urinating a lot -i/o ?not reflecting no fever Physical Exam 2 Vital Signs: Vital Signs: Last Vital Signs Temp 99.0 F 05/12/24 11:51 Pulse 77 05/12/24 11:51 Resp 16 05/12/24 11:51 BP 159/83 H 05/12/24 12:44 Pulse Ox 97 05/12/24 11:51 O2 Del Method Nasal Cannula 05/12/24 11:51 O2 Flow Rate 1 05/12/24 11:51 BMI result Body Mass Index 36.5 Appearance: Alert.? Oriented X3.? cvs: rrr, [id number] . res: air entry diminshed at bases ,few scattered cracles at bases . abd: no rebound or guarding ,nt, bs present. ext pulses present , no cyanosis. neuro: axo3 , nonfocal. Objective Data Active Medications Acetaminophen (Acetaminophen 325 Mg Tablet) 975 mg PO Q6H PRN PRN Reason: Pain, Mild (Pain Scale 1-3), fever or headache Albuterol Sulfate (Albuterol Sulfate 90 Mcg 8 Gm Inhaler) 2 puff INHALE RQ4H PRN PRN Reason: Wheezing Ascorbic Acid (Ascorbic Acid 500 Mg Tablet) 500 mg PO DAILY [facility] Last Admin: 05/12/24 08:53 Dose: 500 mg Documented By: BERHANE Calcium Carbonate (Calcium Carbonate 750 Mg Tab.Chew) 750 mg PO Q4H PRN PRN Reason: Heartburn Calcium Carbonate (Calcium Oyster Shell Elemental 500 Mg Tablet) 500 mg PO DAILY [facility] Last Admin: 05/12/24 08:53 Dose: 500 mg Documented By: BERHANE Empagliflozin (Empagliflozin 10 Mg Tablet) 10 mg PO DAILY [facility] Last Admin: 05/12/24 08:53 Dose: 10 mg Documented By: ABBEYING Furosemide (Furosemide 40 Mg/4 Ml Vial) 40 mg IVPUSH Q12H [facility]; Protocol Last Admin: 05/12/24 12:44 Dose: 40 mg Documented By: ABBEYING Glucose (Glucose Gel 15 Gm Gel..Gram.) 15 gm PO Q15M PRN; Protocol PRN Reason: per Hypoglycemia Standing Ord. Dextrose (D10) 250 mls @ 750 mls/hr IV Q15M PRN; Protocol PRN Reason: per Hypoglycemia Standing Ord. Piperacillin Sod/Tazobactam (Sod 3.375 gm/ Sodium Chloride) 50 mls @ 100 mls/hr IV Q6H [facility] Last Infusion: 05/12/24 10:02 Dose: Infused Documented By: BERHANE Vancomycin HCl 750 mg/ Sodium (Chloride) 265 mls @ 265 mls/hr IV Q24H [facility] Last Infusion: 05/12/24 00:19 Dose: Infused Documented By: KAYDEN Insulin Human Lispro (Insulin Lispro 100 Unit/Ml 3 Ml Vial) 0 unit SUBCUT QIDACHS [facility]; Protocol Last Admin: 05/12/24 11:44 Dose: Not Given Documented By: BERHANE Non-Admin Reason: No Insulin Coverage Magnesium Hydroxide (Milk Of Magnesia 30 Ml Oral.Susp) 30 ml PO DAILY PRN PRN Reason: Constipation Melatonin (Melatonin 3 Mg Tablet) 6 mg PO BEDTIME PRN PRN Reason: Insomnia Last Admin: 05/11/24 21:54 Dose: 6 mg Documented By: KAYDEN Metoprolol Tartrate (Metoprolol Tartrate 12.5 Mg Halftab) 12.5 mg PO QID [facility]; Protocol Last Admin: 05/12/24 12:44 Dose: 12.5 mg Documented By: BERHANE Morphine Sulfate (Morphine Sulfate 4 Mg/Ml Cartridge) 2 mg IVPUSH Q4H PRN; Protocol PRN Reason: Pain, Severe (Pain Scale 7-10) Multivitamins/Vitamin C (Multivitamin Tablet) 1 tab PO DAILY [facility] Last Admin: 05/12/24 08:53 Dose: 1 tab Documented By: BERHANE Ondansetron HCl (Ondansetron Hcl 4 Mg/2 Ml Vial) 4 mg IVPUSH Q8H PRN PRN Reason: Nausea and Vomiting Oxycodone HCl (Oxycodone Hcl Immed Release 5 Mg Tablet) 5 mg PO Q6H PRN PRN Reason: Pain, Moderate(Pain Scale 4-6) Pantoprazole Sodium (Pantoprazole Sodium 40 Mg/10 Ml Vial) 40 mg IVPUSH BID@0630,1630 [facility] Last Admin: 05/12/24 05:34 Dose: 40 mg Documented By: HO.N-JOZEB Pharmacy Consult (Consult Rx Vancomycin Dosing) 1 each MISCELLANE DAILY PRN PRN Reason: Consult order Sodium Chloride (0.9 % Sodium Chloride Flush 3 Ml Syringe) 3 ml IVFLUSH QSHI Last Admin: 05/12/24 08:54 Dose: 3 ml Documented By: BERHANE Labs 05/12/24 05:50 05/12/24 05:50 Labs: Laboratory Results - last 24 hr 05/10/24 05/11/24 05/11/24 20:03 18:10 18:15 MCV MCH MCHC RDW Plt Count MPV Immature Gran % (Auto) Neut % (Auto) Lymph % (Auto) [place] % (Auto) Eos % (Auto) Baso % (Auto) Lymph # (Auto) [place] # (Auto) Eos # (Auto) Baso # (Auto) Abs Immat Gran (auto) Absolute Neuts (auto) Absolute Nucleated RBC Nucleated RBC % (auto) Anion Gap Estim Creat Clear Calc Estimated GFR POC Glucose 158 H Random Glucose Calcium Magnesium Iron TIBC % Saturation Unsat Iron Binding Urine Color Urine Appearance Urine pH Ur Specific [place] Urine Protein Urine Glucose (UA) Urine Ketones Urine Blood Urine Nitrite Ur Leukocyte Esterase Urine RBC Urine WBC Ur Squamous Epith Cells Urine Bacteria Hyaline Casts U Random Total Protein Urine Creatinine Urine Microalbumin Microalb/Creat Ratio Nasal Screen MRSA (PCR) NEGATIVE Nasal S. aureus Screen NEGATIVE Nasal MRSA/S.aureus Interp SEE NOTE Hep Bs Antigen Hep Bs Antibody Hep B Core Total Ab Hepatitis C Ab (EIA) Blood Type O Positive Antibody Screen NEGATIVE Crossmatch See Detail 05/11/24 05/12/24 05/12/24 20:43 00:55 04:05 MCV MCH MCHC RDW Plt Count MPV Immature Gran % (Auto) Neut % (Auto) Lymph % (Auto) [place] % (Auto) Eos % (Auto) Baso % (Auto) Lymph # (Auto) [place] # (Auto) Eos # (Auto) Baso # (Auto) Abs Immat Gran (auto) Absolute Neuts (auto) Absolute Nucleated RBC Nucleated RBC % (auto) Anion Gap Estim Creat Clear Calc Estimated GFR POC Glucose 164 H Random Glucose Calcium Magnesium Iron TIBC % Saturation Unsat Iron Binding Urine Color Yellow Urine Appearance Clear Urine pH 6.5 Ur Specific [place] 1.010 Urine Protein Trace Urine Glucose (UA) Negative Urine Ketones Negative Urine Blood Negative Urine Nitrite Negative Ur Leukocyte Esterase Small (1+) H Urine RBC 0-2 Urine WBC 6-10 H Ur Squamous Epith Cells 0-2 Urine Bacteria None Seen Hyaline Casts 0-2 U Random Total Protein 125 H Urine Creatinine 29.94 Urine Microalbumin 208.0 Microalb/Creat Ratio 694.7 H Nasal Screen MRSA (PCR) Nasal S. aureus Screen Nasal MRSA/S.aureus Interp Hep Bs Antigen Negative Hep Bs Antibody REACTIVE Hep B Core Total Ab Nonreactive Hepatitis C Ab (EIA) Nonreactive Blood Type Antibody Screen Crossmatch 05/12/24 05/12/24 05/12/24 05:50 07:46 11:25 MCV 90.0 MCH 29.0 MCHC 32.2 RDW 15.7 Plt Count 339 MPV 9.6 Immature Gran % (Auto) 0.5 H Neut % (Auto) 76.8 H Lymph % (Auto) 11.7 L [place] % (Auto) 9.2 Eos % (Auto) 1.3 Baso % (Auto) 0.5 Lymph # (Auto) 1.5 [place] # (Auto) 1.2 Eos # (Auto) 0.2 Baso # (Auto) 0.1 Abs Immat Gran (auto) 0.06 H Absolute Neuts (auto) 9.7 H Absolute Nucleated RBC 0.000 Nucleated RBC % (auto) 0.0 Anion Gap 17 Estim Creat Clear Calc 23.4 Estimated GFR 24 POC Glucose 134 H 121 H Random Glucose 146 H Calcium 8.4 Magnesium 1.7 Iron 22 L TIBC 197 L % Saturation 11 L Unsat Iron Binding 175 Urine Color Urine Appearance Urine pH Ur Specific [place] Urine Protein Urine Glucose (UA) Urine Ketones Urine Blood Urine Nitrite Ur Leukocyte Esterase Urine RBC Urine WBC Ur Squamous Epith Cells Urine Bacteria Hyaline Casts U Random Total Protein Urine Creatinine Urine Microalbumin Microalb/Creat Ratio Nasal Screen MRSA (PCR) Nasal S. aureus Screen Nasal MRSA/S.aureus Interp Hep Bs Antigen Hep Bs Antibody Hep B Core Total Ab Hepatitis C Ab (EIA) Blood Type Antibody Screen Crossmatch Microbiology Microbiology Results: Microbiology 05/10/24 21:45 Blood Culture - Preliminary Blood - Venous No growth after 24 hours. 05/10/24 21:37 Blood Culture - Preliminary Blood - Venous No growth after 24 hours. Assessment and Plan (1) Acute congestive heart failure: Status: Acute Assessment and Plan: 83-year-old female with a past medical history significant for persistent AFib, CHF, type 2 diabetes (no meds, previously p.o.), and mild intermittent asthma who presented to the ED today with shortness of breath for the past 2 days. Patient was recent complicated admission for sepsis related to fever of unknown origin, presumed diverticulitis versus pneumonia, GRETCHEN, type 2 diabetes with hyperglycemia, mild intermittent asthma with acute exacerbation, hypertension and acute hypokalemia. Acute congestive heart failure exacerbation(unclear etiology ,echo pending) and possible hospital acquired pneumonia sob seems similar 1+ pitting edema on exam, BNP elevated at 557, chest x-ray with possible pulm edema elevated WBC at 11.9, ordered lactic acid normal and blood cultures x2 pending no sepsis at present. tachycardia secondary to untreated a fib and tachypnea due to pulmonary edema mild elevated trop sec in setting of chf. procalcitonin levels0.06 plan: moniter i/o and daily weights-strict i/o monitering sob improving nasal mrsa negative receved vanco from 04/10/04/12-switches po doxycycline(started on 04/12) and zosyn ( intiated on 04/10) monior CBC, BMP, BNP hypokalemia/hypomagnesemia given iv and po replacements continue to moniter electrolytes closely. anemia of acute blood loss -melena/microscopic hematuria h/h is 8.7/27 after 1 prbc. moniter h/h closely Gi -continue ppi,moniter h/h,1 prbc added,egd today GRETCHEN: insetting of chf moniter renal function and electrolytes closely a fib - rate controlled - unable to add anticoagulant due to melena - monitor with tele T2DM - diabetic diet/cardiac diet - sliding scale insulin mild intermittent asthma without acute exacerbation - no wheezing on exam - albuterol PRN obesity - weight loss encouraged - BMI 30.2 VTE prophy: pneumoboots, anticoagulant contraindicated with anemia and melena acute congestive heart failure exacerbation and possible hospital acquired pneumonia,chf ,anemia :need iv diuretics ,moniter renal function and electrolytes as well as 1/o monitering, gretchen,ppi , h/h , need egd. Quality Stroke Does the patient have a stroke diagnosis?: No VTE Prior VTE?: No VTE Risk Level:: Medical - moderate - high VTE Device Contraindication: N/A - Device Ordered VTE Drug Contraindication: Treatment Not Indicated
--- NOTE | 2024-05-12 13:24 | HO.ANESPROP2 ---
[facility] Active Problems Active Problems: All Active Problems Hospital acquired PNA (Acute) Acute congestive heart failure (Acute) Atrial fibrillation (Acute) Edema, peripheral (Acute) Anemia (Acute) Congestive heart failure (Acute) Anemia (Acute) LITA (acute kidney injury) (Acute) Right lower lobe pulmonary infiltrate (Acute) Fever of unknown origin (Acute) Obesity (BMI 30.0-34.9) (Acute) Seizure-like activity (Acute) Sepsis (Acute) Sigmoid diverticulitis (Acute) Mild intermittent asthma (Acute) Type 2 diabetes mellitus without complications (Acute) Past Medical History Medical History Anemia Sigmoid diverticulitis Congestive heart failure Atrial fibrillation Fever of unknown origin Mild intermittent asthma Type 2 diabetes mellitus without complications Functional capacity: independent ambulation Family History Family history of problems with anesthesia: No Surgical History History of Problems with Anesthesia: No Social History Social History Household Members: None Household Members Other:: penitentiary Housing: Apartment Housing Other:: penitentiary Do you presently have visiting nurse or other home services: Yes Comment: 1:1 sitter Patient Tobacco Use Status: Never used Tobacco service: No Meds Allergies Allergy/AdvReac Type Severity Reaction Status Date / Time No Known Allergies Allergy Verified 05/10/24 17:43 Active Medications: Current Medications Acetaminophen (Acetaminophen 325 Mg Tablet) 975 mg PO Q6H PRN PRN Reason: Pain, Mild (Pain Scale 1-3), fever or headache Albuterol Sulfate (Albuterol Sulfate 90 Mcg 8 Gm Inhaler) 2 puff INHALE RQ4H PRN PRN Reason: Wheezing Ascorbic Acid (Ascorbic Acid 500 Mg Tablet) 500 mg PO DAILY [facility] Last Admin: 05/12/24 08:53 Dose: 500 mg Calcium Carbonate (Calcium Carbonate 750 Mg Tab.Chew) 750 mg PO Q4H PRN PRN Reason: Heartburn Calcium Carbonate (Calcium Oyster Shell Elemental 500 Mg Tablet) 500 mg PO DAILY [facility] Last Admin: 05/12/24 08:53 Dose: 500 mg Empagliflozin (Empagliflozin 10 Mg Tablet) 10 mg PO DAILY [facility] Last Admin: 05/12/24 08:53 Dose: 10 mg Furosemide (Furosemide 40 Mg/4 Ml Vial) 40 mg IVPUSH Q12H [facility]; Protocol Last Admin: 05/12/24 12:44 Dose: 40 mg Glucose (Glucose Gel 15 Gm Gel..Gram.) 15 gm PO Q15M PRN; Protocol PRN Reason: per Hypoglycemia Standing Ord. Dextrose (D10) 250 mls @ 750 mls/hr IV Q15M PRN; Protocol PRN Reason: per Hypoglycemia Standing Ord. Piperacillin Sod/Tazobactam (Sod 3.375 gm/ Sodium Chloride) 50 mls @ 100 mls/hr IV Q6H [facility] Last Infusion: 05/12/24 10:02 Dose: Infused Doxycycline Hyclate 100 mg/ (Sodium Chloride) 250 mls @ 166.67 mls/hr IV Q12H [facility] Insulin Human Lispro (Insulin Lispro 100 Unit/Ml 3 Ml Vial) 0 unit SUBCUT QIDACHS [facility]; Protocol Last Admin: 05/12/24 11:44 Dose: Not Given Magnesium Hydroxide (Milk Of Magnesia 30 Ml Oral.Susp) 30 ml PO DAILY PRN PRN Reason: Constipation Melatonin (Melatonin 3 Mg Tablet) 6 mg PO BEDTIME PRN PRN Reason: Insomnia Last Admin: 05/11/24 21:54 Dose: 6 mg Metoprolol Tartrate (Metoprolol Tartrate 12.5 Mg Halftab) 12.5 mg PO QID [facility]; Protocol Last Admin: 05/12/24 12:44 Dose: 12.5 mg Morphine Sulfate (Morphine Sulfate 4 Mg/Ml Cartridge) 2 mg IVPUSH Q4H PRN; Protocol PRN Reason: Pain, Severe (Pain Scale 7-10) Multivitamins/Vitamin C (Multivitamin Tablet) 1 tab PO DAILY [facility] Last Admin: 05/12/24 08:53 Dose: 1 tab Ondansetron HCl (Ondansetron Hcl 4 Mg/2 Ml Vial) 4 mg IVPUSH Q8H PRN PRN Reason: Nausea and Vomiting Oxycodone HCl (Oxycodone Hcl Immed Release 5 Mg Tablet) 5 mg PO Q6H PRN PRN Reason: Pain, Moderate(Pain Scale 4-6) Pantoprazole Sodium (Pantoprazole Sodium 40 Mg/10 Ml Vial) 40 mg IVPUSH BID@0630,1630 [facility] Last Admin: 05/12/24 05:34 Dose: 40 mg Sodium Chloride (0.9 % Sodium Chloride Flush 3 Ml Syringe) 3 ml IVFLUSH QSHIFT [facility] Last Admin: 05/12/24 08:54 Dose: 3 ml Home Medications ?Medication ?Instructions ?Recorded ?Confirmed ?Last Taken ?Type ascorbic acid (vitamin C) 500 mg 500 mg PO DAILY 05/10/24 05/10/24 05/09/24 History tablet (Vitamin C) calcium carbonate 500 mg PO DAILY 05/10/24 05/10/24 05/10/24 History dalifmvz-aymy-jlen 8 mg-folic 400 1 tab PO DAILY 05/10/24 05/10/24 05/09/24 History mcg-K 50 mcg-lutein 300 mcg tablet (Centrum Silver Women) Exam Height,Weight and Vital Signs: Height 5 ft 2 in Weight 90.5 kg Last Vital Signs Temp 99.0 F 05/12/24 11:51 Pulse 77 05/12/24 11:51 Resp 16 05/12/24 11:51 BP 159/83 H 05/12/24 12:44 Pulse Ox 97 05/12/24 11:51 O2 Del Method Nasal Cannula 05/12/24 11:51 O2 Flow Rate 1 05/12/24 11:51 Pertinent Lab Results Pertinent Lab Results: Laboratory Tests 05/10/24 05/10/24 05/10/24 18:00 20:03 21:15 WBC 11.9 H RBC 2.64 L Hgb 7.8 L Hct 23.7 L MCV 89.8 D MCH 29.5 MCHC 32.9 RDW 15.0 Plt Count 381 MPV 9.7 Immature Gran % (Auto) 0.6 H Neut % (Auto) 72.2 Lymph % (Auto) 16.9 L [place] % (Auto) 9.9 Eos % (Auto) 0.3 Baso % (Auto) 0.1 Lymph # (Auto) 2.0 [place] # (Auto) 1.2 Eos # (Auto) 0.0 Baso # (Auto) 0.0 Abs Immat Gran (auto) 0.07 H Absolute Neuts (auto) 8.6 H Absolute Nucleated RBC 0.000 Nucleated RBC % (auto) 0.0 PT 13.1 H D INR 1.1 APTT 27.5 Sodium 143 Potassium 3.1 L Chloride 106 Carbon Dioxide 24 Anion Gap 16 BUN 16 Creatinine 1.86 H Estim Creat Clear Calc 22.4 Estimated GFR 26 POC Glucose Random Glucose 184 H Lactic Acid Calcium 8.7 Magnesium 1.3 L* Iron TIBC % Saturation Unsat Iron Binding Total Bilirubin 0.3 AST 37 H ALT 31 Alkaline Phosphatase 56 Troponin I High Sens 62.5 H* D 59.0 H* B-Natriuretic Peptide 557 H Total Protein 6.0 L Albumin 3.2 L Procalcitonin 0.06 Urine Color Urine Appearance Urine pH Ur Specific [place] Urine Protein Urine Glucose (UA) Urine Ketones Urine Blood Urine Nitrite Ur Leukocyte Esterase Urine RBC Urine WBC Ur Squamous Epith Cells Urine Bacteria Hyaline Casts U Random Total Protein Urine Creatinine Urine Microalbumin Microalb/Creat Ratio Nasal Screen MRSA (PCR) Nasal S. aureus Screen Nasal MRSA/S.aureus Interp Stool Occult Blood NEGATIVE Hep Bs Antigen Hep Bs Antibody Hep B Core Total Ab Hepatitis C Ab (EIA) Blood Type O Positive Antibody Screen NEGATIVE Crossmatch See Detail 05/10/24 05/11/24 05/11/24 21:37 01:28 04:48 WBC 15.0 H RBC 2.63 L Hgb 7.5 L Hct 23.3 L MCV 88.6 MCH 28.5 MCHC 32.2 RDW 15.1 Plt Count 359 MPV 10.3 Immature Gran % (Auto) 0.5 H Neut % (Auto) 77.0 H Lymph % (Auto) 11.9 L [place] % (Auto) 9.9 Eos % (Auto) 0.5 Baso % (Auto) 0.2 Lymph # (Auto) 1.8 [place] # (Auto) 1.5 H Eos # (Auto) 0.1 Baso # (Auto) 0.0 Abs Immat Gran (auto) 0.07 H Absolute Neuts (auto) 11.6 H Absolute Nucleated RBC 0.000 Nucleated RBC % (auto) 0.0 PT INR APTT Sodium 143 142 Potassium 3.1 L 3.0 L Chloride 106 104 Carbon Dioxide 24 26 Anion Gap 16 15 BUN 15 14 Creatinine 1.83 H 1.83 H Estim Creat Clear Calc 22.8 22.8 Estimated GFR 26 26 POC Glucose Random Glucose 215 H 176 H Lactic Acid 1.2 Calcium 8.4 8.4 Magnesium 1.5 L 1.5 L Iron TIBC % Saturation Unsat Iron Binding Total Bilirubin AST ALT Alkaline Phosphatase Troponin I High Sens B-Natriuretic Peptide 576 H Total Protein Albumin Procalcitonin Urine Color Urine Appearance Urine pH Ur Specific [place] Urine Protein Urine Glucose (UA) Urine Ketones Urine Blood Urine Nitrite Ur Leukocyte Esterase Urine RBC Urine WBC Ur Squamous Epith Cells Urine Bacteria Hyaline Casts U Random Total Protein Urine Creatinine Urine Microalbumin Microalb/Creat Ratio Nasal Screen MRSA (PCR) Nasal S. aureus Screen Nasal MRSA/S.aureus Interp Stool Occult Blood Hep Bs Antigen Hep Bs Antibody Hep B Core Total Ab Hepatitis C Ab (EIA) Blood Type Antibody Screen Crossmatch 05/11/24 05/11/24 05/11/24 07:16 12:20 15:40 WBC RBC Hgb Hct MCV MCH MCHC RDW Plt Count MPV Immature Gran % (Auto) Neut % (Auto) Lymph % (Auto) [place] % (Auto) Eos % (Auto) Baso % (Auto) Lymph # (Auto) [place] # (Auto) Eos # (Auto) Baso # (Auto) Abs Immat Gran (auto) Absolute Neuts (auto) Absolute Nucleated RBC Nucleated RBC % (auto) PT INR APTT Sodium Potassium 3.9 D Chloride Carbon Dioxide Anion Gap BUN Creatinine Estim Creat Clear Calc Estimated GFR POC Glucose 173 H 123 H Random Glucose Lactic Acid Calcium Magnesium Iron TIBC % Saturation Unsat Iron Binding Total Bilirubin AST ALT Alkaline Phosphatase Troponin I High Sens B-Natriuretic Peptide Total Protein Albumin Procalcitonin Urine Color Urine Appearance Urine pH Ur Specific [place] Urine Protein Urine Glucose (UA) Urine Ketones Urine Blood Urine Nitrite Ur Leukocyte Esterase Urine RBC Urine WBC Ur Squamous Epith Cells Urine Bacteria Hyaline Casts U Random Total Protein Urine Creatinine Urine Microalbumin Microalb/Creat Ratio Nasal Screen MRSA (PCR) Nasal S. aureus Screen Nasal MRSA/S.aureus Interp Stool Occult Blood Hep Bs Antigen Hep Bs Antibody Hep B Core Total Ab Hepatitis C Ab (EIA) Blood Type Antibody Screen Crossmatch 05/11/24 05/11/24 05/11/24 18:10 18:15 20:43 WBC RBC Hgb Hct MCV MCH MCHC RDW Plt Count MPV Immature Gran % (Auto) Neut % (Auto) Lymph % (Auto) [place] % (Auto) Eos % (Auto) Baso % (Auto) Lymph # (Auto) [place] # (Auto) Eos # (Auto) Baso # (Auto) Abs Immat Gran (auto) Absolute Neuts (auto) Absolute Nucleated RBC Nucleated RBC % (auto) PT INR APTT Sodium Potassium Chloride Carbon Dioxide Anion Gap BUN Creatinine Estim Creat Clear Calc Estimated GFR POC Glucose 158 H 164 H Random Glucose Lactic Acid Calcium Magnesium Iron TIBC % Saturation Unsat Iron Binding Total Bilirubin AST ALT Alkaline Phosphatase Troponin I High Sens B-Natriuretic Peptide Total Protein Albumin Procalcitonin Urine Color Urine Appearance Urine pH Ur Specific [place] Urine Protein Urine Glucose (UA) Urine Ketones Urine Blood Urine Nitrite Ur Leukocyte Esterase Urine RBC Urine WBC Ur Squamous Epith Cells Urine Bacteria Hyaline Casts U Random Total Protein Urine Creatinine Urine Microalbumin Microalb/Creat Ratio Nasal Screen MRSA (PCR) NEGATIVE Nasal S. aureus Screen NEGATIVE Nasal MRSA/S.aureus Interp SEE NOTE Stool Occult Blood Hep Bs Antigen Hep Bs Antibody Hep B Core Total Ab Hepatitis C Ab (EIA) Blood Type Antibody Screen Crossmatch 05/12/24 05/12/24 05/12/24 00:55 04:05 05:50 WBC 12.7 H RBC 3.00 L Hgb 8.7 L Hct 27.0 L MCV 90.0 MCH 29.0 MCHC 32.2 RDW 15.7 Plt Count 339 MPV 9.6 Immature Gran % (Auto) 0.5 H Neut % (Auto) 76.8 H Lymph % (Auto) 11.7 L [place] % (Auto) 9.2 Eos % (Auto) 1.3 Baso % (Auto) 0.5 Lymph # (Auto) 1.5 [place] # (Auto) 1.2 Eos # (Auto) 0.2 Baso # (Auto) 0.1 Abs Immat Gran (auto) 0.06 H Absolute Neuts (auto) 9.7 H Absolute Nucleated RBC 0.000 Nucleated RBC % (auto) 0.0 PT INR APTT Sodium 142 Potassium 4.0 Chloride 105 Carbon Dioxide 24 Anion Gap 17 BUN 15 Creatinine 1.97 H Estim Creat Clear Calc 23.4 Estimated GFR 24 POC Glucose Random Glucose 146 H Lactic Acid Calcium 8.4 Magnesium 1.7 Iron 22 L TIBC 197 L % Saturation 11 L Unsat Iron Binding 175 Total Bilirubin AST ALT Alkaline Phosphatase Troponin I High Sens B-Natriuretic Peptide Total Protein Albumin Procalcitonin Urine Color Yellow Urine Appearance Clear Urine pH 6.5 Ur Specific [place] 1.010 Urine Protein Trace Urine Glucose (UA) Negative Urine Ketones Negative Urine Blood Negative Urine Nitrite Negative Ur Leukocyte Esterase Small (1+) H Urine RBC 0-2 Urine WBC 6-10 H Ur Squamous Epith Cells 0-2 Urine Bacteria None Seen Hyaline Casts 0-2 U Random Total Protein 125 H Urine Creatinine 29.94 Urine Microalbumin 208.0 Microalb/Creat Ratio 694.7 H Nasal Screen MRSA (PCR) Nasal S. aureus Screen Nasal MRSA/S.aureus Interp Stool Occult Blood Hep Bs Antigen Negative Hep Bs Antibody REACTIVE Hep B Core Total Ab Nonreactive Hepatitis C Ab (EIA) Nonreactive Blood Type Antibody Screen Crossmatch 05/12/24 05/12/24 07:46 11:25 WBC RBC Hgb Hct MCV MCH MCHC RDW Plt Count MPV Immature Gran % (Auto) Neut % (Auto) Lymph % (Auto) [place] % (Auto) Eos % (Auto) Baso % (Auto) Lymph # (Auto) [place] # (Auto) Eos # (Auto) Baso # (Auto) Abs Immat Gran (auto) Absolute Neuts (auto) Absolute Nucleated RBC Nucleated RBC % (auto) PT INR APTT Sodium Potassium Chloride Carbon Dioxide Anion Gap BUN Creatinine Estim Creat Clear Calc Estimated GFR POC Glucose 134 H 121 H Random Glucose Lactic Acid Calcium Magnesium Iron TIBC % Saturation Unsat Iron Binding Total Bilirubin AST ALT Alkaline Phosphatase Troponin I High Sens B-Natriuretic Peptide Total Protein Albumin Procalcitonin Urine Color Urine Appearance Urine pH Ur Specific [place] Urine Protein Urine Glucose (UA) Urine Ketones Urine Blood Urine Nitrite Ur Leukocyte Esterase Urine RBC Urine WBC Ur Squamous Epith Cells Urine Bacteria Hyaline Casts U Random Total Protein Urine Creatinine Urine Microalbumin Microalb/Creat Ratio Nasal Screen MRSA (PCR) Nasal S. aureus Screen Nasal MRSA/S.aureus Interp Stool Occult Blood Hep Bs Antigen Hep Bs Antibody Hep B Core Total Ab Hepatitis C Ab (EIA) Blood Type Antibody Screen Crossmatch Airway Mallampati Class: III TM Dist: >3cm Neck ROM: Limited Denture: Upper Assessment and Plan Assessment Anesthesia Assessment: Anesthesia Plan Discussed and Chart Reviewed Final Anesthetic Review Family History of Problems with Anesthesia: No History of Problems with Anesthesia: No NPO: Yes ASA Class: III and Emergency Final Preanesthetic Review: No Changes in Pt Med Stat, Meds/Allgs Chart Reviewed, Consent Obtained/Reviewed and Anes Risks/Benef Reviewed Patient Risk: Intermediate Procedure Risk: Low Anesthetic Plan Anesthetic Plan: TIVA Disposition: Standard PACU
[2024-05-12] MEDS: Lactated Ringers 1,000 ML 50 ML IVCONT (13:53)
--- NOTE | 2024-05-12 13:54 | PC.NURSE ---
anesthesia made aware of jardiance taken today and ok'd to proceed without new orders.
--- NOTE | 2024-05-12 14:09 | P.CONNP_ITS ---
History of Present Illness Reason for Consult Consult date: 05/12/24 Reason for consult: LITA/CKD Chief Complaint Chief complaint: CHF Exacerbation ? Hospital Acquired Pneumonia History of Present Illness Narrative: RTANE consulted for LITA/CKD vs prog CKD and at new BSL PT examined and chart reveiwed Readm with incr SOB and leg swelling with decr Hb and WRF. Recently hosp end of last month with fever and LITA with Scr stuck at 1.5.-2.0 which was 0.9-1.3 prior to 04/2024 hosp. Espinoza for LITA unrevealing but Scr stable and presumed multifact ATN with sepsis and ques CRSyn given dCHF. Sero and renal U/S from last hosp noted Cont to c/o SOB Getting GI eval and card Prior ECHO preserved EF with ques DDysfunc Review of Systems Review of Systems sob seems improving she says she is urinating a lot -i/o ?not reflecting no fever Yes all other systems are reviewed and are negative Constitutional: Denies chills, Reports fatigue, Denies fever(s), Denies headache(s) and Reports weakness Eyes: Reports no additional eye complaints and Denies change in vision Denies headache(s), Denies nasal congestion, Denies nasal discharge and Denies sore throat Cardiovascular: Denies chest pain, Denies rapid heart rate, Reports leg edema, Denies lightheadedness, Denies Loss of Consciousness, Denies palpitations, Reports dyspnea, Reports dyspnea on exertion and Reports orthopnea Respiratory: Denies chest congestion, Denies cough, Reports dyspnea, Reports dyspnea on exertion and Reports wheezing Gastrointestinal: Reports no additional gastrointestinal complaints, Reports abdominal pain, Reports melena, Denies constipation, Reports diarrhea, Denies nausea and Denies vomiting Musculoskeletal: Reports no additional musculoskeletal complaints and Denies muscle cramps Skin/Breast: Reports system reviewed and no additional complaints, except as docu and Denies rash Reports system reviewed and no additional complaints, except as documented, Denies confusion, Denies headache(s) and Reports weakness Psychiatric: Reports no additional psychiatric complaints and Denies confusion Endocrine: Reports fatigue and Denies palpitations Hematologic/Lymphatic: Denies easy bleeding Allergic/Immunologic: Reports wheezing PMFSH Past Medical History Medical History Anemia Sigmoid diverticulitis Congestive heart failure Atrial fibrillation Fever of unknown origin Mild intermittent asthma Type 2 diabetes mellitus without complications Social History Social History Household Members: None Household Members Other:: shelter Housing: Apartment Housing Other:: shelter Do you presently have visiting nurse or other home services: Yes Comment: 1:1 sitter Patient Tobacco Use Status: Never used Tobacco service: No Meds Allergies Allergy/AdvReac Type Severity Reaction Status Date / Time No Known Allergies Allergy Verified 05/10/24 17:43 Active Medications: Current Medications Acetaminophen (Acetaminophen 325 Mg Tablet) 975 mg PO Q6H PRN PRN Reason: Pain, Mild (Pain Scale 1-3), fever or headache Albuterol Sulfate (Albuterol Sulfate 90 Mcg 8 Gm Inhaler) 2 puff INHALE RQ4H PRN PRN Reason: Wheezing Ascorbic Acid (Ascorbic Acid 500 Mg Tablet) 500 mg PO DAILY NADINE Last Admin: 05/12/24 08:53 Dose: 500 mg Calcium Carbonate (Calcium Carbonate 750 Mg Tab.Chew) 750 mg PO Q4H PRN PRN Reason: Heartburn Calcium Carbonate (Calcium Oyster Shell Elemental 500 Mg Tablet) 500 mg PO DAILY NADINE Last Admin: 05/12/24 08:53 Dose: 500 mg Empagliflozin (Empagliflozin 10 Mg Tablet) 10 mg PO DAILY NADINE Last Admin: 05/12/24 08:53 Dose: 10 mg Furosemide (Furosemide 40 Mg/4 Ml Vial) 40 mg IVPUSH Q12H NADINE; Protocol Last Admin: 05/12/24 12:44 Dose: 40 mg Glucose (Glucose Gel 15 Gm Gel..Gram.) 15 gm PO Q15M PRN; Protocol PRN Reason: per Hypoglycemia Standing Ord. Dextrose (D10) 250 mls @ 750 mls/hr IV Q15M PRN; Protocol PRN Reason: per Hypoglycemia Standing Ord. Piperacillin Sod/Tazobactam (Sod 3.375 gm/ Sodium Chloride) 50 mls @ 100 mls/hr IV Q6H NADINE Last Infusion: 05/12/24 10:02 Dose: Infused Doxycycline Hyclate 100 mg/ (Sodium Chloride) 250 mls @ 166.67 mls/hr IV Q12H NADINE Lactated Ringer's (Lr) 1,000 mls @ 50 mls/hr IVCONT .Q20H NADINE Last Admin: 05/12/24 13:53 Dose: 50 mls/hr Insulin Human Lispro (Insulin Lispro 100 Unit/Ml 3 Ml Vial) 0 unit SUBCUT QIDACHS [facility]; Protocol Last Admin: 05/12/24 11:44 Dose: Not Given Magnesium Hydroxide (Milk Of Magnesia 30 Ml Oral.Susp) 30 ml PO DAILY PRN PRN Reason: Constipation Melatonin (Melatonin 3 Mg Tablet) 6 mg PO BEDTIME PRN PRN Reason: Insomnia Last Admin: 05/11/24 21:54 Dose: 6 mg Metoprolol Tartrate (Metoprolol Tartrate 12.5 Mg Halftab) 12.5 mg PO QID [facility]; Protocol Last Admin: 05/12/24 12:44 Dose: 12.5 mg Morphine Sulfate (Morphine Sulfate 4 Mg/Ml Cartridge) 2 mg IVPUSH Q4H PRN; Protocol PRN Reason: Pain, Severe (Pain Scale 7-10) Multivitamins/Vitamin C (Multivitamin Tablet) 1 tab PO DAILY [facility] Last Admin: 05/12/24 08:53 Dose: 1 tab Naloxone HCl (Naloxone Hcl 0.4 Mg/Ml Vial) 0.04 mg IVPUSH Q5M PRN PRN Reason: Excessive sedation or RR < 8 Ondansetron HCl (Ondansetron Hcl 4 Mg/2 Ml Vial) 4 mg IVPUSH Q8H PRN PRN Reason: Nausea and Vomiting Oxycodone HCl (Oxycodone Hcl Immed Release 5 Mg Tablet) 5 mg PO Q6H PRN PRN Reason: Pain, Moderate(Pain Scale 4-6) Pantoprazole Sodium (Pantoprazole Sodium 40 Mg/10 Ml Vial) 40 mg IVPUSH BID@0630,1630 [facility] Last Admin: 05/12/24 05:34 Dose: 40 mg Sodium Chloride (0.9 % Sodium Chloride Flush 3 Ml Syringe) [address] [facility] Last Admin: 05/12/24 08:54 Dose: 3 ml Home Medications ?Medication ?Instructions ?Recorded ?Confirmed ?Last Taken ?Type ascorbic acid (vitamin C) 500 mg 500 mg PO DAILY 05/10/24 05/10/24 05/09/24 History tablet (Vitamin C) calcium carbonate 500 mg PO DAILY 05/10/24 05/10/24 05/10/24 History cylbgnqx-ewct-ceyw 8 mg-folic 400 1 tab PO DAILY 05/10/24 05/10/24 05/09/24 History mcg-K 50 mcg-lutein 300 mcg tablet (Centrum Silver Women) Physical Exam Vital Signs: Last Vital Signs Temp 98.6 F 05/12/24 13:33 Pulse 77 05/12/24 13:33 Resp 18 05/12/24 13:33 BP 169/82 H 05/12/24 13:33 Pulse Ox 98 05/12/24 13:33 O2 Del Method Room Air 05/12/24 13:33 O2 Flow Rate 1 05/12/24 11:51 BMI result Body Mass Index 36.5 Const General: cooperative and in distress mild and respiratory; No confusion Nutritional Appearance: obese Orientation/consciousness: patient oriented x3 and No confusion Limitations: no limitations and No language barrier HEENT Head: Yes normocephalic and Yes atraumatic Neck Neck: Yes trachea midline, Yes supple and Yes JVD Resp Effort & Inspection: normal respiratory effort Auscultation: clear to auscultation bilaterally and breath sounds absent bilateral Cardio Jugular venous distension: no JVD and JVD Rate: regular rate and tachycardic Rhythm: regular rhythm and abnormal rhythm irregularly irregular Heart sounds: S1 normal heart sound present, S2 normal heart sound present, no click, no gallops, no murmurs and no rubs GI Inspection: Yes obesity Auscultation: normal bowel sounds Skin General skin exam: no rashes or lesions noted Neuro General: patient oriented x3, no focal motor deficits and No confusion Extrem General: No clubbing, No cyanosis and Yes edema Psych Appearance: grossly normal Results Lab Results 05/12/24 05:50 05/12/24 05:50 Lab results: Chemistry 05/10/24 05/11/24 05/11/24 18:00 01:28 04:48 Sodium 143 143 142 Potassium 3.1 L 3.1 L 3.0 L Carbon Dioxide 24 24 26 BUN 16 15 14 Creatinine 1.86 H 1.83 H 1.83 H Calcium 8.7 8.4 8.4 05/11/24 05/12/24 15:40 05:50 Sodium 142 Potassium 3.9 D 4.0 Carbon Dioxide 24 BUN 15 Creatinine 1.97 H Calcium 8.4 Hematology 12/09/24 12/10/24 12/11/24 18:00 04:48 05:50 WBC 11.9 H 15.0 H 12.7 H Hgb 7.8 L 7.5 L 8.7 L Plt Count 381 359 339 Urinalysis 05/12/24 04:05 Urine Color Yellow Urine Appearance Clear Urine pH 6.5 Ur Specific [place] 1.010 Urine Protein Trace Urine Glucose (UA) Negative Urine Ketones Negative Urine Blood Negative Urine Nitrite Negative Ur Leukocyte Esterase Small (1+) H Urine RBC 0-2 Urine WBC 6-10 H Ur Squamous Epith Cells 0-2 Hyaline Casts 0-2 Urine Studies 05/12/24 04:05 Urine Creatinine 29.94 Assessment and Plan (1) Acute congestive heart failure: Status: Acute 83-year-old female with a past medical history significant for persistent AFib, CHF, type 2 diabetes (no meds, previously p.o.), and mild intermittent asthma who presented to the ED today with shortness of breath for the past 2 days. Patient was recent complicated admission for sepsis related to fever of unknown origin, presumed diverticulitis versus pneumonia, LITA, type 2 diabetes with hyperglycemia, mild intermittent asthma with acute exacerbation, hypertension and acute hypokalemia. 1. LITA: prior to last hosp SCr BSL 0.8-1.2 and now Scr 1.5-2.0 and ques at new BSL vs delay recovery to BSL and ques CRSyn vs delayed ATN recovery Other poss need to be r/o AGN: infectioous assoc, ANCA etc need to be r/o with sero AIN: from recent inf vs ABx Obs: r/o in past by beg renal /S CRSyn with renal congestion--less likely 2. Ques CKD: at risk for CKD from DM and recent LITA; remains to be seen what BSL renal func is 3. Hypervol: clearly vol overloaded on exam REC: sero and urine studeis as noted; diuretcis as ordered Will follow valentin blackman team Procedures Date of Service Date of Service: 05/12/24
--- NOTE | 2024-05-12 14:21 | PM.OP ---
Brief Operative Note Date of Service: 05/12/24 Pre-op diagnosis: anemia, black heme pos stool Post-op diagnosis: same (duodenal ulcer) Procedure: EGD Surgeon: Rajeev Mora MD Anesthesia: MAC Was an Shrinking Machine Operator used for this Procedure?: No Estimated blood loss (mL): 2 Pathology: other Condition: stable Disposition: PACU
--- NOTE | 2024-05-12 14:23 | PM.EVENT ---
Event Note Date of Service: 05/12/24 Event Note: EGD note dictated large duodenal ulcer in bulb no bleeding antral bx's taken Rec: advance diet ppi no anticoagulation for 1 week no nsaids Time Spent With Patient Time: Total time managing care of this patient today ____ minutes.
--- NOTE | 2024-05-12 14:59 | OP_ITS ---
DATE OF SERVICE: 05/12/2024 SURGEON: Rajeev Mora MD INDICATIONS: Anemia and Hemoccult-positive stools. PREOPERATIVE DIAGNOSIS: POSTOPERATIVE DIAGNOSIS: PROCEDURE PERFORMED: Upper endoscopy with biopsy. ESTIMATED BLOOD LOSS: COMPLICATIONS: ANESTHESIA: Monitored anesthesia care. ASSISTANTS: SPECIMENS: DESCRIPTION OF PROCEDURE: A history and physical was performed. The risks and benefits of the procedure were explained to the patient and informed consent was obtained. The patient was placed in the left lateral decubitus position. The Olympus video gastroscope was introduced into the esophagus, stomach, and duodenum. Examination was performed and the scope was removed. She tolerated the procedure well and was returned to recovery area in stable condition. FINDINGS: Esophagus: The esophagus was normal. There was no esophagitis. Stomach: The stomach showed no evidence of masses, ulcers, or polyps. Antral biopsies were obtained to evaluate for H pylori. Duodenum: There was a large duodenal ulcer involving over 50% of the duodenal bulb measuring approximately 5 x 6 cm. There was no bleeding or stigmata of recent hemorrhage. The 2nd portion appeared normal. IMPRESSION: Duodenal ulcer. RECOMMENDATION: Follow up the biopsy results. Hold anticoagulation for 1 week if possible. No NSAIDs BID ppi x 1 month, then daily. Repeat EGD in 8-12 weeks. MD MANISHA Nickerson/SIERRAL / [id number] MTDD
[2024-05-12] MEDS: Doxycycline Hyclate 100 MG in 0.9 % Sodium Chloride 250 ML 166.67 MG IV (15:29)
[2024-05-12 16:05] LABS: Glucose, Whole Blood 96 mg/dL (60-115)
--- OUTSIDE RECORDS SUMMARY | 2024-05-12 18:08 | XMS_ITS ---
Author Organization [facility] Address [address] [place] [address] Care Team Providers Care Automatic Outsole Cutter Name Role Phone Chanelle Mauricio Primary Care Provider Unavailab Rajeev Frederick Jr Unavailable REASON FOR VISIT anemia,black stool Encounters Encounter Location Date Provider Diagnosis [facility] [place] [address] [place] [id number] 05/12/2024 Rajeev Mora Jr PLAN OF TREATMENT No Information
--- OUTSIDE RECORDS SUMMARY | 2024-05-12 18:08 | XMS_ITS | Patient Health Record ---
Author Organization [facility] Address [address] [place] [address] Care Team Providers Care Casting Molder Name Role Phone RenettaDanny galvanma Primary Care Provider Unavailab Rajeev Frederick Jr REASON FOR REFERRAL No Information SOCIAL HISTORY Sex Assigned At : Social History Observation Description Sex Assigned At Unknown Encounters Encounter Location Date Provider Diagnosis [facility] [place] [address] [facility] [place] [id number] 05/12/2024 Rajeev Mora Jr PLAN OF TREATMENT No Information Insurance Providers Payer Name Payer Address Payer Phone Subscriber Number Group Number Insured Name Patient Relationship to Insured Coverage Start Date Coverage End Date [facility] [address] [place] [address] [id number] ODESSA MURDOCK Self - patient is the insured
[2024-05-12 19:57] LABS: Glucose, Whole Blood 247 mg/dL (60-115)
[2024-05-12] MEDS: Insulin Lispro 100 UNIT/ML 3 ML VIAL SUBCUT (20:08)
[2024-05-13] VITALS (11 sets, daily range): BP systolic 115–166; BP diastolic 62–77; PULSE 69–79; RESP 16–20; TEMP 36.3–37.1; O2SAT 87–100; BMI 36.8
[2024-05-13] MEDS: Doxycycline Hyclate 100 MG in 0.9 % Sodium Chloride 250 ML 166.67 MG IV ×2 (01:36→12:18)
[2024-05-13] MEDS: Piperacillin Sodium/Tazobactam 3.375 GM in 0.9 % Sodium Chloride 50 ML IV ×4 (03:33→21:27)
[2024-05-13] MEDS: Pantoprazole Sodium 40 MG/10 ML VIAL IVPUSH ×2 (05:47→17:05)
[2024-05-13 07:26] LABS: MANUAL DIFF FLAG NO
[2024-05-13 07:31] LABS: Glucose, Whole Blood 140 mg/dL (60-115)
[2024-05-13 07:40] LABS: Basophils Percent Auto 0.4 % (0-2); Eosinophils Absolute Auto 0.1 X10*3/uL (0.0-0.4); Eosinophils Percent Auto 0.5 % (0-4); Hematocrit 25.1 % (37.0-47.0); Imm Gran Abs Auto 0.06 X10*3/uL (0.00-0.03); Imm Gran Pct Auto 0.5 % (0.0-0.4); Lymphocytes Absolute Auto 1.8 X10*3/uL (1.2-4.9); Lymphocytes Percent Auto 15.9 % (20-40); Mean Corpuscular HGB Conc 31.9 g/dl (31.0-35.0); Mean Corpuscular Hemoglobin 28.4 pg (27.0-33.0); Mean Platelet Volume 9.8 fL (9.4-12.3); Monocytes Absolute Auto 1.1 X10*3/uL (0.1-1.2); Monocytes Percent Auto 9.9 % (2-11); Neutrophils Absolute Auto 8.1 x10*3/uL (2.0-8.3); Neutrophils Percent Auto 72.8 % (45-73); Platelet Count 338 X10*3/uL (160-400); Red Blood Count 2.82 X10*6/uL (4.20-5.50); Red Cell Distribution Width 15.6 % (11.0-16.0); White Blood Count 11.1 X10*3/uL (4.8-10.8)
[2024-05-13] MEDS: Multivitamin TABLET 1 TAB PO (07:50)
[2024-05-13] MEDS: Empagliflozin 10 MG TABLET PO (07:50)
[2024-05-13] MEDS: Metoprolol Tartrate 12.5 MG HALFTAB PO ×4 (07:50→21:28)
[2024-05-13] MEDS: Calcium Oyster Shell Elemental 500 MG TABLET PO (07:50)
[2024-05-13] MEDS: 0.9 % Sodium Chloride Flush 3 ML SYRINGE IVFLUSH ×3 (07:51→21:28)
[2024-05-13] MEDS: Ascorbic Acid 500 MG TABLET PO (07:51)
[2024-05-13 08:08] LABS: Anion Gap 15 (12-20); Blood Urea Nitrogen 18 mg/dL (9-16); Calcium 8.4 mg/dL (8.4-10.2); Carbon Dioxide 29 mmol/L (22-29); Chloride 103 mmol/L (96-108); Creatinine Clr Calc Pharmacy 21.3; Estimated Glomerular Filt Rate 22; Glucose Random 159 mg/dL (60-115); Sodium 144 mmol/L (135-145)
[2024-05-13 08:28] LABS: Magnesium 1.4 mg/dL (1.6-2.6); Potassium 2.9 mmol/L (3.3-5.1)
[2024-05-13] MEDS: Magnesium Sulfate/D5W 1 GM/100 ML PIGGYBACK IV (09:41)
[2024-05-13] MEDS: Potassium Chloride ER 20 MEQ TAB.ER.PRT 40 MEQ PO (09:42)
[2024-05-13] MEDS: Potassium Chloride/H20 10 MEQ/100 ML PIGGYBACK 100 MEQ IV ×2 (09:44→10:51)
--- NOTE | 2024-05-13 09:46 | P.PNCA_ITS ---
Subjective Subjective Date of Service: 05/13/24 Principal diagnosis: CHF, paroxysmal atrial fibrillation, anemia. Interval history: Patient underwent endoscopy yesterday was noted to have duodenal ulcer which was bleeding. Patient require treatment for the same. Still anemic. Her creatinine has worsened. Intake and output chart is unclear at this point time. Potassium is significantly low and magnesium with significantly low. Patient was no obvious breathing issues at this point time. Has remained in sinus rhythm. Review of Systems Constitutional: Reports fatigue and Reports weakness Eyes: Reports no additional eye complaints Cardiovascular: Denies rapid heart rate, Reports leg edema, Denies lightheadedness, Denies palpitations and Denies dyspnea Respiratory: Denies dyspnea Genitourinary: Reports no additional female genitourinary complaints Musculoskeletal: Reports no additional musculoskeletal complaints Skin/Breast: Reports system reviewed and no additional complaints, except as docu Reports weakness Endocrine: Reports fatigue and Denies palpitations Physical Exam Vital Signs: Last Vital Signs Temp 97.5 F 05/13/24 07:11 Pulse 72 05/13/24 07:11 Resp 18 05/13/24 07:11 BP 141/67 H 05/13/24 07:11 Pulse Ox 98 05/13/24 07:11 O2 Del Method Room Air 05/13/24 07:11 O2 Flow Rate 2 05/13/24 03:04 BMI result Body Mass Index 36.8 Const General: cooperative, comfortable and no acute distress Nutritional Appearance: obese Orientation/consciousness: patient oriented x3 Neck Neck: Yes trachea midline, Yes supple and Yes no JVD Resp Effort & Inspection: decreased respiratory effort Auscultation: diminished lung sounds bilateral in the lower lung lora Cardio Heart sounds: S1 normal heart sound present, S2 normal heart sound present, no click, no gallops and Murmur heart sound present systolic early, decrescendo and crescendo GI Auscultation: normal bowel sounds Neuro General: patient oriented x3 and no focal motor deficits Extrem General: No clubbing, No cyanosis and Yes edema Objective Labs and Meds 05/13/24 06:26 05/13/24 06:26 Lab results: Laboratory Results - last 24 hr 05/10/24 05/11/24 05/12/24 20:03 18:15 11:25 WBC RBC Hgb Hct MCV MCH MCHC RDW Plt Count MPV Immature Gran % (Auto) Neut % (Auto) Lymph % (Auto) Gilchrist % (Auto) Eos % (Auto) Baso % (Auto) Lymph # (Auto) Gilchrist # (Auto) Eos # (Auto) Baso # (Auto) Abs Immat Gran (auto) Absolute Neuts (auto) Absolute Nucleated RBC Nucleated RBC % (auto) Sodium Potassium Chloride Carbon Dioxide Anion Gap BUN Creatinine Estim Creat Clear Calc Estimated GFR POC Glucose 121 H Random Glucose Calcium Magnesium Nasal Screen MRSA (PCR) NEGATIVE Nasal S. aureus Screen NEGATIVE Nasal MRSA/S.aureus Interp SEE NOTE Blood Type O Positive Antibody Screen NEGATIVE Crossmatch See Detail 05/12/24 05/12/24 05/13/24 15:46 19:52 06:26 WBC 11.1 H RBC 2.82 L Hgb 8.0 L Hct 25.1 L MCV 89.0 MCH 28.4 MCHC 31.9 RDW 15.6 Plt Count 338 MPV 9.8 Immature Gran % (Auto) 0.5 H Neut % (Auto) 72.8 Lymph % (Auto) 15.9 L Gilchrist % (Auto) 9.9 Eos % (Auto) 0.5 Baso % (Auto) 0.4 Lymph # (Auto) 1.8 Gilchrist # (Auto) 1.1 Eos # (Auto) 0.1 Baso # (Auto) 0.0 Abs Immat Gran (auto) 0.06 H Absolute Neuts (auto) 8.1 Absolute Nucleated RBC 0.000 Nucleated RBC % (auto) 0.0 Sodium 144 Potassium 2.9 L* D Chloride 103 Carbon Dioxide 29 Anion Gap 15 BUN 18 H Creatinine 2.17 H Estim Creat Clear Calc 21.3 Estimated GFR 22 POC Glucose 96 247 H Random Glucose 159 H Calcium 8.4 Magnesium 1.4 L* Nasal Screen MRSA (PCR) Nasal S. aureus Screen Nasal MRSA/S.aureus Interp Blood Type Antibody Screen Crossmatch 05/13/24 07:24 WBC RBC Hgb Hct MCV MCH MCHC RDW Plt Count MPV Immature Gran % (Auto) Neut % (Auto) Lymph % (Auto) Gilchrist % (Auto) Eos % (Auto) Baso % (Auto) Lymph # (Auto) Gilchrist # (Auto) Eos # (Auto) Baso # (Auto) Abs Immat Gran (auto) Absolute Neuts (auto) Absolute Nucleated RBC Nucleated RBC % (auto) Sodium Potassium Chloride Carbon Dioxide Anion Gap BUN Creatinine Estim Creat Clear Calc Estimated GFR POC Glucose 140 H Random Glucose Calcium Magnesium Nasal Screen MRSA (PCR) Nasal S. aureus Screen Nasal MRSA/S.aureus Interp Blood Type Antibody Screen Crossmatch Progress Note: A&P Assessment and plan (1) Acute congestive heart failure: Status: Acute Assessment and Plan: Acute congestive heart failure with mostly right-sided heart failure syndrome. Has diuresed overall although intake and output chart is inaccurate. Creatinine is going up. Probably precipitated because of her severe anemia and GI bleed. At this point time because of creatinine rising will hold off on diuretic therapy for now. Follow-up renal function and BNP tomorrow. Continue with Jardiance. Continue aggressive blood pressure control. Will follow-up as outpatient. (2) Atrial fibrillation: Status: Acute Assessment and Plan: Paroxysmal atrial fibrillation has remained in sinus rhythm. Will monitor as outpatient. For now hold off on oral anticoagulation given severe life- threatening GI bleed. Will wait for GI input before starting oral anticoagulation therapy. Will sign of the case and follow as outpatient. Thank you for allowing me to partake in her care Time Spent With Patient Time: Total time managing care of this patient today ____ minutes. Progress Note: Quality Stroke Does the patient have a stroke diagnosis?: No Procedures Date of Service Date of Service: 05/13/24
[2024-05-13 11:33] LABS: Glucose, Whole Blood 201 mg/dL (60-115)
[2024-05-13] MEDS: Insulin Lispro 100 UNIT/ML 3 ML VIAL SUBCUT ×2 (11:47→21:26)
[2024-05-13 12:09] LABS: B Type Natriuretic Peptide 938 pg/mL (<100)
--- NOTE | 2024-05-13 12:09 | HO.PM.IMPN ---
Subjective Subjective Date of Service: 05/13/24 Interval History: Gi bleed ,chf hypokalemia /hypo magesemia Review of Systems no new bleeding episode no abd pain denies chest pain or sob Physical Exam Vital Signs: Vital Signs: Last Vital Signs Temp 97.4 F 05/13/24 10:44 Pulse 69 05/13/24 10:44 Resp 18 05/13/24 10:44 BP 144/67 H 05/13/24 10:44 Pulse Ox 94 05/13/24 11:07 O2 Del Method Nasal Cannula 05/13/24 11:07 O2 Flow Rate 1 05/13/24 10:30 Oxygen Flow Rate 1 05/13/24 11:07 BMI result Body Mass Index 36.8 Appearance: Alert.? Oriented X3.? cvs: rrr, [id number] . res: air entry diminshed at bases . abd: no rebound or guarding ,nt, bs present. ext pulses present , no cyanosis. neuro: axo3 , nonfocal. Objective Data Active Medications Acetaminophen (Acetaminophen 325 Mg Tablet) 975 mg PO Q6H PRN PRN Reason: Pain, Mild (Pain Scale 1-3), fever or headache Albuterol Sulfate (Albuterol Sulfate 90 Mcg 8 Gm Inhaler) 2 puff INHALE RQ4H PRN PRN Reason: Wheezing Ascorbic Acid (Ascorbic Acid 500 Mg Tablet) 500 mg PO DAILY [facility] Last Admin: 05/13/24 07:51 Dose: 500 mg Documented By: ROBYN Calcium Carbonate (Calcium Carbonate 750 Mg Tab.Chew) 750 mg PO Q4H PRN PRN Reason: Heartburn Calcium Carbonate (Calcium Oyster Shell Elemental 500 Mg Tablet) 500 mg PO DAILY [facility] Last Admin: 05/13/24 07:50 Dose: 500 mg Documented By: ROBYN Empagliflozin (Empagliflozin 10 Mg Tablet) 10 mg PO DAILY [facility] Last Admin: 05/13/24 07:50 Dose: 10 mg Documented By: ROBYN Glucose (Glucose Gel 15 Gm Gel..Gram.) 15 gm PO Q15M PRN; Protocol PRN Reason: per Hypoglycemia Standing Ord. Dextrose (D10) 250 mls @ 750 mls/hr IV Q15M PRN; Protocol PRN Reason: per Hypoglycemia Standing Ord. Piperacillin Sod/Tazobactam (Sod 3.375 gm/ Sodium Chloride) 50 mls @ 100 mls/hr IV Q6H [facility] Last Infusion: 05/13/24 09:08 Dose: Infused Documented By: ROBYN Doxycycline Hyclate 100 mg/ (Sodium Chloride) 250 mls @ 166.67 mls/hr IV Q12H [facility] Last Infusion: 05/13/24 02:50 Dose: Infused Documented By: JOANNA Insulin Human Lispro (Insulin Lispro 100 Unit/Ml 3 Ml Vial) 0 unit SUBCUT QIDACHS [facility]; Protocol Last Admin: 05/13/24 11:47 Dose: 4 unit Documented By: ROBYN Magnesium Hydroxide (Milk Of Magnesia 30 Ml Oral.Susp) 30 ml PO DAILY PRN PRN Reason: Constipation Melatonin (Melatonin 3 Mg Tablet) 6 mg PO BEDTIME PRN PRN Reason: Insomnia Last Admin: 05/11/24 21:54 Dose: 6 mg Documented By: ALEXZEDanielito Metoprolol Tartrate (Metoprolol Tartrate 12.5 Mg Halftab) 12.5 mg PO QID [facility]; Protocol Last Admin: 05/13/24 11:46 Dose: 12.5 mg Documented By: ROBYN Morphine Sulfate (Morphine Sulfate 4 Mg/Ml Cartridge) 2 mg IVPUSH Q4H PRN; Protocol PRN Reason: Pain, Severe (Pain Scale 7-10) Multivitamins/Vitamin C (Multivitamin Tablet) 1 tab PO DAILY [facility] Last Admin: 05/13/24 07:50 Dose: 1 tab Documented By: ROBYN Naloxone HCl (Naloxone Hcl 0.4 Mg/Ml Vial) 0.04 mg IVPUSH Q5M PRN PRN Reason: Excessive sedation or RR < 8 Ondansetron HCl (Ondansetron Hcl 4 Mg/2 Ml Vial) 4 mg IVPUSH Q8H PRN PRN Reason: Nausea and Vomiting Oxycodone HCl (Oxycodone Hcl Immed Release 5 Mg Tablet) 5 mg PO Q6H PRN PRN Reason: Pain, Moderate(Pain Scale 4-6) Pantoprazole Sodium (Pantoprazole Sodium 40 Mg/10 Ml Vial) 40 mg IVPUSH BID@0630,1630 [facility] Last Admin: 05/13/24 05:47 Dose: 40 mg Documented By: JOANNA Sodium Chloride (0.9 % Sodium Chloride Flush 3 Ml Syringe) 3 ml IVFLUSH QSHIFT [facility] Last Admin: 05/13/24 07:51 Dose: 3 ml Documented By: ROBYN Labs 05/13/24 06:26 05/13/24 06:26 Labs: Laboratory Results - last 24 hr 05/10/24 05/12/24 05/12/24 20:03 15:46 19:52 MCV MCH MCHC RDW Plt Count MPV Immature Gran % (Auto) Neut % (Auto) Lymph % (Auto) [place] % (Auto) Eos % (Auto) Baso % (Auto) Lymph # (Auto) [place] # (Auto) Eos # (Auto) Baso # (Auto) Abs Immat Gran (auto) Absolute Neuts (auto) Absolute Nucleated RBC Nucleated RBC % (auto) Anion Gap Estim Creat Clear Calc Estimated GFR POC Glucose 96 247 H Random Glucose Calcium Magnesium B-Natriuretic Peptide Hold Yellow Top Blood Type O Positive Antibody Screen NEGATIVE Crossmatch See Detail 05/13/24 05/13/24 05/13/24 06:26 07:24 09:27 MCV 89.0 MCH 28.4 MCHC 31.9 RDW 15.6 Plt Count 338 MPV 9.8 Immature Gran % (Auto) 0.5 H Neut % (Auto) 72.8 Lymph % (Auto) 15.9 L [place] % (Auto) 9.9 Eos % (Auto) 0.5 Baso % (Auto) 0.4 Lymph # (Auto) 1.8 [place] # (Auto) 1.1 Eos # (Auto) 0.1 Baso # (Auto) 0.0 Abs Immat Gran (auto) 0.06 H Absolute Neuts (auto) 8.1 Absolute Nucleated RBC 0.000 Nucleated RBC % (auto) 0.0 Anion Gap 15 Estim Creat Clear Calc 21.3 Estimated GFR 22 POC Glucose 140 H Random Glucose 159 H Calcium 8.4 Magnesium 1.4 L* B-Natriuretic Peptide 938 H Hold Yellow Top See Note Blood Type Antibody Screen Crossmatch 05/13/24 11:29 MCV MCH MCHC RDW Plt Count MPV Immature Gran % (Auto) Neut % (Auto) Lymph % (Auto) [place] % (Auto) Eos % (Auto) Baso % (Auto) Lymph # (Auto) [place] # (Auto) Eos # (Auto) Baso # (Auto) Abs Immat Gran (auto) Absolute Neuts (auto) Absolute Nucleated RBC Nucleated RBC % (auto) Anion Gap Estim Creat Clear Calc Estimated GFR POC Glucose 201 H Random Glucose Calcium Magnesium B-Natriuretic Peptide Hold Yellow Top Blood Type Antibody Screen Crossmatch Microbiology Microbiology Results: Microbiology 05/10/24 21:45 Blood Culture - Preliminary Blood - Venous No growth after 48 hours. 05/10/24 21:37 Blood Culture - Preliminary Blood - Venous No growth after 48 hours. Assessment and Plan (1) Acute congestive heart failure: Status: Acute Assessment and Plan: 83-year-old female with a past medical history significant for persistent AFib, CHF, type 2 diabetes (no meds, previously p.o.), and mild intermittent asthma who presented to the ED today with shortness of breath for the past 2 days. Patient was recent complicated admission for sepsis related to fever of unknown origin, presumed diverticulitis versus pneumonia, LITA, type 2 diabetes with hyperglycemia, mild intermittent asthma with acute exacerbation, hypertension and acute hypokalemia. Acute congestive heart failure exacerbation(unclear etiology ,echo pending) and possible hospital acquired pneumonia sob improving, leukocytosis also improving. BNP is somewhat elevated [id number],tachycardia improved mild elevated trop sec in setting of chf. procalcitonin levels0.06 plan: moniter i/o and daily weights-strict i/o monitering sob improving nasal mrsa negative continue po doxycycline(started on 04/12) and zosyn ( intiated on 04/10) monior CBC, BMP, BNP hypokalemia/hypomagnesemia given iv and po replacements continue to moniter electrolytes closely. anemia of acute blood loss -melena/microscopic hematuria s/p egd on 05/12/24:large duodenal ulcer in bulb,no bleeding,antral bx's taken h/h is 8.0/25.1 somewhat trending down added 1 prbc today again Gi -continue ppi,moniter h/h LITA: insetting of chf moniter renal function and electrolytes closely a fib - rate controlled - unable to add anticoagulant due to melena - monitor with tele T2DM - diabetic diet/cardiac diet - sliding scale insulin mild intermittent asthma without acute exacerbation - no wheezing on exam - albuterol PRN obesity - weight loss encouraged - BMI 30.2 VTE prophy: pneumoboots, anticoagulant contraindicated with anemia and melena acute congestive heart failure exacerbation and possible hospital acquired pneumonia,chf ,anemia :need iv diuretics ,moniter renal function and electrolytes as well as 1/o monitering, lita,ppi , h/h , need egd. Quality Stroke Does the patient have a stroke diagnosis?: No VTE Prior VTE?: No VTE Risk Level:: Medical - moderate - high VTE Device Contraindication: N/A - Device Ordered VTE Drug Contraindication: Treatment Not Indicated
--- NOTE | 2024-05-13 12:41 | HO.POSTANES ---
Post Anesthesia Evaluation Post Anesthesia Evaluation Date of Service: 05/13/24 Vital Signs: Vital Signs Temp Pulse Resp BP Pulse Ox O2 Del Method O2 Flow Rate 05/13/24 11:07 94 Nasal Cannula 05/13/24 10:44 97.4 F 69 18 144/67 H 05/13/24 10:35 87 L Room Air 05/13/24 10:30 95 Nasal Cannula 1 05/13/24 10:29 98.2 F 73 18 133/62 05/13/24 07:11 97.5 F 72 18 141/67 H 98 Room Air 05/13/24 03:04 98.2 F 76 20 115/68 98 Nasal Cannula 2 Anesthesia: Monitored Mental Status: Awake Pain Control: Satisfactory Nausea/Vomiting: None Hydration: Adequate Anesthesia-Related Issues: No Anes. Related Issues
--- NOTE | 2024-05-13 13:20 | PM.PNNEP ---
Subjective Subjective Date of Service: 05/13/24 Principal diagnosis: CHF, paroxysmal atrial fibrillation, anemia. Interval history: Gi bleed ,chf hypokalemia /hypo magesemia Physical Exam Vital Signs: Vital Signs: Last Vital Signs Temp 97.4 F 05/13/24 10:44 Pulse 69 05/13/24 10:44 Resp 18 05/13/24 10:44 BP 144/67 H 05/13/24 10:44 Pulse Ox 94 05/13/24 11:07 O2 Del Method Nasal Cannula 05/13/24 11:07 O2 Flow Rate 1 05/13/24 10:30 Oxygen Flow Rate 1 05/13/24 11:07 BMI result Body Mass Index 36.8 cvs : s1s2, jvp + rs ; cta . b/l base ae diminshed ABd; soft pe 2+ Objective Data Labs 05/13/24 06:26 05/13/24 06:26 Labs: Laboratory Results - last 24 hr 05/10/24 05/12/24 05/12/24 20:03 15:46 19:52 WBC RBC Hgb Hct MCV MCH MCHC RDW Plt Count MPV Immature Gran % (Auto) Neut % (Auto) Lymph % (Auto) [place] % (Auto) Eos % (Auto) Baso % (Auto) Lymph # (Auto) [place] # (Auto) Eos # (Auto) Baso # (Auto) Abs Immat Gran (auto) Absolute Neuts (auto) Absolute Nucleated RBC Nucleated RBC % (auto) Sodium Potassium Chloride Carbon Dioxide Anion Gap BUN Creatinine Estim Creat Clear Calc Estimated GFR POC Glucose 96 247 H Random Glucose Calcium Magnesium B-Natriuretic Peptide Hold Yellow Top Blood Type O Positive Antibody Screen NEGATIVE Crossmatch See Detail 05/13/24 05/13/24 05/13/24 06:26 07:24 09:27 WBC 11.1 H RBC 2.82 L Hgb 8.0 L Hct 25.1 L MCV 89.0 MCH 28.4 MCHC 31.9 RDW 15.6 Plt Count 338 MPV 9.8 Immature Gran % (Auto) 0.5 H Neut % (Auto) 72.8 Lymph % (Auto) 15.9 L [place] % (Auto) 9.9 Eos % (Auto) 0.5 Baso % (Auto) 0.4 Lymph # (Auto) 1.8 [place] # (Auto) 1.1 Eos # (Auto) 0.1 Baso # (Auto) 0.0 Abs Immat Gran (auto) 0.06 H Absolute Neuts (auto) 8.1 Absolute Nucleated RBC 0.000 Nucleated RBC % (auto) 0.0 Sodium 144 Potassium 2.9 L* D Chloride 103 Carbon Dioxide 29 Anion Gap 15 BUN 18 H Creatinine 2.17 H Estim Creat Clear Calc 21.3 Estimated GFR 22 POC Glucose 140 H Random Glucose 159 H Calcium 8.4 Magnesium 1.4 L* B-Natriuretic Peptide 938 H Hold Yellow Top See Note Blood Type Antibody Screen Crossmatch 05/13/24 11:29 WBC RBC Hgb Hct MCV MCH MCHC RDW Plt Count MPV Immature Gran % (Auto) Neut % (Auto) Lymph % (Auto) [place] % (Auto) Eos % (Auto) Baso % (Auto) Lymph # (Auto) [place] # (Auto) Eos # (Auto) Baso # (Auto) Abs Immat Gran (auto) Absolute Neuts (auto) Absolute Nucleated RBC Nucleated RBC % (auto) Sodium Potassium Chloride Carbon Dioxide Anion Gap BUN Creatinine Estim Creat Clear Calc Estimated GFR POC Glucose 201 H Random Glucose Calcium Magnesium B-Natriuretic Peptide Hold Yellow Top Blood Type Antibody Screen Crossmatch Microbiology Microbiology Results: Microbiology 05/10/24 21:45 Blood - Venous Blood Culture - Preliminary No growth after 48 hours. 05/10/24 21:37 Blood - Venous Blood Culture - Preliminary No growth after 48 hours. Procedures Date of Service Date of Service: 05/13/24 Assessment & Plan Assessment and plan (1) Acute congestive heart failure: Status: Acute (2) LITA (acute kidney injury): Status: Acute Assessment and Plan: (1) Acute congestive heart failure: 83-year-old female with a past medical history significant for persistent AFib, HFpEF, type 2 diabetes (no meds, previously p.o.), and mild intermittent asthma who presented to the ED with shortness of breath. Recent complicated admission for sepsis related to fever of unknown origin, presumed diverticulitis versus pneumonia, LITA, type 2 diabetes with hyperglycemia, mild intermittent asthma with acute exacerbation, hypertension and acute hypokalemia. 1. LITA: prior to last hosp SCr BSL 0.8-1.2 and now Scr 1.5-2.0 and ques at new BSL vs delay recovery to BSL and ques CRSyn vs delayed ATN recovery dc cr 1.8 last admit- now 2.17 ATN from anemia of gib - now s/p egd- likely CRSyn with renal congestion- next differential 2. Ques CKD: at risk for CKD from DM and recent LITA; 3. Hypervol: clearly vol overloaded on exam- on empaglifozin and lasix 40mg iv q12 hrs- to continue Time Spent With Patient Time: Total time managing care of this patient today ____ minutes. Progress Note: Quality Stroke Does the patient have a stroke diagnosis?: No
[2024-05-13 16:08] LABS: Anti Glomerular Basement Memb <1.0 AI; Myeloperoxidase Antibody <1.0 AI; Proteinase 3 PR3 Antibodies <1.0 AI
[2024-05-13 16:34] LABS: Glucose, Whole Blood 142 mg/dL (60-115)
--- NOTE | 2024-05-13 20:48 | P.PNGI_ITS ---
Subjective Subjective Date of Service: 05/13/24 Interval History: seen today on noontime rounds no c/o abd pain no reported bleeding Critical Care Time (minutes): 0 Physical Exam 2 Vital Signs: Vital Signs: Last Vital Signs Temp 98.1 F 05/13/24 19:19 Pulse 79 05/13/24 19:19 Resp 18 05/13/24 19:19 BP 160/67 H 05/13/24 19:19 Pulse Ox 97 05/13/24 19:19 O2 Del Method Nasal Cannula 05/13/24 19:19 O2 Flow Rate 2 05/13/24 19:19 Oxygen Flow Rate 1 05/13/24 11:07 BMI result Body Mass Index 36.8 GI: Other: abdomen is soft and nontender Objective Data Labs 05/13/24 06:26 05/13/24 06:26 Labs: Microbiology Microbiology Results: Microbiology 05/10/24 21:45 Blood - Venous Blood Culture - Preliminary No growth after 48 hours. 05/10/24 21:37 Blood - Venous Blood Culture - Preliminary No growth after 48 hours. Procedures Date of Service Date of Service: 05/13/24 Progress Note: A&P Assessment and plan (1) Duodenal ulcer: Status: Acute Assessment and Plan: continue ppi agree with transfusion to hct around 30 given underlying cardiac disease follow hct if sign of bleeding, she will need a repeat endoscopy Time Spent With Patient Time: Total time managing care of this patient today ____ minutes. Quality Stroke Does the patient have a stroke diagnosis?: No VTE Prior VTE?: No VTE Risk Level:: Medical - moderate - high VTE Device Contraindication: N/A - Device Ordered VTE Drug Contraindication: Treatment Not Indicated
[2024-05-13 20:51] LABS: Glucose, Whole Blood 238 mg/dL (60-115)
[2024-05-13] MEDS: Melatonin 3 MG TABLET 6 MG PO (21:28)
[2024-05-14] VITALS (7 sets, daily range): BP systolic 145–190; BP diastolic 80–90; PULSE 76–87; RESP 16–22; TEMP 36.3–37.8; O2SAT 94–97; BMI 37.0
[2024-05-14] MEDS: Doxycycline Hyclate 100 MG in 0.9 % Sodium Chloride 250 ML 166.67 MG IV (01:00)
[2024-05-14] MEDS: LORazepam 0.5 MG TABLET PO ×2 (01:57→22:15)
[2024-05-14] MEDS: Piperacillin Sodium/Tazobactam 3.375 GM in 0.9 % Sodium Chloride 50 ML IV (03:23)
[2024-05-14] MEDS: Pantoprazole Sodium 40 MG/10 ML VIAL IVPUSH (05:37)
[2024-05-14] MEDS: Metoprolol Tartrate 12.5 MG HALFTAB PO ×5 (05:37→22:15)
[2024-05-14] MEDS: hydrOXYzine HCL 25 MG TABLET PO ×2 (05:37→14:43)
--- NOTE | 2024-05-14 06:38 | PM.EVENT ---
Event Note Date of Service: 05/14/24 Event Note: 6:36 am - contacted to notify pt had 6 bowel movements overnight. Will check for c.diff. Time Spent With Patient Time: Total time managing care of this patient today ____ minutes.
[2024-05-14 07:03] LABS: Glucose, Whole Blood 122 mg/dL (60-115)
[2024-05-14] MEDS: Ascorbic Acid 500 MG TABLET PO (08:30)
[2024-05-14] MEDS: hydrOXYzine HCL 10 MG TABLET PO (08:30)
[2024-05-14] MEDS: Calcium Oyster Shell Elemental 500 MG TABLET PO (08:30)
[2024-05-14] MEDS: Multivitamin TABLET 1 TAB PO (08:30)
[2024-05-14] MEDS: Amoxicillin/Potassium Clav 500 MG TABLET PO ×2 (08:30→19:15)
[2024-05-14] MEDS: Doxycycline Monohydrate 100 MG CAPSULE PO ×2 (08:30→19:15)
[2024-05-14] MEDS: 0.9 % Sodium Chloride Flush 3 ML SYRINGE IVFLUSH ×3 (08:30→22:16)
[2024-05-14] MEDS: Empagliflozin 10 MG TABLET PO (08:30)
[2024-05-14 08:48] LABS: CDiff Gene PCR NEGATIVE (Negative)
--- NOTE | 2024-05-14 10:28 | MHC.CM.PN ---
Per ROUNDS, Patient is not yet medically cleared for dc (Fluid Overload); home is the goal and cm will follow.
[2024-05-14] MEDS: Acetaminophen 325 MG TABLET 975 MG PO (11:18)
[2024-05-14] MEDS: oxyCODONE HCl Immed Release 5 MG TABLET PO (11:18)
[2024-05-14] MEDS: Omeprazole 40 MG CAPSULE.DR PO ×2 (11:19→16:32)
[2024-05-14] MEDS: Insulin Lispro 100 UNIT/ML 3 ML VIAL SUBCUT ×3 (11:19→22:14)
[2024-05-14 11:27] LABS: Glucose, Whole Blood 248 mg/dL (60-115)
--- NOTE | 2024-05-14 14:19 | HO.PM.IMPN ---
Subjective Subjective Date of Service: 05/14/24 Interval History: Gi bleed ,chf ,hypokalemia /hypo magesemia Review of Systems sob improved had 6 episodes of diarrhae denies chest pain or sob or fever Physical Exam Vital Signs: Vital Signs: Last Vital Signs Temp 100.0 F 05/14/24 11:02 Pulse 81 05/14/24 11:02 Resp 20 05/14/24 11:02 BP 168/82 H 05/14/24 11:02 Pulse Ox 94 05/14/24 11:02 O2 Del Method Nasal Cannula 05/14/24 11:02 O2 Flow Rate 1 05/14/24 11:02 Oxygen Flow Rate 1 05/13/24 11:07 BMI result Body Mass Index 37.0 Appearance: Alert.? Oriented X3.? cvs: rrr, [id number] . res: air entry diminshed at bases . abd: no rebound or guarding ,nt, bs present. ext pulses present , no cyanosis. neuro: axo3 , nonfocal. Objective Data Active Medications Acetaminophen (Acetaminophen 325 Mg Tablet) 975 mg PO Q6H PRN PRN Reason: Pain, Mild (Pain Scale 1-3), fever or headache Last Admin: 05/14/24 11:18 Dose: 975 mg Documented By: TWAN Albuterol Sulfate (Albuterol Sulfate 90 Mcg 8 Gm Inhaler) 2 puff INHALE RQ4H PRN PRN Reason: Wheezing Amoxicillin/Clavulanate Potassium (Amoxicillin/Potassium Clav 500 Mg Tablet) 500 mg PO Q12H [facility] Last Admin: 05/14/24 08:30 Dose: 500 mg Documented By: TWAN Ascorbic Acid (Ascorbic Acid 500 Mg Tablet) 500 mg PO DAILY [facility] Last Admin: 05/14/24 08:30 Dose: 500 mg Documented By: TWAN Calcium Carbonate (Calcium Carbonate 750 Mg Tab.Chew) 750 mg PO Q4H PRN PRN Reason: Heartburn Calcium Carbonate (Calcium Oyster Shell Elemental 500 Mg Tablet) 500 mg PO DAILY [facility] Last Admin: 05/14/24 08:30 Dose: 500 mg Documented By: TWAN Doxycycline Monohydrate (Doxycycline Monohydrate 100 Mg Capsule) 100 mg PO Q12H [facility] Last Admin: 05/14/24 08:30 Dose: 100 mg Documented By: TWAN Empagliflozin (Empagliflozin 10 Mg Tablet) 10 mg PO DAILY [facility] Last Admin: 05/14/24 08:30 Dose: 10 mg Documented By: TWAN Glucose (Glucose Gel 15 Gm Gel..Gram.) 15 gm PO Q15M PRN; Protocol PRN Reason: per Hypoglycemia Standing Ord. Hydroxyzine HCl (Hydroxyzine Hcl 10 Mg Tablet) 10 mg PO BID PRN PRN Reason: anxiety/restlessness Last Admin: 05/14/24 08:30 Dose: 10 mg Documented By: TWAN Dextrose (D10) 250 mls @ 750 mls/hr IV Q15M PRN; Protocol PRN Reason: per Hypoglycemia Standing Ord. Insulin Human Lispro (Insulin Lispro 100 Unit/Ml 3 Ml Vial) 0 unit SUBCUT QIDACHS [facility]; Protocol Last Admin: 05/14/24 11:19 Dose: 4 unit Documented By: TWAN Loperamide HCl (Loperamide Hcl 2 Mg Capsule) 2 mg PO Q4H PRN PRN Reason: Diarrhea Magnesium Hydroxide (Milk Of Magnesia 30 Ml Oral.Susp) 30 ml PO DAILY PRN PRN Reason: Constipation Melatonin (Melatonin 3 Mg Tablet) 6 mg PO BEDTIME PRN PRN Reason: Insomnia Last Admin: 05/13/24 21:28 Dose: 6 mg Documented By: JOANNA Metoprolol Tartrate (Metoprolol Tartrate 12.5 Mg Halftab) 12.5 mg PO QID [facility]; Protocol Last Admin: 05/14/24 08:30 Dose: 12.5 mg Documented By: TWAN Morphine Sulfate (Morphine Sulfate 4 Mg/Ml Cartridge) 2 mg IVPUSH Q4H PRN; Protocol PRN Reason: Pain, Severe (Pain Scale 7-10) Multivitamins/Vitamin C (Multivitamin Tablet) 1 tab PO DAILY [facility] Last Admin: 05/14/24 08:30 Dose: 1 tab Documented By: TWAN Naloxone HCl (Naloxone Hcl 0.4 Mg/Ml Vial) 0.04 mg IVPUSH Q5M PRN PRN Reason: Excessive sedation or RR < 8 Omeprazole (Omeprazole 40 Mg Capsule.Dr) 40 mg PO BID@0630,1630 [facility] Last Admin: 05/14/24 11:19 Dose: 40 mg Documented By: TWAN Ondansetron HCl (Ondansetron Hcl 4 Mg/2 Ml Vial) 4 mg IVPUSH Q8H PRN PRN Reason: Nausea and Vomiting Oxycodone HCl (Oxycodone Hcl Immed Release 5 Mg Tablet) 5 mg PO Q6H PRN PRN Reason: Pain, Moderate(Pain Scale 4-6) Last Admin: 05/14/24 11:18 Dose: 5 mg Documented By: TWAN Sodium Chloride (0.9 % Sodium Chloride Flush 3 Ml Syringe) 3 ml IVFLUSH QSHIFT [facility] Last Admin: 05/14/24 08:30 Dose: 3 ml Documented By: TWAN Trazodone HCl (Trazodone Hcl 50 Mg Tablet) 50 mg PO BEDTIME [facility] Labs 05/13/24 06:26 05/13/24 06:26 Labs: Laboratory Results - last 24 hr 05/12/24 05/13/24 05/13/24 05:50 16:29 20:46 POC Glucose 142 H 238 H Proteinase 3 (PR3) Ab <1.0 Myeloperoxidase Ab <1.0 Glomerular Base Memb Ab <1.0 C. difficile Tox B Gene 05/14/24 05/14/24 05/14/24 06:50 06:58 11:14 POC Glucose 122 H 248 H Proteinase 3 (PR3) Ab Myeloperoxidase Ab Glomerular Base Memb Ab C. difficile Tox B Gene NEGATIVE Assessment and Plan (1) Acute congestive heart failure: Status: Acute Assessment and Plan: 83-year-old female with a past medical history significant for persistent AFib, CHF, type 2 diabetes (no meds, previously p.o.), and mild intermittent asthma who presented to the ED today with shortness of breath for the past 2 days. Patient was recent complicated admission for sepsis related to fever of unknown origin, presumed diverticulitis versus pneumonia, LITA, type 2 diabetes with hyperglycemia, mild intermittent asthma with acute exacerbation, hypertension and acute hypokalemia. Acute congestive heart failure exacerbation(unclear etiology ,echo pending) and possible hospital acquired pneumonia sob improving, leukocytosis also improving. BNP is somewhat elevated [phone],tachycardia improved mild elevated trop sec in setting of chf. procalcitonin levels0.06 plan: moniter i/o and daily weights-strict i/o monitering sob improving nasal mrsa negative continue po doxycycline(started on 04/12) and zosyn ( intiated on 04/10) monior CBC, BMP, BNP-labs ordered hold lasix for today-significant 6 episodes of diarrhae overnight , c diff negative , added loperamide. hypokalemia/hypomagnesemia given iv and po replacements continue to moniter electrolytes closely. anemia of acute blood loss -melena/microscopic hematuria s/p egd on 05/12/24:large duodenal ulcer in bulb,no bleeding,antral bx's taken h/h is 8.0/25.1 somewhat trending down added 1 prbc today again Gi -continue ppi,moniter h/h LITA: insetting of chf moniter renal function and electrolytes closely a fib - rate controlled - unable to add anticoagulant due to melena - monitor with tele T2DM - diabetic diet/cardiac diet - sliding scale insulin mild intermittent asthma without acute exacerbation - no wheezing on exam - albuterol PRN obesity - weight loss encouraged - BMI 30.2 VTE prophy: pneumoboots, anticoagulant contraindicated with anemia and melena acute congestive heart failure exacerbation and possible hospital acquired pneumonia,chf ,anemia :need iv diuretics ,moniter renal function and electrolytes as well as 1/o monitering, lita,ppi , h/h , need egd. Quality Stroke Does the patient have a stroke diagnosis?: No VTE Prior VTE?: No VTE Risk Level:: Medical - moderate - high VTE Device Contraindication: N/A - Device Ordered VTE Drug Contraindication: Treatment Not Indicated
[2024-05-14 16:37] LABS: Glucose, Whole Blood 182 mg/dL (60-115)
[2024-05-14 16:48] LABS: Hematocrit 30.7 % (37.0-47.0); Hemoglobin 10.2 g/dl (12.0-16.0)
[2024-05-14 17:12] LABS: B Type Natriuretic Peptide 2954 pg/mL (<100)
[2024-05-14 17:14] LABS: Anion Gap 18 (12-20); Blood Urea Nitrogen 23 mg/dL (9-16); Calcium 8.6 mg/dL (8.4-10.2); Carbon Dioxide 24 mmol/L (22-29); Chloride 104 mmol/L (96-108); Creatinine Clr Calc Pharmacy 24.5; Estimated Glomerular Filt Rate 25; Glucose Random 184 mg/dL (60-115); Potassium 3.7 mmol/L (3.3-5.1); Sodium 142 mmol/L (135-145)
[2024-05-14] MEDS: Furosemide 40 MG/4 ML VIAL IVPUSH (19:15)
[2024-05-14 21:10] LABS: Glucose, Whole Blood 273 mg/dL (60-115)
[2024-05-14] MEDS: traZODone HCL 50 MG TABLET PO (22:15)
[2024-05-14] MEDS: Melatonin 3 MG TABLET 6 MG PO (22:15)
[2024-05-15] VITALS (7 sets, daily range): BP systolic 132–178; BP diastolic 62–84; PULSE 61–95; RESP 16–20; TEMP 36.4–37.2; O2SAT 94–100; BMI 34.7
[2024-05-15] MEDS: Magnesium Sulfate/H2O 2 GM/50 ML PIGGYBACK IV ×3 (01:17→09:24)
[2024-05-15 01:24] LABS: Anion Gap 19 (12-20); Blood Urea Nitrogen 25 mg/dL (9-16); Calcium 8.7 mg/dL (8.4-10.2); Carbon Dioxide 26 mmol/L (22-29); Chloride 101 mmol/L (96-108); Creatinine Clr Calc Pharmacy 22.4; Estimated Glomerular Filt Rate 23; Glucose Random 139 mg/dL (60-115); Magnesium 1.4 mg/dL (1.6-2.6); Potassium 3.6 mmol/L (3.3-5.1); Sodium 142 mmol/L (135-145)
[2024-05-15] MEDS: Omeprazole 40 MG CAPSULE.DR PO ×2 (05:34→17:28)
--- NOTE | 2024-05-15 06:35 | P.PNNP_ITS ---
Subjective Subjective Date of Service: 05/15/24 Principal diagnosis: CHF, paroxysmal atrial fibrillation, anemia. Interval history: Gi bleed ,chf ,hypokalemia /hypo magesemia Physical Exam 2 Vital Signs: Vital Signs: Last Vital Signs Temp 98.9 F 05/15/24 03:40 Pulse 90 05/15/24 03:40 Resp 16 05/15/24 03:40 BP 146/84 H 05/15/24 03:40 Pulse Ox 94 05/15/24 03:40 O2 Del Method Nasal Cannula 05/15/24 03:40 O2 Flow Rate 2 05/15/24 03:40 Oxygen Flow Rate 1 05/14/24 13:00 BMI result Body Mass Index 37.0 cvs: s1s2 Rs; maggy Abd; soft Objective Data Labs 05/15/24 06:45 05/15/24 13:35 Labs: Laboratory Results - last 24 hr 05/14/24 05/14/24 05/14/24 06:50 06:58 11:14 Hgb Hct Hold Purple Top Sodium Potassium Chloride Carbon Dioxide Anion Gap BUN Creatinine Estim Creat Clear Calc Estimated GFR POC Glucose 122 H 248 H Random Glucose Calcium Magnesium B-Natriuretic Peptide C. difficile Tox B Gene NEGATIVE 05/14/24 05/14/24 05/14/24 16:22 16:23 16:29 Hgb 10.2 L D Hct 30.7 L D Hold Purple Top Sodium 142 Potassium 3.7 D Chloride 104 Carbon Dioxide 24 Anion Gap 18 BUN 23 H Creatinine 1.90 H Estim Creat Clear Calc 24.5 Estimated GFR 25 POC Glucose 182 H Random Glucose 184 H Calcium 8.6 Magnesium B-Natriuretic Peptide 2954 H C. difficile Tox B Gene 05/14/24 05/15/24 05/15/24 20:52 00:36 00:51 Hgb Hct Hold Purple Top SEE NOTE Sodium 142 Potassium 3.6 Chloride 101 Carbon Dioxide 26 Anion Gap 19 BUN 25 H Creatinine 2.08 H Estim Creat Clear Calc 22.4 Estimated GFR 23 POC Glucose 273 H Random Glucose 139 H Calcium 8.7 Magnesium 1.4 L* B-Natriuretic Peptide C. difficile Tox B Gene Microbiology Microbiology Results: Microbiology 05/10/24 21:45 Blood - Venous Blood Culture - Preliminary No growth after 48 hours. 05/10/24 21:37 Blood - Venous Blood Culture - Preliminary No growth after 48 hours. Procedures Date of Service Date of Service: 05/15/24 Assessment & Plan Assessment and plan (1) Congestive heart failure: Status: Acute (2) LITA (acute kidney injury): Status: Acute Plan (1) Acute congestive heart failure: 83-year-old female with a past medical history significant for persistent AFib, HFpEF, type 2 diabetes (no meds, previously p.o.), and mild intermittent asthma who presented to the ED with shortness of breath. Recent complicated admission for sepsis related to fever of unknown origin, presumed diverticulitis versus pneumonia, LITA, type 2 diabetes with hyperglycemia, mild intermittent asthma with acute exacerbation, hypertension and acute hypokalemia. 1. LITA: prior to last hosp SCr BSL 0.8-1.2 and now Scr 1.5-2.0 and ques at new BSL vs delay recovery to BSL and ques CRSyn vs delayed ATN recovery dc cr 1.8 last admit- now 2.17 ATN from anemia of gib - now s/p egd- CRSyn with renal congestion- next differential 2. Ques CKD: at risk for CKD from DM and recent LITA; 3. Hypervol: clearly vol overloaded on exam- on empaglifozin and lasix 40mg iv q12 hrs- giving a diuretic holiday as she had an episode of vtach- plan to resume in 1-2 days Time Spent With Patient Time: Total time managing care of this patient today ____ minutes. Progress Note: Quality Stroke Does the patient have a stroke diagnosis?: No
[2024-05-15 06:53] LABS: MANUAL DIFF FLAG NO
--- NOTE | 2024-05-15 06:54 | PM.EVENT ---
Event Note Date of Service: 05/15/24 Event Note: Contacted multiple times overnight to notify patient has been having episodes of Vtach/torsade [place] for which receive magnesium 2 g IV x2. This patient the patient developed atrial fibrillation. Time Spent With Patient Time: Total time managing care of this patient today ____ minutes.
[2024-05-15 06:59] LABS: Glucose, Whole Blood 115 mg/dL (60-115)
[2024-05-15 07:00] LABS: Basophils Absolute Auto 0.1 X10*3/uL (0.0-0.2); Basophils Percent Auto 0.7 % (0-2); Eosinophils Percent Auto 0.2 % (0-4); Hematocrit 32.5 % (37.0-47.0); Hemoglobin 10.6 g/dl (12.0-16.0); Imm Gran Abs Auto 0.04 X10*3/uL (0.00-0.03); Imm Gran Pct Auto 0.4 % (0.0-0.4); Lymphocytes Absolute Auto 1.4 X10*3/uL (1.2-4.9); Lymphocytes Percent Auto 15.4 % (20-40); Mean Corpuscular HGB Conc 32.6 g/dl (31.0-35.0); Mean Corpuscular Hemoglobin 29.1 pg (27.0-33.0); Mean Corpuscular Volume 89.3 fL (80.0-98.0); Mean Platelet Volume 9.6 fL (9.4-12.3); Monocytes Percent Auto 11.5 % (2-11); Neutrophils Absolute Auto 6.4 x10*3/uL (2.0-8.3); Neutrophils Percent Auto 71.8 % (45-73); Platelet Count 295 X10*3/uL (160-400); Red Blood Count 3.64 X10*6/uL (4.20-5.50); Red Cell Distribution Width 15.1 % (11.0-16.0)
[2024-05-15 07:35] LABS: Anion Gap 17 (12-20); Blood Urea Nitrogen 24 mg/dL (9-16); Calcium 8.7 mg/dL (8.4-10.2); Carbon Dioxide 28 mmol/L (22-29); Chloride 100 mmol/L (96-108); Creatinine Clr Calc Pharmacy 23.5; Estimated Glomerular Filt Rate 24; Glucose Random 121 mg/dL (60-115); Magnesium 1.9 mg/dL (1.6-2.6); Potassium 2.8 mmol/L (3.3-5.1); Sodium 142 mmol/L (135-145)
[2024-05-15] MEDS: Multivitamin TABLET 1 TAB PO (09:24)
[2024-05-15] MEDS: Calcium Oyster Shell Elemental 500 MG TABLET PO (09:24)
[2024-05-15] MEDS: Empagliflozin 10 MG TABLET PO (09:24)
[2024-05-15] MEDS: Amoxicillin/Potassium Clav 500 MG TABLET PO ×2 (09:24→21:04)
[2024-05-15] MEDS: Magnesium Oxide 400 MG TABLET PO ×2 (09:24→17:27)
[2024-05-15] MEDS: Potassium Chloride/H20 10 MEQ/100 ML PIGGYBACK 100 MEQ IV ×2 (09:24→11:15)
[2024-05-15] MEDS: Metoprolol Tartrate 12.5 MG HALFTAB PO ×5 (09:25→21:04)
[2024-05-15] MEDS: 0.9 % Sodium Chloride Flush 3 ML SYRINGE IVFLUSH ×3 (09:25→21:04)
[2024-05-15] MEDS: Potassium Chloride ER 20 MEQ TAB.ER.PRT 40 MEQ PO ×2 (09:25→17:28)
[2024-05-15] MEDS: Doxycycline Monohydrate 100 MG CAPSULE PO ×2 (09:25→21:04)
[2024-05-15 10:56] LABS: Glucose, Whole Blood 213 mg/dL (60-115)
[2024-05-15] MEDS: Ascorbic Acid 500 MG TABLET PO (11:15)
[2024-05-15] MEDS: Insulin Lispro 100 UNIT/ML 3 ML VIAL SUBCUT ×3 (13:16→22:08)
--- NOTE | 2024-05-15 13:46 | P.PNIM_ITS ---
Subjective Subjective Date of Service: 05/15/24 Interval History: hypokalemia overnight vtach/torsade? Review of Systems denies any chest pain or palpatations this morning feels anxious no fever No diarrhea Physical Exam 2 Vital Signs: Vital Signs: Last Vital Signs Temp 97.5 F 05/15/24 11:13 Pulse 95 05/15/24 11:13 Resp 20 05/15/24 11:13 BP 132/84 05/15/24 11:13 Pulse Ox 94 05/15/24 11:13 O2 Del Method Nasal Cannula 05/15/24 11:13 O2 Flow Rate 3 05/15/24 11:13 Oxygen Flow Rate 1 05/14/24 13:00 BMI result Body Mass Index 34.7 Appearance: Alert.? Oriented X3.? cvs: rrr, [id number] . res: air entry diminshed at bases . abd: no rebound or guarding ,nt, bs present. ext pulses present , no cyanosis. neuro: axo3 , nonfocal. Objective Data Active Medications Acetaminophen (Acetaminophen 325 Mg Tablet) 975 mg PO Q6H PRN PRN Reason: Pain, Mild (Pain Scale 1-3), fever or headache Last Admin: 05/14/24 11:18 Dose: 975 mg Documented By: TWAN Albuterol Sulfate (Albuterol Sulfate 90 Mcg 8 Gm Inhaler) 2 puff INHALE RQ4H PRN PRN Reason: Wheezing Amoxicillin/Clavulanate Potassium (Amoxicillin/Potassium Clav 500 Mg Tablet) 500 mg PO Q12H [facility] Last Admin: 05/15/24 09:24 Dose: 500 mg Documented By: YASMIN Ascorbic Acid (Ascorbic Acid 500 Mg Tablet) 500 mg PO DAILY [facility] Last Admin: 05/15/24 11:15 Dose: 500 mg Documented By: YASMIN Benzocaine (Throat Lozenge, Medicated Lozenge) 1 lozenge MUCOUS MEM Q2H PRN PRN Reason: Sore Throat Calcium Carbonate (Calcium Carbonate 750 Mg Tab.Chew) 750 mg PO Q4H PRN PRN Reason: Heartburn Calcium Carbonate (Calcium Oyster Shell Elemental 500 Mg Tablet) 500 mg PO DAILY [facility] Last Admin: 05/15/24 09:24 Dose: 500 mg Documented By: YASMIN Doxycycline Monohydrate (Doxycycline Monohydrate 100 Mg Capsule) 100 mg PO Q12H [facility] Last Admin: 05/15/24 09:25 Dose: 100 mg Documented By: YASMIN Empagliflozin (Empagliflozin 10 Mg Tablet) 10 mg PO DAILY [facility] Last Admin: 05/15/24 09:24 Dose: 10 mg Documented By: YASMIN Glucose (Glucose Gel 15 Gm Gel..Gram.) 15 gm PO Q15M PRN; Protocol PRN Reason: per Hypoglycemia Standing Ord. Dextrose (D10) 250 mls @ 750 mls/hr IV Q15M PRN; Protocol PRN Reason: per Hypoglycemia Standing Ord. Insulin Human Lispro (Insulin Lispro 100 Unit/Ml 3 Ml Vial) 0 unit SUBCUT QIDACHS [facility]; Protocol Last Admin: 05/15/24 13:16 Dose: 4 unit Documented By: YASMIN Loperamide HCl (Loperamide Hcl 2 Mg Capsule) 2 mg PO Q4H PRN PRN Reason: Diarrhea Lorazepam (Lorazepam 0.5 Mg Tablet) 0.5 mg PO BID PRN PRN Reason: severe anxiety Last Admin: 05/14/24 22:15 Dose: 0.5 mg Documented By: KAYDEN Magnesium Hydroxide (Milk Of Magnesia 30 Ml Oral.Susp) 30 ml PO DAILY PRN PRN Reason: Constipation Magnesium Oxide (Magnesium [facility] 400 Mg Tablet) [facility] Last Admin: 05/15/24 09:24 Dose: 400 mg Documented By: YASMIN Melatonin (Melatonin 3 Mg Tablet) 6 mg PO BEDTIME PRN PRN Reason: Insomnia Last Admin: 05/14/24 22:15 Dose: 6 mg Documented By: KAYDEN Metoprolol Tartrate (Metoprolol Tartrate 12.5 Mg Halftab) 12.5 mg PO QID [facility]; Protocol Last Admin: 05/15/24 13:16 Dose: 12.5 mg Documented By: YASMIN Multivitamins/Vitamin C (Multivitamin Tablet) 1 tab PO DAILY [facility] Last Admin: 05/15/24 09:24 Dose: 1 tab Documented By: YASMIN Naloxone HCl (Naloxone Hcl 0.4 Mg/Ml Vial) 0.04 mg IVPUSH Q5M PRN PRN Reason: Excessive sedation or RR < 8 Omeprazole (Omeprazole 40 Mg Capsule.Dr) 40 mg PO BID@7730,3880 [facility] Last Admin: 05/15/24 05:34 Dose: 40 mg Documented By: KAYDEN Ondansetron HCl (Ondansetron Hcl 4 Mg/2 Ml Vial) 4 mg IVPUSH Q8H PRN PRN Reason: Nausea and Vomiting Oxycodone HCl (Oxycodone Hcl Immed Release 5 Mg Tablet) 5 mg PO Q6H PRN PRN Reason: Pain, Moderate(Pain Scale 4-6) Last Admin: 05/14/24 11:18 Dose: 5 mg Documented By: TWAN Sodium Chloride (0.9 % Sodium Chloride Flush 3 Ml Syringe) 3 ml IVFLUSH QSHIFT [facility] Last Admin: 05/15/24 09:25 Dose: 3 ml Documented By: YASMIN Trazodone HCl (Trazodone Hcl 50 Mg Tablet) 50 mg PO BEDTIME [facility] Last Admin: 05/14/24 22:15 Dose: 50 mg Documented By: JUNOIR Labs 05/15/24 06:45 05/15/24 06:45 Labs: Laboratory Results - last 24 hr 05/14/24 05/14/24 05/14/24 16:23 16:29 20:52 MCV MCH MCHC RDW Plt Count MPV Immature Gran % (Auto) Neut % (Auto) Lymph % (Auto) Mchenry % (Auto) Eos % (Auto) Baso % (Auto) Lymph # (Auto) Mchenry # (Auto) Eos # (Auto) Baso # (Auto) Abs Immat Gran (auto) Absolute Neuts (auto) Absolute Nucleated RBC Nucleated RBC % (auto) Hold Purple Top Anion Gap 18 Estim Creat Clear Calc 24.5 Estimated GFR 25 POC Glucose 182 H 273 H Random Glucose 184 H Calcium 8.6 Magnesium B-Natriuretic Peptide 2954 H 05/15/24 05/15/24 05/15/24 00:36 00:51 06:45 MCV 89.3 MCH 29.1 MCHC 32.6 RDW 15.1 Plt Count 295 MPV 9.6 Immature Gran % (Auto) 0.4 Neut % (Auto) 71.8 Lymph % (Auto) 15.4 L Mchenry % (Auto) 11.5 H Eos % (Auto) 0.2 Baso % (Auto) 0.7 Lymph # (Auto) 1.4 Mchenry # (Auto) 1.0 Eos # (Auto) 0.0 Baso # (Auto) 0.1 Abs Immat Gran (auto) 0.04 H Absolute Neuts (auto) 6.4 Absolute Nucleated RBC 0.000 Nucleated RBC % (auto) 0.0 Hold Purple Top SEE NOTE Anion Gap 19 17 Estim Creat Clear Calc 22.4 23.5 Estimated GFR 23 24 POC Glucose Random Glucose 139 H 121 H Calcium 8.7 8.7 Magnesium 1.4 L* 1.9 B-Natriuretic Peptide 05/15/24 05/15/24 06:52 10:50 MCV MCH MCHC RDW Plt Count MPV Immature Gran % (Auto) Neut % (Auto) Lymph % (Auto) Mchenry % (Auto) Eos % (Auto) Baso % (Auto) Lymph # (Auto) Mchenry # (Auto) Eos # (Auto) Baso # (Auto) Abs Immat Gran (auto) Absolute Neuts (auto) Absolute Nucleated RBC Nucleated RBC % (auto) Hold Purple Top Anion Gap Estim Creat Clear Calc Estimated GFR POC Glucose 115 213 H Random Glucose Calcium Magnesium B-Natriuretic Peptide Assessment and Plan (1) Acute congestive heart failure: Status: Acute Assessment and Plan: 83-year-old female with a past medical history significant for persistent AFib, CHF, type 2 diabetes (no meds, previously p.o.), and mild intermittent asthma who presented to the ED today with shortness of breath for the past 2 days. Patient was recent complicated admission for sepsis related to fever of unknown origin, presumed diverticulitis versus pneumonia, LITA, type 2 diabetes with hyperglycemia, mild intermittent asthma with acute exacerbation, hypertension and acute hypokalemia. Vtach episode/torsade [place] -please see night physician note for details. received iv magnesium added metoprolol . given extra potassium this morning moniter elactrolytes closely -goal k:> 4 , mag >2. Acute congestive heart failure exacerbation(unclear etiology ,echo pending) and possible hospital acquired pneumonia sob improving, leukocytosis also improving. BNP is somewhat elevated [id number] in 2900 mild elevated trop sec in setting of chf. procalcitonin levels0.06 plan: sob improving nasal mrsa negative continue po doxycycline(started on 04/12) and zosyn ( intiated on 04/10) last night received iv lasix 40 mg , hold lasix for today-sob seems improving ,has multiple electrolytes . d/w cardiology . hypokalemia/hypomagnesemia given iv and po replacements continue to moniter electrolytes closely. anemia of acute blood loss -melena/microscopic hematuria s/p egd on 05/12/24:large duodenal ulcer in bulb,no bleeding,antral bx's taken s/p 2prbc h/h 10.6/32.5 Gi -continue ppi,moniter h/h. LITA: insetting of chf moniter renal function and electrolytes closely a fib- rate controlled unable to add anticoagulant due to Gib as above ,Gi rec to hold eliquis for 1 week. T2DM- diabetic diet/cardiac diet sliding scale insulin mild intermittent asthma without acute exacerbation - no wheezing on exam - albuterol PRN obesity - weight loss encouraged - BMI 30.2 anxiety : prn ativan( avoid excessive use sec to renal dis) psych eval. VTE prophy: pneumoboots, anticoagulant contraindicated with anemia andgib. acute congestive heart failure exacerbation and possible vtach, hospital acquired pneumonia,chf ,anemia :need iv diuretics ,moniter renal function and electrolytes as well as 1/o monitering, lita,ppi , h/h . Quality Stroke Does the patient have a stroke diagnosis?: No VTE Prior VTE?: No VTE Risk Level:: Medical - moderate - high VTE Device Contraindication: N/A - Device Ordered VTE Drug Contraindication: Treatment Not Indicated
[2024-05-15 14:05] LABS: Magnesium 2.4 mg/dL (1.6-2.6); Potassium 3.3 mmol/L (3.3-5.1)
[2024-05-15 16:16] LABS: Glucose, Whole Blood 224 mg/dL (60-115)
[2024-05-15] MEDS: Throat Lozenge, Medicated LOZENGE 1 LOZENGE MUCOUS MEM (17:27)
[2024-05-15] MEDS: traZODone HCL 50 MG TABLET PO (21:04)
[2024-05-15 21:22] LABS: Glucose, Whole Blood 203 mg/dL (60-115)
[2024-05-16] VITALS (7 sets, daily range): BP systolic 128–156; BP diastolic 61–80; PULSE 75–102; RESP 18–20; TEMP 36.4–38; O2SAT 92–98; BMI 34.4
[2024-05-16] MEDS: Omeprazole 40 MG CAPSULE.DR PO ×2 (05:06→15:34)
[2024-05-16 06:57] LABS: Anion Gap 12 (12-20); Blood Urea Nitrogen 25 mg/dL (9-16); Calcium 8.5 mg/dL (8.4-10.2); Carbon Dioxide 30 mmol/L (22-29); Chloride 103 mmol/L (96-108); Creatinine Clr Calc Pharmacy 26.7; Estimated Glomerular Filt Rate 29; Glucose Random 127 mg/dL (60-115); Potassium 3.3 mmol/L (3.3-5.1); Sodium 142 mmol/L (135-145)
[2024-05-16 07:02] LABS: B Type Natriuretic Peptide 1566 pg/mL (<100)
[2024-05-16 07:35] LABS: Glucose, Whole Blood 117 mg/dL (60-115)
[2024-05-16 08:35] LABS: Magnesium 2.3 mg/dL (1.6-2.6)
--- NOTE | 2024-05-16 10:26 | P.CNPS_ITS ---
History of Present Illness Date of Service: t Chief Complaint: CHF Exacerbation ? Hospital Acquired Pneumonia Reason for Consult: Anxiety Requesting physician: Carla Yang Discussed with referring provider: Yes Sources of Information: patient interviewed, chart reviewed and crisis/core team assessment reviewed HPI Narrative: The patient is an 83-year-old female with atrial fibrillation, CHF, acute kidney injury, obesity, diabetes type 2 and asthma who was admitted into the hospital for exacerbation of shortness of breath. The etiology of the shortness of breath is most likely hospital-acquired pneumonia and worsening of COPD with CHF. The current consult was asked for exacerbation of anxiety. On interview, the patient reported that she was feeling very anxious since she was feeling short of breath. She also reported several psychosocial stressors such as financial constraints and the passing of 2 of her children. She stated that she is following outpatient psychiatric services but she is unable to provide me with a list of medications. She adamantly denies active suicidal or homicidal thoughts denies hallucinations or delusions and she is able to contract for safety. We discussed the case with Dr. Yang and we agreed on the following plan. Past Psychiatric History: Denies prior psychiatric admissions she sees a psychiatrist as an outpatient Medical Evaluation Reviewed: Yes [facility] Medical History Anemia Sigmoid diverticulitis Congestive heart failure Atrial fibrillation Fever of unknown origin Mild intermittent asthma Type 2 diabetes mellitus without complications Diagnostics Vital Signs (24Hr): Vital Signs - 24 hr 05/15/24 11:13 05/15/24 13:00 05/15/24 15:56 Temperature 97.5 F 98.7 F Pulse Rate 95 80 Respiratory Rate 20 16 Blood Pressure 132/84 144/66 H Pulse Oximetry 94 97 100 Oxygen Delivery Method Nasal Cannula Nasal Cannula Nasal Cannula Oxygen Flow Rate 3 3 05/15/24 19:55 05/16/24 00:00 05/16/24 03:51 Temperature 98.8 F 98.1 F 98.1 F Pulse Rate 61 83 77 Respiratory Rate 16 18 18 Blood Pressure 178/73 H 156/71 H 135/80 Pulse Oximetry 100 98 98 Oxygen Delivery Method Nasal Cannula Nasal Cannula Nasal Cannula Oxygen Flow Rate 3 2 2 05/16/24 07:37 Temperature 97.5 F Pulse Rate 75 Respiratory Rate 19 Blood Pressure 146/69 H Pulse Oximetry 98 Oxygen Delivery Method Room Air Oxygen Flow Rate BMI result Body Mass Index 34.4 Labs 05/15/24 06:45 05/16/24 05:48 Labs: Laboratory Results - last 48 hr 05/14/24 05/14/24 05/14/24 11:14 16:22 16:23 WBC RBC Hgb 10.2 L D Hct 30.7 L D MCV MCH MCHC RDW Plt Count MPV Immature Gran % (Auto) Neut % (Auto) Lymph % (Auto) [place] % (Auto) Eos % (Auto) Baso % (Auto) Lymph # (Auto) [place] # (Auto) Eos # (Auto) Baso # (Auto) Abs Immat Gran (auto) Absolute Neuts (auto) Absolute Nucleated RBC Nucleated RBC % (auto) Hold Purple Top Sodium 142 Potassium 3.7 D Chloride 104 Carbon Dioxide 24 Anion Gap 18 BUN 23 H Creatinine 1.90 H Estim Creat Clear Calc 24.5 Estimated GFR 25 POC Glucose 248 H Random Glucose 184 H Calcium 8.6 Magnesium B-Natriuretic Peptide 2954 H 05/14/24 05/14/24 05/15/24 16:29 20:52 00:36 WBC RBC Hgb Hct MCV MCH MCHC RDW Plt Count MPV Immature Gran % (Auto) Neut % (Auto) Lymph % (Auto) [place] % (Auto) Eos % (Auto) Baso % (Auto) Lymph # (Auto) [place] # (Auto) Eos # (Auto) Baso # (Auto) Abs Immat Gran (auto) Absolute Neuts (auto) Absolute Nucleated RBC Nucleated RBC % (auto) Hold Purple Top Sodium 142 Potassium 3.6 Chloride 101 Carbon Dioxide 26 Anion Gap 19 BUN 25 H Creatinine 2.08 H Estim Creat Clear Calc 22.4 Estimated GFR 23 POC Glucose 182 H 273 H Random Glucose 139 H Calcium 8.7 Magnesium 1.4 L* B-Natriuretic Peptide 05/15/24 05/15/24 05/15/24 00:51 06:45 06:52 WBC 9.0 RBC 3.64 L D Hgb 10.6 L Hct 32.5 L MCV 89.3 MCH 29.1 MCHC 32.6 RDW 15.1 Plt Count 295 MPV 9.6 Immature Gran % (Auto) 0.4 Neut % (Auto) 71.8 Lymph % (Auto) 15.[address] [place] % (Auto) 11.5 H Eos % (Auto) 0.2 Baso % (Auto) 0.7 Lymph # (Auto) 1.4 [place] # (Auto) 1.0 Eos # (Auto) 0.0 Baso # (Auto) 0.1 Abs Immat Gran (auto) 0.04 H Absolute Neuts (auto) 6.4 Absolute Nucleated RBC 0.000 Nucleated RBC % (auto) 0.0 Hold Purple Top SEE NOTE Sodium 142 Potassium 2.8 L* D Chloride 100 Carbon Dioxide 28 Anion Gap 17 BUN 24 H Creatinine 1.98 H Estim Creat Clear Calc 23.5 Estimated GFR 24 POC Glucose 115 Random Glucose 121 H Calcium 8.7 Magnesium 1.9 B-Natriuretic Peptide 05/15/24 05/15/24 05/15/24 10:50 13:35 16:04 WBC RBC Hgb Hct MCV MCH MCHC RDW Plt Count MPV Immature Gran % (Auto) Neut % (Auto) Lymph % (Auto) [place] % (Auto) Eos % (Auto) Baso % (Auto) Lymph # (Auto) [place] # (Auto) Eos # (Auto) Baso # (Auto) Abs Immat Gran (auto) Absolute Neuts (auto) Absolute Nucleated RBC Nucleated RBC % (auto) Hold Purple Top Sodium Potassium 3.3 Chloride Carbon Dioxide Anion Gap BUN Creatinine Estim Creat Clear Calc Estimated GFR POC Glucose 213 H 224 H Random Glucose Calcium Magnesium 2.4 B-Natriuretic Peptide 05/15/24 05/16/24 05/16/24 20:59 05:48 07:28 WBC RBC Hgb Hct MCV MCH MCHC RDW Plt Count MPV Immature Gran % (Auto) Neut % (Auto) Lymph % (Auto) [place] % (Auto) Eos % (Auto) Baso % (Auto) Lymph # (Auto) [place] # (Auto) Eos # (Auto) Baso # (Auto) Abs Immat Gran (auto) Absolute Neuts (auto) Absolute Nucleated RBC Nucleated RBC % (auto) Hold Purple Top Sodium 142 Potassium 3.3 Chloride 103 Carbon Dioxide 30 H Anion Gap 12 BUN 25 H Creatinine 1.67 H Estim Creat Clear Calc 26.7 Estimated GFR 29 POC Glucose 203 H 117 H Random Glucose 127 H Calcium 8.5 Magnesium 2.3 B-Natriuretic Peptide 1566 H Imaging Radiology Impressions: ITS Impressions Chest X-Ray 05/10/24 17:43 IMPRESSION: Improving but persistent interstitial pulmonary edema. Electronically signed by: Oneil Will MD 05/10/2024 08:22 PM [facility] [place] Mental Status Exam Mental Status Exam Patient Appearance: Appropriate Patient Orientation: Person and Situation Level of Consciousness: Awake and Appropriate Patient Behavior: Guarded and Passive Mood Description: Withdrawn Affect Description: Constricted Patient Cognition Impaired: Yes Ability to Follow Directions: Good Speech Pattern: Clear Hallucinations: None Delusions: Not Present Thought Process: Distracted Thought Content: positive for [place] and positive for Poverty of Content Judgement: Fair Medications Medications Current Medications Acetaminophen (Acetaminophen 325 Mg Tablet) 975 mg PO Q6H PRN PRN Reason: Pain, Mild (Pain Scale 1-3), fever or headache Last Admin: 05/14/24 11:18 Dose: 975 mg Albuterol Sulfate (Albuterol Sulfate 90 Mcg 8 Gm Inhaler) 2 puff INHALE RQ4H PRN PRN Reason: Wheezing Amoxicillin/Clavulanate Potassium (Amoxicillin/Potassium Clav 500 Mg Tablet) 500 mg PO Q12H [facility] Last Admin: 05/15/24 21:04 Dose: 500 mg Ascorbic Acid (Ascorbic Acid 500 Mg Tablet) 500 mg PO DAILY [facility] Last Admin: 05/15/24 11:15 Dose: 500 mg Benzocaine (Throat Lozenge, Medicated Lozenge) 1 lozenge MUCOUS MEM Q2H PRN PRN Reason: Sore Throat Last Admin: 05/15/24 17:27 Dose: 1 lozenge Calcium Carbonate (Calcium Carbonate 750 Mg Tab.Chew) 750 mg PO Q4H PRN PRN Reason: Heartburn Calcium Carbonate (Calcium Oyster Shell Elemental 500 Mg Tablet) 500 mg PO DAILY [facility] Last Admin: 05/15/24 09:24 Dose: 500 mg Doxycycline Monohydrate (Doxycycline Monohydrate 100 Mg Capsule) 100 mg PO Q12H [facility] Last Admin: 05/15/24 21:04 Dose: 100 mg Empagliflozin (Empagliflozin 10 Mg Tablet) 10 mg PO DAILY [facility] Last Admin: 05/15/24 09:24 Dose: 10 mg Glucose (Glucose Gel 15 Gm Gel..Gram.) 15 gm PO Q15M PRN; Protocol PRN Reason: per Hypoglycemia Standing Ord. Dextrose (D10) 250 mls @ 750 mls/hr IV Q15M PRN; Protocol PRN Reason: per Hypoglycemia Standing Ord. Insulin Human Lispro (Insulin Lispro 100 Unit/Ml 3 Ml Vial) 0 unit SUBCUT QIDACHS [facility]; Protocol Last Admin: 05/15/24 22:08 Dose: 4 unit Loperamide HCl (Loperamide Hcl 2 Mg Capsule) 2 mg PO Q4H PRN PRN Reason: Diarrhea Lorazepam (Lorazepam 0.5 Mg Tablet) 0.5 mg PO BID PRN PRN Reason: severe anxiety Last Admin: 05/14/24 22:15 Dose: 0.5 mg Magnesium Hydroxide (Milk Of Magnesia 30 Ml Oral.Susp) 30 ml PO DAILY PRN PRN Reason: Constipation Magnesium Oxide (Magnesium Oxide 400 Mg Tablet) 400 mg PO BIDPC [facility] Last Admin: 05/15/24 17:27 Dose: 400 mg Melatonin (Melatonin 3 Mg Tablet) 6 mg PO BEDTIME PRN PRN Reason: Insomnia Last Admin: 05/14/24 22:15 Dose: 6 mg Metoprolol Tartrate (Metoprolol Tartrate 12.5 Mg Halftab) 12.5 mg PO QID [facility]; Protocol Last Admin: 05/15/24 21:04 Dose: 12.5 mg Multivitamins/Vitamin C (Multivitamin Tablet) 1 tab PO DAILY [facility] Last Admin: 05/15/24 09:24 Dose: 1 tab Naloxone HCl (Naloxone Hcl 0.4 Mg/Ml Vial) 0.04 mg IVPUSH Q5M PRN PRN Reason: Excessive sedation or RR < 8 Omeprazole (Omeprazole 40 Mg Capsule.Dr) 40 mg PO BID@0630,1630 [facility] Last Admin: 05/16/24 05:06 Dose: 40 mg Ondansetron HCl (Ondansetron Hcl 4 Mg/2 Ml Vial) 4 mg IVPUSH Q8H PRN PRN Reason: Nausea and Vomiting Oxycodone HCl (Oxycodone Hcl Immed Release 5 Mg Tablet) 5 mg PO Q6H PRN PRN Reason: Pain, Moderate(Pain Scale 4-6) Last Admin: 05/14/24 11:18 Dose: 5 mg Sodium Chloride (0.9 % Sodium Chloride Flush 3 Ml Syringe) [facility] Last Admin: 05/15/24 21:04 Dose: 3 ml Trazodone HCl (Trazodone Hcl 50 Mg Tablet) 50 mg PO BEDTIME [facility] Last Admin: 05/15/24 21:04 Dose: 50 mg Allergies Allergies Allergy/AdvReac Type Severity Reaction Status Date / Time No Known Allergies Allergy Verified 05/10/24 17:43 Assessment & Plan Assessment & Plan (1) Duodenal ulcer: Status: Acute Code(s): K26.9 - Duodenal ulcer, unspecified as acute or chronic, without hemorrhage or perforation (2) Hospital acquired PNA: Status: Acute Code(s): J18.9 - Pneumonia, unspecified organism; Y95 - Nosocomial condition (3) Acute congestive heart failure: Status: Acute Code(s): I50.9 - Heart failure, unspecified (4) Atrial fibrillation: Qualifiers: Atrial fibrillation type: unspecified Qualified Code(s): I48.91 - Unspecified atrial fibrillation Status: Acute Code(s): I48.91 - Unspecified atrial fibrillation (5) Edema, peripheral: Status: Acute Code(s): R60.0 - Localized edema (6) Anemia: Status: Acute Code(s): D64.9 - Anemia, unspecified (7) Congestive heart failure: Qualifiers: Heart failure chronicity: acute Status: Acute Code(s): I50.9 - Heart failure, unspecified (8) Anemia: Status: Acute Code(s): D64.9 - Anemia, unspecified (9) LITA (acute kidney injury): Status: Acute Code(s): N17.9 - Acute kidney failure, unspecified (10) Obesity (BMI 30.0-34.9): Status: Acute Code(s): E66.811 - Obesity, class 1 (11) Type 2 diabetes mellitus without complications: Status: Acute Code(s): E11.9 - Type 2 diabetes mellitus without complications Plan The patient is an elderly female with several medical comorbidities such as CHF, shortness of breath due to possible hospital-acquired pneumonia, atrial fibrillation, edema, diabetes type 2 and other medical comorbidities admitted for exacerbation of shortness of breath. The present consult was asked due to increased anxiety. We discussed the case with the primary prescriber. Plan 1. Continue with Ativan 0.5 p.o. p.r.n. as needed for anxiety. Be mindful that lorazepam and other benzodiazepines can worsen it the respiratory failure. 2. Start gabapentin 100 mg p.o. t.i.d. to target anxiety and mood lability. 3. The patient should be continue with outpatient provider psychiatric services. 4. Reassessment as demand. Total time managing care of this patient today __45__ minutes. Patient educated on: diagnosis Informed Consent: understands
[2024-05-16] MEDS: Potassium Chloride/H20 10 MEQ/100 ML PIGGYBACK 100 MEQ IV ×2 (10:33→12:31)
[2024-05-16] MEDS: Calcium Oyster Shell Elemental 500 MG TABLET PO (10:33)
[2024-05-16] MEDS: Throat Lozenge, Medicated LOZENGE 1 LOZENGE MUCOUS MEM (10:33)
[2024-05-16] MEDS: Magnesium Sulfate/D5W 1 GM/100 ML PIGGYBACK IV (10:33)
[2024-05-16] MEDS: Multivitamin TABLET 1 TAB PO (10:34)
[2024-05-16] MEDS: Ascorbic Acid 500 MG TABLET PO (10:34)
[2024-05-16] MEDS: Magnesium Oxide 400 MG TABLET PO ×2 (10:34→16:59)
[2024-05-16] MEDS: Doxycycline Monohydrate 100 MG CAPSULE PO ×2 (10:34→20:49)
[2024-05-16] MEDS: Empagliflozin 10 MG TABLET PO (10:34)
[2024-05-16] MEDS: 0.9 % Sodium Chloride Flush 3 ML SYRINGE IVFLUSH ×3 (10:34→20:51)
[2024-05-16] MEDS: Metoprolol Tartrate 12.5 MG HALFTAB PO ×4 (10:34→20:49)
[2024-05-16] MEDS: Amoxicillin/Potassium Clav 500 MG TABLET PO ×2 (10:34→20:49)
[2024-05-16] MEDS: Gabapentin 100 MG CAPSULE PO ×3 (10:55→20:49)
[2024-05-16 11:53] LABS: Glucose, Whole Blood 165 mg/dL (60-115)
[2024-05-16] MEDS: Insulin Lispro 100 UNIT/ML 3 ML VIAL SUBCUT ×3 (12:31→21:46)
--- NOTE | 2024-05-16 13:58 | HO.PM.IMPN ---
Subjective Subjective Date of Service: 05/16/24 Interval History: chf Review of Systems Patient denies any chest pain Shortness of breath somewhat improving No fever , says diarrhea also improved Physical Exam Vital Signs: Vital Signs: Last Vital Signs Temp 97.7 F 05/16/24 11:51 Pulse 80 05/16/24 11:51 Resp 19 05/16/24 11:51 BP 142/65 H 05/16/24 11:51 Pulse Ox 98 05/16/24 11:51 O2 Del Method Room Air 05/16/24 11:51 O2 Flow Rate 2 05/16/24 03:51 Oxygen Flow Rate 3 05/15/24 13:00 BMI result Body Mass Index 34.4 Appearance: Alert.? Oriented X3.? cvs: rrr, [id number] . res: air entry diminshed at bases . abd: no rebound or guarding ,nt, bs present. ext pulses present , no cyanosis. neuro: axo3 , nonfocal. Objective Data Active Medications Acetaminophen (Acetaminophen 325 Mg Tablet) 975 mg PO Q6H PRN PRN Reason: Pain, Mild (Pain Scale 1-3), fever or headache Last Admin: 05/14/24 11:18 Dose: 975 mg Documented By: TWAN Albuterol Sulfate (Albuterol Sulfate 90 Mcg 8 Gm Inhaler) 2 puff INHALE RQ4H PRN PRN Reason: Wheezing Amoxicillin/Clavulanate Potassium (Amoxicillin/Potassium Clav 500 Mg Tablet) 500 mg PO Q12H [facility] Last Admin: 05/16/24 10:34 Dose: 500 mg Documented By: YASMIN Ascorbic Acid (Ascorbic Acid 500 Mg Tablet) 500 mg PO DAILY [facility] Last Admin: 05/16/24 10:34 Dose: 500 mg Documented By: YASMIN Benzocaine (Throat Lozenge, Medicated Lozenge) 1 lozenge MUCOUS MEM Q2H PRN PRN Reason: Sore Throat Last Admin: 05/16/24 10:33 Dose: 1 lozenge Documented By: YASMIN Calcium Carbonate (Calcium Carbonate 750 Mg Tab.Chew) 750 mg PO Q4H PRN PRN Reason: Heartburn Calcium Carbonate (Calcium Oyster Shell Elemental 500 Mg Tablet) 500 mg PO DAILY [facility] Last Admin: 05/16/24 10:33 Dose: 500 mg Documented By: YASMIN Doxycycline Monohydrate (Doxycycline Monohydrate 100 Mg Capsule) 100 mg PO Q12H [facility] Last Admin: 05/16/24 10:34 Dose: 100 mg Documented By: YASMIN Empagliflozin (Empagliflozin 10 Mg Tablet) 10 mg PO DAILY [facility] Last Admin: 05/16/24 10:34 Dose: 10 mg Documented By: YASIMN Gabapentin (Gabapentin 100 Mg Capsule) 100 mg PO TID [facility] Last Admin: 05/16/24 10:55 Dose: 100 mg Documented By: YASMIN Glucose (Glucose Gel 15 Gm Gel..Gram.) 15 gm PO Q15M PRN; Protocol PRN Reason: per Hypoglycemia Standing Ord. Dextrose (D10) 250 mls @ 750 mls/hr IV Q15M PRN; Protocol PRN Reason: per Hypoglycemia Standing Ord. Insulin Human Lispro (Insulin Lispro 100 Unit/Ml 3 Ml Vial) 0 unit SUBCUT QIDACHS [facility]; Protocol Last Admin: 05/16/24 12:31 Dose: 2 unit Documented By: YASMIN Loperamide HCl (Loperamide Hcl 2 Mg Capsule) 2 mg PO Q4H PRN PRN Reason: Diarrhea Lorazepam (Lorazepam 0.5 Mg Tablet) 0.5 mg PO BID PRN PRN Reason: severe anxiety Last Admin: 05/14/24 22:15 Dose: 0.5 mg Documented By: KAYDEN Magnesium Hydroxide (Milk Of Magnesia 30 Ml Oral.Susp) 30 ml PO DAILY PRN PRN Reason: Constipation Magnesium Oxide (Magnesium Oxide 400 Mg Tablet) [facility] Last Admin: 05/16/24 10:34 Dose: 400 mg Documented By: YASMIN Melatonin (Melatonin 3 Mg Tablet) 6 mg PO BEDTIME PRN PRN Reason: Insomnia Last Admin: 05/14/24 22:15 Dose: 6 mg Documented By: KAYDEN Metoprolol Tartrate (Metoprolol Tartrate 12.5 Mg Halftab) 12.5 mg PO QID [facility]; Protocol Last Admin: 05/16/24 12:31 Dose: 12.5 mg Documented By: YASMIN Multivitamins/Vitamin C (Multivitamin Tablet) 1 tab PO DAILY [facility] Last Admin: 05/16/24 10:34 Dose: 1 tab Documented By: YASMIN Naloxone HCl (Naloxone Hcl 0.4 Mg/Ml Vial) 0.04 mg IVPUSH Q5M PRN PRN Reason: Excessive sedation or RR < 8 Omeprazole (Omeprazole 40 Mg Capsule.Dr) 40 mg PO BID@0630,1630 [facility] Last Admin: 05/16/24 05:06 Dose: 40 mg Documented By: ADARSH Ondansetron HCl (Ondansetron Hcl 4 Mg/2 Ml Vial) 4 mg IVPUSH Q8H PRN PRN Reason: Nausea and Vomiting Oxycodone HCl (Oxycodone Hcl Immed Release 5 Mg Tablet) 5 mg PO Q6H PRN PRN Reason: Pain, Moderate(Pain Scale 4-6) Last Admin: 05/14/24 11:18 Dose: 5 mg Documented By: TWAN Sodium Chloride (0.9 % Sodium Chloride Flush 3 Ml Syringe) 3 ml IVFLUSH QSHIFT [facility] Last Admin: 05/16/24 10:34 Dose: 3 ml Documented By: YASMIN Trazodone HCl (Trazodone Hcl 50 Mg Tablet) 50 mg PO BEDTIME [facility] Last Admin: 05/15/24 21:04 Dose: 50 mg Documented By: ADARSH Labs 05/15/24 06:45 05/16/24 05:48 Labs: Laboratory Results - last 24 hr 05/15/24 05/15/24 05/15/24 13:35 16:04 20:59 Anion Gap Estim Creat Clear Calc Estimated GFR POC Glucose 224 H 203 H Random Glucose Calcium Magnesium 2.4 B-Natriuretic Peptide 05/16/24 05/16/24 05/16/24 05:48 07:28 11:50 Anion Gap 12 Estim Creat Clear Calc 26.7 Estimated GFR 29 POC Glucose 117 H 165 H Random Glucose 127 H Calcium 8.5 Magnesium 2.3 B-Natriuretic Peptide 1566 H Microbiology Microbiology Results: Microbiology 05/10/24 21:45 Blood Culture - Final Blood - Venous No growth after 5 days. 05/10/24 21:37 Blood Culture - Final Blood - Venous No growth after 5 days. Assessment and Plan (1) Acute congestive heart failure: Status: Acute Assessment and Plan: 83-year-old female with a past medical history significant for persistent AFib, CHF, type 2 diabetes (no meds, previously p.o.), and mild intermittent asthma who presented to the ED today with shortness of breath for the past 2 days. Patient was recent complicated admission for sepsis related to fever of unknown origin, presumed diverticulitis versus pneumonia, LITA, type 2 diabetes with hyperglycemia, mild intermittent asthma with acute exacerbation, hypertension and acute hypokalemia. Vtach episode/torsade de point. no new episodes today continue metoprolol . moniter elactrolytes closely -goal k:> 4 , mag >2. Acute congestive heart failure exacerbation(unclear etiology ,echo pending) and possible hospital acquired pneumonia sob improving, leukocytosis also improving. BNP is somewhat elevated [phone] mild elevated trop sec in setting of chf. procalcitonin levels0.06 plan: sob improving,nasal mrsa negative continue po doxycycline(started on 04/12) and zosyn ( intiated on 04/10) started iv lasix 40 mg . d/w cardiology . hypokalemia/hypomagnesemia repleted again will check potassium and magnesium anemia of acute blood loss -melena/microscopic hematuria s/p egd on 05/12/24:large duodenal ulcer in bulb,no bleeding,antral bx's taken s/p 2prbc h/h 10.6/32.5 Gi -continue ppi,moniter h/h. LITA: insetting of chf moniter renal function and electrolytes closely a fib- rate controlled unable to add anticoagulant due to Gib as above ,Gi rec to hold eliquis for 1 week. T2DM- diabetic diet/cardiac diet sliding scale insulin mild intermittent asthma without acute exacerbation - no wheezing on exam - albuterol PRN obesity - weight loss encouraged - BMI 30.2 anxiety : prn ativan( avoid excessive use sec to renal dis) psych eval. VTE prophy: pneumoboots, anticoagulant contraindicated with anemia andgib. acute congestive heart failure exacerbation and possible vtach, hospital acquired pneumonia,chf ,anemia :need iv diuretics ,moniter renal function and electrolytes as well as 1/o monitering, lita,ppi , h/h . Quality Stroke Does the patient have a stroke diagnosis?: No VTE Prior VTE?: No VTE Risk Level:: Medical - moderate - high VTE Device Contraindication: N/A - Device Ordered VTE Drug Contraindication: Treatment Not Indicated
[2024-05-16 15:29] LABS: Glucose, Whole Blood 186 mg/dL (60-115)
[2024-05-16 15:31] LABS: Magnesium 2.7 mg/dL (1.6-2.6); Potassium 4.7 mmol/L (3.3-5.1)
[2024-05-16] MEDS: traZODone HCL 50 MG TABLET PO (20:49)
[2024-05-16 21:32] LABS: Glucose, Whole Blood 190 mg/dL (60-115)
[2024-05-17] VITALS (8 sets, daily range): BP systolic 114–154; BP diastolic 51–85; PULSE 69–99; RESP 16–24; TEMP 36.4–37.1; O2SAT 90–97
[2024-05-17] MEDS: Omeprazole 40 MG CAPSULE.DR PO ×2 (05:41→16:50)
[2024-05-17 07:47] LABS: Glucose, Whole Blood 105 mg/dL (60-115)
[2024-05-17 08:07] LABS: Anion Gap 15 (12-20); Blood Urea Nitrogen 25 mg/dL (9-16); Calcium 8.8 mg/dL (8.4-10.2); Carbon Dioxide 28 mmol/L (22-29); Chloride 103 mmol/L (96-108); Creatinine Clr Calc Pharmacy 28.4; Estimated Glomerular Filt Rate 32; Glucose Random 119 mg/dL (60-115); Magnesium 2.2 mg/dL (1.6-2.6); Potassium 3.5 mmol/L (3.3-5.1); Sodium 142 mmol/L (135-145)
[2024-05-17] MEDS: Spironolactone 25 MG TABLET 12.5 MG PO ×2 (08:47→17:31)
[2024-05-17] MEDS: Doxycycline Monohydrate 100 MG CAPSULE PO ×2 (08:47→19:56)
[2024-05-17] MEDS: Gabapentin 100 MG CAPSULE PO ×3 (08:47→19:56)
[2024-05-17] MEDS: Potassium Chloride ER 20 MEQ TAB.ER.PRT 40 MEQ PO (08:48)
[2024-05-17] MEDS: Ascorbic Acid 500 MG TABLET PO (08:48)
[2024-05-17] MEDS: Multivitamin TABLET 1 TAB PO (08:48)
[2024-05-17] MEDS: Amoxicillin/Potassium Clav 500 MG TABLET PO ×2 (08:48→19:56)
[2024-05-17] MEDS: Magnesium Oxide 400 MG TABLET PO ×2 (08:48→16:50)
[2024-05-17] MEDS: Empagliflozin 10 MG TABLET PO (08:48)
[2024-05-17] MEDS: Furosemide 40 MG/4 ML VIAL IVPUSH (08:48)
[2024-05-17] MEDS: Calcium Oyster Shell Elemental 500 MG TABLET PO (08:48)
[2024-05-17] MEDS: Metoprolol Tartrate 12.5 MG HALFTAB PO ×4 (08:49→19:56)
[2024-05-17] MEDS: 0.9 % Sodium Chloride Flush 3 ML SYRINGE IVFLUSH ×3 (08:49→19:55)
--- NOTE | 2024-05-17 10:22 | MHC.CM.PN ---
Per ROUNDS discussion, Patient is not yet medically cleared for dc (CHF/Fluid Overload/IV Lasix was just able to be restarted r/t Electrolyte Abnormalities); Home is the goal and CM will continue to follow.
[2024-05-17 11:38] LABS: Glucose, Whole Blood 167 mg/dL (60-115)
[2024-05-17] MEDS: Insulin Lispro 100 UNIT/ML 3 ML VIAL SUBCUT ×2 (12:32→16:50)
--- NOTE | 2024-05-17 13:51 | HO.PM.IMPN ---
Subjective Subjective Date of Service: 05/17/24 Interval History: chf Review of Systems sob somewhat improving but sob with minimal excersion no fever or chest pain or palapatation no new bleeding mood seems plaesant today. Physical Exam Vital Signs: Vital Signs: Last Vital Signs Temp 98.5 F 05/17/24 11:55 Pulse 69 05/17/24 11:55 Resp 16 05/17/24 11:55 BP 145/63 H 05/17/24 11:55 Pulse Ox 97 05/17/24 11:55 O2 Del Method Nasal Cannula 05/17/24 11:55 O2 Flow Rate 2 05/17/24 11:55 Oxygen Flow Rate 3 05/16/24 13:00 BMI result Body Mass Index 34.4 Appearance: Alert.? Oriented X3.? cvs: rrr, [id number] . res: air entry diminshed at bases . abd: no rebound or guarding ,nt, bs present. ext pulses present , no cyanosis. neuro: axo3 , nonfocal. Objective Data Active Medications Acetaminophen (Acetaminophen 325 Mg Tablet) 975 mg PO Q6H PRN PRN Reason: Pain, Mild (Pain Scale 1-3), fever or headache Last Admin: 05/14/24 11:18 Dose: 975 mg Documented By: TWAN Albuterol Sulfate (Albuterol Sulfate 90 Mcg 8 Gm Inhaler) 2 puff INHALE RQ4H PRN PRN Reason: Wheezing Amoxicillin/Clavulanate Potassium (Amoxicillin/Potassium Clav 500 Mg Tablet) 500 mg PO Q12H [facility] Last Admin: 05/17/24 08:48 Dose: 500 mg Documented By: TERRI Ascorbic Acid (Ascorbic Acid 500 Mg Tablet) 500 mg PO DAILY [facility] Last Admin: 05/17/24 08:48 Dose: 500 mg Documented By: TERRI Benzocaine (Throat Lozenge, Medicated Lozenge) 1 lozenge MUCOUS MEM Q2H PRN PRN Reason: Sore Throat Last Admin: 05/16/24 10:33 Dose: 1 lozenge Documented By: YASMIN Calcium Carbonate (Calcium Carbonate 750 Mg Tab.Chew) 750 mg PO Q4H PRN PRN Reason: Heartburn Calcium Carbonate (Calcium Oyster Shell Elemental 500 Mg Tablet) 500 mg PO DAILY [facility] Last Admin: 12/16/24 08:48 Dose: 500 mg Documented By: TERRI Doxycycline Monohydrate (Doxycycline Monohydrate 100 Mg Capsule) 100 mg PO Q12H [facility] Last Admin: 05/17/24 08:47 Dose: 100 mg Documented By: TERRI Empagliflozin (Empagliflozin 10 Mg Tablet) 10 mg PO DAILY [facility] Last Admin: 05/17/24 08:48 Dose: 10 mg Documented By: TERRI Furosemide (Furosemide 40 Mg/4 Ml Vial) 40 mg IVPUSH DAILY [facility]; Protocol Last Admin: 05/17/24 08:48 Dose: 40 mg Documented By: TERRI Gabapentin (Gabapentin 100 Mg Capsule) 100 mg PO TID [facility] Last Admin: 05/17/24 08:47 Dose: 100 mg Documented By: TERRI Glucose (Glucose Gel 15 Gm Gel..Gram.) 15 gm PO Q15M PRN; Protocol PRN Reason: per Hypoglycemia Standing Ord. Dextrose (D10) 250 mls @ 750 mls/hr IV Q15M PRN; Protocol PRN Reason: per Hypoglycemia Standing Ord. Insulin Human Lispro (Insulin Lispro 100 Unit/Ml 3 Ml Vial) 0 unit SUBCUT QIDACHS [facility]; Protocol Last Admin: 05/17/24 12:32 Dose: 2 unit Documented By: TERRI Loperamide HCl (Loperamide Hcl 2 Mg Capsule) 2 mg PO Q4H PRN PRN Reason: Diarrhea Lorazepam (Lorazepam 0.5 Mg Tablet) 0.5 mg PO BID PRN PRN Reason: severe anxiety Last Admin: 05/14/24 22:15 Dose: 0.5 mg Documented By: KAYEDN Magnesium Hydroxide (Milk Of Magnesia 30 Ml Oral.Susp) 30 ml PO DAILY PRN PRN Reason: Constipation Magnesium Oxide (Magnesium Oxide 400 Mg Tablet) 400 mg PO BIDPC [facility] Last Admin: 05/17/24 08:48 Dose: 400 mg Documented By: TERRI Melatonin (Melatonin 3 Mg Tablet) 6 mg PO BEDTIME PRN PRN Reason: Insomnia Last Admin: 05/14/24 22:15 Dose: 6 mg Documented By: KAYDEN Metoprolol Tartrate (Metoprolol Tartrate 12.5 Mg Halftab) 12.5 mg PO QID [facility]; Protocol Last Admin: 05/17/24 12:31 Dose: 12.5 mg Documented By: TERRI Multivitamins/Vitamin C (Multivitamin Tablet) 1 tab PO DAILY [facility] Last Admin: 05/17/24 08:48 Dose: 1 tab Documented By: TERRI Naloxone HCl (Naloxone Hcl 0.4 Mg/Ml Vial) 0.04 mg IVPUSH Q5M PRN PRN Reason: Excessive sedation or RR < 8 Omeprazole (Omeprazole 40 Mg Capsule.Dr) 40 mg PO BID@0630,1630 [facility] Last Admin: 05/17/24 05:41 Dose: 40 mg Documented By: HERB Ondansetron HCl (Ondansetron Hcl 4 Mg/2 Ml Vial) 4 mg IVPUSH Q8H PRN PRN Reason: Nausea and Vomiting Oxycodone HCl (Oxycodone Hcl Immed Release 5 Mg Tablet) 5 mg PO Q6H PRN PRN Reason: Pain, Moderate(Pain Scale 4-6) Last Admin: 05/14/24 11:18 Dose: 5 mg Documented By: TWAN Sodium Chloride (0.9 % Sodium Chloride Flush 3 Ml Syringe) [facility] Last Admin: 05/17/24 08:49 Dose: 3 ml Documented By: TERRI Spironolactone (Spironolactone 25 Mg Tablet) 12.5 mg PO BID@0900,1800 [facility]; Protocol Last Admin: 05/17/24 08:47 Dose: 12.5 mg Documented By: TERRI Trazodone HCl (Trazodone Hcl 50 Mg Tablet) 50 mg PO BEDTIME [facility] Last Admin: 05/16/24 20:49 Dose: 50 mg Documented By: HERB Labs 05/15/24 06:45 05/17/24 07:23 Labs: Laboratory Results - last 24 hr 05/16/24 05/16/24 05/16/24 14:38 15:25 21:23 Hold Purple Top Anion Gap Estim Creat Clear Calc Estimated GFR POC Glucose 186 H 190 H Random Glucose Calcium Magnesium 2.7 H 05/17/24 05/17/24 05/17/24 07:23 07:39 11:33 Hold Purple Top SEE NOTE Anion Gap 15 Estim Creat Clear Calc 28.4 Estimated GFR 32 POC Glucose 105 167 H Random Glucose 119 H Calcium 8.8 Magnesium 2.2 Assessment and Plan (1) Duodenal ulcer: Status: Acute (2) Hospital acquired PNA: Status: Acute (3) Acute congestive heart failure: Status: Acute Assessment and Plan: 83-year-old female with a past medical history significant for persistent AFib, CHF, type 2 diabetes (no meds, previously p.o.), and mild intermittent asthma who presented to the ED today with shortness of breath for the past 2 days. Patient was recent complicated admission for sepsis related to fever of unknown origin, presumed diverticulitis versus pneumonia, GRETCHEN, type 2 diabetes with hyperglycemia, mild intermittent asthma with acute exacerbation, hypertension and acute hypokalemia. Vtach episode/torsade de [place] on 05/14 no new episodes today continue metoprolol . moniter elactrolytes closely -goal k:> 4 , mag >2. Acute congestive heart failure exacerbation(unclear etiology ,echo pending) and possible hospital acquired pneumonia sob improving, leukocytosis also improving. BNP is somewhat elevated [phone] mild elevated trop sec in setting of chf. procalcitonin levels0.06 plan: sob improving,nasal mrsa negative continue po doxycycline(started on 04/12) and zosyn ( intiated on 04/10): switched to po augmentin and doxycycline on 05/14. started back on iv lasix 40 mg qd and sprinolactone moniteri/o, daily weight. d/w cardiology . hypokalemia/hypomagnesemia repleted again anemia of acute blood loss -melena/microscopic hematuria s/p egd on 05/12/24:large duodenal ulcer in bulb,no bleeding,antral bx's taken s/p 2prbc h/h 10.6/32.5 Gi -continue ppi,moniter h/h. GRETCHEN: insetting of chf moniter renal function and electrolytes closely a fib- rate controlled unable to add anticoagulant due to Gib as above ,Gi rec to hold eliquis for 1 week. T2DM- diabetic diet/cardiac diet sliding scale insulin mild intermittent asthma without acute exacerbation - no wheezing on exam - albuterol PRN obesity - weight loss encouraged - BMI 30.2 anxiety : prn ativan( avoid excessive use sec to renal dis) psych eval. VTE prophy: pneumoboots, anticoagulant contraindicated with anemia andgib. acute congestive heart failure exacerbation and possible vtach, hospital acquired pneumonia,chf ,anemia :need iv diuretics ,moniter renal function and electrolytes as well as 1/o monitering, gretchen,ppi , h/h . Quality Stroke Does the patient have a stroke diagnosis?: No VTE Prior VTE?: No VTE Risk Level:: Medical - moderate - high VTE Device Contraindication: N/A - Device Ordered VTE Drug Contraindication: Treatment Not Indicated
--- NOTE | 2024-05-17 15:49 | P.PNNP_ITS ---
Subjective Subjective Date of Service: 05/17/24 Principal diagnosis: CHF, paroxysmal atrial fibrillation, anemia. Interval history: Overall breathing better Physical Exam 2 Vital Signs: Vital Signs: Last Vital Signs Temp 97.8 F 05/17/24 15:41 Pulse 77 05/17/24 15:41 Resp 20 05/17/24 15:41 BP 154/69 H 05/17/24 15:41 Pulse Ox 96 05/17/24 15:41 O2 Del Method Nasal Cannula 05/17/24 15:41 O2 Flow Rate 1 05/17/24 15:41 Oxygen Flow Rate 3 05/16/24 13:00 BMI result Body Mass Index 34.4 Const: General: cooperative and in distress mild and respiratory; No confusion Nutritional Appearance: obese Orientation/consciousness: patient oriented x3 and No confusion Limitations: no limitations and No language barrier HEENT: Head: Yes normocephalic and Yes atraumatic Neck: Neck: Yes trachea midline, Yes supple and Yes JVD Resp: Effort & Inspection: normal respiratory effort Auscultation: clear to auscultation bilaterally and breath sounds absent bilateral Cardio: Jugular venous distension: no JVD and JVD Rate: regular rate and tachycardic Rhythm: regular rhythm and abnormal rhythm irregularly irregular Heart sounds: S1 normal heart sound present, S2 normal heart sound present, no click, no gallops, no murmurs and no rubs GI: Inspection: Yes obesity Auscultation: normal bowel sounds Skin: General skin exam: no rashes or lesions noted Neuro: General: patient oriented x3, no focal motor deficits and No confusion Extrem: General: No clubbing, No cyanosis and Yes edema Psych: Appearance: grossly normal Objective Data Labs 05/15/24 06:45 05/17/24 07:23 Labs: Laboratory Results - last 24 hr 05/16/24 05/17/24 05/17/24 21:23 07:23 07:39 Hold Purple Top SEE NOTE Sodium 142 Potassium 3.5 D Chloride 103 Carbon Dioxide 28 Anion Gap 15 BUN 25 H Creatinine 1.57 H Estim Creat Clear Calc 28.4 Estimated GFR 32 POC Glucose 190 H 105 Random Glucose 119 H Calcium 8.8 Magnesium 2.2 05/17/24 11:33 Hold Purple Top Sodium Potassium Chloride Carbon Dioxide Anion Gap BUN Creatinine Estim Creat Clear Calc Estimated GFR POC Glucose 167 H Random Glucose Calcium Magnesium Microbiology Microbiology Results: Microbiology 05/10/24 21:45 Blood - Venous Blood Culture - Final No growth after 5 days. 05/10/24 21:37 Blood - Venous Blood Culture - Final No growth after 5 days. Procedures Date of Service Date of Service: 05/17/24 Assessment & Plan Assessment and plan (1) Congestive heart failure: Status: Acute (2) LITA (acute kidney injury): Status: Acute Plan (1) Acute congestive heart failure: 83-year-old female with a past medical history significant for persistent AFib, HFpEF, type 2 diabetes (no meds, previously p.o.), and mild intermittent asthma who presented to the ED with shortness of breath. Recent complicated admission for sepsis related to fever of unknown origin, presumed diverticulitis versus pneumonia, LITA, type 2 diabetes with hyperglycemia, mild intermittent asthma with acute exacerbation, hypertension and acute hypokalemia. 1. LITA: prior to last hosp SCr BSL 0.8-1.2 and now Scr 1.5-2.0 and ques at new BSL vs delay recovery to BSL and ques CRSyn vs delayed ATN recovery 2. Ques CKD: at risk for CKD from DM and recent LITA; 3. Hypervol: imporved on diuretics REC: cont diuretics as note4d and track renal func, WTs and I/Os Time Spent With Patient Time: Total time managing care of this patient today ____ minutes. Progress Note: Quality Stroke Does the patient have a stroke diagnosis?: No
[2024-05-17 16:16] LABS: Glucose, Whole Blood 212 mg/dL (60-115)
[2024-05-17] MEDS: traZODone HCL 50 MG TABLET PO (19:56)
[2024-05-17 21:06] LABS: Glucose, Whole Blood 152 mg/dL (60-115)
[2024-05-18] VITALS (8 sets, daily range): BP systolic 130–148; BP diastolic 60–84; PULSE 77–88; RESP 18–20; TEMP 36.2–37.1; O2SAT 92–98; BMI 35.5
[2024-05-18 02:52] LABS: Glucose, Whole Blood 140 mg/dL (60-115)
[2024-05-18] MEDS: Omeprazole 40 MG CAPSULE.DR PO ×2 (03:12→17:32)
[2024-05-18 06:39] LABS: Anion Gap 11 (12-20); Blood Urea Nitrogen 27 mg/dL (9-16); Calcium 8.7 mg/dL (8.4-10.2); Carbon Dioxide 31 mmol/L (22-29); Chloride 101 mmol/L (96-108); Creatinine Clr Calc Pharmacy 30.4; Estimated Glomerular Filt Rate 34; Glucose Random 130 mg/dL (60-115); Magnesium 1.7 mg/dL (1.6-2.6); Potassium 3.4 mmol/L (3.3-5.1); Sodium 140 mmol/L (135-145)
[2024-05-18 06:57] LABS: B Type Natriuretic Peptide 857 pg/mL (<100)
--- NOTE | 2024-05-18 07:31 | P.PNNP_ITS ---
Subjective Subjective Date of Service: 05/18/24 Principal diagnosis: CHF, paroxysmal atrial fibrillation, anemia. Interval history: Overall breathing better Physical Exam 2 Vital Signs: Vital Signs: Last Vital Signs Temp 97.4 F 05/18/24 07:15 Pulse 77 05/18/24 07:15 Resp 20 05/18/24 07:15 BP 145/66 H 05/18/24 07:15 Pulse Ox 95 05/18/24 07:15 O2 Del Method Nasal Cannula 05/18/24 07:15 O2 Flow Rate 1 05/18/24 07:15 Oxygen Flow Rate 3 05/16/24 13:00 BMI result Body Mass Index 35.5 Objective Data Labs 05/15/24 06:45 05/18/24 05:39 Labs: Laboratory Results - last 24 hr 05/17/24 05/17/24 05/17/24 07:23 07:39 11:33 Hold Purple Top SEE NOTE Sodium 142 Potassium 3.5 D Chloride 103 Carbon Dioxide 28 Anion Gap 15 BUN 25 H Creatinine 1.57 H Estim Creat Clear Calc 28.4 Estimated GFR 32 POC Glucose 105 167 H Random Glucose 119 H Calcium 8.8 Magnesium 2.2 B-Natriuretic Peptide 05/17/24 05/17/24 05/18/24 16:12 20:28 00:33 Hold Purple Top Sodium Potassium Chloride Carbon Dioxide Anion Gap BUN Creatinine Estim Creat Clear Calc Estimated GFR POC Glucose 212 H 152 H 140 H Random Glucose Calcium Magnesium B-Natriuretic Peptide 05/18/24 05:39 Hold Purple Top Sodium 140 Potassium 3.4 Chloride 101 Carbon Dioxide 31 H Anion Gap 11 L BUN 27 H Creatinine 1.49 H Estim Creat Clear Calc 30.4 Estimated GFR 34 POC Glucose Random Glucose 130 H Calcium 8.7 Magnesium 1.7 B-Natriuretic Peptide 857 H Microbiology Microbiology Results: Microbiology 05/10/24 21:45 Blood - Venous Blood Culture - Final No growth after 5 days. 05/10/24 21:37 Blood - Venous Blood Culture - Final No growth after 5 days. Procedures Date of Service Date of Service: 05/18/24 Assessment & Plan Assessment and plan (1) Acute congestive heart failure: Status: Acute (2) LITA (acute kidney injury): Status: Acute Plan (1) Acute congestive heart failure: 83-year-old female with a past medical history significant for persistent AFib, HFpEF, type 2 diabetes (no meds, previously p.o.), and mild intermittent asthma who presented to the ED with shortness of breath. Recent complicated admission for sepsis related to fever of unknown origin, presumed diverticulitis versus pneumonia, LITA, type 2 diabetes with hyperglycemia, mild intermittent asthma with acute exacerbation, hypertension and acute hypokalemia. 1. LITA: prior to last hosp SCr BSL 0.8-1.2 and now Scr 1.5-2.0 and ques at new BSL vs delay recovery to BSL and ques CRSyn vs delayed ATN recovery 2. Ques CKD: at risk for CKD from DM and recent LITA; 3. Hypervol: imporved on diuretics REC: cont diuretics as noted and track renal func, WTs and I/Os Time Spent With Patient Time: Total time managing care of this patient today ____ minutes. Progress Note: Quality Stroke Does the patient have a stroke diagnosis?: No
[2024-05-18 07:32] LABS: Glucose, Whole Blood 109 mg/dL (60-115)
[2024-05-18] MEDS: Spironolactone 25 MG TABLET 12.5 MG PO ×2 (08:41→17:31)
[2024-05-18] MEDS: Amoxicillin/Potassium Clav 500 MG TABLET PO ×2 (08:43→21:13)
[2024-05-18] MEDS: Doxycycline Monohydrate 100 MG CAPSULE PO ×2 (08:43→21:13)
[2024-05-18] MEDS: Magnesium Oxide 400 MG TABLET PO ×2 (08:44→17:31)
[2024-05-18] MEDS: Gabapentin 100 MG CAPSULE PO ×3 (08:44→21:13)
[2024-05-18] MEDS: Calcium Oyster Shell Elemental 500 MG TABLET PO (08:45)
[2024-05-18] MEDS: Empagliflozin 10 MG TABLET PO (08:46)
[2024-05-18] MEDS: 0.9 % Sodium Chloride Flush 3 ML SYRINGE IVFLUSH ×2 (08:46→17:32)
[2024-05-18] MEDS: Furosemide 40 MG/4 ML VIAL IVPUSH (08:47)
[2024-05-18 11:15] LABS: Glucose, Whole Blood 195 mg/dL (60-115)
[2024-05-18] MEDS: Metoprolol Tartrate 12.5 MG HALFTAB PO ×2 (11:53→19:15)
[2024-05-18] MEDS: Ascorbic Acid 500 MG TABLET PO (11:53)
[2024-05-18] MEDS: Multivitamin TABLET 1 TAB PO (11:53)
[2024-05-18] MEDS: Insulin Lispro 100 UNIT/ML 3 ML VIAL SUBCUT ×3 (12:09→21:14)
--- NOTE | 2024-05-18 14:29 | MHC.CM.PN ---
Addendum entered by Gina Ashley 05/18/24 14:51: New HCP completed with pt, now on file. Original Note: PT rec STR, this CM met with pt to discuss STR options, pt states she doesn't have a preference and is agreeable to going to a good one. This CM placed local STR referrals, [facility] offered pt a bed, bed offer reviewed with pt and she accepts. [facility] updated and will go for insurance auth.
[2024-05-18 16:05] LABS: Glucose, Whole Blood 198 mg/dL (60-115)
--- NOTE | 2024-05-18 16:17 | P.PNIM_ITS ---
Subjective Subjective Date of Service: 05/18/24 Interval History: f/u on on chf, pna clinically doing better, still requiring o2 Physical Exam 2 Vital Signs: Vital Signs: Last Vital Signs Temp 98.0 F 05/18/24 15:21 Pulse 88 05/18/24 15:21 Resp 18 05/18/24 15:21 BP 148/67 H 05/18/24 15:21 Pulse Ox 97 05/18/24 15:21 O2 Del Method Nasal Cannula 05/18/24 15:21 O2 Flow Rate 1 05/18/24 15:21 Oxygen Flow Rate 1 05/18/24 13:00 BMI result Body Mass Index 35.5 General: AO X 3, no acute distress Resp: CTA bilateral CVS: S1,S2, iregular ireguolar GI: +BS, NT, no distention Skin: No rash Neuro: motor grossly intact Psych: appropriate affect Objective Data Active Medications Acetaminophen (Acetaminophen 325 Mg Tablet) 975 mg PO Q6H PRN PRN Reason: Pain, Mild (Pain Scale 1-3), fever or headache Last Admin: 05/14/24 11:18 Dose: 975 mg Documented By: TWAN Albuterol Sulfate (Albuterol Sulfate 90 Mcg 8 Gm Inhaler) 2 puff INHALE RQ4H PRN PRN Reason: Wheezing Amoxicillin/Clavulanate Potassium (Amoxicillin/Potassium Clav 500 Mg Tablet) 500 mg PO Q12H [facility] Last Admin: 05/18/24 08:43 Dose: 500 mg Documented By: YASMIN Ascorbic Acid (Ascorbic Acid 500 Mg Tablet) 500 mg PO DAILY [facility] Last Admin: 05/18/24 11:53 Dose: 500 mg Documented By: YASMIN Benzocaine (Throat Lozenge, Medicated Lozenge) 1 lozenge MUCOUS MEM Q2H PRN PRN Reason: Sore Throat Last Admin: 05/16/24 10:33 Dose: 1 lozenge Documented By: YASMIN Calcium Carbonate (Calcium Carbonate 750 Mg Tab.Chew) 750 mg PO Q4H PRN PRN Reason: Heartburn Calcium Carbonate (Calcium Oyster Shell Elemental 500 Mg Tablet) 500 mg PO DAILY [facility] Last Admin: 05/18/24 08:45 Dose: 500 mg Documented By: YASMIN Doxycycline Monohydrate (Doxycycline Monohydrate 100 Mg Capsule) 100 mg PO Q12H [facility] Last Admin: 05/18/24 08:43 Dose: 100 mg Documented By: YASMIN Empagliflozin (Empagliflozin 10 Mg Tablet) 10 mg PO DAILY [facility] Last Admin: 05/18/24 08:46 Dose: 10 mg Documented By: YASMIN Furosemide (Furosemide 40 Mg/4 Ml Vial) 40 mg IVPUSH DAILY [facility]; Protocol Last Admin: 05/18/24 08:47 Dose: 40 mg Documented By: YASMIN Gabapentin (Gabapentin 100 Mg Capsule) 100 mg PO TID [facility] Last Admin: 05/18/24 08:44 Dose: 100 mg Documented By: YASMIN Glucose (Glucose Gel 15 Gm Gel..Gram.) 15 gm PO Q15M PRN; Protocol PRN Reason: per Hypoglycemia Standing Ord. Dextrose (D10) 250 mls @ 750 mls/hr IV Q15M PRN; Protocol PRN Reason: per Hypoglycemia Standing Ord. Insulin Human Lispro (Insulin Lispro 100 Unit/Ml 3 Ml Vial) 0 unit SUBCUT QIDACHS [facility]; Protocol Last Admin: 05/18/24 12:09 Dose: 2 unit Documented By: YASMIN Loperamide HCl (Loperamide Hcl 2 Mg Capsule) 2 mg PO Q4H PRN PRN Reason: Diarrhea Lorazepam (Lorazepam 0.5 Mg Tablet) 0.5 mg PO BID PRN PRN Reason: severe anxiety Last Admin: 05/14/24 22:15 Dose: 0.5 mg Documented By: KAYDEN Magnesium Hydroxide (Milk Of Magnesia 30 Ml Oral.Susp) 30 ml PO DAILY PRN PRN Reason: Constipation Magnesium Oxide (Magnesium Oxide 400 Mg Tablet) 400 mg PO BIDPC [facility] Last Admin: 05/18/24 08:44 Dose: 400 mg Documented By: YASMIN Melatonin (Melatonin 3 Mg Tablet) 6 mg PO BEDTIME PRN PRN Reason: Insomnia Last Admin: 05/14/24 22:15 Dose: 6 mg Documented By: KAYDEN Metoprolol Tartrate (Metoprolol Tartrate 12.5 Mg Halftab) 12.5 mg PO QID [facility]; Protocol Last Admin: 05/18/24 11:53 Dose: 12.5 mg Documented By: YASMIN Multivitamins/Vitamin C (Multivitamin Tablet) 1 tab PO DAILY [facility] Last Admin: 05/18/24 11:53 Dose: 1 tab Documented By: YASMIN Naloxone HCl (Naloxone Hcl 0.4 Mg/Ml Vial) 0.04 mg IVPUSH Q5M PRN PRN Reason: Excessive sedation or RR < 8 Omeprazole (Omeprazole 40 Mg Capsule.) 40 mg PO BID@0630,1630 [facility] Last Admin: 05/18/24 03:12 Dose: 40 mg Documented By: KELECHI Ondansetron HCl (Ondansetron Hcl 4 Mg/2 Ml Vial) 4 mg IVPUSH Q8H PRN PRN Reason: Nausea and Vomiting Oxycodone HCl (Oxycodone Hcl Immed Release 5 Mg Tablet) 5 mg PO Q6H PRN PRN Reason: Pain, Moderate(Pain Scale 4-6) Last Admin: 05/14/24 11:18 Dose: 5 mg Documented By: TWAN Sodium Chloride (0.9 % Sodium Chloride Flush 3 Ml Syringe) 3 ml IVFLUSH [facility] Last Admin: 05/18/24 08:46 Dose: 3 ml Documented By: YASMIN Spironolactone (Spironolactone 25 Mg Tablet) 12.5 mg PO BID@0900,1800 [facility]; Protocol Last Admin: 05/18/24 08:41 Dose: 12.5 mg Documented By: YASMIN Trazodone HCl (Trazodone Hcl 50 Mg Tablet) 50 mg PO BEDTIME [facility] Last Admin: 05/17/24 19:56 Dose: 50 mg Documented By: KELECHI Labs 05/15/24 06:45 05/18/24 05:39 Labs: Laboratory Results - last 24 hr 05/17/24 05/18/24 05/18/24 20:28 00:33 05:39 Anion Gap 11 L Estim Creat Clear Calc 30.4 Estimated GFR 34 POC Glucose 152 H 140 H Random Glucose 130 H Calcium 8.7 Magnesium 1.7 B-Natriuretic Peptide 857 H 05/18/24 05/18/24 05/18/24 07:28 11:11 16:01 Anion Gap Estim Creat Clear Calc Estimated GFR POC Glucose 109 195 H 198 H Random Glucose Calcium Magnesium B-Natriuretic Peptide Assessment and Plan (1) Duodenal ulcer: Status: Acute (2) Hospital acquired PNA: Status: Acute (3) Acute congestive heart failure: Status: Acute Assessment and Plan: 83-year-old female with a past medical history significant for persistent AFib, CHF, type 2 diabetes (no meds, previously p.o.), and mild intermittent asthma who presented to the ED today with shortness of breath for the past 2 days. Patient was recent complicated admission for sepsis related to fever of unknown origin, presumed diverticulitis versus pneumonia, LITA, type 2 diabetes with hyperglycemia, mild intermittent asthma with acute exacerbation, hypertension and acute hypokalemia. Vtach episode/torsade de [place] on 05/14, no further episodees -keep K aroud 4 and Mag around 2 Acute CHF exacerbation, improving IV lasix, -monitor bmp, bnp, i/o -wean off O2 ? PNA, completed Abx hypokalemia/hypomagnesemia, correcte anemia of acute blood loss -melena/microscopic hematuria s/p egd on 05/12/24:large duodenal ulcer in bulb,no bleeding,antral bx's taken s/p 2prbc h/h 10.6/32.5 Gi -continue ppi,moniter h/h. [id number]. d/t cardioreanl, resolved. a fib- rate controlled holding anticoagulation until 05/19 per gi rec T2DM- diabetic diet/cardiac diet sliding scale insulin mild intermittent asthma without acute exacerbation - albuterol PRN obesity - weight loss encouraged - BMI 30.2 anxiety : prn ativan per psych, outpt f/u VTE prophy: pneumoboots, anticoagulant contraindicated with anemia andgib. \ Quality Stroke Does the patient have a stroke diagnosis?: No VTE Prior VTE?: No VTE Risk Level:: Medical - moderate - high VTE Device Contraindication: N/A - Device Ordered VTE Drug Contraindication: Treatment Not Indicated
[2024-05-18] MEDS: Magnesium Sulfate/H2O 2 GM/50 ML PIGGYBACK IV (17:30)
[2024-05-18] MEDS: Potassium Chloride Packet 20 MEQ PACKET 40 MEQ PO (17:31)
[2024-05-18 20:48] LABS: Glucose, Whole Blood 214 mg/dL (60-115)
[2024-05-18] MEDS: traZODone HCL 50 MG TABLET PO (21:13)
[2024-05-19] MEDS: Omeprazole 40 MG CAPSULE.DR PO ×2 (03:27→16:11)
[2024-05-19 03:54] VITALS: BP 132/60; PULSE 106; RESP 20; TEMP 36.4; O2SAT 98
[2024-05-19 06:00] VITALS: BMI 35.5
[2024-05-19 07:15] VITALS: BP 144/65; PULSE 109; RESP 18; TEMP 37.2; O2SAT 96
[2024-05-19 07:26] LABS: Glucose, Whole Blood 159 mg/dL (60-115)
[2024-05-19] MEDS: Multivitamin TABLET 1 TAB PO (08:10)
[2024-05-19] MEDS: Amoxicillin/Potassium Clav 500 MG TABLET PO (08:10)
[2024-05-19] MEDS: Spironolactone 25 MG TABLET 12.5 MG PO ×2 (08:10→16:10)
[2024-05-19] MEDS: Ascorbic Acid 500 MG TABLET PO (08:11)
[2024-05-19] MEDS: Metoprolol Tartrate 12.5 MG HALFTAB PO ×2 (08:11→16:11)
[2024-05-19] MEDS: 0.9 % Sodium Chloride Flush 3 ML SYRINGE IVFLUSH ×2 (08:11→16:20)
[2024-05-19] MEDS: Empagliflozin 10 MG TABLET PO (08:11)
[2024-05-19] MEDS: Doxycycline Monohydrate 100 MG CAPSULE PO (08:11)
[2024-05-19] MEDS: Calcium Oyster Shell Elemental 500 MG TABLET PO (08:11)
[2024-05-19] MEDS: Gabapentin 100 MG CAPSULE PO ×2 (08:11→16:11)
[2024-05-19] MEDS: Magnesium Oxide 400 MG TABLET PO (08:11)
[2024-05-19] MEDS: Insulin Lispro 100 UNIT/ML 3 ML VIAL SUBCUT ×2 (08:12→16:12)
--- NOTE | 2024-05-19 08:59 | HO.PM.IMPN ---
Subjective Subjective Date of Service: 05/18/24 Interval History: f/u on on chf, pna clinically doing better, still requiring o2 Physical Exam Vital Signs: Vital Signs: Last Vital Signs Temp 98.9 F 05/19/24 07:15 Pulse 109 H 05/19/24 07:15 Resp 18 05/19/24 07:15 BP 144/65 H 05/19/24 07:15 Pulse Ox 96 05/19/24 07:15 O2 Del Method Nasal Cannula 05/19/24 07:15 O2 Flow Rate 1 05/19/24 07:15 Oxygen Flow Rate 1 05/18/24 13:00 BMI result Body Mass Index 35.5 General: AO X 3, no acute distress Resp: CTA bilateral CVS: S1,S2,RRR, trace leg edema GI: +BS, NT, no distention Skin: No rash Neuro: motor grossly intact Psych: appropriate affect Objective Data Active Medications Acetaminophen (Acetaminophen 325 Mg Tablet) 975 mg PO Q6H PRN PRN Reason: Pain, Mild (Pain Scale 1-3), fever or headache Last Admin: 05/14/24 11:18 Dose: 975 mg Documented By: TWAN Albuterol Sulfate (Albuterol Sulfate 90 Mcg 8 Gm Inhaler) 2 puff INHALE RQ4H PRN PRN Reason: Wheezing Amoxicillin/Clavulanate Potassium (Amoxicillin/Potassium Clav 500 Mg Tablet) 500 mg PO Q12H [facility] Last Admin: 05/19/24 08:10 Dose: 500 mg Documented By: YASMIN Ascorbic Acid (Ascorbic Acid 500 Mg Tablet) 500 mg PO DAILY [facility] Last Admin: 05/19/24 08:11 Dose: 500 mg Documented By: YASMIN Benzocaine (Throat Lozenge, Medicated Lozenge) 1 lozenge MUCOUS MEM Q2H PRN PRN Reason: Sore Throat Last Admin: 05/16/24 10:33 Dose: 1 lozenge Documented By: YASMIN Calcium Carbonate (Calcium Carbonate 750 Mg Tab.Chew) 750 mg PO Q4H PRN PRN Reason: Heartburn Calcium Carbonate (Calcium Oyster Shell Elemental 500 Mg Tablet) 500 mg PO DAILY [facility] Last Admin: 05/19/24 08:11 Dose: 500 mg Documented By: YASMIN Doxycycline Monohydrate (Doxycycline Monohydrate 100 Mg Capsule) 100 mg PO Q12H [facility] Last Admin: 05/19/24 08:11 Dose: 100 mg Documented By: YASMIN Empagliflozin (Empagliflozin 10 Mg Tablet) 10 mg PO DAILY [facility] Last Admin: 05/19/24 08:11 Dose: 10 mg Documented By: YASMIN Furosemide (Furosemide 40 Mg/4 Ml Vial) 40 mg IVPUSH DAILY [facility]; Protocol Last Admin: 05/19/24 08:24 Dose: Not Given Documented By: YASMIN Non-Admin Reason: Physician Held Med Furosemide (Furosemide 40 Mg Tablet) 40 mg PO DAILY [facility]; Protocol Gabapentin (Gabapentin 100 Mg Capsule) 100 mg PO TID [facility] Last Admin: 05/19/24 08:11 Dose: 100 mg Documented By: YASMIN Glucose (Glucose Gel 15 Gm Gel..Gram.) 15 gm PO Q15M PRN; Protocol PRN Reason: per Hypoglycemia Standing Ord. Dextrose (D10) 250 mls @ 750 mls/hr IV Q15M PRN; Protocol PRN Reason: per Hypoglycemia Standing Ord. Insulin Human Lispro (Insulin Lispro 100 Unit/Ml 3 Ml Vial) 0 unit SUBCUT QIDACHS [facility]; Protocol Last Admin: 05/19/24 08:12 Dose: 2 unit Documented By: YASMIN Loperamide HCl (Loperamide Hcl 2 Mg Capsule) 2 mg PO Q4H PRN PRN Reason: Diarrhea Lorazepam (Lorazepam 0.5 Mg Tablet) 0.5 mg PO BID PRN PRN Reason: severe anxiety Last Admin: 05/14/24 22:15 Dose: 0.5 mg Documented By: KAYDEN Magnesium Hydroxide (Milk Of Magnesia 30 Ml Oral.Susp) 30 ml PO DAILY PRN PRN Reason: Constipation Magnesium Oxide ([facility]ide 400 Mg Tablet) [facility] Last Admin: 05/19/24 08:11 Dose: 400 mg Documented By: YASMIN Melatonin (Melatonin 3 Mg Tablet) 6 mg PO BEDTIME PRN PRN Reason: Insomnia Last Admin: 05/14/24 22:15 Dose: 6 mg Documented By: KAYDEN Metoprolol Tartrate (Metoprolol Tartrate 12.5 Mg Halftab) 12.5 mg PO QID [facility]; Protocol Last Admin: 05/19/24 08:11 Dose: 12.5 mg Documented By: YASMIN Multivitamins/Vitamin C (Multivitamin Tablet) 1 tab PO DAILY [facility] Last Admin: 05/19/24 08:10 Dose: 1 tab Documented By: YASMIN Naloxone HCl (Naloxone Hcl 0.4 Mg/Ml Vial) 0.04 mg IVPUSH Q5M PRN PRN Reason: Excessive sedation or RR < 8 Omeprazole (Omeprazole 40 Mg Capsule.Dr) 40 mg PO BID@0630,1630 [facility] Last Admin: 05/19/24 03:27 Dose: 40 mg Documented By: KELECHI Ondansetron HCl (Ondansetron Hcl 4 Mg/2 Ml Vial) 4 mg IVPUSH Q8H PRN PRN Reason: Nausea and Vomiting Oxycodone HCl (Oxycodone Hcl Immed Release 5 Mg Tablet) 5 mg PO Q6H PRN PRN Reason: Pain, Moderate(Pain Scale 4-6) Last Admin: 05/14/24 11:18 Dose: 5 mg Documented By: TWAN Sodium Chloride (0.9 % Sodium Chloride Flush 3 Ml Syringe) 3 ml IVFLUSH QSHIFT [facility] Last Admin: 05/19/24 08:11 Dose: 3 ml Documented By: YASMIN Spironolactone (Spironolactone 25 Mg Tablet) 12.5 mg PO BID@0900,1800 [facility]; Protocol Last Admin: 05/19/24 08:10 Dose: 12.5 mg Documented By: YASMIN Trazodone HCl (Trazodone Hcl 50 Mg Tablet) 50 mg PO BEDTIME [facility] Last Admin: 05/18/24 21:13 Dose: 50 mg Documented By: KELECHI Labs 05/15/24 06:45 05/18/24 05:39 Labs: Laboratory Results - last 24 hr 05/18/24 05/18/24 05/18/24 11:11 16:01 20:45 POC Glucose 195 H 198 H 214 H 05/19/24 07:23 POC Glucose 159 H Assessment and Plan (1) Duodenal ulcer: Status: Acute (2) Hospital acquired PNA: Status: Acute (3) Acute congestive heart failure: Status: Acute Assessment and Plan: 83-year-old female with a past medical history significant for persistent AFib, CHF, type 2 diabetes (no meds, previously p.o.), and mild intermittent asthma who presented to the ED today with shortness of breath for the past 2 days. Patient was recent complicated admission for sepsis related to fever of unknown origin, presumed diverticulitis versus pneumonia, LITA, type 2 diabetes with hyperglycemia, mild intermittent asthma with acute exacerbation, hypertension and acute hypokalemia. Vtach episode/torsade de point on 05/14, no further episodees -keep K aroud 4 and Mag around 2 Acute CHF exacerbation, improving IV lasix to PO lasix -monitor bmp, bnp, i/o -wean off O2 ? PNA, completed Abx hypokalemia/hypomagnesemia, corrected anemia of acute blood loss -melena/microscopic hematuria s/p egd on 05/12/24:large duodenal ulcer in bulb,no bleeding,antral bx's taken s/p 2prbc h/h 10.6/32.5 Gi -continue ppi,moniter h/h. [id number]. d/t cardioreanl, resolved. Afib- rate controlled holding anticoagulation until 05/19 per gi rec T2DM- diabetic diet/cardiac diet sliding scale insulin mild intermittent asthma without acute exacerbation - albuterol PRN obesity - weight loss encouraged - BMI 30.2 anxiety : prn ativan per psych, outpt f/u VTE prophy: pneumoboots, anticoagulant contraindicated with anemia and gib Quality Stroke Does the patient have a stroke diagnosis?: No VTE Prior VTE?: No VTE Risk Level:: Medical - moderate - high VTE Device Contraindication: N/A - Device Ordered VTE Drug Contraindication: Treatment Not Indicated
[2024-05-19 09:47] LABS: Anion Gap 10 (12-20); Blood Urea Nitrogen 24 mg/dL (9-16); Calcium 8.2 mg/dL (8.4-10.2); Carbon Dioxide 34 mmol/L (22-29); Chloride 99 mmol/L (96-108); Creatinine Clr Calc Pharmacy 30.7; Estimated Glomerular Filt Rate 34; Glucose Random 215 mg/dL (60-115); Magnesium 1.7 mg/dL (1.6-2.6); Sodium 139 mmol/L (135-145)
[2024-05-19] MEDS: Furosemide 40 MG TABLET PO (11:05)
[2024-05-19 11:08] VITALS: BP 143/53; PULSE 82; RESP 18; TEMP 37.3; O2SAT 95
[2024-05-19 11:40] LABS: Glucose, Whole Blood 169 mg/dL (60-115)
[2024-05-19 13:00] VITALS: O2SAT 92
--- NOTE | 2024-05-19 13:20 | P.DS_ITS ---
DS: Providers Provider Date of Service: 05/19/24 Date of admission: 05/10/24 20:54 Date of discharge: 05/19/24 Primary care physician: Chanelle Mauricio MD Consults: 05/10/24 21:08 Consult to Gastroenterology Routine Consulting Provider: Stan Love Reason for consultation: anemia, melena Has provider been notified: No 05/10/24 21:09 Consult to Urology Routine Consulting Provider: [facility] Reason for consultation: microscopic hematuria, AML, anemia Has provider been notified: No 05/11/24 07:52 Consult to Nephrology Routine Consulting Provider: [facility] Reason for consultation: lita in setting of chf 05/11/24 08:00 Consult to Cardiology Routine Consulting Provider: [facility] Reason for consultation: chf,afib,multiple events of Vtach Has provider been notified: No 05/14/24 09:25 Consult to Psychiatry Routine Consulting Provider: [facility] Reason for consultation: Depression / panic dis Has provider been notified: No DS: Diagnosis Discharge Diagnosis (1) Duodenal ulcer: Status: Acute (2) Hospital acquired PNA: Status: Acute (3) Acute congestive heart failure: Status: Acute DS: Summary Hospital Course Hospital Course: Admission hpi Chief Complaint: SOB Patient is an 83-year-old female with a past medical history significant for persistent AFib, CHF, type 2 diabetes (no meds, previously p.o.), and mild intermittent asthma who presented to the ED today with shortness of breath for the past 2 days. She reports lower extremity edema and some chest tightness. She was recently admitted from 04/25/2024 through 05/05/2024 for sepsis with fever of unknown origin, mild diverticulitis, possible right lower lobe pneumonia, LITA and anemia. H and H remained stable during her admission, iron studies were not consistent with iron-deficiency anemia, she was placed on Pr ilosec and recommended to follow up with GI outpatient. She is now reporting again melena. She has not yet and reports that care medication. She denies any urinary symptoms including dysuria, frequency, or incontinence. She has mild intermittent diarrhea again with melena. She is also having some wheezing and shortness of breath at rest and with exertion but denies any cough or sputum production. She also denies fever, chills, nausea or vomiting. The patient is a poor historian. Hospital course: The patient presented with shortness of breath, and workup revealed LITA and acute on chronic heart failure. Heart failure was treated with IV Lasix, and she has achieved euvolemic status. Lasix is being converted to oral 40 mg daily. LITA on CKD likely due to cardiorenal syndrome. Creatinine is within her baseline, and nephrology will follow up on an outpatient basis. Vtach episode/torsades de pointes on 05/14/24, no further episodes. -Keep K around 4 and Mag around 2. ? PNA, completed Abx. Hypokalemia/hypomagnesemia, corrected with supplementation. Anemia of acute blood loss - melena/microscopic hematuria. s/p EGD on 05/12/24: large duodenal ulcer in bulb, no bleeding, antral biopsies taken. s/p 2 PRBC. H/H 10.6/32.5. GI - continue PPI (prilosec 40 mg twice daily) AFIB - rate controlled. She has not been on anticoagulation, and in light of the anemia and GI bleeding, no anticoagulation was started. Following EGD, GI recommended holding anticoagulation for a week. I discussed the risks and benefits with the patient, including the risk of bleeding. She is agreeable to starting anticoagulation and therefore will start Eliquis 5 mg twice daily and will be closely monitored for signs of bleeding. Metoprol for rate contgrol T2DM - diabetic diet/cardiac diet. Previously on glipizide, but that has been changed to sliding scale insulin. Mild intermittent asthma without acute exacerbation. -Albuterol PRN. Obesity -Weight loss encouraged. -BMI 30.2. Anxiety: PRN Ativan per psych, outpatient follow-up. Time Attestation Discharge Coordination Time (in mins): 45 Quality: Safe Use of Opioids Does Pt have an Active Cancer Diagnosis on the Problem List?: No Quality: Stroke Does the patient have a stroke diagnosis?: No Physical Exam Vital Signs: Vital Signs: Last Vital Signs Temp 99.2 F 05/19/24 11:08 Pulse 82 05/19/24 11:08 Resp 18 05/19/24 11:08 BP 143/53 H 05/19/24 11:08 Pulse Ox 92 05/19/24 13:00 O2 Del Method Room Air 05/19/24 13:00 O2 Flow Rate 1 05/19/24 07:15 Oxygen Flow Rate 1 05/18/24 13:00 BMI result Body Mass Index 35.5 DS: Data Data Completed and Pending Completed studies during hospitalization [Text1]: Pending at discharge 05/12/24 14:10 Surgical [PTH] Routine Labs on day of discharge: Laboratory Results - last 24 hr 05/18/24 05/18/24 05/19/24 16:01 20:45 07:23 Sodium Potassium Chloride Carbon Dioxide Anion Gap BUN Creatinine Estim Creat Clear Calc Estimated GFR POC Glucose 198 H 214 H 159 H Random Glucose Calcium Magnesium 05/19/24 05/19/24 09:15 11:36 Sodium 139 Potassium 4.0 Chloride 99 Carbon Dioxide 34 H Anion Gap 10 L BUN 24 H Creatinine 1.48 H Estim Creat Clear Calc 30.7 Estimated GFR 34 POC Glucose 169 H Random Glucose 215 H Calcium 8.2 L Magnesium 1.7 Discharge Plan Discharge Anticipated Discharge Date/Time: 05/19/24 15:03 Patient Disposition: Xfer SNF Discharge Diagnosis: Heart failure, pneumonia, anemia, renal failure Referrals: Chanelle Mauricio MD [Primary Care Provider] - 05/31/24 10:15 am (Transportation for appointment has been arranged by [facility] continuous pillowcase [employer] [place]. ) Josh Phillips At [] - 1 Week Discharge Medications: New metoprolol tartrate 25 mg tablet 25 mg PO BID Qty: 60 0RF furosemide 40 mg Tablet 40 mg PO DAILY Qty: 30 0RF Protocol: Hold for SBP< HOLD for SBP < : 90 spironolactone 25 mg Tablet 12.5 mg PO BID@0900,1800 Qty: 60 0RF Protocol: Hold for SBP< HOLD for SBP < : 90 insulin lispro [Admelog U-100 Insulin lispro] 100 unit/mL Solution See Protocol subcut QIDACHS Qty: 10 0RF Protocol: Insulin Correction Scale Less than or equal to 110 ---- Give (units): 0 111 to 150 Give (units): 0 151 to 200 Give (units): 2 201 to 250 Give (units): 4 251 to 300 Give (units): 6 301 to 350 Give (units): 8 Greater than 350 Give (units): 10 Call MD if Blood Glucose > : 350 Rx Instructions: BG <111 0 units, 111-150 - 0 units, 151-200 2 units, 201-250 4 units, 251-300 6 units, 301-350 8 units, >350 10 units trazodone 50 mg Tablet 50 mg PO BEDTIME Qty: 30 0RF magnesium oxide 400 mg (241.3 mg magnesium) Tablet 400 mg PO BIDPC Qty: 60 0RF gabapentin 100 mg Capsule 100 mg PO TID Qty: 90 0RF omeprazole 40 mg Capsule,Delayed Release(Dr/Ec) 40 mg PO BID@0630,1630 Qty: 60 0RF melatonin 3 mg Tablet 6 mg PO BEDTIME PRN (Reason: Insomnia) Qty: 30 0RF Jardiance 25 mg tablet 25 mg PO QAM Qty: 30 0RF Eliquis 5 mg tablet 5 mg PO BID Qty: 60 0RF Continued ascorbic acid (vitamin C) [Vitamin C] 500 mg Tablet 500 mg PO DAILY Centrum Silver Women 8 mg iron-400 mcg-50 mcg Tablet 1 tab PO DAILY calcium carbonate 500 mg calcium (1,250 mg) Tablet 500 mg PO DAILY Discontinued glipizide [Glucotrol XL] 2.5 mg tablet extended release 24hr 2.5 mg PO DAILY Qty: 30 0RF Discharge Orders: Discharge Order (Routine); Ordered 05/19/24 Ordered By: Ankur Braden Diet: Diabetic diet Activity on Discharge: As tolerated Stand Alone Forms: Patient Portal Discharge page Print Language: Citizen Of [place] Care Plan Goals: recovery from heart failure Health Concerns: heart failure renal failure anemia Plan of Treatment: take lasix as recommended follow up with your doctor spencer week glipizide is stopped and replaced with jardiance and sliding scale insulin Assessment: see above
--- NOTE | 2024-05-19 15:31 | MHC.CM.PN ---
Second IMM given 05/19. Pt is medically cleared for discharge to STR today at [facility], insurance auth has been obtained. Pt will transport there via [facility]. Per pts request, this CM called pts son Jaylon to notify him of her discharge, this CM left him a voicemail.
[2024-05-19 16:00] VITALS: BP 152/60; PULSE 93; RESP 18; TEMP 36.7; O2SAT 93
[2024-05-19 18:13] LABS: Glucose, Whole Blood 225 mg/dL (60-115)
== END 2024-05-19 18:26 | disposition skilled nursing facility (03) | DRG 291 ==
LOC: HO.ED 20:19 → HO.EDOVER 21:07 → HO.IMC 05-11 17:01
PROVIDERS: Internal Medicine; Internal Medicine Gastroenterology; Internal Medicine Nephrology; Physician Assistant; Admitting Provider Physician Assistant; Emergency Provider Emergency Medicine Emergency Medical Services; PCP Internal Medicine; Visit Provider Internal Medicine
PROC: 0DJ08ZZ Inspection of Upper Intestinal Tract, Via Natural or Artificial Opening Endoscopic (ICD-10-PCS; CPT 43235; principal; 2024-05-12 14:00)
DX: I13.0 Hypertensive heart and chronic kidney disease with heart failure and stage 1 through stage 4 chronic kidney disease, or unspecified chronic kidney disease (principal); I50.31 Acute diastolic (congestive) heart failure; K26.4 Chronic or unspecified duodenal ulcer with hemorrhage; J18.9 Pneumonia, unspecified organism; J96.01 Acute respiratory failure with hypoxia; N17.0 Acute kidney failure with tubular necrosis; D62 Acute posthemorrhagic anemia; I47.21 Torsades de pointes; I50.811 Acute right heart failure; J45.20 Mild intermittent asthma, uncomplicated; E11.22 Type 2 diabetes mellitus with diabetic chronic kidney disease; Z68.30 Body mass index [BMI] 30.0-30.9, adult; E66.811 Obesity, class 1; N18.30 Chronic kidney disease, stage 3 unspecified; I48.0 Paroxysmal atrial fibrillation; R31.29 Other microscopic hematuria; E87.6 Hypokalemia; E83.42 Hypomagnesemia; Z79.899 Other long term (current) drug therapy
CPT/HCPCS: 36415; 71045; 80048; 80053; 81001; 82043; 82272; 82570; 82947; 83520; 83540; 83605; 83735; 83880; 84132; 84145; 84156; 84484; 85014; 85018; 85025; 85610; 85730; 86021; 86704; 86706; 86803; 86850; 86900; 86901; 86923; 87040; 87340; 87493; 87640; 87641; 88305; 88313; 88342; 93005; 97162; 99285; J1100; J1596; J1940; J2003; J2470; J2543; J2704; J3370; J3371; J3475; J3480; J7120; P9016; P9047

== ENCOUNTER 2024-05-10 20:54 | Outpatient (BNV) | payer OTHER, SELFPAY | END 2024-05-12 09:00 | PROVIDERS: Admitting Provider Physician Assistant; Emergency Provider Emergency Medicine Emergency Medical Services; PCP Internal Medicine; Visit Provider Internal Medicine Cardiovascular Disease | DX: I44.0 Atrioventricular block, first degree (principal); I44.4 Left anterior fascicular block; R94.31 Abnormal electrocardiogram [ECG] [EKG] | CPT/HCPCS: 93010 ==

== ENCOUNTER → 2024-05-10 20:54 | Outpatient (BNV) | payer OTHER, SELFPAY | PROVIDERS: Admitting Provider Physician Assistant; Emergency Provider Emergency Medicine Emergency Medical Services; PCP Internal Medicine; Visit Provider Internal Medicine Cardiovascular Disease | DX: I50.9 Heart failure, unspecified (principal); I48.91 Unspecified atrial fibrillation | CPT/HCPCS: 99222 ==

== ENCOUNTER → 2024-05-10 20:54 | Outpatient (BNV) | payer OTHER, SELFPAY | PROVIDERS: Admitting Provider Physician Assistant; Emergency Provider Emergency Medicine Emergency Medical Services; PCP Internal Medicine; Visit Provider Internal Medicine | DX: I50.9 Heart failure, unspecified (principal); J18.9 Pneumonia, unspecified organism | CPT/HCPCS: 99223; 99232 ==

== ENCOUNTER → 2024-05-10 20:54 | Outpatient (BNV) | payer OTHER, SELFPAY | PROVIDERS: Admitting Provider Physician Assistant; Emergency Provider Emergency Medicine Emergency Medical Services; PCP Internal Medicine; Visit Provider Psychiatry & Neurology Psychiatry | DX: F41.9 Anxiety disorder, unspecified (principal); I48.91 Unspecified atrial fibrillation; I50.9 Heart failure, unspecified; J18.9 Pneumonia, unspecified organism; Y95 Nosocomial condition | CPT/HCPCS: 99222 ==

== ENCOUNTER 2024-07-20 12:27 | Emergency (ER) | payer OTHER, SELFPAY ==
--- NOTE | ~2024-07-20 | CT_ITS ---
EXAMINATION: CT HEAD WITHOUT CONTRAST CLINICAL INFORMATION: Left facial droop. COMPARISON: 04/27/2024. TECHNIQUE: Contiguous axial imaging was performed from the skull base to vertex without intravenous administration of contrast. This CT examination was performed using dose optimization techniques as appropriate, variously including the following: *Automated exposure control *Adjustment of mA and/or kV according to patient size (this includes techniques or standardized protocols for targeted exams where dose is matched to indication/reason for exam; i.e. extremities or head) *Use of iterative reconstruction technique FINDINGS: There is no evidence of intracranial hemorrhage or extra-axial fluid collection. There is no mass effect, or edema. No CT evidence of acute territorial infarct. Ventricles, sulci, and cisterns are normal in size and configuration for patient age. No hydrocephalus. No midline shift. Negative hyperdense MCA sign. Negative insular ribbon sign. Patchy periventricular and deep white matter hypoattenuation is consistent with mild to moderate small vessel ischemic changes. Mild atheromatous calcification of the bilateral carotid siphons. Globes and orbital contents image normally. There are bilateral lens replacements. No extracranial soft tissue abnormalities. 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 The paranasal sinuses, mastoid air cells, and tympanic cavities are otherwise normally aerated. No suspicious bony abnormalities. There are no acute fractures evident. CT/CT head/brain wo IV con IMPRESSION: No acute intracranial abnormality. Electronically signed by: Wilfrid Montanez MD 07/20/2024 04:06 PM [facility]
[2024-07-20 13:05] VITALS: BP 157/75; BP 162/70; PULSE 84; PULSE 85; RESP 16; TEMP 37.2; O2SAT 18; O2SAT 95; BMI 31.7
--- NOTE | 2024-07-20 13:41 | ECG_ITS ---
Test Reason : WEAKNESS Blood Pressure : */* mmHG Vent. Rate : 86 BPM Atrial Rate : 86 BPM P-R Int : 198 ms QRS Dur : 122 ms QT Int : 404 ms P-R-T Axes : 84 -43 21 degrees QTcB Int : 483 ms Normal sinus rhythm Left axis deviation Left ventricular hypertrophy with QRS widening ( R in aVL , [place] product ) Abnormal ECG When compared with ECG of 12-May-2024 09:11, No significant changes seen Referred By: Yari Graves Electronically Signed By: TADEO SALDAÑA
--- NOTE | 2024-07-20 13:42 | ED.WEAKNESS ---
HPI - Weakness General Chief complaint: Weakness Stated complaint: weakness Time Seen by Provider: 07/20/24 13:41 Source: patient and EMS Mode of arrival: EMS Limitations: no limitations History of Present Illness ED Provider: Sal Graves PA-C HPI Narrative: 83 yo female with history of asthma, anemia, afib on eliquis, CHF, DM2, diverticulitis, hx GI bleed in May 2024 due to duodenal ulcer who presents to the ER for evaluation of generalized weakness. She states her son called 911 today because she was weak and c/o left sided neck pain. She reports the beginning of last week she had flu-like symptoms and diarrhea. She reports her stools were dark. She had decreased PO intake last week. She woke up with left sided neck pain and stiffness in the muscle. It is worse with movement of her head to the left and with palpation. No chest pain, SOB, abdominal pain, jaw pain, localized weakness, numbness or tingling. No headaches. MD Complaint: generalized weakness Onset (ago): day(s) Duration: constant Location: generalized Migration: none Severity: moderate Relieving factors: rest Exacerbating factors: exertion Context: recent illness Associated symptoms: dark stools and myalgias Related Data Home Medications ?Medication ?Instructions ?Recorded ?Confirmed ascorbic acid (vitamin C) 500 mg 500 mg PO DAILY 05/10/24 05/10/24 tablet (Vitamin C) calcium carbonate 500 mg PO DAILY 05/10/24 05/10/24 [id number] 8 mg-folic 400 1 tab PO DAILY 05/10/24 05/10/24 mcg-K 50 mcg-lutein 300 mcg tablet (Centrum Silver Women) Previous Rx's ?Medication ?Instructions ?Recorded apixaban 5 mg tablet (Eliquis) 5 mg PO BID #60 tabs 05/19/24 empagliflozin 25 mg tablet 25 mg PO QAM #30 tabs 05/19/24 (Jardiance) furosemide 40 mg tablet 40 mg PO DAILY #30 tabs 05/19/24 gabapentin 100 mg capsule 100 mg PO TID #90 caps 05/19/24 insulin lispro 100 unit/mL See Protocol subcut QIDACHS #10 mL 05/19/24 subcutaneous solution (Admelog U-100 Insulin lispro) magnesium oxide 400 mg (241.3 mg 400 mg PO BIDPC #60 tabs 05/19/24 magnesium) tablet melatonin 3 mg tablet 6 mg (2 x 3 mg) PO BEDTIME PRN 05/19/24 Insomnia #30 tabs metoprolol tartrate 25 mg tablet 25 mg PO BID #60 tabs 05/19/24 omeprazole 40 mg capsule,delayed 40 mg PO BID@0630,1630 #60 caps 05/19/24 release spironolactone 25 mg tablet 12.5 mg PO BID@0900,1800 #60 tabs 05/19/24 trazodone 50 mg tablet 50 mg PO BEDTIME #30 tabs 05/19/24 Allergies Allergy/AdvReac Type Severity Reaction Status Date / Time No Known Allergies Allergy Verified 07/20/24 13:09 Review of Systems Review of Systems: Yes all other systems are reviewed and are negative [facility] Past Medical History Medical History Anemia Sigmoid diverticulitis Congestive heart failure Atrial fibrillation Fever of unknown origin Mild intermittent asthma Type 2 diabetes mellitus without complications Social History Social History Household Members: None Household Members Other:: nursing home Housing: Apartment Housing Other:: nursing home Do you presently have visiting nurse or other home services: Yes Comment: 1:1 sitter Patient Tobacco Use Status: Never used Tobacco Advance Directives: Yes Advance Directives on File: Yes Advance Directives Date on File: 05/20/24 service: No Physical Exam Vital Signs: Vital Signs: Last Vital Signs Temp 98.9 F 07/20/24 13:05 Pulse 84 07/20/24 13:05 Resp 16 07/20/24 13:05 BP 162/70 H 07/20/24 13:05 Pulse Ox 95 07/20/24 13:05 O2 Del Method Room Air 07/20/24 13:05 BMI result Body Mass Index 31.7 Appearance: Alert. Oriented X3. No acute distress. Head/face: normocephalic, atraumatic. left sided facial droop Eyes: Pupils equal, round and reactive to light. left sided exopthalamus. ENT: Pharynx normal. No tonsillar swelling or exudate. Neck: Normal inspection. Neck supple. CVS: Normal heart rate and rhythm. Pulses normal. Respiratory: No respiratory distress. Breath sounds normal. Abdomen: Soft and nontender. +BS x4 ERUM: light brown stool, heme negative Skin: Skin warm and dry. Normal skin color. Normal skin turgor. No rashes. Extremities: No lower extremity edema. No joint swelling. Neuro/psych: Oriented X 3. No motor deficit. No sensory deficit. inability to completely close left eye, able to wrinkle the forehead. Normal speech and cognition. NIH Stroke Scale Internal: Initial- Upon Arrival Level of Consciousness: Alert Level of Consciousness Questions: Answers both questions correctly Level of Consciousness Commands: Performs both tasks correctly Best Gaze: Normal Visual: No visual loss Facial Palsy: Partial paralysis Motor Arm (Right): No drift Motor Arm (Left): No drift Motor Leg (Right): No drift Motor Leg (Left): No drift Limb Ataxia: Absent Sensory: Normal Best Language: No aphasia Dysarthia: Normal Extinction and Inattention: No abnormality Score: 2 Medications Administered Discontinued Medications Generic Name Dose Route Start Last Admin Trade Name Freq PRN Reason Stop Dose Admin Acetaminophen 975 mg 07/20/24 14:26 07/20/24 14:46 Acetaminophen 325 Mg Tablet PO 07/20/24 14:27 975 mg ONCE ONE Administration Lidocaine 1 patch 07/20/24 14:26 07/20/24 14:44 Lidocaine 4 % Patch Adh..Patch TRANSDERMA 07/20/24 14:27 1 patch ONCE ONE Administration Protocol Medical Decision Making Medical Decision Making MDM Narrative: 83 yo female with history of asthma, anemia, afib on eliquis, CHF, DM2, diverticulitis, hx GI bleed in May 2024 due to duodenal ulcer who presents to the ER for evaluation of generalized weakness. She states her son called 911 today because she was weak and c/o left sided neck pain. hypertensive on arrival with BP 160/70. afebrile. EMS reports facial droop is chronic, patient denies. she is on eliquis. she is unable to state when her facial droop started. she has no focal weakness in her extremities. prior CT head showed lacunar infarcts, microangiopathy, encephlomalacia. will get repeat CT head today. ERUM showing heme negative stool, making acute blood loss anemia less likely to be the etiology for her weakness. lab workup showing stable anemia with hemoglobin 10. troponin negative. renal function improved from prior. CT head negative. she is feeling well. neck pain improved w/ tylenol and lidocaine patch, likely MSK pain. comfortable with discharge home. Differential Diagnosis Differential Diagnoses: The differential diagnosis associated with the presentation includes covid, flu, rsv, stroke, dehydration, LITA, GI bleed, anemia, MSK neck pain, low suspicion for carotid dissection Admission/Observation Consideration of admission/observation: Escalation of care including admission/observation considered Lab Data MDM Lab Attestation statement: I reviewed the patient's lab results. stable anemia 07/20/24 14:41 07/20/24 14:41 Labs: Lab Results 07/20/24 Range/Units 14:41 WBC 9.3 (4.8-10.8) X10*3/uL RBC 3.80 L (4.20-5.50) X10*6/uL Hgb 10.6 L (12.0-16.0) g/dl Hct 32.8 L (37.0-47.0) % MCV 86.3 (80.0-98.0) fL MCH 27.9 (27.0-33.0) pg MCHC 32.3 (31.0-35.0) g/dl RDW 13.3 (11.0-16.0) % Plt Count 367 (160-400) X10*3/uL MPV 8.9 L (9.4-12.3) fL Immature Gran % (Auto) 0.4 (0.0-0.4) % Neut % (Auto) 62.4 (45-73) % Lymph % (Auto) 27.1 (20-40) % [place] % (Auto) 7.1 (2-11) % Eos % (Auto) 2.2 (0-4) % Baso % (Auto) 0.8 (0-2) % Lymph # (Auto) 2.5 (1.2-4.9) X10*3/uL [place] # (Auto) 0.7 (0.1-1.2) X10*3/uL Eos # (Auto) 0.2 (0.0-0.4) X10*3/uL Baso # (Auto) 0.1 (0.0-0.2) X10*3/uL Abs Immat Gran (auto) 0.04 H (0.00-0.03) X10*3/uL Absolute Neuts (auto) 5.8 (2.0-8.3) x10*3/uL Absolute Nucleated RBC 0.000 (0.0-0.012) X10*3/uL Nucleated RBC % (auto) 0.0 (0.0-0.2) /100WBC Sodium 142 (135-145) mmol/L Potassium 3.9 (3.3-5.1) mmol/L Chloride 108 (96-108) mmol/L Carbon Dioxide 27 (22-29) mmol/L Anion Gap 11 L (12-20) BUN 14 (9-16) mg/dL Creatinine 0.80 (0.5-1.4) mg/dL Estim Creat Clear Calc 55.6 Estimated GFR > 60 Random Glucose 116 H (60-115) mg/dL Calcium 9.1 D (8.4-10.2) mg/dL Magnesium 1.5 L (1.6-2.6) mg/dL Total Bilirubin 0.2 (0.0-1.0) mg/dL Direct Bilirubin < 0.2 (0.0-0.5) mg/dL AST 15 (5-31) U/L ALT 13 (0-31) U/L Alkaline Phosphatase 49 (39-117) U/L Total Creatine Kinase 30 (26-140) U/L Troponin I High Sens 5.3 D (<3.5-17.0) ng/L B-Natriuretic Peptide 285 H (<100) pg/mL Total Protein 6.9 (6.5-8.0) g/dL Albumin 3.5 (3.5-5.0) g/dL Stool Occult Blood NEGATIVE (NEGATIVE) Influenza Type A (PCR) NEGATIVE (Negative) Influenza Type B (PCR) NEGATIVE (Negative) RSV RNA Qual (PCR) NEGATIVE (Negative) SARS-CoV-2 RNA (RT-PCR) NEGATIVE (Negative) Blood Type O Positive Antibody Screen POSITIVE Independent Interpretation I performed an independent interpretation of an: EKG and CT Scan Interpretation: CT head without acute bleed or edema ekg with normal sinus rhythm, hr 86 bpm, no change from prior, no st segment elevations or depressions Radiology Impression Discussion of test interpretation with radiology: I have reviewed the radiologist's reading. Independent Historian Clinical information obtained from an independent historian. History obtained from or confirmed by: EMS External Record Review External record reviewed: Inpatient record, Outpatient record, Prior outpatient labs and Prior outpatient radiology Prescription Management I considered prescription management with: Pain Medication Chronic Conditions Patient?s care impacted by: Diabetes, Hypertension and Other (afib) Critical Care Time Critical Care Time Critical Care Time: No Discharge Plan Discharge Clinical Impression: Weakness Cervical muscle strain Qualifiers: Encounter type: initial encounter Qualified Code(s): S16.1XXA - Strain of muscle, fascia and tendon at neck level, initial encounter Patient Disposition: Home, Self-Care Instructions: Weakness (ED), Cervical Strain (DC) Additional Instructions: your workup today was unremarkable and reassuring Your neck pain is most likely due to muscle strain and spasm. use warm compresses and gentle massage to help with pain Take tylenol as needed for pain Make sure you are eating and drinking well Follow up with your Primary Care Doctor as needed If you develop new or worsening symptoms call 911 or come back to the ER for further evaluation. Prescriptions: No Action ascorbic acid (vitamin C) [Vitamin C] 500 mg Tablet 500 mg PO DAILY Centrum Silver Women 8 mg iron-400 mcg-50 mcg Tablet 1 tab PO DAILY calcium carbonate 500 mg calcium (1,250 mg) Tablet 500 mg PO DAILY metoprolol tartrate 25 mg tablet 25 mg PO BID Qty: 60 0RF furosemide 40 mg Tablet 40 mg PO DAILY Qty: 30 0RF Protocol: Hold for SBP< HOLD for SBP < : 90 spironolactone 25 mg Tablet 12.5 mg PO BID@0900,1800 Qty: 60 0RF Protocol: Hold for SBP< HOLD for SBP < : 90 insulin lispro [Admelog U-100 Insulin lispro] 100 unit/mL Solution See Protocol subcut QIDACHS Qty: 10 0RF Protocol: Insulin Correction Scale Less than or equal to 110 ---- Give (units): 0 111 to 150 Give (units): 0 151 to 200 Give (units): 2 201 to 250 Give (units): 4 251 to 300 Give (units): 6 301 to 350 Give (units): 8 Greater than 350 Give (units): 10 Call MD if Blood Glucose > : 350 Rx Instructions: BG <111 0 units, 111-150 - 0 units, 151-200 2 units, 201-250 4 units, 251-300 6 units, 301-350 8 units, >350 10 units trazodone 50 mg Tablet 50 mg PO BEDTIME Qty: 30 0RF magnesium oxide 400 mg (241.3 mg magnesium) Tablet 400 mg PO BIDPC Qty: 60 0RF gabapentin 100 mg Capsule 100 mg PO TID Qty: 90 0RF omeprazole 40 mg Capsule,Delayed Release(Dr/Ec) 40 mg PO BID@0630,1630 Qty: 60 0RF melatonin 3 mg Tablet 6 mg PO BEDTIME PRN (Reason: Insomnia) Qty: 30 0RF Jardiance 25 mg tablet 25 mg PO QAM Qty: 30 0RF Eliquis 5 mg tablet 5 mg PO BID Qty: 60 0RF Print Language: Azerbaijani
[2024-07-20] MEDS: Lidocaine 4 % Patch ADH..PATCH 1 PATCH TRANSDERMA (14:44)
[2024-07-20] MEDS: Acetaminophen 325 MG TABLET 975 MG PO (14:46)
[2024-07-20 14:49] LABS: MANUAL DIFF FLAG NO
[2024-07-20 14:51] LABS: Basophils Absolute Auto 0.1 X10*3/uL (0.0-0.2); Basophils Percent Auto 0.8 % (0-2); Eosinophils Absolute Auto 0.2 X10*3/uL (0.0-0.4); Eosinophils Percent Auto 2.2 % (0-4); Hematocrit 32.8 % (37.0-47.0); Hemoglobin 10.6 g/dl (12.0-16.0); Imm Gran Abs Auto 0.04 X10*3/uL (0.00-0.03); Imm Gran Pct Auto 0.4 % (0.0-0.4); Lymphocytes Absolute Auto 2.5 X10*3/uL (1.2-4.9); Lymphocytes Percent Auto 27.1 % (20-40); Mean Corpuscular HGB Conc 32.3 g/dl (31.0-35.0); Mean Corpuscular Hemoglobin 27.9 pg (27.0-33.0); Mean Corpuscular Volume 86.3 fL (80.0-98.0); Mean Platelet Volume 8.9 fL (9.4-12.3); Monocytes Absolute Auto 0.7 X10*3/uL (0.1-1.2); Monocytes Percent Auto 7.1 % (2-11); Neutrophils Absolute Auto 5.8 x10*3/uL (2.0-8.3); Neutrophils Percent Auto 62.4 % (45-73); Platelet Count 367 X10*3/uL (160-400); Red Cell Distribution Width 13.3 % (11.0-16.0); White Blood Count 9.3 X10*3/uL (4.8-10.8)
[2024-07-20 14:53] LABS: OBS Int Ctl Valid YES; OBS1 NEGATIVE (NEGATIVE)
--- OUTSIDE RECORDS SUMMARY | 2024-07-20 14:58 | XMS_ITS ---
Author Organization [facility] Address [address] [place] [address] Care Team Providers Care Director Of Occupational Health Name Role Phone Chanelle Mauricio Primary Care Provider Unavailab Rajeev Frederick Jr Unavailable [phone] REASON FOR VISIT pathology Encounters Encounter Location Date Provider Diagnosis [facility] [address] [place] [address] [address] [place] [address] 05/18/2024 Rajeev Mora Jr PLAN OF TREATMENT Next Appt Details Provider Name:Rajeev aguilera Jr, 08/30/2024 10:20:00 AM, [address], [address], [place], [address],
--- OUTSIDE RECORDS SUMMARY | 2024-07-20 14:58 | XMS_ITS | Patient Health Record ---
Author Organization [facility] Address [address] [place] [id number] Care Team Providers Care Production Editor Name Role Phone Chanelle Mauricio Primary Care Provider Rajeev Casillas Jr Unavailable [phone] RESULTS Component Value Reference Range Notes Pathology Reviewed date:05/18/2024 04:03:18 PM Interpretation: Performing Lab:[facility], [address] [place] [id number] Notes/Report: REASON FOR REFERRAL No Information SOCIAL HISTORY Sex Assigned At : Social History Observation Description Sex Assigned At Unknown PROBLEMS Problem Type ICD Code Onset Dates Problem Status W/U Status Risk SNOMED Code Notes Problem 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 Duodenal ulcer without hemorrhage, without perforation AND without obstruction ([id number]) Encounters Encounter Location Date Provider Diagnosis [facility] Inpatient [address] [place] [id number] 05/12/2024 Rajeev Mora Jr [facility] [address] [place] [address] [place] [id number] 05/18/2024 Rajeev Mora Jr PLAN OF TREATMENT Next Appt Details Provider Name:Rajeev aguilera Jr, 08/30/2024 10:20:00 AM, [address] [place] [address], [address], [place], [address], Insurance Providers Payer Name Payer Address Payer Phone Subscriber Number Group Number Insured Name Patient Relationship to Insured Coverage Start Date Coverage End Date [facility] [address] [place] [address] [id number] ODESSA MURDOCK Self - patient is the insured
--- OUTSIDE RECORDS SUMMARY | 2024-07-20 14:58 | XMS_ITS | Data Portability ---
Author Organization [facility] [employer] [facility], Main Office Address [address] , [address] [place] [address] Care Team Providers Care Care Program Resident Name Role Phone [facility] OTHER Assessment No assessment recorded. Plan of Treatment Reminders Order Date Submit Date Provider Last Modified By Organization Details Last Modified Time Details Appointments None record ed. Lab None record ed. Referral None record ed. Procedures None record ed. Surgeries None record ed. Imaging None record ed. Medication Orders None record ed. Patient TargetsNo targets recorded. Patient InstructionsNo instructions recorded. Reason for Referral None Reported. Problems Name Problem SNOMED Code Status Onset Date Resolution Date Notes Provider Name and Address Organization Details Recorded Time Acute diastolic heart failure 859434063 Active 2023 Wisam Codrero [address] , [address], [place], [address], [facility] [facility] 4 07:35:33 Pneumonia 835703373 Active 2023 A_Rigoberto canales-Robert [address], [address], [place], [address], [facility] [facility] 4 07:35:42 Ulcer of duodenum 11060699 Active 2023 A_Dirka parker-Robert [address], [address], [place], [address], [facility] [facility] 4 07:35:51 Acute posthemorrhagi c anemia 654089416 Active 2023 A_Dirka parker-Robert [address], [address], [place], [address], [facility] [employer] [facility] 4 07:36:11 Hypokalemia 95722311 Active 2023 Wisam Cordero [address] , [address], [place], [address], [place] [facility] 4 07:36:18 Hypomagnesemia 525071375 Active 2023 Wisam Cordero [address], [address], [place], [address], [place] [facility] 4 07:36:25 Acute kidney injury 53911003 Active 2023 Wisam Cordero [address], [address], [place], [address], [place] [facility] 4 07:36:43 Atrial fibrillation 67869424 Active 2023 Wisam Cordero [address], [address], [place], [address], [place] [facility] 4 07:36:54 Type 2 diabetes mellitus 41452138 Active 2023 Wisam Cordero [address], [address], [place], [address], [place] [facility] 4 07:37:11 Mild intermittent asthma 449073445 Active 2023 Wisam Cordero [address], [address], [place], [address], [place] [facility] 4 07:37:21 Anxiety 78643750 Active 2023 Wisam Cordero [address], [address], [place], [address], [place] [facility] 4 07:37:34 Obesity 805032533 Active 2023 Wisam Coredro [address] , [address], [place], [address], [place] [facility] 4 07:37:38 Neuropathy 104679070 Active 2023 Wisam Cordero [address], [address], [place], [address], [place] [facility] 4 11:46:56 Moderate cognitive impairment 616730611 Active 2023 Oneliadericanand Gil [address], [address], [place], [address], [facility] 4 11:54:05 Problem Notes None recorded. Medical Equipment None Reported. Allergies No known drug allergies Medications Not known to be on any medication Vitals Date Recorded Body weight Body mass index (BMI) Body height Heart rate Respiratory rate Body temperature Oxygen saturation Oxygen saturation in Arterial blood by Pulse oximetry Systolic blood pressure Diastolic blood pressure Provider Name and Address Organization Details Last Updated DateTime 4 71982.1 5 g 30 kg/m2 157.48 cm 88 /min 18 /min 97.9 [degF] 90 % 90 % 128 mm[Hg] 72 mm[Hg] Lexy Short MD [address], [address], [place], [address], [facility] 4 22:15:57 Social History Question Answer Notes LastModified by Organizat ion Details LastModified Time Tobacco Smoking Status Never Smoker a little in HS. Lexy Short MD [address], [address], [place], [address], [facility] 05/22/2024 18:10:57 Do You Have An Advance Directive? Yes Information not available 05/20/2024 What Is Your Level Of Alcohol Consumption? Occasional Information not available 05/20/2024 How Many Times Per Week Do You Consume Alcohol? Less Than 1 Time Per Week Information not available 05/22/2024 What Is Your Code Status? Full Code Information not available 05/20/2024 Where Do You Live? Apartment Alone, Has Elevator Information not available 05/22/2024 Legal Guardian? No Informati on not available 05/22/2024 Do You Have A Medical Power Of General Superintendent? Yes Information not available 05/22/2024 What Was The Date Of Your Most Recent Tobacco Screening? 05/21/2024 Information not available 05/22/2024 Do You Have An Out Of Hospital DNR? No Information not available 05/20/2024 Have You Ever Been Counseled For Unhealthy Alcohol Use? No Information not available 05/22/2024 What Is Your Relationship Status? Information not available 05/22/2024 Do You Use Any Illicit Or Recreational Drugs? No Information not available 05/20/2024 Has Tobacco Cessation Counseling Been Provided? No N/a As Pt Is Non-smoker Information not available 05/22/2024 Do You Or Have You Ever Used Any Other Forms Of Tobacco Or Nicotine? No Information not available 05/22/2024 Sex: Unknown Functional Status None recorded. Mental Status None recorded. Family History Nothing Reported. Medical History No medical history recorded. Gynecological HistoryNo gynecological history recorded. Obstetrics History GPAL:G 0 P 0 0 0 0 Immunizations Vaccine Type Date Status Note Provider Nam e and Address Organization Details Recorded Time pneumococcal polysaccharide PPV23 6 completed [facility] 05/21/2024 11:20:25 SARS-COV-2 (COVID-19) vaccine, UNSPECIFIED 0 completed [facility] 05/21/2024 11:20:43 SARS-COV-2 (COVID-19) vaccine, UNSPECIFIED 1 completed [facility] 05/21/2024 11:20:53 SARS-COV-2 (COVID-19) vaccine, UNSPECIFIED 1 completed [facility] 05/21/2024 11:21:00 Past Encounters Encounter ID Performer Location Encounter Start Date Encounter Closed Date Diagnosis/Indication Diagnosis SNOMED-CT Code Diagnosis ICD10 Code Diagnosis Note [id number] Jagjit CARVER AT [address] [address] 05/20/2024 07:34:43 05/21/2024 11:24:02 Acute diastolic heart failure 611066184 I50.31 treated with lasix for CHF exacerbati on developing AKIcontinu e lasix 40mg qd and spironolac tone 12.5mg BIDmonitor resp and fluid status, labs & weights Acute kidney injury 1466 9001 N17.9 in setting CHF exacerbati onCr 1.4 on dischargem onitor BMP while on lasix Acute post hemorrhagic anemia 177357687 D62 secondary to duodenal ulcer on upper GI 05/12stabl e on recent labsantral bx's takens/p 2U PRBCsconti nue omeprazole BIDmonitor CBC weekly for progressiv e anemia Anxiety 46117316 F41.9 continue trazodone 50mg qhsmonitor mood and consult [facility] if needed Atrial fibrillation 4943 6004 I48.91 rate controlled continue metoprolol 25mg BID and eliquis 5mg BID (initially held for 1 week and restarted on d/c)monito r rate Hypokalemia 97826103 E87 .6 repleated in EDcheck on repeat labs Hypomagnesemia 171368087 E83.42 repleated in EDcontinue magox 400mg BIDcheck on repeat labs Mild inter mittent asthma 384308191 J45.20 no acute sxs Obesity 621850039 E66.9 BMI 30.2contin ue to encourage weight lossmonito r weights Pneumonia 101704050 J18. 9 concerns for hospital aquired PNAtreated with vanco and zosyn and transition ed to augmentin and doxycyclin e on 05/14encou rage incentive spirometer 10x q1h while awakemonit or for recurrent sxs Type 2 venancio betes mellitus 45507491 E11.9 maintain diabetic diet/cardi ac dietglipiz sarah d/c inpt and started on jardiance 25mg qdContinue sliding scale insulin w/mealsmon itor glucose fingerstic ks Ulcer of duodenum 387850 09 K26.9 as aboveantra l bx's takens/p 2U PRBCsconti nue omeprazole BID Insomnia 448540685 G47.0 0 continue melatonin 6mg qhs prnmonitor for disruption in sleep patterns Neuropathy 414902649 G62 .9 continue gabapentin 100mg TID [id number] MD LUBA SiddiquiLEY AT [address] [address] 05/21/2024 22:10:57 05/24/2024 15:28:24 Acute kidney injury 98494713 N17.8 Improved from inpt high of Cr. of 2.46, but baseline previously had been 0.9.Encour age po fluids, monitor labs.Carmencita montero have labs next week after d/c. Acute post hemorrhagic anemia 978227381 D62 Stable since here.Had 2U PRBCs inpt.Thoug ht due to duodenal ulcer, although no active bleeding when seen on EGD, and not seen at previous EGD.Tx ulcer as below.Cons ider adding iron.Monit or labs closely, will need f/u labs with VNA. Ulcer of duodenum 289253 09 K26.9 Bx neg for H. pylori or metaplasti c changes.Sh owed mild chronic inactive inflammati on.Continu e omeprazole 40 mg BIDF/U with GI as planned. Anxiety 47838802 F41.1 Mood good tonight.Co ntinue trazodone 50mg qhsMonitor mood.F/U as outpt. Atrial fibrillation 4943 6004 I48.0 Rate in good control on meds as above.Cont inue eliquis 5 mg BID for AC.Monitor HR and bleeding risk.Monit or for need to stop AC if recurrent bleeding. Hypokalemia 25213307 E87 .6 Resolved inpt.Monit or as on Lasix. Hypomagnesemia 712080295 E83.42 Repleted inpt.Filiberto nue mag ox 400mg BIDMonitor . Mild inter mittent asthma 644489616 J45.20 No recent sxs.Monito r Obesity 456969937 E66.9 Encourage healthy eating.Mon itor as outpt. Pneumonia 438340305 J16. 8 Completed tx inpt.Monit or resp status. Type 2 venancio betes mellitus 17384860 E11.9 Fastings good since here, but other sugars running >200.Last HgA1C was 8.0 in 3Con tinue jardiance 25 mg qd and SSIMonitor fingerstic ks TID and HgA1C as outpt. Insomnia 662791345 G47.0 0 Continue melatonin 6 mg qhs prnMonitor sleep patterns. Neuropathy 630196870 G62 .89 Continue gabapentin 100 mg TID and APAP 650 mg q 4 hrs prn.Monito r sxs. Acute on c hronic diastolic heart failure 066095427 I50.33 Now back to baseline.A ppears euvolemic. Continue lasix 40 mg qd, spironolac tone 12.5 mg BID, and metoprolol 25 mg BID.Appear s euvolemic. Monitor resp. status, fluid status, wts and labs. Upper gastrointestinal bleeding 92749587 K92.89 As above.Ondina tor stools for melena. [id number] Jagjit CARVER AT [address] [place] [address] 05/24/2024 07:35:41 05/25/2024 10:22:02 Acute on chronic diastolic heart failure 873237853 I50.33 Now back to baseline.A ppears euvolemic. Continue lasix 40 mg qd, spironolac tone 12.5 mg BID, and metoprolol 25 mg BID.Appear s euvolemic. Monitor resp. status, fluid status, wts and labs. Acute kidney injury 1466 9001 N17.8 Improved from inpt high of Cr. of 2.46, but baseline previously had been 0.9.Encour age po fluids, monitor labs.Shoul d have labs next week after d/c. Acute post hemorrhagic anemia 141347093 D62 Stable since here.Had 2U PRBCs inpt.Thoug ht due to duodenal ulcer, although no active bleeding when seen on EGD, and not seen at previous EGD.Tx ulcer as below.Cons ider adding iron.Monit or labs closely, will need f/u labs with VNA. Ulcer of duodenum 101454 09 K26.9 Bx neg for H. pylori or metaplasti c changes.Sh owed mild chronic inactive inflammati on.Continu e omeprazole 40 mg BIDF/U with GI as planned. Upper gastrointestinal bleeding 11183055 K92.89 As above.Ondina tor stools for melena. Anxiety 13539962 F41.1 Mood good tonight.Co ntinue trazodone 50mg qhsMonitor mood.F/U as outpt. Atrial fibrillation 4943 6004 I48.0 Rate in good control on meds as above.Cont inue eliquis 5 mg BID for AC.Monitor HR and bleeding risk.Monit or for need to stop AC if recurrent bleeding. Type 2 venancio betes mellitus 29081700 E11.9 Fastings good since here, but other sugars running >200.Last HgA1C was 8.0 in 3Con tinue jardiance 25 mg qd and SSIMonitor fingerstic ks TID and HgA1C as outpt. Hypokalemia 79236304 E87 .6 Resolved inpt.Monit or as on Lasix. Hypomagnesemia 365361704 E83.42 Repleted inpt.Filiberto nue mag ox 400mg BIDMonitor . Mild inter mittent asthma 603788557 J45.20 No recent sxs.Monito r Obesity 849056609 E66.9 Encourage healthy eating.Mon itor as outpt. Pneumonia 719971731 J16. 8 Completed tx inpt.Monit or resp status. Insomnia 946430627 G47.0 0 Continue melatonin 6 mg qhs prnMonitor sleep patterns. Neuropathy 101109758 G62 .89 Continue gabapentin 100 mg TID and APAP 650 mg q 4 hrs prn.Monito r sxs. Health Concerns Section Related Observation LastModified by Organization Detai ls LastModified Time None Recorded Concern Status LastModified by Organization Details LastModified Time None Recorded Advance Directives Directive Y: Payers Encounter Date Sequence Insurance Name Policy Number Policy Ellis Covered Member ID Ellis Member ID Guarantor Name 05/20/2024 1 [facility] (MEDICARE REPLACEMENT/A DVANTAGE - PPO) Merle Funk [id number] Merle Funk 05/21/2024 1 [facility] (MEDICARE REPLACEMENT/A DVANTAGE - PPO) Merle Funk [id number] Merle Funk 05/24/2024 1 [facility] (MEDICARE REPLACEMENT/A DVANTAGE - PPO) Merle Funk [id number] Merle Funk Notes Date Note Type Note Provider Name and Address Organization Details Recorded Time 4 text/html Patient is an 83 yo female with a past medical history significant for persistent AFib, CHF, type 2 diabetes (no meds, previously p.o.), and mild intermittent asthma who presented to the EDwith shortness of breath for the past 2 days. She reports lower extremity edema and some chest tightness. She was recently admitted from 04/25/2024 through 05/05/2024 for sepsis with fever of unknown origin, mild diverticulitis, possible right lower lobe pneumonia, LITA and anemia. H and H remained stable during her admission, iron studies were not consistent with iron-deficiency anemia, she was placed on Prilosec and recommended to follow up with GI outpatient. She is now reporting again melena. Recent hospitalization with limited information on hospital course. Will reach out to [facility] [place] better [place]c note She was noted with acute CHF exacerbation and possible hospital acquired PNABNP 557, CXR improving but persistant interstitial pulmonary edemamildly elevated WBC 11.9, no sepsis. Tachy secondary to untreated afib and tachypnea to pulmonary edemaTrop elevated but decreased on repeat, likely due to afib. No ST elevations on EKGprovided lasix 40mg and developed AKIstarted on vanco and zosyn possible PNApotassium/magnesium repleated in EDH+H trended down from last admission 7.8/23.7, 8.4/24.6 on discharges/p egd on 05/12/24 with large duodenal ulcer in bulb,no bleeding, antral bx's takens/p 2prbc ; h/h 10.6/32.5maintained on PPI Patient seen sitting in w/c in [facility]. She is pleasant and cooperative with care. She tells me she follows psychiatry Dr. raffaele Rodriguez in [place]. She has a lot of anxiety but feels good at the moment. She tells me she really needs her toenails cut but she is only planning on being here for 5 days because she has family tradition and has to make the calamari. She is independent with ambulation at home and feels better already BIMS 13 (initially 12 because she got day of the week wrong but gave her credit for knowing month, day and year)QUILES 35MOLST FULL CODE signed 05/19/24 A_Sara-Irineo vis [address], [address], [place], [address], [facility] [employer] 05/20/2024 11:55:09 4 text/html This is an 83 yo woman who is here for rehab after 2 recent hospitalizations first for sepsis and LITA and 2nd for Initially admitted [facility] 04/25-05/05.Per d/c summary:83-year-old female with a past medical history significant for type 2 diabetes on metformin and mild intermittent asthma whopresented to the ED with left lower extremity seizure-like activity, dizziness, nausea and vomiting,And diagnosed to have1.Sepsis secondary to mild sigmoid diverticulitis and possible right lower lobe pneumonia, patient underwent extensive testing since etiology of high fever was unclear with minimal abdominal pain, patient had no leukocytosis lactic acid was normal, UA unremarkable respiratory viral panel was negative blood culture showed no growth patient seen by infectious disease she agreed with treatment withIV Zosyn and doxycycline to cover for possible tick-borne illnessesCT brain was unremarkable, CT abdomen and pelvis raised concern for question foreign object in rectum however KUB showed no foreign body, patient denied history of abdominal surgery, seen by General surgery nothing was felt on rectal examination, fib patient finished course of antibiotics her nausea vomiting resolved currently tolerating regular diet during course of hospitalizationpatient developed dark black stools H&H dropped repeat hct remained stable, diarrhea likely related to antibiotics, C diff negative, stool guaiac positive, anemia multifactorial likely due to gastritis with use of steroids /nsaids, infection and due to LITA, H&H remained stable therefore will hold inpatient GI consult, iron studies not consistent with iron deficiency, patient placed on Prilosec recommend repeat CBC in 1 week, if H&H trends down recommend GI follow-up outpatient.2.LITA with acute metabolic acidosis noted during course of hospitalization likely multifactorial with infection seen by nephrology treated with IV bicarb drip, bicarb improved renal function gradually improving recommend outpatient follow-up with Nephrology3.DM II with hyperglycemia noted to have hyperglycemia likely due to steroids, now blood sugars improving recommend to discontinue metformin due to LITA and placed on low-dose glipizide 2.5 mg daily.4.Mild intermittent asthma with acute exacerbation treated with IV steroids and updraft, all symptoms resolved5.hypertension not on hypertensive at home placed on Norvasc 5 mg daily follow BP.6.Acute hypokalemia likely due to GI loss repleted, recommend BMP in 1 weekD/C to home on 05/05. Was unable to get VNA services as she had been d/c'd from PCP practice due to non-compliance. [facility] with SOB x 2 days and BLE edema. She reported a little cough and chills, but no fever.She was tachy to 100, but vitals were otherwise WNL.Per ED note: presents emergency department for evaluation ofshortness of breath, dyspnea on exertion getting progressively worse x2 days. She was also noticed swelling of her lower extremities which is new. She states she was had abdominal discomfort with loss of appetite. She denied fever but did have chills. She was an occasional cough. She denied chest pain. Vital signs revealed an elevated respiratory rate and elevated heart rate. Lung exam revealed rales at the bases and extremity exam revealed trace to 1+ pitting edema. Abdomen was nontender, rectal exam revealed brown stool which wasHemoccult negative.Differential diagnosis: Includes but is not limited to congestive heart failure, pneumonia, myocardial infarction, myocardial ischemia, fluid overload, anemia, electrolyte abnormalitiesPatient was initially treated with the following:Furosemide 40 mg IVCourse:20:07The patient's laboratory evaluation revealedlow H&H of 7.8 and 23.7 but this is declined progressively since her initial H&H from her recent admission on 04/25/2020 09/19/2012 when the H&H was 9 and 41.2. Patient also has a high BNP of 557. Troponin was elevated 62.5. Patient's Hemoccult stool exam was negative.Chest x-ray, my interpretation showedbilateral interstitial infiltrates with bilateral small pleural effusions consistent with pulmonary edema. Twelve EKG revealed atrial fibrillation, this was present on her previous admission. First troponin was elevated at 62.5, repeat troponin is pending. At this time I suspect the patient's CHF, anemia and peripheral edema is due to fluid overload secondary being treated for sepsis with large volumes of fluid. Patient was given furosemide 40 mg IV.Patient will need to be admitted for diuresis. I did discuss admission with the covering hospitalist, Dr. Hoff.21:30The patient hasmagnesium was low at 1.3. Potassium was also low at 3.1. Patient was ordered to get magnesium 1 g IV. She will also be given potassium 40 mEq orally. The patient's repeat troponin was lower than the initial troponin at 59.0 this is reassuring and suggests the patient did not have myocardial injury/infarction. She had an EGD and was found to have a large duodenal ulcer. But with no active bleeding. Per D/C summary (still in draft form): The patient presented with shortness of breath, and workup revealedAKI and acute on chronic heart failure. Heart failure was treated with IV Lasix, and she has achieved euvolemic status. Lasix is being converted to oral 40 mg daily.LITA on CKD likely due to cardiorenal syndrome. Creatinine is within her baseline, and nephrology will follow up on an outpatient basis.Vtach episode/torsades de pointes on 05/14/24, no further episodes.-Keep K around 4 and Mag around 2.? PNA, completed Abx.Hypokalemia/hypomagne semia, correctedwith supplementation.Anemia of acute blood loss - melena/microscopic hematuria.s/p EGD on 05/12/24: large duodenal ulcer in bulb, no bleeding, antral biopsies taken.s/p 2 PRBC.H/H 10.6/32.5.GI -continue PPI(prilosec 40 mg twice daily)AFIB - rate controlled. She has not been on anticoagulation, and in light of the anemia and GI bleeding, no anticoagulation was started. Following EGD, GI recommended holding anticoagulation for a week. I discussed the risks and benefits with the patient, including the risk of bleeding. She is agreeable to starting anticoagulation and therefore will start Eliquis 5 mg twice daily and will be closely monitored for signs of bleeding. Metoprolol for rate [id number] - diabetic diet/cardiac diet. Previously on glipizide, but that has been changed to sliding scale insulin.Mild intermittent asthma without acute exacerbation.-Albuterol PRN.Obesity-Weight loss encouraged.-BMI 30.2.Anxiety: PRN Ativan per psych, outpatient follow-up..She was transferred here on 05/19.She has done well with rehab and is independent with mobility.She is planning on d/c to home on 05/24 She tells me she will be having VNA and son is getting her set up for a new PCP. Her PMH includes Afib on Eliquis, CHF pEF, CKD stage 2 at baseline, UGI bleed with duodenal ulcer, anemia, AODM, neuropathy, asthma, anxiety and obesity. Lexy Short MD [address], [address], [place], [address], [facility] [employer] 05/22/2024 18:12:17 4 text/html This is an 83 yo woman who is being seen today for discharge summary visit here for rehab after 2 recent hospitalizations first for sepsis and LITA and 2nd for Initially admitted [facility] 04/25-05/05.Per d/c summary:83-year-old female with a past medical history significant for type 2 diabetes on metformin and mild intermittent asthma whopresented to the ED with left lower extremity seizure-like activity, dizziness, nausea and vomiting,And diagnosed to have1.Sepsis secondary to mild sigmoid diverticulitis and possible right lower lobe pneumonia, patient underwent extensive testing since etiology of high fever was unclear with minimal abdominal pain, patient had no leukocytosis lactic acid was normal, UA unremarkable respiratory viral panel was negative blood culture showed no growth patient seen by infectious disease she agreed with treatment withIV Zosyn and doxycycline to cover for possible tick-borne illnessesCT brain was unremarkable, CT abdomen and pelvis raised concern for question foreign object in rectum however KUB showed no foreign body, patient denied history of abdominal surgery, seen by General surgery nothing was felt on rectal examination, fib patient finished course of antibiotics her nausea vomiting resolved currently tolerating regular diet during course of hospitalizationpatient developed dark black stools H&H dropped repeat hct remained stable, diarrhea likely related to antibiotics, C diff negative, stool guaiac positive, anemia multifactorial likely due to gastritis with use of steroids /nsaids, infection and due to LITA, H&H remained stable therefore will hold inpatient GI consult, iron studies not consistent with iron deficiency, patient placed on Prilosec recommend repeat CBC in 1 week, if H&H trends down recommend GI follow-up outpatient.2.LITA with acute metabolic acidosis noted during course of hospitalization likely multifactorial with infection seen by nephrology treated with IV bicarb drip, bicarb improved renal function gradually improving recommend outpatient follow-up with Nephrology3.DM II with hyperglycemia noted to have hyperglycemia likely due to steroids, now blood sugars improving recommend to discontinue metformin due to LITA and placed on low-dose glipizide 2.5 mg daily.4.Mild intermittent asthma with acute exacerbation treated with IV steroids and updraft, all symptoms resolved5.hypertension not on hypertensive at home placed on Norvasc 5 mg daily follow BP.6.Acute hypokalemia likely due to GI loss repleted, recommend BMP in 1 weekD/C to home on 05/05. Was unable to get VNA services as she had been d/c'd from PCP practice due to non-compliance. [facility] with SOB x 2 days and BLE edema. She reported a little cough and chills, but no fever.She was tachy to 100, but vitals were otherwise WNL.Per ED note: presents emergency department for evaluation ofshortness of breath, dyspnea on exertion getting progressively worse x2 days. She was also noticed swelling of her lower extremities which is new. She states she was had abdominal discomfort with loss of appetite. She denied fever but did have chills. She was an occasional cough. She denied chest pain. Vital signs revealed an elevated respiratory rate and elevated heart rate. Lung exam revealed rales at the bases and extremity exam revealed trace to 1+ pitting edema. Abdomen was nontender, rectal exam revealed brown stool which wasHemoccult negative.Differential diagnosis: Includes but is not limited to congestive heart failure, pneumonia, myocardial infarction, myocardial ischemia, fluid overload, anemia, electrolyte abnormalitiesPatient was initially treated with the following:Furosemide 40 mg IVCourse:20:07The patient's laboratory evaluation revealedlow H&H of 7.8 and 23.7 but this is declined progressively since her initial H&H from her recent admission on 04/25/2020 09/19/2012 when the H&H was 9 and 41.2. Patient also has a high BNP of 557. Troponin was elevated 62.5. Patient's Hemoccult stool exam was negative.Chest x-ray, my interpretation showedbilateral interstitial infiltrates with bilateral small pleural effusions consistent with pulmonary edema. Twelve EKG revealed atrial fibrillation, this was present on her previous admission. First troponin was elevated at 62.5, repeat troponin is pending. At this time I suspect the patient's CHF, anemia and peripheral edema is due to fluid overload secondary being treated for sepsis with large volumes of fluid. Patient was given furosemide 40 mg IV.Patient will need to be admitted for diuresis. I did discuss admission with the covering hospitalist, Dr. Hoff.21:30The patient hasmagnesium was low at 1.3. Potassium was also low at 3.1. Patient was ordered to get magnesium 1 g IV. She will also be given potassium 40 mEq orally. The patient's repeat troponin was lower than the initial troponin at 59.0 this is reassuring and suggests the patient did not have myocardial injury/infarction. She had an EGD and was found to have a large duodenal ulcer. But with no active bleeding.Per D/C summary (still in draft form): The patient presented with shortness of breath, and workup revealedAKI and acute on chronic heart failure. Heart failure was treated with IV Lasix, and she has achieved euvolemic status. Lasix is being converted to oral 40 mg daily.LITA on CKD likely due to cardiorenal syndrome. Creatinine is within her baseline, and nephrology will follow up on an outpatient basis.Vtach episode/torsades de pointes on 05/14/24, no further episodes.-Keep K around 4 and Mag around 2.? PNA, completed Abx.Hypokalemia/hypomagne semia, correctedwith supplementation.Anemia of acute blood loss - melena/microscopic hematuria.s/p EGD on 05/12/24: large duodenal ulcer in bulb, no bleeding, antral biopsies taken.s/p 2 PRBC.H/H 10.6/32.5.GI -continue PPI(prilosec 40 mg twice daily)AFIB - rate controlled. She has not been on anticoagulation, and in light of the anemia and GI bleeding, no anticoagulation was started. Following EGD, GI recommended holding anticoagulation for a week. I discussed the risks and benefits with the patient, including the risk of bleeding. She is agreeable to starting anticoagulation and therefore will start Eliquis 5 mg twice daily and will be closely monitored for signs of bleeding. Metoprolol for rate [id number] - diabetic diet/cardiac diet. 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 [facility] [address], [address], [place], [address], [facility] [employer] 05/24/2024 09:42:59 OBGyn Episode No OBEpisode recorded.
--- OUTSIDE RECORDS SUMMARY | 2024-07-20 14:59 | XMS_ITS ---
Author Organization [facility] Address Unknown Allergies, Adverse Reactions, Alerts Substance Reaction Status Noted Date Resolved Date immunologic active 05/19/2024 Medications Medication Dose Frequency Directions Start Date End David e Insta-Glucose Gel 77.4 % 1 {Dose} Give 1 dose by mouth as needed for BG less than 70, Pt arousable conscious and able to swallow Hold all diabetic medications until provider authorizes resumption. Remain with pt. Keep pt.in bed/chair for safety. Repeat blood glucose in 15 min. 05/19/2024 Insta-Glucose Gel 77.4 % 1 {Dose} Give 1 dose by mouth as needed for BG less than 70, Pt arousable conscious and able to swallow If repeat blood glucose is below 70mg/dl and pt is arousable, conscious and able to swallow. Continue to hold all diabetic medications until provider authorizes resumption. Remain with pt. Keep pt.in bed/chair for safety. 05/19/2024 Glucagon Emergency Kit 1 MG 1 mg Inject 1 mg intramuscularly as needed for BG less than 70, Not arousable conscious or able to swallow Hold all diabetic meds until provider authorizes resumption, remain with pt.and keep in bed/chair for safety. Repeat blood glucose in 15 min 05/19/2024 Glucagon Emergency Kit 1 MG 1 mg Inject 1 mg intramuscularly as needed for BG less than 70, Not arousable conscious or able to swallow If repeat blood glucose is below 70mg/dl and pt is NOT arousable, conscious or able to swallow. Continue to hold all diabetic medications until provider authorizes resumption. Remain with pt. Keep pt. in bed/chair for safety. 05/19/2024 Acetaminophen Tablet 325 MG 2 {tbl} Give 2 tablet by denice th every 4 hours as needed for Mild Pain More than 3 doses in 48 hours, notify physician/advanced practice provider([facility]OMMER).Do not exceed 3g/day. (standing order) 05/19/2024 Acetaminophen Tablet 325 MG 2 {tbl} Give 2 tablet by denice th every 6 hours as needed for Temp 100F or above Notify Physician/Advanced Practice provider. Do not exceed 3g/day 05/19/2024 Milk of Magnesia Suspension 400 MG/5ML 30 mL Give 30 ml by mout h as needed for Constipation give at bedtime if no BM in 3 days 05/19/2024 Saline Laxative Enema 1 Insert 1 unit rectally as needed for Constipation if no result from Dulcolax within 2 hours. If no results from Saline laxative enema, call MD/advanced practice provider (SOMMER) for further orders. 05/19/2024 MiraLax Powder 17 Give 17 gram by mouth as needed for Constipation in 4 to 8 ounces of fluid-if resident has not had a bowel movement in past 72 hours. 05/19/2024 Dulcolax Suppository 10 MG 1 Insert 1 suppository rectally as needed for Constipation if no result from MOM Miralax by next shift 05/19/2024 Jardiance Oral Tablet 25 MG 1 {tbl} Give 1 tablet by denice th in the morning for dm 05/20/2024 Metoprolol Tartrate Oral Tablet 25 MG 1 {tbl} 12 h Give 1 tablet by denice th two times a day for htn 05/20/2024 Furosemide Tablet 40 MG 1 {tbl} 24 h Give 1 tablet by denice th one time a day for htn/edema Hold for SBP <90 05/20/2024 TraZODone HCl Tablet 50 MG 1 {tbl} Give 1 tablet by denice th at bedtime for insomnia 05/21/2024 Apixaban Oral Tablet 5 MG 1 {tbl} 12 h Give 1 tablet by denice th two times a day for anticoag 05/20/2024 Magnesium Oxide Tablet 400 MG 1 {tbl} 12 h Give 1 tablet by denice th two times a day for supplement 05/20/2024 Spironolactone Tablet 25 MG 0.5 {tbl} 12 h Give 0.5 tablet by mouth two times a day for hypertension 25mg give 1/2 tab =12.5mg po bid hold for sbp < 90 05/20/2024 Ascorbic Acid Tablet 500 MG 1 {tbl} 24 h Give 1 tablet by denice th one time a day for supplement 05/20/2024 Centrum Silver Tablet 1 {tbl} 24 h Give 1 tablet by mouth one time a day for vitamin supplement 05/20/2024 Calcium Carbonate Tablet Chewable 500 MG 2 {tbl} 24 h Give 2 tablet by denice th one time a day for antacid (1200mg)500 mg calcium 05/20/2024 Melatonin Oral Tablet 3 MG 2 {tbl} Give 2 tablet by denice th every 24 hours as needed for insomnia 2 tabs = 6mg po prn hs 05/20/2024 HumaLOG Solution 100 UNIT/ML Inject as per slidin g scale: if 0 - 150 = 0 units (If blood glucose is less than 70, call MD); 151 - 200 = 2 units; 201 - 250 = 4 units; 251 - 300 = 6 units; 301 - 350 = 8 units; 351+ = 10 units and (if blood glucose is greater than 400,call MD immediately for further instruction) , subcutaneously before meals and at bedtime for sliding scale insulin coverage for diabetes must take finger stick blood glucose prior to administration 05/20/2024 Omeprazole Oral Capsule Delayed Release 20 MG 2 {Capsule} 12 h Give [address] [facility] two times a day for acid reflux 05/20/2024 Gabapentin Capsule 100 MG 1 {Capsule} 8 h Give [address] [facility] three times a day for neuropathy /pain 05/20/2024 Naloxone HCl Liquid 4 MG/0.1ML 0.4 mg/mL 0.4 mg/ml Alternatin g nostrils every 2 minutes as needed for sign of opioid overdose Maybe repeated every two (2)to three(3)minutes for unresponsiveness or difficulty breathing,until individual is breathing (respiratory rate greater than 10)Initiate emergency medical response protocol (e.g.,[id number])and transfer to the hospital 05/20/2024 Sherrie-Tussin Oral Liquid 10 mL Give 10 ml by mouth every 4 hours as needed for Cough 05/22/2024 Medications Administered Medication Dose Frequency Status Start Date End Date Insta-Glucose Gel 77.4 % 1 {Dose} 05/19 Insta-Glucose Gel 77.4 % 1 {Dose} 05/19 Glucagon Emergency Kit 1 MG 1 mg 05/19/2024 Glucagon Emergency Kit 1 MG 1 mg 05/19/2024 Acetaminophen Tablet 325 MG 2 {tbl} 05/19/2024 Acetaminophen Tablet 325 MG 2 {tbl} 05/19/2024 Milk of Magnesia Suspension 400 MG/5ML 30 mL 05/19/2024 Saline Laxative Enema 1 05/19/20 MiraLax Powder 17 05/19/2024 Dulcolax Suppository 10 MG 1 Jardiance Oral Tablet 25 MG 1 {tbl} 05/24/2024 Metoprolol Tartrate Oral Tablet 25 MG 1 {tbl} 12 h Away from center 05/24/2024 Furosemide Tablet 40 MG 1 {tbl} 24 h 2023 TraZODone HCl Tablet 50 MG 1 {tbl} Away from [facility] 05/24/2024 Apixaban Oral Tablet 5 MG 1 {tbl} 12 h Away from [facility] 05/24/2024 Magnesium Oxide Tablet 400 MG 1 {tbl} 12 h Away from center 05/24/2024 Spironolactone Tablet 25 MG 0.5 {tbl} 12 h Away from [place] 05/24/2024 Ascorbic Acid Tablet 500 MG 1 {tbl} 24 h 05/24/2024 Centrum Silver Tablet 1 {tbl} 24 h 05/24/20 Calcium Carbonate Tablet Chewable 500 MG 2 {tbl} 24 h 05/24/2024 Melatonin Oral Tablet 3 MG 2 {tbl} HumaLOG Solution 100 UNIT/ML Away from [place] 05/24/2024 Omeprazole Oral Capsule Delayed Release 20 MG 2 {Capsule} 12 h Away from center 05/24/2024 Gabapentin Capsule 100 MG 1 {Capsule} 8 h Away from [facility] 05/24/2024 Naloxone HCl Liquid 4 MG/0.1ML 0.4 mg/mL 05/20/2024 Sherrie-Tussin Oral Liquid 10 mL 2023 Problems Problem Status Start Date End Date ACUTE DIASTOLIC (CONGESTIVE) HEART FAILURE (Primary) (I50.31 - ICD-10-CM) RESOLVED 05/19/2024 06/15/2024 PNEUMONIA, UNSPECIFIED ORGANISM (J18.9 - ICD-10-CM) RE SOLVED 05/19/2024 06/15/2024 DUODENAL ULCER, UNSPECIFIED ACUTE OR CHRONIC, WITHOUT HEMORRHAGE OR PERFORATION (K26.9 - ICD-10-CM) RESOLVED 202306/15/2024 ACUTE POSTHEMORRHAGIC ANEMIA (D62 - ICD-10-CM) RESOLVE D 05/19/2024 06/15/2024 HYPOKALEMIA (E87.6 - ICD-10-CM) RESOLVED 06/15/2024 HYPOMAGNESEMIA (E83.42 - ICD-10-CM) RESOLVED 05/1906/15/2024 ACUTE KIDNEY FAILURE, UNSPECIFIED (N17.9 - ICD-10-CM) RESOLVED 05/19/2024 06/15/2024 PERMANENT ATRIAL FIBRILLATION (I48.21 - ICD-10-CM) RES OLVED 05/19/2024 06/15/2024 TYPE 2 DIABETES MELLITUS WIT HOUT COMPLICATIONS (E11.9 - ICD-10-CM) RESOLVED 05/19/2024 06/15/2024 MILD INTERMITTENT ASTHMA, UN COMPLICATED (J45.20 - ICD-10-CM) RESOLVED 05/19/2024 06/15/2024 BODY MASS INDEX [BMI]30.0-30 .9, ADULT (Z68.30 - ICD-10-CM) RESOLVED 05/19/2024 06/15/2024 ANXIETY DISORDER, UNSPECIFIED (F41.9 - ICD-10-CM) RESO LVED 05/19/2024 06/15/2024 Encounters Encounter Performer Performer Role Encounter Diagnoses Location Date Discharge - Discharged / Transferred to home under care of organized home health service organization - [facility] - Private home/apt. with home health services [facility] 05/19/2024 07:02 pm EST - 05/24/2024 03:32 pm EST Advance Directives Directive Description Verification FULL CODE Cardiopulmonary Resuscitation Immunizations Vaccine Date TB 1 Step Mantoux (PPD) 05/19/2024 12:00 am EST Social History Vital Signs Vital Sign Reading Time Taken bloodSugar 155 mg/dL 05/24/2024 12:28 pm EST bloodSugar 122 mg/dL 05/24/2024 08:35 am EST bloodSugar 143 mg/dL 05/23/2024 10:00 pm EST bloodSugar 192 mg/dL 05/23/2024 05:22 pm EST bloodSugar 218 mg/dL 05/23/2024 12:41 pm EST bloodSugar 108 mg/dL 05/23/2024 08:51 am EST bloodSugar 220 mg/dL 05/22/2024 08:51 pm EST bloodSugar 255 mg/dL 05/22/2024 04:26 pm EST bloodSugar 261 mg/dL 05/22/2024 12:19 pm EST bloodSugar 118 mg/dL 05/22/2024 07:33 am EST oxygenSaturation 97 % 05/24/2024 10:5 4 am EST oxygenSaturation 96 % 05/23/2024 03:0 2 pm EST oxygenSaturation 98 % 05/23/2024 01:2 3 am EST oxygenSaturation 97 % 05/22/2024 11:5 1 am EST oxygenSaturation 93 % 05/22/2024 12:0 5 am EST heartrate 77 /min 05/24/2024 10:54 am EST heartrate 74 /min 05/23/2024 03:02 pm EST heartrate 83 /min 05/23/2024 01:23 am EST heartrate 78 /min 05/22/2024 11:51 am EST heartrate 80 /min 05/22/2024 07:44 am EST heartrate 85 /min 05/22/2024 12:05 am EST temperature 98.2 [degF] 05/24/2024 10:54 am EST temperature 97.8 [degF] 05/23/2024 03:02 pm EST temperature 97.8 [degF] 05/23/2024 01:23 am EST temperature 97.3 [degF] 05/22/2024 11:51 am EST temperature 97.8 [degF] 05/22/2024 07:44 am EST temperature 98 [degF] 05/22/2024 12:05 am EST respirations 18 /min 05/24/2024 10:54 am EST respirations 18 /min 05/23/2024 03:02 pm EST respirations 18 /min 05/23/2024 01:23 am EST respirations 18 /min 05/22/2024 11:51 am EST respirations 18 /min 05/22/2024 07:44 am EST respirations 18 /min 05/22/2024 12:05 am EST systolicValue 124 mm[Hg] 05/24/2024 10:33 am EST diastolicValue 62 mm[Hg] 05/24/2024 10:33 am EST systolicValue 124 mm[Hg] 05/24/2024 10:33 am EST diastolicValue 62 mm[Hg] 05/24/2024 10:33 am EST systolicValue 123 mm[Hg] 05/23/2024 07:26 pm EST diastolicValue 52 mm[Hg] 05/23/2024 07:26 pm EST systolicValue 121 mm[Hg] 05/23/2024 03:02 pm EST diastolicValue 56 mm[Hg] 05/23/2024 03:02 pm EST systolicValue 121 mm[Hg] 05/23/2024 10:26 am EST diastolicValue 56 mm[Hg] 05/23/2024 10:26 am EST systolicValue 121 mm[Hg] 05/23/2024 10:26 am EST diastolicValue 56 mm[Hg] 05/23/2024 10:26 am EST systolicValue 130 mm[Hg] 05/23/2024 01:23 am EST diastolicValue 64 mm[Hg] 05/23/2024 01:23 am EST systolicValue 128 mm[Hg] 05/22/2024 08:38 pm EST diastolicValue 60 mm[Hg] 05/22/2024 08:38 pm EST systolicValue 125 mm[Hg] 05/22/2024 03:31 pm EST diastolicValue 50 mm[Hg] 05/22/2024 03:31 pm EST systolicValue 125 mm[Hg] 05/22/2024 09:17 am EST diastolicValue 50 mm[Hg] 05/22/2024 09:17 am EST systolicValue 120 mm[Hg] 05/22/2024 12:05 am EST diastolicValue 67 mm[Hg] 05/22/2024 12:05 am EST painLevel 0 {score} 05/23/2024 11:48 pm EST painLevel 0 {score} 05/23/2024 10:00 pm EST painLevel 0 {score} 05/23/2024 10:00 pm EST painLevel 0 {score} 05/23/2024 02:12 pm EST painLevel 0 {score} 05/23/2024 01:08 am EST painLevel 0 {score} 05/21/2024 11:49 pm EST
--- OUTSIDE RECORDS SUMMARY | 2024-07-20 14:59 | XMS_ITS ---
Author Organization [facility] Address [address] [place] [address] Care Team Providers Care Kiln Drawer Name Role Phone RenettamandyChanelle Primary Care Provider Unavailab Rajeev Frederick Jr Unavailable REASON FOR VISIT anemia,black stool Encounters Encounter Location Date Provider Diagnosis [facility] Inpatient [address] [place] [address] [id number] 05/12/2024 Rajeev Mora Jr PLAN OF TREATMENT Next Appt Details Provider Name:Rajeev aguilera Jr, 08/30/2024 10:20:00 AM, [address], [address], [place], [address],
--- OUTSIDE RECORDS SUMMARY | 2024-07-20 14:59 | XMS_ITS | Clinical Summary ---
Author Organization [facility] Address [address] [place] [phone] Phone Care Team Providers Care Fha Underwriter Name Role Phone Unavailable Primary Care Provider Unavailabl e Encounters Date Type Department Care Team Description 05/04/2024 Orders Only [facility] [address] [place] [phone] Glen Majano MD from Last 3 Months Social History Tobacco Use Types Packs/Day Years Used Date Smoking Tobacco: Never Assessed Comments Unknown Sex and Gender Information Value Date Recorded Sex Assigned at Not on file Legal Sex Female 2:09 PM EST Gender Identity Not on file Sexual Orientation Not on file Plan of Treatment Upcoming Encounters Date Type Department Care Team (Late st Contact Info) Description 12/06/2024 4:00 PM EDT [facility] Visit [facility] [address] [place] [address] [place], [place] [address] [phone] Glen Majano MD [address] [phone] Health Maintenance Due Date Last Done Comments Pneumococcal Vaccine: 65+ Ye ars (1 of 1 - PCV) 08/21/2007 Influenza Vaccine (#1) 2024 Hepatitis B Vaccine Aged Out No longe r eligible based on patient's age to complete this topic Procedures Procedure Name Priority Date/Time Associated Diagnosis Comments ANCA SCREEN, TITER IF POSITIVE Routine 05/12/2024 6:09 AM EST GLOMERULAR BASEMENT MEMBRANE ANTIBODIES Routine 05/12/2024 6:09 AM EST PROTEIN,TOTAL,URINE Routine 05/12/2024 4 :18 AM EST ALBUMIN, URINE, RANDOM Routine 05/12/2024 4:18 AM EST URINALYSIS WITH MICROSCOPIC Routine 05/12/2024 4:18 AM EST HEPATITIS B AND C Routine 05/12/2024 12: 57 AM EST KAPPA/LAMBDA FREE LT CHAINS W/RATIO Routine 05/04/2024 6:54 AM EST ARTHUR W/REFLEX Routine 05/04/2024 6:54 AM EST ANCA SCREEN, TITER IF POSITIVE Routine 05/04/2024 6:54 AM EST from Last 3 Months Results * ANCA AB Scrn with titer (05/12/2024 6:09 AM EST) Only the most recent of2 resultswithin the time period is included. Myeloperoxidase Ab <1.0 AI S ee order comments Comment: ? Value ?Interpretation ? ----- ? <1.0 ? No Antibody Detected ? > or = 1.0 ?? Antibody Detected Autoantibodies to myeloperoxidase (MPO) are commonly associated with the following small-vessel vasculitides: microscopic polyangiitis, polyarteritis nodosa, Churg-Nayely syndrome, necrotizing and crescentic glomerulonephritis and occasionally granulomatosis with polyangiitis (GPA, Cole's). The perinuclear IFA pattern, (p-ANCA) is based largely on autoantibody to myeloperoxidase which serves as the primary antigen. These autoantibodies are present in active disease. Antiproteinase 3 (PA-3) Abs <1.0 AI See order comments Comment: ? Value ?Interpretation ? ----- ? <1.0 ? No Antibody Detected ? > or = 1.0 ?? Antibody Detected Autoantibodies to proteinase-3 (PA-3) are accepted as characteristic for granulomatosis with polyangiitis (GPA, Cole's), and are detectable in 95% of the histologically proven cases. The cytoplasmic IFA pattern, (c-ANCA), is based largely on autoantibody to PA-3 which serves as the primary antigen. These autoantibodies are present in active disease. THIS TEST WAS PERFORMED AT: [facility] [address] [place] [address] ??[phone] MAGI REYNOLDS MD 05/12/2024 6:09 AM EST 05/12/2024 6:09 AM EST Glen Majano MD LAB BLOOD ORDERABLES Final Re sult Performing Organization Address [facility] Phone Number FLOMOT See order comments [place] [address] * Glomerular Basement Membrane Antibodies (05/12/2024 6:09 AM EST) AGBM <1.0 AI See order comments Comment: ? Value ?Interpretation ? ----- ? <1.0 ? No Antibody Detected ? > or = 1.0 ?? Antibody Detected THIS TEST WAS PERFORMED AT: [facility] [address] [place] [address] ??[phone] MAGI REYNOLDS MD 05/12/2024 6:09 AM EST 05/12/2024 6:09 AM EST Glen Majano MD LAB BLOOD ORDERABLES Final Re sult Performing Organization Address [facility] de Phone Number FLOMOT See order comments [place] [address] * (ABNORMAL) Protein, Total, Urine (05/12/2024 4:18 AM EST) Protein Urine Random 125(H) <12 mg/dL See order comments 05/12/2024 4:18 AM EST 05/12/2024 4:18 AM EST Glen Majano MD LAB URINE ORDERABLES Final Re sul Performing Organization Address [facility] Phone Number FLOMOT See order comments [place] [address] * (ABNORMAL) Albumin, urine, random (05/12/2024 4:18 AM EST) Creatinine, Urine 29.94 mg/dL Se e order comments Urine Microalbumin 208.0 mg/L See order comments Microalbumin/Crea tinine Ratio 694.7(H) <30 ug/mg cr See order comments Comment: ?Albumin/Creatinine Ratio Reference Ranges: ?Normal: < 30 ug/mg creatinine ?Microalbuminuria: ??30 - 300 ug/mg creatinine Clinical Albuminuria: ??> 300 ug/mg creatinine 05/12/2024 4:18 AM EST 05/12/2024 4:18 AM EST Glen Majano MD LAB URINE ORDERABLES Final Re [facility] Performing Organization Address [facility] de Phone Number FLOMOT See order comments [place] [address] * (ABNORMAL) Urinalysis with microscopic (05/12/2024 4:18 AM EST) Color Urine Yellow See orde r comments Appearance Urine Clear See order comments pH Urine 6.5 5.0 - 9.0 See order comments Glucose Urine Negative Negative mg/dL See order comments Blood, Urine Negative Negative See ord er comments Specific [place] Urine 1.010 1.005 - 1.025 See order comments Protein Urine Trace Neg-Trace mg/dL See order comments Ketones, Urine Negative Negative mg/dL See order comments Nitrite, Urine Negative Negative See o rder comments Leukocyte Esterase Urine Small (1+)(A) Negative See order comments RBC, Urine 0-2 0 - 2 /HPF See orde r comments WBC 6-10(A) 0 - 5 /HPF See order comments Squamous Epithelial, Urine 0-2 0 - 2 /HPF See order comments Bacteria, Urine None Seen None Seen See order comments Hyaline Casts, Urine 0-2 0 - 2 /LPF See order comments 05/12/2024 4:18 AM EST 05/12/2024 4:18 AM EST us Glen Majano MD LAB URINE ORDERABLES Final Re sult Performing Organization Address [facility] de Phone Number FLOMOT See order comments [place] [address] * HEPATITIS B AND C (05/12/2024 12:57 AM EST) Hep B Surface Antibody REACTIVE Nonreactive See order comments Comment:REACTIVE: > 11.99 mI U/mL Hep B Core Total Ab Nonreactive Nonreactive See order comments Hepatitis C Antibody Nonreactive Nonreactive See order comments Comment: Antibodies to HCV not detected; does not exclude early acute HCV infection. Hep B Surface Antigen Negative Negative See order comments 05/12/2024 12:5 7 AM EST 05/12/2024 12:57 AM EST us Glen Majano MD LAB BLOOD ORDERABLES Final Re sult Performing Organization Address [facility] de Phone Number FLOMOT See order comments [place] [address] * ARTHUR W/Reflex (05/04/2024 6:54 AM EST) ATRHUR Screen NEGATIVE NEGATIVE See order comments Comment: ARTHUR IFA is a first line screen for detecting the presence of up to approximately 150 autoantibodies in various autoimmune diseases. A negative ARTHUR IFA result suggests an ARTHUR-associated autoimmune disease is not present at this time, but is not definitive. If there is high clinical suspicion for Sjogren's syndrome, testing for anti-SS-A/Ro antibody should be considered. Anti-Rachell-1 antibody should be considered for clinically suspected inflammatory myopathies. AC-0: Negative International Consensus on ARTHUR Patterns (https://doi.org/10.1515/hqbo-2856-9414) For additional information, please refer to http://education.[employer]/faq/LPG717 (This link is being provided for informational/ educational purposes only.) THIS TEST WAS PERFORMED AT: [facility] [address] [place] [address] ??[phone] MAGI REYNOLDS MD ARTHUR TNP See order comments ARTHUR Pattern TNP See orde r comments ARTHUR TITER 2 TNP See orde r comments ARTHUR Pattern 2 TNP See or brianda comments ARTHUR TITER 3 TNP See orde r comments ARTHUR Pattern 3 TNP See or brianda comments 05/04/2024 6:54 AM EST 05/04/2024 6:54 AM EST Narrative ORLIN - 05/06/2024 10:06 AM EST Pt asked to wait til am LATOUM Glen Majano MD LAB BLOOD ORDERABLES Final Re sult ORLIN See order comments [place] [address] * (ABNORMAL) Helix/Lambda free LT chains w/ratio, Serum (05/04/2024 6:54 AM EST) Helix Free Light Chain 27.4(A) 3.3 - 19.4 mg/L See order comments Lambda Free Light Chain 27.5(A) 5.7 - 26.3 mg/L See order comments Helix/Lambda LC Ratio 1.00 0.26 - 1.65 See order comments Comment: Free kappa/lambda ratio in serum of normal individuals is 0.26-1.65. Excess production of free kappa or lambda chains can alter this ratio. Monoclonal free light chains are found in serum of patients with multiple myeloma, Waldenstrom's macroglobulinemia, mu-heavy chain disease, primary amyloidosis, light chain deposition disease, monoclonal gammopathy of undetermined significance, and lymphoproliferative disorders. Measurement of free light chain concentration in serum is useful for diagnosis, prognosis, monitoring disease activity and following response to therapy of these disorders. THIS TEST WAS PERFORMED AT: [facility] [address] [place] [address] ??[phone] MAGI REYNOLDS MD 05/04/2024 6:54 AM EST 05/04/2024 6:54 AM EST iNk ORLIN - 05/06/2024 3:00 PM EST Pt asked to wait til am LATOUM us Glen Majano MD LAB BLOOD ORDERABLES Final Re sult ORLIN See order comments [place] [address] from Last 3 Months Insurance [facility] DUAL COMPLETE ([id number])
[2024-07-20 15:13] LABS: B Type Natriuretic Peptide 285 pg/mL (<100)
[2024-07-20 15:15] LABS: Alanine Aminotransferase 13 U/L (0-31); Albumin Level 3.5 g/dL (3.5-5.0); Anion Gap 11 (12-20); Aspartate Amino Transferase 15 U/L (5-31); Bilirubin Direct < 0.2 mg/dL (0.0-0.5); Bilirubin Total 0.2 mg/dL (0.0-1.0); Blood Urea Nitrogen 14 mg/dL (9-16); Calcium 9.1 mg/dL (8.4-10.2); Carbon Dioxide 27 mmol/L (22-29); Chloride 108 mmol/L (96-108); Creatinine Clr Calc Pharmacy 55.6; Estimated Glomerular Filt Rate > 60; Glucose Random 116 mg/dL (60-115); Magnesium 1.5 mg/dL (1.6-2.6); Potassium 3.9 mmol/L (3.3-5.1); Sodium 142 mmol/L (135-145); Total Protein 6.9 g/dL (6.5-8.0)
[2024-07-20 15:16] LABS: Troponin-I High Sensitivity 5.3 ng/L (<3.5-17.0)
[2024-07-20 15:29] LABS: Alkaline Phosphatase 49 U/L (39-117)
[2024-07-20 15:34] LABS: Influenza A PCR NEGATIVE (Negative); Influenza B PCR NEGATIVE (Negative); Resp Syncy Virus RNA Qual PCR NEGATIVE (Negative); SARS COV2 PCR INHOUSE NEGATIVE (Negative)
[2024-07-20 16:12] VITALS: BP 168/75; PULSE 87; RESP 20; TEMP 37.3; O2SAT 95
--- NOTE | 2024-07-20 16:26 | PC.NURSE ---
called pt son roman, advised pt ready for d/c - left message to call dept
[2024-07-20 16:33] LABS: Appearance Urine Clear; Color Urine Yellow; Glucose Urine UA Negative (Negative); Leukocyte Esterase Urine Negative (Negative); Nitrite Urine Negative (Negative); Specific Gravity - Urine 1.025 (1.005-1.025); UMIC TRIGGER UACC YES; Urine Blood Negative (Negative); Urine Ketones Trace mg/dL (Negative); Urine Protein 30 (1+) mg/dL (Neg-Trace)
[2024-07-20 16:35] LABS: Bacteria Urine None Seen (None Seen); Hyaline Casts Urine 0-2 /LPF (0-2); RBC Urine 0-2 /HPF (0-2); WBC Urine 0-5 /HPF (0-5)
--- NOTE | 2024-07-20 17:27 | PC.NURSE ---
spoke with pt claudio owens advised pt ready for DC -- pt sts he is unable to pick pt up as he is 'in a bad spot, i thought she was staying - t/w advised pt is safe for dc. Asked if there were any other contacts that could pick pt up. Son sts no, i thought they were going to bring her back . Charge notified
--- NOTE | 2024-07-20 18:31 | PC.NURSE ---
confirmed pt address [address] [facility]- son has been unable to locate alternative transport for pt- pt dc'd w/security
[2024-07-20 18:32] VITALS: BP 168/75; PULSE 87; RESP 20; TEMP 37.3; O2SAT 95
== END 2024-07-20 18:33 | disposition home or self-care (01) ==
PROVIDERS: Physician Assistant; Emergency Provider Emergency Medicine Emergency Medical Services
DX: R53.1 Weakness (principal); S16.1XXA Strain of muscle, fascia and tendon at neck level, initial encounter; X50.1XXA Overexertion from prolonged static or awkward postures, initial encounter; R29.810 Facial weakness; R29.702 NIHSS score 2; E11.9 Type 2 diabetes mellitus without complications; J45.909 Unspecified asthma, uncomplicated; I48.91 Unspecified atrial fibrillation; Z79.01 Long term (current) use of anticoagulants; Y93.84 Activity, sleeping; Y92.032 Bedroom in apartment as the place of occurrence of the external cause; Y99.9 Unspecified external cause status; Z03.818 Encounter for observation for suspected exposure to other biological agents ruled out
CPT/HCPCS: 0241U; 36415; 70450; 80048; 80076; 81001; 82272; 82550; 83735; 83880; 84484; 85025; 86850; 86870; 86900; 86901; 93005; 99284

== ENCOUNTER → 2024-07-20 13:41 | Outpatient (BNV) | payer OTHER, SELFPAY | PROVIDERS: Emergency Provider Emergency Medicine Emergency Medical Services; Visit Provider Internal Medicine | DX: R53.1 Weakness (principal); R94.31 Abnormal electrocardiogram [ECG] [EKG]; I42.2 Other hypertrophic cardiomyopathy | CPT/HCPCS: 93010 ==

== ENCOUNTER → 2024-07-20 13:48 | Outpatient (BNV) | payer OTHER, SELFPAY | PROVIDERS: Emergency Provider Emergency Medicine Emergency Medical Services; Visit Provider Radiology Diagnostic Radiology | DX: R29.810 Facial weakness (principal) | CPT/HCPCS: 70450 ==

== ENCOUNTER 2024-07-24 09:33 | Emergency (ER) | payer OTHER, SELFPAY ==
--- NOTE | ~2024-07-24 | CT_ITS ---
CLINICAL HISTORY: left facial palsy CT head without contrast Comparison: CT/MA/SR - CT HEAD/BRAIN WO IV CON - 07/20/24 15:[address]/MA/SR - CT HEAD/BRAIN WO IV CON - 04/27/24 15:06 EST Findings: No intra-axial mass, midline shift, hydrocephalus, or acute hemorrhage. 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 No clearly acute alteration in the saldivar-white matter interface. Age-appropriate involutional changes. No hydrocephalus. Basal cisterns are patent. Posterior fossa structures intact. Pituitary parasellar regions unremarkable. Stable right frontal osteoma. Included paranasal sinuses and mastoids clear. Skull intact. Bilateral cataract surgery. Otherwise globes, optic nerves, extraocular muscles and retrobulbar fat are unremarkable. Impression: No acute intracranial process or appreciable change from priors. This document has been electronically signed by: Ever Lira MD on 07/24/2024 12:51:28
[2024-07-24 09:39] VITALS: BP 140/62; PULSE 92; RESP 18; TEMP 36.7; O2SAT 96; BMI 30.4
--- NOTE | 2024-07-24 09:56 | ED_ITS ---
HPI - Neuro Symptoms/Deficit General Chief Complaint: Neuro Symptoms/Deficit Stated Complaint: L eye/jaw pain - L side weakness, facial droop Time Seen by Provider: 07/24/24 09:48 Source: patient Mode of arrival: ambulatory Limitations: no limitations History of Present Illness HPI Narrative: This is 83 years old the patient presented to the emergency department complaining of left facial droop and an inability to close of the left eye. Symptoms started a couple of days ago. Patient has history of atrial fibrillation on Eliquis, she has a history of diabetes, she has a history of congestive heart failure. She is ambulatory to the emergency department. She denies any weakness in the upper or lower extremity any problems with the speech Onset (ago): day(s) (2) Location: left face History of same: No Severity: moderate Quality: weak Exacerbating factors: none Associated symptoms: denies other symptoms Related Data Home Medications ?Medication ?Instructions ?Recorded ?Confirmed ascorbic acid (vitamin C) 500 mg 500 mg PO DAILY 05/10/24 05/10/24 tablet (Vitamin C) calcium carbonate 500 mg PO DAILY 05/10/24 05/10/24 mvkevtmg-[id number] 8 mg-folic 400 1 tab PO DAILY 05/10/24 05/10/24 mcg-K 50 mcg-lutein 300 mcg tablet (Centrum Silver Women) Previous Rx's ?Medication ?Instructions ?Recorded apixaban 5 mg tablet (Eliquis) 5 mg PO BID #60 tabs 05/19/24 empagliflozin 25 mg tablet 25 mg PO QAM #30 tabs 05/19/24 (Jardiance) furosemide 40 mg tablet 40 mg PO DAILY #30 tabs 05/19/24 gabapentin 100 mg capsule 100 mg PO TID #90 caps 05/19/24 insulin lispro 100 unit/mL See Protocol subcut QIDACHS #10 mL 05/19/24 subcutaneous solution (Admelog U-100 Insulin lispro) magnesium oxide 400 mg (241.3 mg 400 mg PO BIDPC #60 tabs 05/19/24 magnesium) tablet melatonin 3 mg tablet 6 mg (2 x 3 mg) PO BEDTIME PRN 05/19/24 Insomnia #30 tabs metoprolol tartrate 25 mg tablet 25 mg PO BID #60 tabs 05/19/24 omeprazole 40 mg capsule,delayed 40 mg PO BID@0630,1630 #60 caps 05/19/24 release spironolactone 25 mg tablet 12.5 mg PO BID@0900,1800 #60 tabs 05/19/24 trazodone 50 mg tablet 50 mg PO BEDTIME #30 tabs 05/19/24 prednisone 20 mg tablet 40 mg (2 x 20 mg) PO DAILY #10 tabs 07/24/24 Allergies Allergy/AdvReac Type Severity Reaction Status Date / Time No Known Allergies Allergy Verified 07/24/24 09:45 Review of Systems 2 Constitutional: Constitutional: Denies fever(s) ENT: Reports system reviewed and no additional complaints, except as documented Respiratory: Respiratory: Reports no additional respiratory complaints [facility] Past Medical History [facility] Narrative: CHF/AFib/anemia Medical History Anemia Sigmoid diverticulitis Congestive heart failure Atrial fibrillation Fever of unknown origin Mild intermittent asthma Type 2 diabetes mellitus without complications Social History Social History Household Members: None Household Members Other:: care home Housing: Apartment Housing Other:: care home Do you presently have visiting nurse or other home services: Yes Comment: 1:1 sitter Patient Tobacco Use Status: Never used Tobacco Advance Directives: Yes Advance Directives on File: Yes Advance Directives Date on File: 05/20/24 Do you have a plan to hurt others: No Plan service: No Physical Exam 2 Vital Signs: Vital Signs: Last Vital Signs Temp 98 F 07/24/24 13:30 Pulse 85 07/24/24 13:30 Resp 18 07/24/24 13:30 BP 169/79 H 07/24/24 13:30 Pulse Ox 93 07/24/24 13:30 O2 Del Method Room Air 07/24/24 13:30 BMI result Body Mass Index 30.4 She looks well she is not toxic-appearing Const: General: cooperative Orientation/consciousness: patient oriented x3 HEENT: Other: Left facial droop present left eye unable to close Head: Yes normal to inspection General nose exam: Normal external nose present Mouth: Normal oral and palatal mucosa present Neck: Neck: Yes normal visual inspection and Yes full ROM Resp: Effort & Inspection: normal respiratory effort Auscultation: clear to auscultation bilaterally Cardio: Jugular venous distension: no JVD Rhythm: abnormal rhythm GI: Inspection: Yes normal to inspection Palpation (GI): Soft to palpation, not firm and nontender Skin: General skin exam: elasticity normal Neuro: Other: To the adenoma left facial droop unable to close the left eye otherwise no other neuro deficits General: patient oriented x3 Medications Administered Discontinued Medications Generic Name Dose Route Start Last Admin Trade Name Ashley PRN Reason Stop Dose Admin Acetaminophen 650 mg 07/24/24 11:32 07/24/24 11:35 Acetaminophen 325 Mg Tablet PO 07/24/24 11:33 650 mg ONCE ONE Administration Prednisone 60 mg 07/24/24 12:56 07/24/24 13:07 Prednisone 20 Mg Tablet PO 07/24/24 12:57 60 mg ONCE ONE Administration Medical Decision Making Medical Decision Making [facility] Narrative: Patient presented with a facial droop we will obtain labs CT CT result negative, 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 She can be reasonably the charge on prednisone, she is comfortable with the plan of care, I told the she needs to watch his sugar because diabetic and now on prednisone. She will follow-up with the PCP Differential Diagnosis Differential Diagnoses: The differential diagnosis associated with the presentation includes Groves palsy/CVA Admission/Observation Consideration of admission/observation: Escalation of care including admission/observation considered Lab Data [facility] Lab Attestation statement: I reviewed the patient's lab results. 07/24/24 10:16 07/24/24 10:16 Labs: Lab Results 07/24/24 Range/Units 10:16 WBC 8.3 (4.8-10.8) X10*3/uL RBC 3.71 L (4.20-5.50) X10*6/uL Hgb 10.5 L (12.0-16.0) g/dl Hct 31.8 L (37.0-47.0) % MCV 85.7 (80.0-98.0) fL MCH 28.3 (27.0-33.0) pg MCHC 33.0 (31.0-35.0) g/dl RDW 13.4 (11.0-16.0) % Plt Count 293 (160-400) X10*3/uL MPV 8.7 L (9.4-12.3) fL Immature Gran % (Auto) 0.4 (0.0-0.4) % Neut % (Auto) 67.7 (45-73) % Lymph % (Auto) 22.7 (20-40) % [place] % (Auto) 7.2 (2-11) % Eos % (Auto) 1.3 (0-4) % Baso % (Auto) 0.7 (0-2) % Lymph # (Auto) 1.9 (1.2-4.9) X10*3/uL [place] # (Auto) 0.6 (0.1-1.2) X10*3/uL Eos # (Auto) 0.1 (0.0-0.4) X10*3/uL Baso # (Auto) 0.1 (0.0-0.2) X10*3/uL Abs Immat Gran (auto) 0.03 (0.00-0.03) X10*3/uL Absolute Neuts (auto) 5.6 (2.0-8.3) x10*3/uL Absolute Nucleated RBC 0.000 (0.0-0.012) X10*3/uL Nucleated RBC % (auto) 0.0 (0.0-0.2) /100WBC Sodium 142 (135-145) mmol/L Potassium 3.6 (3.3-5.1) mmol/L Chloride 110 H (96-108) mmol/L Carbon Dioxide 23 (22-29) mmol/L Anion Gap 13 (12-20) BUN 14 (9-16) mg/dL Creatinine 0.82 (0.5-1.4) mg/dL Estim Creat Clear Calc 51.2 Estimated GFR > 60 Random Glucose 146 H (60-115) mg/dL Calcium 9.2 (8.4-10.2) mg/dL Total Bilirubin 0.3 (0.0-1.0) mg/dL AST 20 (5-31) U/L ALT 11 (0-31) U/L Alkaline Phosphatase 44 (39-117) U/L Total Protein 6.7 (6.5-8.0) g/dL Albumin 3.5 (3.5-5.0) g/dL Independent Interpretation I performed an independent interpretation of an: CT Scan Interpretation: negative Radiology Impression Discussion of test interpretation with radiology: I have reviewed the radiologist's reading. Radiologist Impression: No intra-axial mass, midline shift, hydrocephalus, or acute hemorrhage. 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 No clearly acute alteration in the saldivar-white matter interface. Age-appropriate involutional changes. No hydrocephalus. Basal cisterns are patent. Posterior fossa structures intact. Pituitary parasellar regions unremarkable. Stable right frontal osteoma. Included paranasal sinuses and mastoids clear. Skull intact. Bilateral cataract surgery. Otherwise globes, optic nerves, extraocular muscles and retrobulbar fat are unremarkable. Impression: No acute intracranial process or appreciable change from priors. This document has been electronically signed by: Ever Lira MD on 07/24/2024 12:51:28 Dictated By: Ever Lira Chronic Conditions Patient?s care impacted by: Diabetes Discharge Plan Discharge Clinical Impression: Groves palsy Patient Disposition: Home, Self-Care Instructions: Groves Palsy (ED) Additional Instructions: You have a paralysis of the left facial nerve which is call groves palsy, usually is transient, usually is due to a virus, we will give you anti-inflammatory prednisone to take , please follow-up with your primary care physician call on Friday and make an appointment. Return to the emergency room if you are worse any concern. You could start the prednisone tomorrow we will give you the 1st dose in the emergency department, keep in mind that the prednisone can increase your blood sugar. Prescriptions: New prednisone 20 mg tablet 40 mg PO DAILY Qty: 10 0RF No Action ascorbic acid (vitamin C) [Vitamin C] 500 mg Tablet 500 mg PO DAILY Centrum Silver Women 8 mg iron-400 mcg-50 mcg Tablet 1 tab PO DAILY calcium carbonate 500 mg calcium (1,250 mg) Tablet 500 mg PO DAILY metoprolol tartrate 25 mg tablet 25 mg PO BID Qty: 60 0RF furosemide 40 mg Tablet 40 mg PO DAILY Qty: 30 0RF Protocol: Hold for SBP< HOLD for SBP < : 90 spironolactone 25 mg Tablet 12.5 mg PO BID@0900,1800 Qty: 60 0RF Protocol: Hold for SBP< HOLD for SBP < : 90 insulin lispro [Admelog U-100 Insulin lispro] 100 unit/mL Solution See Protocol subcut QIDACHS Qty: 10 0RF Protocol: Insulin Correction Scale Less than or equal to 110 ---- Give (units): 0 111 to 150 Give (units): 0 151 to 200 Give (units): 2 201 to 250 Give (units): 4 251 to 300 Give (units): 6 301 to 350 Give (units): 8 Greater than 350 Give (units): 10 Call MD if Blood Glucose > : 350 Rx Instructions: BG <111 0 units, 111-150 - 0 units, 151-200 2 units, 201-250 4 units, 251-300 6 units, 301-350 8 units, >350 10 units trazodone 50 mg Tablet 50 mg PO BEDTIME Qty: 30 0RF magnesium oxide 400 mg (241.3 mg magnesium) Tablet 400 mg PO BIDPC Qty: 60 0RF gabapentin 100 mg Capsule 100 mg PO TID Qty: 90 0RF omeprazole 40 mg Capsule,Delayed Release(Dr/Ec) 40 mg PO BID@0630,1630 Qty: 60 0RF melatonin 3 mg Tablet 6 mg PO BEDTIME PRN (Reason: Insomnia) Qty: 30 0RF Jardiance 25 mg tablet 25 mg PO QAM Qty: 30 0RF Eliquis 5 mg tablet 5 mg PO BID Qty: 60 0RF Referrals: Physician,None [Primary Care Provider] - 2 days Interventions: ED Discharge Assessment Last Done: 07/24/24 13:30 Discharge Date/Time: 07/24/24 13:31 Print Language: Mauritian
[2024-07-24 10:22] LABS: MANUAL DIFF FLAG NO
[2024-07-24 10:23] LABS: Basophils Absolute Auto 0.1 X10*3/uL (0.0-0.2); Basophils Percent Auto 0.7 % (0-2); Eosinophils Absolute Auto 0.1 X10*3/uL (0.0-0.4); Eosinophils Percent Auto 1.3 % (0-4); Hematocrit 31.8 % (37.0-47.0); Hemoglobin 10.5 g/dl (12.0-16.0); Imm Gran Abs Auto 0.03 X10*3/uL (0.00-0.03); Imm Gran Pct Auto 0.4 % (0.0-0.4); Lymphocytes Absolute Auto 1.9 X10*3/uL (1.2-4.9); Lymphocytes Percent Auto 22.7 % (20-40); Mean Corpuscular Hemoglobin 28.3 pg (27.0-33.0); Mean Corpuscular Volume 85.7 fL (80.0-98.0); Mean Platelet Volume 8.7 fL (9.4-12.3); Monocytes Absolute Auto 0.6 X10*3/uL (0.1-1.2); Monocytes Percent Auto 7.2 % (2-11); Neutrophils Absolute Auto 5.6 x10*3/uL (2.0-8.3); Neutrophils Percent Auto 67.7 % (45-73); Platelet Count 293 X10*3/uL (160-400); Red Blood Count 3.71 X10*6/uL (4.20-5.50); Red Cell Distribution Width 13.4 % (11.0-16.0); White Blood Count 8.3 X10*3/uL (4.8-10.8)
[2024-07-24 10:40] LABS: Alanine Aminotransferase 11 U/L (0-31); Albumin Level 3.5 g/dL (3.5-5.0); Alkaline Phosphatase 44 U/L (39-117); Anion Gap 13 (12-20); Aspartate Amino Transferase 20 U/L (5-31); Bilirubin Total 0.3 mg/dL (0.0-1.0); Blood Urea Nitrogen 14 mg/dL (9-16); Calcium 9.2 mg/dL (8.4-10.2); Carbon Dioxide 23 mmol/L (22-29); Chloride 110 mmol/L (96-108); Creatinine Clr Calc Pharmacy 51.2; Estimated Glomerular Filt Rate > 60; Glucose Random 146 mg/dL (60-115); Potassium 3.6 mmol/L (3.3-5.1); Sodium 142 mmol/L (135-145); Total Protein 6.7 g/dL (6.5-8.0)
[2024-07-24] MEDS: Acetaminophen 325 MG TABLET 650 MG PO (11:35)
[2024-07-24 12:52] VITALS: BP 169/79; PULSE 85; RESP 18; TEMP 36.6; O2SAT 93
[2024-07-24] MEDS: predniSONE 20 MG TABLET 60 MG PO (13:07)
[2024-07-24 13:30] VITALS: BP 169/79; PULSE 85; RESP 18; TEMP 36.6; O2SAT 93
== END 2024-07-24 13:31 | disposition home or self-care (01) ==
PROVIDERS: Emergency Provider Emergency Medicine
DX: G51.0 Bell's palsy (principal); E11.9 Type 2 diabetes mellitus without complications; I48.91 Unspecified atrial fibrillation; I50.9 Heart failure, unspecified; J45.909 Unspecified asthma, uncomplicated; Z79.01 Long term (current) use of anticoagulants; Z79.4 Long term (current) use of insulin; Z79.899 Other long term (current) drug therapy
CPT/HCPCS: 36415; 70450; 80053; 85025; 99284

== ENCOUNTER → 2024-07-24 09:54 | Outpatient (BNV) | payer OTHER, SELFPAY | PROVIDERS: Emergency Provider Emergency Medicine; Visit Provider Radiology Diagnostic Radiology | DX: G51.0 Bell's palsy (principal) | CPT/HCPCS: 70450 ==

== ENCOUNTER 2024-09-13 14:31 | Emergency (ER) | payer OTHER, SELFPAY ==
[2024-09-13 14:34] VITALS: BP 127/78; PULSE 116; RESP 19; TEMP 36.6; O2SAT 98; BMI 32.7
--- NOTE | 2024-09-13 14:51 | ECG_ITS ---
Test Reason : aw pain Blood Pressure : */* mmHG Vent. Rate : 94 BPM Atrial Rate : * BPM P-R Int : * ms QRS Dur : 128 ms QT Int : 394 ms P-R-T Axes : * -43 82 degrees QTcB Int : 492 ms Atrial fibrillation Left axis deviation Left ventricular hypertrophy with QRS widening ( R in aVL , Wilson product ) Abnormal ECG When compared with ECG of 20-Jul-2024 14:11, Atrial fibrillation has replaced Sinus rhythm Nonspecific T wave abnormality no longer evident in Inferior leads Referred By: Tata Shea Electronically Signed By: LUISITO BARRON MD
[2024-09-13 15:10] LABS: MANUAL DIFF FLAG NO
[2024-09-13 15:11] LABS: Basophils Percent Auto 0.5 % (0-2); Eosinophils Absolute Auto 0.1 X10*3/uL (0.0-0.4); Eosinophils Percent Auto 0.7 % (0-4); Hematocrit 35.6 % (37.0-47.0); Hemoglobin 11.4 g/dl (12.0-16.0); Imm Gran Abs Auto 0.01 X10*3/uL (0.00-0.03); Imm Gran Pct Auto 0.1 % (0.0-0.4); Lymphocytes Absolute Auto 1.8 X10*3/uL (1.2-4.9); Lymphocytes Percent Auto 22.9 % (20-40); Mean Corpuscular Hemoglobin 26.6 pg (27.0-33.0); Mean Platelet Volume 9.1 fL (9.4-12.3); Monocytes Absolute Auto 0.6 X10*3/uL (0.1-1.2); Neutrophils Absolute Auto 5.4 x10*3/uL (2.0-8.3); Neutrophils Percent Auto 67.8 % (45-73); Platelet Count 274 X10*3/uL (160-400); Red Blood Count 4.29 X10*6/uL (4.20-5.50); Red Cell Distribution Width 13.2 % (11.0-16.0)
[2024-09-13 15:33] LABS: Alanine Aminotransferase 7 U/L (0-31); Albumin Level 3.9 g/dL (3.5-5.0); Alkaline Phosphatase 47 U/L (39-117); Anion Gap 13 (12-20); Aspartate Amino Transferase 14 U/L (5-31); Bilirubin Total 0.3 mg/dL (0.0-1.0); Blood Urea Nitrogen 15 mg/dL (9-16); Calcium 9.5 mg/dL (8.4-10.2); Carbon Dioxide 25 mmol/L (22-29); Chloride 105 mmol/L (96-108); Creatinine Clr Calc Pharmacy 48.1; Estimated Glomerular Filt Rate > 60; Glucose Random 132 mg/dL (60-115); Magnesium 1.7 mg/dL (1.6-2.6); Sodium 139 mmol/L (135-145); Total Protein 7.1 g/dL (6.5-8.0)
[2024-09-13 21:55] VITALS: BP 148/82; PULSE 95; RESP 16; TEMP 37.4; O2SAT 99
--- NOTE | 2024-09-13 22:01 | PC.NURSE ---
pt retriaged @ 2200 pt reporting sore throat, ear popping, blurry vision, jaw pain, pt requesting covid test
--- OUTSIDE RECORDS SUMMARY | 2024-09-13 22:18 | XMS_ITS | Clinical Summary ---
Author Organization [facility] Address [address] [address] Phone Care Team Providers Care Professor Of Nursing Name Role Phone Unavailable Primary Care Provider Unavailabl e Social History Tobacco Use Types Packs/Day Years [...] Office Visit [facility] [address] [place], [place] [address] [id number] Glen Majano MD [address] [address] Health Maintenance Due Date Last Done Comments Pneumococcal Vaccine: 50+ Ye ars (1 of 1 - PCV) 1992 Influenza Vaccine (Season Ended) 2025 Hepatitis B Vaccine Aged Out No longe r eligible based on patient's age to complete this topic Insurance [facility] ([id number])
[2024-09-13 22:33] LABS: COVID-19 Test Negative (Negative); IDNOW Serial# 6674DD1D
--- NOTE | 2024-09-14 00:47 | ED_ITS ---
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 comes here as she feels her left eye is dry patient has already seen industrial organizational psychologist and advised to put tear drops does not have any PCP and can not follow up with any pcp that is why she came here again Related Data Home Medications ?Medication ?Instructions ?Recorded ?Confirmed ascorbic acid (vitamin C) 500 mg 500 mg PO DAILY 05/10/24 05/10/24 tablet (Vitamin C) calcium carbonate 500 mg PO DAILY 05/10/24 05/10/24 [id number]-[id number] 8 mg-folic 400 1 tab PO DAILY 05/10/24 05/10/24 mcg-K 50 mcg-lutein 300 mcg tablet (Centrum Silver Women) Previous Rx's ?Medication ?Instructions ?Recorded apixaban 5 mg tablet (Eliquis) 5 mg PO BID #60 tabs 05/19/24 empagliflozin 25 mg tablet 25 mg PO QAM #30 tabs 05/19/24 (Jardiance) furosemide 40 mg tablet 40 mg PO DAILY #30 tabs 05/19/24 gabapentin 100 mg capsule 100 mg PO TID #90 caps 05/19/24 insulin lispro 100 unit/mL See Protocol subcut QIDACHS #10 mL 05/19/24 subcutaneous solution (Admelog U-100 Insulin lispro) magnesium oxide 400 mg (241.3 mg 400 mg PO BIDPC #60 tabs 05/19/24 magnesium) tablet melatonin 3 mg tablet 6 mg (2 x 3 mg) PO BEDTIME PRN 05/19/24 Insomnia #30 tabs metoprolol tartrate 25 mg tablet 25 mg PO BID #60 tabs 05/19/24 omeprazole 40 mg capsule,delayed 40 mg PO BID@0630,1630 #60 caps 05/19/24 release spironolactone 25 mg tablet 12.5 mg PO BID@0900,1800 #60 tabs 05/19/24 trazodone 50 mg tablet 50 mg PO BEDTIME #30 tabs 05/19/24 prednisone 20 mg tablet 40 mg (2 x 20 mg) PO DAILY #10 tabs 07/24/24 white petrolatum-mineral oil 56.8 1 appl ophthalmic (eye) BEDTIME 09/14/24 %-42.5 % eye ointment (Refresh PRN dry eyes #3.5 grams Lacri-Lube) Allergies Allergy/AdvReac Type Severity Reaction Status Date / Time No Known Allergies Allergy Verified 09/13/24 14:38 Review of Systems 2 Review of Systems: Yes all other systems are reviewed and are negative FOR[facility]LY [facility] Past Medical History Medical History Anemia Sigmoid diverticulitis Congestive heart failure Atrial fibrillation Fever of unknown origin Mild intermittent asthma Type 2 diabetes mellitus without complications Social History Social History Household Members: None Household Members Other:: [facility] Housing: Apartment Housing Other:: [facility] Do you presently have visiting nurse or other home services: Yes Comment: 1:1 sitter Patient Tobacco Use Status: Never used Tobacco Advance Directives: Yes Advance Directives on File: Yes Advance Directives Date on File: 05/20/24 Do you have a plan to hurt others: No Plan service: No Physical Exam ED Vital Signs: Vital Signs - 24 hr 09/13/24 14:34 09/13/24 21:55 Temperature 98 F 99.4 F Pulse Rate 116 H 95 Respiratory Rate 19 16 Blood Pressure 127/78 148/82 H Pulse Oximetry 98 99 Oxygen Delivery Method Room Air BMI result Body Mass Index 32.7 Appearance: Alert. Oriented X3. No acute distress. Eyes: PERRLA, No Nystagmus ENT: Pharynx normal. Oral Mucosa moist Neck: Normal inspection. Neck supple. CVS: Normal heart rate and rhythm. Pulses normal. Respiratory: No respiratory distress. Equal air entry bilateral, no wheezing/rales/rhonchi Abdomen: Soft and nontender. Bowel sounds are present, no mass palpable, no CVA tenderness Skin: Skin warm and dry. Normal skin color. Normal skin turgor. Extremities: No lower extremity edema. No calf tenderness Neuro: Oriented X 3. No motor deficit. 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 09/13/24 15:01 09/13/24 15:01 Labs: Lab Results 09/13/24 09/13/24 Range/Units 15:01 22:14 WBC 8.0 (4.8-10.8) X10*3/uL RBC 4.29 (4.20-5.50) X10*6/uL Hgb 11.4 L (12.0-16.0) g/dl Hct 35.6 L (37.0-47.0) % MCV 83.0 (80.0-98.0) fL MCH 26.6 L (27.0-33.0) pg MCHC 32.0 (31.0-35.0) g/dl RDW 13.2 (11.0-16.0) % Plt Count 274 (160-400) X10*3/uL MPV 9.1 L (9.4-12.3) fL Immature Gran % (Auto) 0.1 (0.0-0.4) % Neut % (Auto) 67.8 (45-73) % Lymph % (Auto) 22.9 (20-40) % Wilkinson % (Auto) 8.0 (2-11) % Eos % (Auto) 0.7 (0-4) % Baso % (Auto) 0.5 (0-2) % Lymph # (Auto) 1.8 (1.2-4.9) X10*3/uL Wilkinson # (Auto) 0.6 (0.1-1.2) X10*3/uL Eos # (Auto) 0.1 (0.0-0.4) X10*3/uL Baso # (Auto) 0.0 (0.0-0.2) X10*3/uL Abs Immat Gran (auto) 0.01 (0.00-0.03) X10*3/uL Absolute Neuts (auto) 5.4 (2.0-8.3) x10*3/uL Absolute Nucleated RBC 0.000 (0.0-0.012) X10*3/uL Nucleated RBC % (auto) 0.0 (0.0-0.2) /100WBC Sodium 139 (135-145) mmol/L Potassium 4.0 (3.3-5.1) mmol/L Chloride 105 (96-108) mmol/L Carbon Dioxide 25 (22-29) mmol/L Anion Gap 13 (12-20) BUN 15 (9-16) mg/dL Creatinine 0.89 (0.5-1.4) mg/dL Estim Creat Clear Calc 48.1 Estimated GFR > 60 Random Glucose 132 H (60-115) mg/dL Calcium 9.5 (8.4-10.2) mg/dL Magnesium 1.7 (1.6-2.6) mg/dL Total Bilirubin 0.3 (0.0-1.0) mg/dL AST 14 (5-31) U/L ALT 7 (0-31) U/L Alkaline Phosphatase 47 (39-117) U/L Total Protein 7.1 (6.5-8.0) g/dL Albumin 3.9 (3.5-5.0) g/dL COVID-19 (TEREZA) Negative (Negative) COVID-19 Clin Com See Note Discharge Plan Discharge Clinical Impression: Left-sided Groves's palsy Patient Disposition: Home, Self-Care Instructions: Groves Palsy (ED) Additional Instructions: Use eye patch to protect your left eye applied tape in the night to close the eye Use tear drops and Lacri-Lube ointment as prescribed Do facial massages Follow with neurologist/PCP Prescriptions: New Refresh Lacri-Lube 56.8-42.5 % ointment 1 appl ophthalmic (eye) BEDTIME PRN (Reason: dry eyes) Qty: 3.5 0RF No Action ascorbic acid (vitamin C) [Vitamin C] 500 mg Tablet 500 mg PO DAILY Centrum Silver Women 8 mg iron-400 mcg-50 mcg Tablet 1 tab PO DAILY calcium carbonate 500 mg calcium (1,250 mg) Tablet 500 mg PO DAILY metoprolol tartrate 25 mg tablet 25 mg PO BID Qty: 60 0RF furosemide 40 mg Tablet 40 mg PO DAILY Qty: 30 0RF Protocol: Hold for SBP< HOLD for SBP < : 90 spironolactone 25 mg Tablet 12.5 mg PO BID@0900,1800 Qty: 60 0RF Protocol: Hold for SBP< HOLD for SBP < : 90 insulin lispro [Admelog U-100 Insulin lispro] 100 unit/mL Solution See Protocol subcut QIDACHS Qty: 10 0RF Protocol: Insulin Correction Scale Less than or equal to 110 ---- Give (units): 0 111 to 150 Give (units): 0 151 to 200 Give (units): 2 201 to 250 Give (units): 4 251 to 300 Give (units): 6 301 to 350 Give (units): 8 Greater than 350 Give (units): 10 Call MD if Blood Glucose > : 350 Rx Instructions: BG <111 0 units, 111-150 - 0 units, 151-200 2 units, 201-250 4 units, 251-300 6 units, 301-350 8 units, >350 10 units trazodone 50 mg Tablet 50 mg PO BEDTIME Qty: 30 0RF magnesium oxide 400 mg (241.3 mg magnesium) Tablet 400 mg PO BIDPC Qty: 60 0RF gabapentin 100 mg Capsule 100 mg PO TID Qty: 90 0RF omeprazole 40 mg Capsule,Delayed Release(Dr/Ec) 40 mg PO BID@0630,1630 Qty: 60 0RF melatonin 3 mg Tablet 6 mg PO BEDTIME PRN (Reason: Insomnia) Qty: 30 0RF Jardiance 25 mg tablet 25 mg PO QAM Qty: 30 0RF Eliquis 5 mg tablet 5 mg PO BID Qty: 60 0RF prednisone 20 mg tablet 40 mg PO DAILY Qty: 10 0RF Referrals: George Deleon MD [Physician] - 2 weeks Print Language: [place] Citizen
[2024-09-14 01:40] VITALS: BP 138/72; PULSE 85; RESP 16; TEMP 37.1; O2SAT 95
== END 2024-09-14 01:41 | disposition home or self-care (01) ==
PROVIDERS: Physician Assistant Medical; Emergency Provider Internal Medicine
DX: G51.0 Bell's palsy (principal); R94.31 Abnormal electrocardiogram [ECG] [EKG]; Z79.899 Other long term (current) drug therapy; Z11.52 Encounter for screening for COVID-19
CPT/HCPCS: 36415; 80053; 83735; 85025; 87635; 93005; 99283; 99284

== ENCOUNTER → 2024-09-13 14:51 | Outpatient (BNV) | payer OTHER, SELFPAY | PROVIDERS: Emergency Provider Internal Medicine; Visit Provider Internal Medicine Cardiovascular Disease | DX: I48.91 Unspecified atrial fibrillation (principal); I42.2 Other hypertrophic cardiomyopathy | CPT/HCPCS: 93010 ==